=== PATIENT | female | born 1990 | race Caucasian/White ===

== ENCOUNTER → 2020-12-08 16:52 | Outpatient (CLI) | payer MEDICAID, SELFPAY ==
[2020-12-08 17:53] LABS: Absolute Lymphocyte Count 1.19 X10^3/uL (0.83-4.51); Absolute Neutrophil Count 4.5 X10^3/uL (2.0-7.7); Basophil# 0.03 X10^3/uL; Basophil% 0.5 % (0-1); Eosinophil# 0.16 X10^3/uL; Eosinophils% 2.5 % (0-5); Hematocrit 28.6 % (37-47); Lymphocyte # 1.19 X10^3/ul (4.0); Lymphocyte % 18.9 % (19-41); Mean Corpuscular Hgb 17.8 pg (27.0-32.0); Mean Corpuscular Volume 63.7 fL (81-99); Monocyte# 0.43 X10^3/uL; Monocyte% 6.8 % (0-10); NRBC Flagged by Analyzer 0 % (0-5); Neutrophil # 4.47 X10^3/uL (2.7-7.7); Platelet Count 349 K/mm3 (150-450); RBC Distribution Width CV 18.9 % (11.6-14.6); RET-HE 19.8 pg (30-35); Red Blood Count 4.49 M/mm3 (4.2-5.4); Reticulocyte Count 1.35 % (0.5-1.5); White Blood Count 6.3 K/mm3 (4.4-11.0)
[2020-12-08 17:56] LABS: Microalbumin,Random Urine 8.8 mg/L (NO RANGE EST.); Microalbumin:Creatinine Ratio 9.9 mg/g CRE (<30 mg/g CRE)
[2020-12-08 18:38] LABS: Vitamin B12 634 pg/mL (211-911)
[2020-12-08 18:50] LABS: AST(SGOT) 19 U/L (15-37); Alanine Aminotransfer ALT/SGPT 25 U/L (13-56); Alkaline Phosphatase 60 U/L (45-117); Anion Gap 6 (5-15); BUN 9 mg/dL (7-18); BUN/Creat Ratio 15.5 RATIO (10-20); Calcium,Total 8.7 mg/dL (8.5-10.1); Chloride 107 mmol/L (98-107); Cholesterol 163 mg/dL (200); Creatinine, Serum 0.58 mg/dL (0.55-1.02); EST Glomerular Filtration Rate 129 mL/min (>60); Est Glom Filt Rate - Afr Amer 156 mL/min (>60); Ferritin 3 ng/mL (8-252); Glucose 84 mg/dL (74-106); High Density Lipoprotein 35 mg/dL; Iron 20 ug/dL (50-170); Iron Binding Capacity,Total 462 ug/dL (250-450); Potassium 4.1 mmol/L (3.5-5.1); Sodium Level 138 mmol/L (136-145); T4 Free Direct 1.28 ng/dL (0.76-1.46); Thyroid Stim Hormone (TSH) 1.51 uIU/mL (0.358-3.74); Triglycerides 122 mg/dL; Very Low Density Lipoprotein 24 mg/dL (5-40)
== END ==
PROVIDERS: Visit Provider Family Medicine
DX: D64.9 Anemia, unspecified (principal); E66.9 Obesity, unspecified
CPT/HCPCS: 80053; 80061; 82043; 82570; 82607; 82728; 82746; 83540; 83550; 84439; 84443; 85025; 85045

== ENCOUNTER → 2020-12-24 08:45 | Outpatient (CLI) | payer MEDICAID, SELFPAY ==
[2020-12-24 10:14] LABS: Absolute Lymphocyte Count 1.19 X10^3/uL (0.83-4.51); Absolute Neutrophil Count 3.9 X10^3/uL (2.0-7.7); Basophil# 0.03 X10^3/uL; Basophil% 0.5 % (0-1); Eosinophils% 3.4 % (0-5); Hematocrit 30.3 % (37-47); Hemoglobin 8.6 g/dL (12.0-15.0); Lymphocyte # 1.19 X10^3/ul (4.0); Lymphocyte % 20.4 % (19-41); Mean Corp Hgb Conc 28.4 g/dL (32-36); Mean Corpuscular Hgb 18.2 pg (27.0-32.0); Mean Corpuscular Volume 64.1 fL (81-99); Mean Platelet Vol. 10.6 fl (6.2-12.0); Monocyte# 0.52 X10^3/uL; Monocyte% 8.9 % (0-10); NRBC Flagged by Analyzer 0 % (0-5); Neutrophil # 3.87 X10^3/uL (2.7-7.7); Neutrophil % 66.5 % (47-70); Platelet Count 307 K/mm3 (150-450); RBC Distribution Width CV 18.7 % (11.6-14.6); RBC Distribution Width SD 42.6 fl (35.1-43.9); Red Blood Count 4.73 M/mm3 (4.2-5.4); White Blood Count 5.8 K/mm3 (4.4-11.0)
[2020-12-24 10:58] LABS: Ferritin 2 ng/mL (8-252); Iron 16 ug/dL (50-170); Iron Binding Capacity,Total 451 ug/dL (250-450)
== END ==
PROVIDERS: PCP Family Medicine; Referring Provider Family Medicine; Visit Provider Family Medicine
DX: D50.9 Iron deficiency anemia, unspecified (principal)
CPT/HCPCS: 36415; 82728; 83540; 83550; 85025

== ENCOUNTER → 2021-01-01 10:34 | Outpatient (CLI) | payer MEDICAID, SELFPAY ==
--- NOTE | 2021-01-01 10:39 | ECHOCS_ITS ---
Reason For Study: Murmur Procedure This was a 2D Doppler, Color Flow transthoracic echocardiogram. The study was technically difficult. Contrast injection was performed. Bubble study done twice, second time with cough. Exam performed in department. Left Ventricle Normal LV size. Left ventricular systolic function is normal. The estimated ejection fraction is 65 %. Normal diastology for age. No regional wall motion abnormalities noted. Right Ventricle Normal RV size. Normal systolic function. Atria Normal left atrium. Normal right atrium. Patent foramen ovale. Mitral Valve Normal mitral valve. Tricuspid Valve Normal tricuspid valve. Aortic Valve Normal aortic valve. Pulmonic Valve Normal pulmonic valve. Great Vessels Normal aortic root. The pulmonary artery is normal size. Normal inferior vena cava. Pericardium/Pleural No pericardial effusion. Medication 22 gauge I.V. with prn adaptor inserted into right arm. Diluted definity 2ml given slow IV push to enhance endocardial definition. Performed a rapid injection of agitated mix of 9 cc saline and 1cc air to assess for atrial septal defect. MMode/2D Measurements & Calculations LVIDd: 4.0 cm IVSd: 1.2 cm LA dimension: 4.1 cm LVIDs: 2.1 cm LVPWd: 1.2 cm RVDd: 3.6 cm FS: 47.1 % LAV(MOD-bp): 43.7 ml LA A4 area: 17.9 cm2 RA A4 area: 16.4 cm2 LAV(MOD-bp) Indexed: 24.4 ml/m2 LAV(MOD-sp2): 32.7 ml LAV(MOD-sp4): 50.1 ml Time Measurements MV dec time: 0.23 sec Doppler Measurements & Calculations MV E max woo: 110.8 cm/sec Lat Peak E' Woo: 17.2 cm/sec Med Peak E' Woo: 15.4 cm/sec MV A max woo: 96.5 cm/sec E/E' lat: 6.4 E/E' med: 7.2 MV E/A: 1.1 MV V2 max: 118.4 cm/sec MV P1/2t max woo: 118.4 cm/sec Ao V2 max: 152.2 cm/sec MV max P.6 mmHg MV P1/2t: 59.3 msec Ao max P.3 mmHg MV V2 mean: 70.9 cm/sec MV dec slope: 584.8 cm/sec2 MV mean P.4 mmHg MV V2 VTI: 28.3 cm MVA(P1/2t): 3.7 cm2 LV V1 max: 137.5 cm/sec PA V2 max: 183.0 cm/sec LV V1 max P.6 mmHg Interpretation Summary Normal LV size. Left ventricular systolic function is normal. The estimated ejection fraction is 65 %. Normal diastology for age. Patent foramen ovale. Structurally normal valves. Contrast injection was performed. Ordering Physician: Joe Coleman Referring Physician: Joe Coleman Performed By: Curtis Mejia RCS
== END ==
PROVIDERS: PCP Family Medicine; Visit Provider Family Medicine
DX: R01.1 Cardiac murmur, unspecified (principal)
CPT/HCPCS: 93306; Q9957; A4216; C8929

== ENCOUNTER → 2021-03-23 08:27 | Outpatient (CLI) | payer MEDICAID, SELFPAY ==
[2021-03-04 16:22] VITALS: BMI 39.9
[2021-03-23 10:21] LABS: Erythrocyte Sedimentation Rate 10 mm/hr (0-30)
[2021-03-23 10:24] LABS: Absolute Lymphocyte Count 1.59 X10^3/uL (0.83-4.51); Absolute Neutrophil Count 5.6 X10^3/uL (2.0-7.7); Basophil# 0.03 X10^3/uL; Basophil% 0.4 % (0-1); Eosinophil# 0.14 X10^3/uL; Eosinophils% 1.8 % (0-5); Hematocrit 40.3 % (37-47); Hemoglobin 13.1 g/dL (12.0-15.0); Lymphocyte # 1.59 X10^3/ul (0.83-4.51); Lymphocyte % 20.1 % (19-41); Mean Corp Hgb Conc 32.5 g/dL (32-36); Mean Corpuscular Hgb 25.2 pg (27.0-32.0); Mean Corpuscular Volume 77.5 fL (81-99); Mean Platelet Vol. 11.4 fl (6.2-12.0); Monocyte# 0.57 X10^3/uL; Monocyte% 7.2 % (0-10); NRBC Flagged by Analyzer 0 % (0-5); Neutrophil # 5.55 X10^3/uL (2.7-7.7); Neutrophil % 70.2 % (47-70); Platelet Count 308 K/mm3 (150-450); White Blood Count 7.9 K/mm3 (4.4-11.0)
[2021-03-23 10:57] LABS: ALB/GLOB Ratio 0.9 RATIO (0.9-2.4); AST(SGOT) 16 U/L (15-37); Alanine Aminotransfer ALT/SGPT 30 U/L (13-56); Albumin, Serum 3.7 g/dL (3.2-5.0); Alkaline Phosphatase 54 U/L (45-117); Anion Gap 5 (5-15); BUN 8 mg/dL (7-18); BUN/Creat Ratio 11.6 RATIO (10-20); Chloride 108 mmol/L (98-107); Creatinine, Serum 0.69 mg/dL (0.55-1.02); EST Glomerular Filtration Rate 105 mL/min (>60); Est Glom Filt Rate - Afr Amer 128 mL/min (>60); Ferritin 17 ng/mL (8-252); Glucose 91 mg/dL (74-106); Iron 55 ug/dL (50-170); Iron Binding Capacity,Total 349 ug/dL (250-450); Magnesium 2.2 mg/dL (1.6-2.6); Potassium 4.1 mmol/L (3.5-5.1); Protein, Total 7.7 g/dL (6.4-8.2); Rheumatoid Factor < 10.0 IU/mL (<15); Sodium Level 136 mmol/L (136-145)
[2021-03-24 16:46] LABS: ANTINUCLEAR ANTIBODIES DIRECT Negative (Negative)
== END ==
PROVIDERS: PCP Family Medicine; Referring Provider Family Medicine; Visit Provider Family Medicine
DX: M25.50 Pain in unspecified joint (principal); D50.9 Iron deficiency anemia, unspecified; R00.2 Palpitations
CPT/HCPCS: 36415; 80053; 82728; 83540; 83550; 83735; 85025; 85652; 86038; 86431

== ENCOUNTER → 2021-08-12 | Outpatient (CLI) | payer MEDICAID, SELFPAY | END | disposition home or self-care (01) | LOC: LABSPEC 11:12 | PROVIDERS: PCP Family Medicine; Referring Provider Physician Assistant; Visit Provider Physician Assistant | DX: Z11.52 Encounter for screening for COVID-19 (principal) | CPT/HCPCS: 87635; U0005; U0003 ==

== ENCOUNTER → 2021-10-21 15:47 | Outpatient (CLI) | payer MEDICAID, SELFPAY ==
--- NOTE | 2021-10-21 15:51 | RAD_ITS ---
STUDY: X-RAY - RIGHT KNEE REASON FOR EXAM: Female, 31 years old. Pain TECHNIQUE: 4 view(s) of the knee. COMPARISON: None. FINDINGS: Normal visualized distal femur. Normal visualized proximal tibia and fibula. Normal proximal tibiofibular articulation. Normal medial femorotibial compartment. Normal lateral femorotibial compartment. Slight lateral tilting of the patella with mild narrowing at the lateral patellofemoral articulation. The soft tissue structures are unremarkable. RAD/Knee 4 or More Views IMPRESSION: Slight lateral tilting of the patella with mild narrowing at the lateral patellofemoral articulation. Electronically Signed: Ang Aden DO at 16:12 EST Tel [phone], Service support ,
== END ==
PROVIDERS: PCP Family Medicine; Referring Provider Nurse Practitioner Family; Visit Provider Nurse Practitioner Family
DX: M25.561 Pain in right knee (principal)
CPT/HCPCS: 73564

== ENCOUNTER 2022-08-09 15:21 | Emergency (ER) | payer MEDICAID, SELFPAY ==
[2022-08-09 15:22] VITALS: BP 122/83; PULSE 80; RESP 14; TEMP 36.8; O2SAT 100; BMI 33.2
--- NOTE | 2022-08-09 15:47 | CT_ITS ---
We are attempting to reach an attending provider to discuss findings. An addendum with communication details will be sent when the communication is complete. CT of the left forearm with contrast INDICATION: Arm swelling, pain, erythema, warmth TECHNIQUE: Multiple thin section axial CT images of the left forearm were obtained from the level of the elbow through the level of the wrist after the administration of 100 mL Isovue-300 intravenously and filmed in soft tissue and bone windows. Furthermore, multiple sagittal and coronal reconstructions were performed. Dose limiting techniques were utilized. FINDINGS: No abnormal soft tissue mass, lymphadenopathy, or fluid collection. There is skin thickening and edema of the subcutaneous fat posterior medially consistent with cellulitis. There is a 1.2 cm area of fluid contiguous with the skin surface posterior medially overlying the distal olecranon worrisome for phlegmon. No definite abscess. There is a 2 cm segment of the left basilic vein within the mid forearm which does not demonstrate contrast enhancement worrisome for deep venous thrombosis. There is another 1 cm segment of the distal left basilic vein at the wrist which does not demonstrate contrast enhancement worrisome for deep venous thrombosis. No acute fracture or dislocation. No lytic or blastic lesions. CT/Extremity Upper WITH Contrast IMPRESSION: 1. Cellulitis in the posterior medial forearm with small phlegmon superficially at the level of the distal olecranon of the ulna. 2. 2. Areas of deep venous thrombosis above the left basilic vein in the forearm. Electronically Signed: Glenn Pulido MD at 17:44 EDT ,
--- NOTE | 2022-08-09 15:53 | EDS_ITS ---
HPI History of Present Illness Chief Complaint: Wound Detail of Chief Complaint: Left elbow abscess Informant: patient Onset/Context/Timing Onset: Days (3 days) Context: Gradual Onset Current Severity: Moderate Maximum Severity: Moderate Narrative Narrative: Patient presents with left elbow wound of the past 3 days. She states 2 days ago she first noted small area of drainage. She was seen at the [facility] emergency room. Blood work there revealed normal white count. CT scan revealed a fluid collection. She declined hospital admission. She was given IV antibiotics in the ER and discharged on clindamycin 150 3 times daily. She was seen by a orthopedic doctor in [place] yesterday. She states an ultrasound was performed and there was no fluid collection found to drain. She was seen by her PCP today and given IM Rocephin in the office and directed to the emergency room for further testing. Patient denies any known injury. She does have good range of motion at the elbow. [facility] Medical History Abnormal echocardiogram Anemia Patent foramen ovale SVT (supraventricular tachycardia) Home Medications Saccharomyces boulardii 250 mg capsule (Daily Probiotic (S. boulardii)) 250 mg PO DAILY 03/02/21 [History Last Taken Unknown] ferrous sulfate 325 mg (65 mg iron) tablet (Feosol) 325 mg PO DAILY 03/04/21 [History Last Taken Unknown] aspirin 81 mg tablet,delayed release (Adult Low Dose Aspirin) 81 mg PO DAILY 03/19/21 [History Last Taken Unknown] metoprolol succinate 50 mg tablet,extended release 24 hr 50 mg PO DAILY #30 tabs 03/02/22 [Rx Last Taken Unknown] apixaban 5 mg (74 tabs) tablets in a dose pack (Eliquis DVT-PE Treat 30D Start) 5 mg PO BID #74 tabs 08/09/22 [Rx Last Taken Unknown] cephalexin 500 mg capsule 500 mg PO Q6 #40 caps 08/09/22 [Rx Last Taken Unknown] hydrocodone-acetaminophen 5-325mg 5mg-325mg 1 tab PO Q6H PRN pain 3 days #10 tabs 08/09/22 [Rx Last Taken Unknown] sulfamethoxazole 800 mg-trimethoprim 160 mg tablet (Bactrim DS) 1 tab PO BID #20 tabs 08/09/22 [Rx Last Taken Unknown] Allergy/AdvReac Type Severity Reaction Status Date / Time adhesive tape Allergy Other Verified 08/09/22 15:35 Family History Grandmother Heart disease Surgical History H/O section History of cholecystectomy Social History Smoking Status: Current every day smoker tobacco type: cigarettes alcohol intake: current details: occasional substance use type: does not use caffeine: Yes Type: coffee Number of servings: 4 ROS ROS ED Constitutional Constitutional ED: Denies chills or fever(s) Eyes Eyes: Denies change in vision or discharge from eye(s) ENT ENT ED: Denies discharge from eye(s), rhinorrhea or sore throat Cardiovascular Cardiovascular: Denies chest pain or palpitations Respiratory/Chest Respiratory/Chest: Denies cough or dyspnea Gastrointestinal Gastrointestinal: Denies abdominal pain, diarrhea, nausea or vomiting Genitourinary Genitourinary ED: Denies difficulty urinating or dysuria Musculoskeletal Musculoskeletal: Reports extremity pain; Denies back pain Integumentary Reports other Details: Eschar extensor surface of left elbow ; Denies Abrasions or rash Neurologic Neurologic: Denies headache(s) or weakness Psychiatric Psychiatric: Denies anxiety or depression Allergic/Immunologic Allergic/Immunologic ED: Denies lip swelling or urticaria EXAM Physical Exam Const Vital Signs: 08/09/22 15:22 08/09/22 17:30 Temperature 98.2 F Temperature Source Temporal Pulse Rate 80 72 Respiratory Rate 14 18 Blood Pressure 122/83 H 139/77 H Blood Pressure Mean 96 97 Pulse Ox 100 99 Oxygen Delivery Method Room Air Room Air Positive well nourished and well developed General Appearance ED: well developed HEENT Reports normocephalic and head/scalp atraumatic Eyes PERRL and EOMs intact bilaterally Neck supple Chest Wall inspection of chest normal and palpation of chest normal Resp normal respiratory effort and clear to auscultation bilaterally Cardio regular rate and regular rhythm GI normal to inspection, nondistended, normoactive bowel sounds Palpation: soft Extremity Extremity Narrative: Eschar over the extensor surface of the left elbow. Surrounding erythema and edema. Good range of motion at the elbow. Strong distal pulses with strong hand grasp. Neuro oriented x3 and no sensory deficits noted Sensorium / Orientation: alert Motor Exam: strength 5/5 throughout Psych mental status grossly normal MDM MDM MDM Narrative Medical decision making narrative: Lab work sent along with blood cultures. CT scan of the left upper extremity obtained. Lab Data Labs: Laboratory Results - last 24 hr 08/09/22 08/09/22 08/09/22 16:10 16:10 16:10 WBC 8.6 RBC 4.56 Hgb 12.5 Hct 38.4 MCV 84.2 MCH 27.4 MCHC 32.6 RDW Std Deviation 40.8 RDW Coeff of Nan 13.2 Plt Count 259 MPV 11.1 Immature Gran % (Auto) 0.400 Neut % (Auto) 70.7 H Lymph % (Auto) 18.3 L Dent % (Auto) 9.1 Eos % (Auto) 1.1 Baso % (Auto) 0.4 Absolute Neuts (auto) 6.1 Absolute Lymphs (auto) 1.57 Nucleated RBC % 0 Sodium 139 Potassium 4.1 Chloride 105 Carbon Dioxide 28.0 Anion Gap 6 BUN 8 Creatinine 0.64 Estim Creat Clear Calc 140.14 Est GFR (MDRD) Af Amer 140 Est GFR (MDRD) Non-Af 115 BUN/Creatinine Ratio 12.6 Glucose 88 Calcium 9.4 Serum , Qual NEGATIVE Radiography Diagnostic Testing: Clinical Impression(s) from Imaging Studies Upper Extremity CT 08/09/22 15:47 IMPRESSION: 1. Cellulitis in the posterior medial forearm with small phlegmon superficially at the level of the distal olecranon of the ulna. 2. 2. Areas of deep venous thrombosis above the left basilic vein in the forearm. Electronically Signed: Glenn Pulido MD at 17:44 EDT , ADDENDUM: 08/09/22 2393 IMPRESSION: 1. Cellulitis in the posterior medial forearm with small phlegmon superficially at the level of the distal olecranon of the ulna. 2. 2. Areas of deep venous thrombosis above the left basilic vein in the forearm. N.B. : The above Results were Read Back by Glenn Pulido MD to Dr. Eneida Ash MD, and understanding confirmed on 08/09/2022 17:48:03 (ET). Electronically Signed: Glenn Pulido MD at 17:44 EDT , Treatment and Re-Evaluation Narrative: Lab work is unremarkable. CT scan shows cellulitis and a small phlegmon. There are 2 DVTs noted in the forearm. Patient was given a dose of Toradol and a small dose of morphine for pain. Test results discussed with Dr. Alarcon, on- call for orthopedics as well as Dr. Parekh, on-call for PCP. Patient be switched to Bactrim and Keflex for proper antibiotic coverage. She will also be started on Eliquis secondary to the DVTs. I will write her a short course of [place] to help with pain control. Discharge Plan Triage Chief Complaint: Wound ED Provider: Eneida Ash Dx/Rx/DC Orders Clinical Impression: Cellulitis, Phlegmon, DVT (deep venous thrombosis) Instructions: ED Cellulitis, ED Deep Vein Thrombosis (DVT) Prescriptions: New sulfamethoxazole-trimethoprim [Bactrim DS] 800-160 mg tablet 1 tab PO BID Qty: 20 0RF cephalexin 500 mg capsule 500 mg PO Q6 Qty: 40 0RF Eliquis DVT-PE Treat 30D Start 5 mg (74 tabs) tablets,dose pack 5 mg PO BID Qty: 74 0RF hydrocodone-acetaminophen 5-325 mg tablet 1 tab PO Q6H PRN (Reason: pain) 3 Days Qty: 10 0RF No Action ferrous sulfate [Feosol] 325 mg (65 mg iron) tablet 325 mg PO DAILY Saccharomyces boulardii [Daily Probiotic (S. boulardii)] 250 mg capsule 250 mg PO DAILY aspirin [Adult Low Dose Aspirin] 81 mg tablet,delayed release (DR/EC) 81 mg PO DAILY metoprolol succinate 50 mg tablet extended release 24 hr 50 mg PO DAILY Qty: 30 12RF Primary Care Provider: Joe Coleman Referrals: Joe Coleman MD [Primary Care Provider] - 1 Week Papa Alarcon DO [Med Staff - Active Staff] - 3-5 Days Disposition Disposition: Home, Self Care
[2022-08-09] MEDS: 0.9% Normal Saline 1,000 ML 150 ML IV (16:11)
[2022-08-09 16:32] LABS: Absolute Lymphocyte Count 1.57 X10^3/uL (0.83-4.51); Absolute Neutrophil Count 6.1 X10^3/uL (2.0-7.7); Basophil# 0.03 X10^3/uL; Basophil% 0.4 % (0-1); Eosinophil# 0.09 X10^3/uL; Eosinophils% 1.1 % (0-5); Hematocrit 38.4 % (37-47); Hemoglobin 12.5 g/dL (12.0-15.0); Lymphocyte # 1.57 X10^3/ul (0.83-4.51); Lymphocyte % 18.3 % (19-41); Mean Corp Hgb Conc 32.6 g/dL (32-36); Mean Corpuscular Hgb 27.4 pg (27.0-32.0); Mean Corpuscular Volume 84.2 fL (81-99); Mean Platelet Vol. 11.1 fl (6.2-12.0); Monocyte# 0.78 X10^3/uL; Monocyte% 9.1 % (0-10); NRBC Flagged by Analyzer 0 % (0-5); Neutrophil # 6.06 X10^3/uL (2.7-7.7); Neutrophil % 70.7 % (47-70); Platelet Count 259 K/mm3 (150-450); RBC Distribution Width CV 13.2 % (11.6-14.6); RBC Distribution Width SD 40.8 fl (35.1-43.9); Red Blood Count 4.56 M/mm3 (4.2-5.4); White Blood Count 8.6 K/mm3 (4.4-11.0)
[2022-08-09 16:56] LABS: Internal QC Validated? YES +Cl - CLEAR BKGD; Pregnancy, Serum, hCG Quali. NEGATIVE Negative
[2022-08-09 17:02] LABS: Anion Gap 6 (5-15); BUN 8 mg/dL (7-18); BUN/Creat Ratio 12.6 RATIO (10-20); Calcium,Total 9.4 mg/dL (8.5-10.1); Chloride 105 mmol/L (98-107); Creatinine, Serum 0.64 mg/dL (0.55-1.02); EST Glomerular Filtration Rate 115 mL/min (>60); Est Glom Filt Rate - Afr Amer 140 mL/min (>60); Estimated Creatinine Clearance 140.14 ml/min; Glucose 88 mg/dL (74-106); Potassium 4.1 mmol/L (3.5-5.1); Sodium Level 139 mmol/L (136-145)
[2022-08-09 17:30] VITALS: BP 139/77; PULSE 72; RESP 18; O2SAT 99
[2022-08-09] MEDS: Ketorolac 30 MG/ML Syringe IV (17:50)
[2022-08-09] MEDS: HYDROcodone Bitartrate/Apap 5/325 Tablet PO (18:43)
[2022-08-09] MEDS: Cephalexin 250 MG Capsule 500 MG PO (18:43)
[2022-08-09] MEDS: Smz/Tmp Ds Tablet 1 TABLET PO (18:43)
[2022-08-09 18:44] VITALS: BP 144/96; PULSE 80; RESP 18; O2SAT 99
== END 2022-08-09 19:02 | disposition home or self-care (01) ==
PROVIDERS: Emergency Provider Emergency Medicine; PCP Family Medicine; Visit Provider Emergency Medicine
DX: L02.414 Cutaneous abscess of left upper limb (principal); I82.622 Acute embolism and thrombosis of deep veins of left upper extremity; L03.90 Cellulitis, unspecified; F17.210 Nicotine dependence, cigarettes, uncomplicated; Z79.82 Long term (current) use of aspirin
CPT/HCPCS: 36415; 73201; 80048; 84703; 85025; 87040; 96361; 96374; 96375; 99283; J7030; Q9967; A4216

== ENCOUNTER 2022-09-07 09:15 | Outpatient (RCR) | payer MEDICAID, SELFPAY ==
[2022-08-17 09:06] VITALS: BP 118/72; PULSE 77; RESP 16; TEMP 36.3; BMI 33.5
--- NOTE | 2022-08-17 09:50 | HP.PCM_ITS ---
History of Present Illness Date of Service: 08/17/22 Chief Complaint: Left elbow/proximal forearm wound History of Wound: 31 year old female who presents for evaluation of a wound on her left elbow/proximal forearm. On 08/07/22 she started with a red, painful area on her left elbow that had a black center. She went to the ED in [place] where they did a CT scan that revealed a fluid collection, gave her IV antibiotics and discharged her on clindamycin. She then was seen by an orthopedic doctor in 08/08/22. She states an ultrasound was performed and there was no fluid collection found to drain. She was seen by her PCP 08/09/22 for increased left forearm pain, swelling and redness and given IM Rocephin in the office and directed to the emergency room for further testing, which a CT was performed and it showed Cellulitis in the posterior medial forearm with small phlegmon superficially at the level of the distal olecranon of the ulna. AND areas of deep venous thrombosis above the left basilic vein in the forearm. She was then started on Bactrim, Keflex and Eliquis for the cellulitis and the DVT. She then followed up with [facility] and was referred to the wound healing center. Today she denies fever, chills, nausea or vomiting. She states her appetite is good. Progress of Wound: Left elbow wound with non viable tissue present over the ulcer. No redness present but left arm has some swelling. [facility] Medical History (Reviewed 08/19/22 @ 17:10 by Swapna Coates URGENT CARE NURSE PRACTITIONER, URGENT CARE NURSE PRACTITIONER-C) Abnormal echocardiogram Anemia Patent foramen ovale SVT (supraventricular tachycardia) Home Medications Saccharomyces boulardii 250 mg capsule (Daily Probiotic (S. boulardii)) 250 mg PO DAILY 03/02/21 [History Last Taken Unknown] ferrous sulfate 325 mg (65 mg iron) tablet (Feosol) 325 mg PO DAILY 03/04/21 [History Last Taken Unknown] aspirin 81 mg tablet,delayed release (Adult Low Dose Aspirin) 81 mg PO DAILY 03/19/21 [History Last Taken Unknown] metoprolol succinate 50 mg tablet,extended release 24 hr 50 mg PO DAILY #30 tabs 03/02/22 [Rx Last Taken Unknown] apixaban 5 mg (74 tabs) tablets in a dose pack (Eliquis DVT-PE Treat 30D Start) 5 mg PO BID #74 tabs 08/09/22 [Rx Last Taken Unknown] cephalexin 500 mg capsule 500 mg PO Q6 #40 caps 08/09/22 [Rx Last Taken Unknown] hydrocodone-acetaminophen 5-325mg 5mg-325mg 1 tab PO Q6H PRN pain 3 days #10 tabs 08/09/22 [Rx Last Taken Unknown] sulfamethoxazole 800 mg-trimethoprim 160 mg tablet (Bactrim DS) 1 tab PO BID #20 tabs 08/09/22 [Rx Last Taken Unknown] Allergy/AdvReac Type Severity Reaction Status Date / Time adhesive tape Allergy Other Verified 08/17/22 09:20 Family History (Reviewed 08/19/22 @ 17:10 by Swapna Coates URGENT CARE NURSE PRACTITIONER, URGENT CARE NURSE PRACTITIONER-C) Grandmother Heart disease Surgical History H/O section History of cholecystectomy Social History Smoking Status: Current every day smoker tobacco type: cigarettes alcohol intake: current details: occasional substance use type: does not use caffeine: Yes Type: coffee Number of servings: 4 ROS Constitutional Constitutional: Denies chills or headache(s) Eyes Eyes: Reports none ENT HEENT: Reports none Cardiovascular Cardiovascular: Denies chest pain or dyspnea Respiratory/Chest Respiratory/Chest: Reports none Gastrointestinal Gastrointestinal: Reports none Genitourinary Genitourinary: Reports none Musculoskeletal Musculoskeletal: Reports none Integumentary Integumentary: Reports as per HPI and wounds Neurologic Neurologic: Reports systems reviewed and no addt'l complaints, except as documented Psychiatric Psychiatric: Reports none Endocrine Endocrinology: Reports none Vital Signs Vital Signs Vital Signs: 08/17/22 09:06 Temperature 97.4 F L Temperature Source Temporal Pulse Rate 77 Respiratory Rate 16 Blood Pressure 118/72 Blood Pressure Mean 87 Blood Pressure Source Monitor Blood Pressure Position Sitting Blood Pressure Location Left Arm Oxygen Delivery Method Room Air Weight Weight: 155 lb Body Mass Index (BMI) 33.5 Physical Exam Const alert and oriented x3 General Appearance: cooperative HEENT normocephalic Eyes PERRL Neck full ROM Lymph Lymphatic: no lymphedema noted Resp normal respiratory effort, normal air movement and clear to auscultation bilaterally Cardio regular rate and regular rhythm GI normal to inspection, nondistended, normoactive bowel sounds and soft to palpation Extremity full ROM and normal capillary refill Extremity Narrative: Left arm edema +1 Peripheral Pulses: Yes radial pulses present Skin Wound Narrative: Left elbow/proximal forearm wound with faria, non viable tissue present. No redness. Neuro oriented x3 Psych mental status grossly normal and thought process normal Appearance: grossly normal Debridement Note Debridement Note Wound debrided: elbow/proximal forearm Laterality: Left Wound Grade/Stage: Stage III Type of Debridement: Excisional debridement Anesthesia Used: 5% Lidocaine Gel Depth: Down to and including healthy tissue and in the subcutaneous layer Percentage of wound debrided: 100 Instrument Used: - (Scissors and pick ups) Tissue Removed: Devitalized tissue and slough Severity: Fat Layer Exposed Amount of bleeding with debridement: Mild Bleeding Controlled with: Compression and gauze Patient tolerated procedure: Patient tolerated procedure well Post-Debridement Measurements and Additional Note: Post-Debridement Measurements/Treatment - Nurse 1 - General Ulcer Assessment Start: 08/17/22 09:05 Freq: Status: Active Protocol: RASHI Activity Type Activity Date Activity User E-sign Co-sign Detail Recorded Client Recorded Date Recorded By Document 08/17/22 09:06 [facility] [id number] 08/17/22 09:16 [facility] 08/17/22 09:06 - Today's Visit Information Type of service Initial Visit Arrival Mode Ambulatory Transfer Assistance None Patient Identification Verified (Name & Yes ) Patient Requires Transmission-Based No Precautions Height and Weight Height 4 ft 9 in Weight 155 lb Weight in Pounds 155.0 lbs Body Mass Index (BMI) 33.5 BMI Classification Obese BSA - [place] 1.61 Vital Signs Temperature (97.8 F-99.1 F) 97.4 F L Temperature Source Temporal Pulse Rate (60-100) 77 Pulse Location Monitor Respiratory Rate (12-18) 16 Respiratory rate source Observation Oxygen Delivery Method Room Air Blood Pressure (90/60-120/80) 118/72 Blood Pressure Mean 87 Source Monitor Position Sitting Blood Pressure Location Left Arm History Since Last Visit- (Skip if this is Patient's initial visit) Left Footwear Regular Shoe Right Footwear Regular Shoe Pain Scale: 0-10 Numeric Is Patient Pain Free? No wound -Description Burning -Intensity 7 -Duration (hours) Chronic -Pain Behavior No Change in Behavior -Pain Aggravating Factors Sitting -Alleviating Factors/Interventions Distraction, Will continue to monitor, Patient denies need for intervention, Emotional Support Communication Assessment Preferred language Argentine Care Associate Required No Able to Read Yes Able to Write Yes Communication Tools None Right Hearing Abillity Normal Left Hearing Abillity Normal Visual Assistive Devices None Teaching Assessment Preferences Verbal,Written, Audio/Visual, Demonstration Barriers to Learning None Readiness To Learn Excellent Willingness to Engage in Self Management High Activies Readiness to Engage in Self Management High Activities Anxiety Level Calm Cooperation Cooperative Perception Coherent Interest in Health Problem Asks Questions Education Importance Acknowledges Need Does Patient Smoke tobacco or other No substances Smoking Status Current every day smoker Is Patient Diabetic No Functional Assessment Recent Decline in Ability to Perform Denies Any Declines Culture/Yazdanism/[employer] Supervisor Cultural/Yazdanism Needs that may affect No Treatment Plan Teaching: Wound Center *Welcome to the Wound Center -Person Taught Patient -Teaching Method Discussion -Response to teaching Verbalize understanding Welcome to the Wound Care Center English MONTOYA - Nurse 1 - General Ulcer Measurement Start: 08/17/22 09:05 Freq: Status: Active Protocol: Activity Type Activity Date Activity User E-sign Co-sign Detail Recorded Client Recorded Date Recorded By Document 08/17/22 09:06 [facility] [id number] 08/17/22 09:16 [facility] 08/17/22 09:06 Wound Center Nurse 1 #1- L ELBOW -Combined with other wound No -Current Size (cm) - Length 0.8 -Current Size (cm) - Width 1.3 -Current Size (cm) - Depth 0.2 -Total Square Cm 1.04 -Date of Last Picture (Recall this 08/17/22 field) -Photo Taken Yes -Epithelialization None Present -Tunneling No -Undermining/Tunneling No -Circular Undermining No -Exudate Amt Medium -Exudate Type Serous -Wound Margin Distinct, Outline Attached -Granulation Amt None Present (0 %) -Slough/Fibrin Yes -Necrosis Amt Large (67-100%) -Necrotic Tissue Type Adherent Slough -Texture (Iman-wound Skin Appearance) Assessed, Scarring -Moisture (Iman-wound Skin Appearance) Assessed -Color (Iman-wound Skin Appearance) Assessed, Erythema -Temperature (Iman-wound Skin No Abnormality Appearance) (Pt Warm) -Tenderness on Palpation (Iman-wound Yes Skin Appearance) -Ulcer Cleansing Rinsed/ Irrigated with Saline -Foul Odor after Cleansing No -Anesthetic Used 5% Lidocaine Gel WC - Nurse 2 - General Ulcer CM Notes Start: 08/17/22 09:05 Freq: Status: Active Protocol: Activity Type Activity Date Activity User E-sign Co-sign Detail Recorded Client Recorded Date Recorded By Document 08/17/22 09:37 [id number] 08/17/22 09:40 KEM 08/17/22 09:37 Wound Center Nurse 2 -Time 09:37 -Correct Patient Yes -Correct Side, Site, Position Yes -Correct Procedure Yes -Procedure Performed Yes -Type of Procedure Debridement -Clinical Debridement Subcutaneous -Tissue Removed Subcutaneous -Post Debridement (cm) - Length 1.0 -Post Debridement (cm) - Width 1.8 -Post Debridement (cm) - Depth 0.4 -Total Square (Post) (cm) 1.80 -Area of Debridement (cm) - Length 1.0 -Area of Debridement (cm) - Width 1.8 -Total Square (Area) (cm) 1.80 -Tunneling No -Undermining/Tunneling No -Circular Undermining No -Wound/Ulcer Outcome Not Healed -Ulcer Cleansing Rinsed/ Irrigated with Saline -Foul Odor after Cleansing No -Bioengineered Tissue No -Bleeding Controlled with Pressure -Treatment Response Procedure Tolerated Well -Offloading No -Debridement - Subq, 1st 20sq cm Yes Pain Scale: 0-10 Numeric Is Patient Pain Free? Yes Charges/Coding Visit Charges Office Visits / Consults: 92510 OV L3 Est (25 modifier) Procedures Integumentary [id number]: [id number] Erin subq tissue 20 sq cm/< Assessment/Plan Assessment/Plan (1) Abscess of left elbow: CODE(S): L02.414 - Cutaneous abscess of left upper limb (2) Open wound of left elbow: CODE(S): S51.002A - Unspecified open wound of left elbow, initial encounter (3) Deep vein thrombosis (DVT) of left upper extremity: CODE(S): I82.622 - Acute embolism and thrombosis of deep veins of left upper extremity (4) Cellulitis of left upper extremity: CODE(S): L03.114 - Cellulitis of left upper limb PLAN: Plan Patient was evaluated at the wound healing center today. A subcutaneous debridement was performed as previously documented. Wound care - Aquacel-Ag wicked into the base of the wound and covered with [place] SAP daily after washing with soap and water. Compression - Single Tubigrip to the left upper extremity. Continue antibiotics that were previously prescribed for the cellulitis. Continue Eliquis that was prescribed for DVT. Follow up one week. Call or come in sooner if develop any concerns.
[2022-08-24 09:10] VITALS: BP 126/81; PULSE 78; RESP 18; TEMP 36.1; BMI 33.5
--- NOTE | 2022-08-24 10:28 | PN.PCM_ITS ---
History of Present Illness Date of Service: 08/24/22 Chief Complaint: Left elbow/proximal forearm wound History of Wound: 31 year old female who presents for evaluation of a wound on her left elbow/proximal forearm. On 08/07/22 she started with a red, painful area on her left elbow that had a black center. She went to the ED in [place] where they did a CT scan that revealed a fluid collection, gave her IV antibiotics and discharged her on clindamycin. She then was seen by an orthopedic doctor in 08/08/22. She states an ultrasound was performed and there was no fluid collection found to drain. She was seen by her PCP 08/09/22 for increased left forearm pain, swelling and redness and given IM Rocephin in the office and directed to the emergency room for further testing, which a CT was performed and it showed Cellulitis in the posterior medial forearm with small phlegmon superficially at the level of the distal olecranon of the ulna. AND areas of deep venous thrombosis above the left basilic vein in the forearm. She was then started on Bactrim, Keflex and Eliquis for the cellulitis and the DVT. She then followed up with [facility] and was referred to the wound healing center. Today she denies fever, chills, nausea or vomiting. She states her appetite is good. Progress of Wound: Left elbow wound is smaller is size and depth. The base of the wound is beefy pink. No erythema on iman wound. Left arm swelling has improved. Objective Data Objective Data Vital Signs: Vital Signs Temp Pulse Resp BP O2 Del Method 97 F L 78 18 126/81 H Room Air 08/24/22 09:10 08/24/22 09:10 08/24/22 09:10 08/24/22 09:10 08/17/22 09:06 Oxygen Delivery Method Room Air Weight: 155 lb Body Mass Index (BMI) 33.5 Charges/Coding Procedures Integumentary 111xxx-113xx: 77964 Erin subq tissue 20 sq cm/< Debridement Note Debridement Note Wound debrided: elbow/proximal forearm Laterality: Left Wound Grade/Stage: Stage III Type of Debridement: Excisional debridement Anesthesia Used: 5% Lidocaine Gel Depth: Down to and including healthy tissue and in the subcutaneous layer Percentage of wound debrided: 100 Instrument Used: 3mm curette Tissue Removed: Devitalized tissue and slough Severity: Fat Layer Exposed Amount of bleeding with debridement: Mild Bleeding Controlled with: Compression and gauze Patient tolerated procedure: Patient tolerated procedure well Post-Debridement Measurements and Additional Note: Post-Debridement Measurements/Treatment - Nurse 1 - General Ulcer Assessment Start: 08/17/22 09:05 Freq: Status: Active Protocol: MARIETTAT Activity Type Activity Date Activity User E-sign Co-sign Detail Recorded Client Recorded Date Recorded By Document 08/17/22 09:06 [facility] [id number] 08/17/22 09:16 [facility] Document 08/24/22 09:10 [id number] 08/24/22 09:12 RB 08/17/22 08/24/22 09:06 09:10 - Today's Visit Information Type of service Initial Visit Follow-up Visit (Physician/CLIENT SUPPORT ADMINISTRATOR ) Arrival Mode Ambulatory Ambulatory Transfer Assistance None None Patient Identification Verified (Name & Yes Yes ) Patient Requires Transmission-Based No No Precautions Height and Weight Height 4 ft 9 in Weight 155 lb Weight in Pounds 155.0 lbs Body Mass Index (BMI) 33.5 33.5 BMI Classification Obese Obese BSA - [place]urel 1.61 Vital Signs Temperature (97.8 F-99.1 F) 97.4 F L 97 F L Temperature Source Temporal Temporal Pulse Rate (60-100) 77 78 Pulse Location Monitor Monitor Respiratory Rate (12-18) 16 18 Respiratory rate source Observation Observation Oxygen Delivery Method Room Air Blood Pressure (90/60-120/80) 118/72 126/81 H Blood Pressure Mean (mm Hg) 87 96 Source Monitor Monitor Position Sitting Semi-Fowlers Blood Pressure Location Left Arm Left Arm History Since Last Visit- (Skip if this is Patient's initial visit) Have you changed medications since your No last visit? Any new allergies or adverse reactions No Had a fall/change in ADL's that may No increase risk of falls Signs or symptoms of abuse and/or No neglect since last visit Have you been in the hospital since your No last visit? Has dressing in place as prescribed Yes Has compression in place as prescribed No Has offloadiing in place as prescribed No Experienced any changes in pain level or No management Left Footwear Regular Shoe Right Footwear Regular Shoe Pain Scale: 0-10 Numeric Is Patient Pain Free? No Yes wound -Description Burning -Intensity 7 -Duration (hours) Chronic -Pain Behavior No Change in Behavior -Pain Aggravating Factors Sitting -Alleviating Factors/Interventions Distraction, Will continue to monitor, Patient denies need for intervention, Emotional Support Communication Assessment Preferred language Kiswahili Bone Plant Supervisor Required No Able to Read Yes Able to Write Yes Communication Tools None Right Hearing Abillity Normal Left Hearing Abillity Normal Visual Assistive Devices None Teaching Assessment Preferences Verbal,Written, Audio/Visual, Demonstration Barriers to Learning None Readiness To Learn Excellent Willingness to Engage in Self Management High Activies Readiness to Engage in Self Management High Activities Anxiety Level Calm Cooperation Cooperative Perception Coherent Interest in Health Problem Asks Questions Education Importance Acknowledges Need Does Patient Smoke tobacco or other No substances Smoking Status Current every day smoker Is Patient Diabetic No Functional Assessment Recent Decline in Ability to Perform Denies Any Declines 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 Cultural/Latter-Day Needs that may affect No Treatment Plan Teaching: Wound Center *Welcome to the Wound Center -Person Taught Patient -Teaching Method Discussion -Response to teaching Verbalize understanding Welcome to the Wound Care Center Kiswahili WC - Nurse 1 - General Ulcer Measurement Start: 08/17/22 09:05 Freq: Status: Active Protocol: Activity Type Activity Date Activity User E-sign Co-sign Detail Recorded Client Recorded Date Recorded By Document 08/17/22 09:06 [facility] [id number] 08/17/22 09:16 [facility] Document 08/24/22 09:10 [id number] 08/24/22 09:12 RB 08/17/22 08/24/22 09:06 09:10 Wound Center Nurse 1 #1- L ELBOW -Combined with other wound No No -Current Size (cm) - Length 0.8 0.5 -Current Size (cm) - Width 1.3 0.9 -Current Size (cm) - Depth 0.2 0.1 -Total Square Cm 1.04 0.45 -Date of Last Picture (Recall this 08/17/22 field) -Photo Taken Yes -Epithelialization None Present -Tunneling No No -Undermining/Tunneling No No -Circular Undermining No No -Exudate Amt Medium Medium -Exudate Type Serous Serosanguineous -Wound Margin Distinct, Distinct, Outline Outline Attached Attached -Granulation Amt None Present (0 Medium (34-66%) %) -Granulation Quality [place] -Slough/Fibrin Yes Yes -Necrosis Amt Large (67-100%) Small (1-33%) -Necrotic Tissue Type Adherent Slough Adherent Slough -Structure Exposed N/A -Texture (Iman-wound Skin Appearance) Assessed, Assessed Scarring -Moisture (Iman-wound Skin Appearance) Assessed Assessed -Color (Iman-wound Skin Appearance) Assessed, Assessed Erythema -Temperature (Iman-wound Skin No Abnormality No Abnormality Appearance) (Pt Warm) (Pt Warm) -Tenderness on Palpation (Iman-wound Yes No Skin Appearance) -Ulcer Cleansing Rinsed/ Wound Cleanser Irrigated with Saline -Foul Odor after Cleansing No No -Anesthetic Used 5% Lidocaine 5% Lidocaine Gel Gel WC - Nurse 2 - General Ulcer CM Notes Start: 08/17/22 09:05 Freq: Status: Active Protocol: Activity Type Activity Date Activity User E-sign Co-sign Detail Recorded Client Recorded Date Recorded By Document 08/17/22 09:37 [id number] 08/17/22 09:40 Document 08/24/22 09:20 [id number] 08/24/22 09:21 08/17/22 08/24/22 09:37 09:20 Wound Center Nurse 2 #1- L ELBOW -Time 09:37 09:21 -Correct Patient Yes Yes -Correct Side, Site, Position Yes Yes -Correct Procedure Yes Yes -Procedure Performed Yes Yes -Type of Procedure Debridement Debridement -Clinical Debridement Subcutaneous Subcutaneous -Tissue Removed Subcutaneous Subcutaneous -Post Debridement (cm) - Length 1.0 0.8 -Post Debridement (cm) - Width 1.8 1.0 -Post Debridement (cm) - Depth 0.4 0.2 -Total Square (Post) (cm) 1.80 0.80 -Area of Debridement (cm) - Length 1.0 0.8 -Area of Debridement (cm) - Width 1.8 1.0 -Total Square (Area) (cm) 1.80 0.80 -Tunneling No No -Undermining/Tunneling No No -Circular Undermining No No -Wound/Ulcer Outcome Not Healed Not Healed -Ulcer Cleansing Rinsed/ Rinsed/ Irrigated with Irrigated with Saline Saline -Foul Odor after Cleansing No No -Bioengineered Tissue No No -Bleeding Controlled with Pressure Pressure -Treatment Response Procedure Procedure Tolerated Well Tolerated Well -Offloading No No -Debridement - Subq, 1st 20sq cm Yes Yes Pain Scale: 0-10 Numeric Is Patient Pain Free? Yes Yes - Nurse 3 - General Ulcer D/C NN Start: 08/17/22 09:05 Freq: Status: Active Protocol: Activity Type Activity Date Activity User E-sign Co-sign Detail Recorded Client Recorded Date Recorded By Document 08/17/22 09:51 [facility] [id number] 08/17/22 09:52 [facility] Document 08/24/22 09:28 [id number] 08/24/22 09:29 08/17/22 08/24/22 09:51 09:28 Wound Care Nurse 3 #1- L ELBOW -Ulcer Cleansing Rinsed/ Rinsed/ Irrigated with Irrigated with Saline Saline -Foul Odor after Cleansing No No -Primary Dressing Applied Aquacel AG 4x4, Aquacel AG 2x2, Mepilex Border Mepilex Border -Aquacel AG 4x4 1 -Aquacel AG 2x2 1 -Mepilex Border 1 1 Left -Tubular Bandage Single Layer -Size of Tubigrip Used Size D -Size D ($) 2 Treatment Response Procedure Tolerated Well Pain Scale: 0-10 Numeric Is Patient Pain Free? Yes Yes - Visit Discharge Discharge Condition Stable Stable Ambulatory Status Ambulatory Ambulatory Transportation Private Auto Private Auto Medication Reconcilliation completed & Yes provided to patient/care provider Clinical Summary of Care Provided Yes Assessment/Plan Assessment/Plan (1) Abscess of left elbow: CODE(S): L02.414 - Cutaneous abscess of left upper limb (2) Open wound of left elbow: CODE(S): S51.002A - Unspecified open wound of left elbow, initial encounter (3) Deep vein thrombosis (DVT) of left upper extremity: CODE(S): I82.622 - Acute embolism and thrombosis of deep veins of left upper extremity (4) Cellulitis of left upper extremity: CODE(S): L03.114 - Cellulitis of left upper limb PLAN: Plan Patient was evaluated at the wound healing center today. A subcutaneous debridement was performed as previously documented. Wound care - Moistened Aquacel-Ag wicked into the base of the wound and covered with [place] SAP daily after washing with soap and water. Compression - Single Tubigrip to the left upper extremity. Continue antibiotics that were previously prescribed for the cellulitis. Continue Eliquis that was prescribed for DVT. Follow up one week. Call or come in sooner if develop any concerns.
[2022-08-31 09:11] VITALS: BP 118/78; PULSE 71; TEMP 36.4; BMI 33.5
--- NOTE | 2022-08-31 12:18 | PN.PCM_ITS ---
History of Present Illness Date of Service: 08/31/22 Chief Complaint: Left elbow/proximal forearm wound History of Wound: 31 year old female who presents for evaluation of a wound on her left elbow/proximal forearm. On 08/07/22 she started with a red, painful area on her left elbow that had a black center. She went to the ED in [place] where they did a CT scan that revealed a fluid collection, gave her IV antibiotics and discharged her on clindamycin. She then was seen by an orthopedic doctor in 08/08/22. She states an ultrasound was performed and there was no fluid collection found to drain. She was seen by her PCP 08/09/22 for increased left forearm pain, swelling and redness and given IM Rocephin in the office and directed to the emergency room for further testing, which a CT was performed and it showed Cellulitis in the posterior medial forearm with small phlegmon superficially at the level of the distal olecranon of the ulna. AND areas of deep venous thrombosis above the left basilic vein in the forearm. She was then started on Bactrim, Keflex and Eliquis for the cellulitis and the DVT. She then followed up with [facility] and was referred to the wound healing center. Today she denies fever, chills, nausea or vomiting. She states her appetite is good. Progress of Wound: Left elbow wound is smaller is size and depth. The base of the wound is beefy pink. No erythema on iman wound. Left arm swelling has improved. Objective Data Objective Data Vital Signs: Vital Signs Temp Pulse Resp BP O2 Del Method 97.6 F L 71 18 118/78 Room Air 08/31/22 09:11 08/31/22 09:11 08/24/22 09:10 08/31/22 09:11 08/17/22 09:06 Oxygen Delivery Method Room Air Weight: 155 lb Body Mass Index (BMI) 33.5 Charges/Coding Procedures Integumentary 111xxx-113xx: 11497 Erin subq tissue 20 sq cm/< Debridement Note Debridement Note Wound debrided: elbow/proximal forearm Laterality: Left Wound Grade/Stage: Stage III Type of Debridement: Excisional debridement Anesthesia Used: 5% Lidocaine Gel Depth: Down to and including healthy tissue and in the subcutaneous layer Percentage of wound debrided: 100 Instrument Used: 3mm curette Tissue Removed: Devitalized tissue and slough Severity: Fat Layer Exposed Amount of bleeding with debridement: Mild Bleeding Controlled with: Compression and gauze Patient tolerated procedure: Patient tolerated procedure well Post-Debridement Measurements and Additional Note: Post-Debridement Measurements/Treatment WC - Nurse 1 - General Ulcer Assessment Start: 08/17/22 09:05 Freq: Status: Active Protocol: RASHI Activity Type Activity Date Activity User E-sign Co-sign Detail Recorded Client Recorded Date Recorded By Document 08/17/22 09:06 BM [id number] 08/17/22 09:16 [facility] Document 08/24/22 09:10 RB [id number] 08/24/22 09:12 RB Document 08/31/22 09:11 AK [id number] 08/31/22 09:12 AK 08/17/22 08/24/22 08/31/22 09:06 09:10 09:11 WC - Today's Visit Information Type of service Initial Visit Follow-up Visit Follow-up Visit (Physician/CERTIFIED BENCH JEWELER TECHNICIAN (Physician/CERTIFIED BENCH JEWELER TECHNICIAN ) ) Arrival Mode Ambulatory Ambulatory Ambulatory Transfer Assistance None None Patient Identification Verified (Name & Yes Yes Yes ) Patient Requires Transmission-Based No No No Precautions Safety Precautions NA Height and Weight Height 4 ft 9 in Weight 155 lb Weight in Pounds 155.0 lbs Body Mass Index (BMI) 33.5 33.5 33.5 BMI Classification Obese Obese Obese BSA - [place]urel 1.61 Vital Signs Temperature (97.8 F-99.1 F) 97.4 F L 97 F L 97.6 F L Temperature Source Temporal Temporal Temporal Pulse Rate (60-100) 77 78 71 Pulse Location Monitor Monitor Monitor Respiratory Rate (12-18) 16 18 Respiratory rate source Observation Observation Oxygen Delivery Method Room Air Blood Pressure (90/60-120/80) 118/72 126/81 H 118/78 Blood Pressure Mean (mm Hg) 87 96 91 Source Monitor Monitor Monitor Position Sitting Semi-Fowlers Blood Pressure Location Left Arm Left Arm History Since Last Visit- (Skip if this is Patient's initial visit) Have you changed medications since your No No last visit? Any new allergies or adverse reactions No No Had a fall/change in ADL's that may No No increase risk of falls Signs or symptoms of abuse and/or No No neglect since last visit Have you been in the hospital since your No No last visit? Has dressing in place as prescribed Yes No Has compression in place as prescribed No N/A Has offloadiing in place as prescribed No N/A Experienced any changes in pain level or No No management Left Footwear Regular Shoe Regular Shoe Right Footwear Regular Shoe Regular Shoe Pain Scale: 0-10 Numeric Is Patient Pain Free? No Yes Yes wound -Description Burning -Intensity 7 -Duration (hours) Chronic -Pain Behavior No Change in Behavior -Pain Aggravating Factors Sitting -Alleviating Factors/Interventions Distraction, Will continue to monitor, Patient denies need for intervention, Emotional Support Communication Assessment Preferred language [place]araguan Chemist Proteins Required No Able to Read Yes Able to Write Yes Communication Tools None Right Hearing Abillity Normal Left Hearing Abillity Normal Visual Assistive Devices None Teaching Assessment Preferences Verbal,Written, Audio/Visual, Demonstration Barriers to Learning None Readiness To Learn Excellent Willingness to Engage in Self Management High Activies Readiness to Engage in Self Management High Activities Anxiety Level Calm Cooperation Cooperative Perception Coherent Interest in Health Problem Asks Questions Education Importance Acknowledges Need Does Patient Smoke tobacco or other No substances Smoking Status Current every day smoker Is Patient Diabetic No Functional Assessment Recent Decline in Ability to Perform Denies Any Declines Culture/Anabaptism/Inoculator Cultural/Anabaptism Needs that may affect No Treatment Plan Teaching: Wound Center *Welcome to the Wound Center -Person Taught Patient -Teaching Method Discussion -Response to teaching Verbalize understanding Welcome to the Wound Care Center English MONTOYA - Nurse 1 - General Ulcer Measurement Start: 08/17/22 09:05 Freq: Status: Active Protocol: Activity Type Activity Date Activity User E-sign Co-sign Detail Recorded Client Recorded Date Recorded By Document 08/17/22 09:06 [facility] [id number] 08/17/22 09:16 [facility] Document 08/24/22 09:10 RB [id number] 08/24/22 09:12 RB Document 08/31/22 09:11 AK [id number] 08/31/22 09:12 AK 08/17/22 08/24/22 08/31/22 09:06 09:10 09:11 Wound Center Nurse 1 #1- L ELBOW -Combined with other wound No No No -Current Size (cm) - Length 0.8 0.5 0.2 -Current Size (cm) - Width 1.3 0.9 0.5 -Current Size (cm) - Depth 0.2 0.1 0.1 -Total Square Cm 1.04 0.45 0.10 -Date of Last Picture (Recall this 08/17/22 08/31/22 field) -Photo Taken Yes Yes -Epithelialization None Present -Tunneling No No No -Undermining/Tunneling No No No -Circular Undermining No No No -Change in Wound Grade/Stage No -Exudate Amt Medium Medium None Present -Exudate Type Serous Serosanguineous -Wound Margin Distinct, Distinct, Distinct, Outline Outline Outline Attached Attached Attached -Granulation Amt None Present (0 Medium (34-66%) Large (67-100%) %) -Granulation Quality [place],Red -Slough/Fibrin Yes Yes No -Necrosis Amt Large (67-100%) Small (1-33%) None Present (0 %) -Necrotic Tissue Type Adherent Slough Adherent Slough -Structure Exposed N/A N/A -Texture (Iman-wound Skin Appearance) Assessed, Assessed No Abnormality, Scarring Assessed -Moisture (Iman-wound Skin Appearance) Assessed Assessed No Abnormality, Assessed -Color (Iman-wound Skin Appearance) Assessed, Assessed No Abnormality, Erythema Assessed -Temperature (Iman-wound Skin No Abnormality No Abnormality No Abnormality Appearance) (Pt Warm) (Pt Warm) (Pt Warm) -Tenderness on Palpation (Iman-wound Yes No No Skin Appearance) -Ulcer Cleansing Rinsed/ Wound Cleanser Rinsed/ Irrigated with Irrigated with Saline Saline -Foul Odor after Cleansing No No No -Anesthetic Used 5% Lidocaine 5% Lidocaine 5% Lidocaine Gel Gel Gel WC - Nurse 2 - General Ulcer CM Notes Start: 08/17/22 09:05 Freq: Status: Active Protocol: Activity Type Activity Date Activity User E-sign Co-sign Detail Recorded Client Recorded Date Recorded By Document 08/17/22 09:37 KEM [id number] 08/17/22 09:40 Document 08/24/22 09:20 KEM [id number] 08/24/22 09:21 Document 08/31/22 09:17 KEM [id number] 08/31/22 09:18 KEM 08/17/22 08/24/22 08/31/22 09:37 09:20 09:17 Wound Center Nurse 2 #1- L ELBOW -Time 09:37 09:21 09:17 -Correct Patient Yes Yes Yes -Correct Side, Site, Position Yes Yes Yes -Correct Procedure Yes Yes Yes -Procedure Performed Yes Yes Yes -Type of Procedure Debridement Debridement Debridement -Clinical Debridement Subcutaneous Subcutaneous Subcutaneous -Tissue Removed Subcutaneous Subcutaneous Subcutaneous -Post Debridement (cm) - Length 1.0 0.8 0.5 -Post Debridement (cm) - Width 1.8 1.0 0.5 -Post Debridement (cm) - Depth 0.4 0.2 0.1 -Total Square (Post) (cm) 1.80 0.80 0.25 -Area of Debridement (cm) - Length 1.0 0.8 0.5 -Area of Debridement (cm) - Width 1.8 1.0 0.5 -Total Square (Area) (cm) 1.80 0.80 0.25 -Tunneling No No No -Undermining/Tunneling No No No -Circular Undermining No No No -Wound/Ulcer Outcome Not Healed Not Healed Not Healed -Ulcer Cleansing Rinsed/ Rinsed/ Rinsed/ Irrigated with Irrigated with Irrigated with Saline Saline Saline -Foul Odor after Cleansing No No No -Bioengineered Tissue No No No -Bleeding Controlled with Pressure Pressure Pressure -Treatment Response Procedure Procedure Procedure Tolerated Well Tolerated Well Tolerated Well -Offloading No No No -Debridement - Subq, 1st 20sq cm Yes Yes Yes Pain Scale: 0-10 Numeric Is Patient Pain Free? Yes Yes Yes WC - Nurse 3 - General Ulcer D/C NN Start: 08/17/22 09:05 Freq: Status: Active Protocol: Activity Type Activity Date Activity User E-sign Co-sign Detail Recorded Client Recorded Date Recorded By Document 08/17/22 09:51 [facility] [id number] 08/17/22 09:52 [facility] Document 08/24/22 09:28 [id number] 08/24/22 09:29 Document 08/31/22 09:28 [facility] [id number] 08/31/22 09:28 [facility] 08/17/22 08/24/22 08/31/22 09:51 09:28 09:28 Wound Care Nurse 3 #1- L ELBOW -Ulcer Cleansing Rinsed/ Rinsed/ Rinsed/ Irrigated with Irrigated with Irrigated with Saline Saline Saline -Foul Odor after Cleansing No No No -Primary Dressing Applied Aquacel AG 4x4, Aquacel AG 2x2, Aquacel AG 2x2, Mepilex Border Mepilex Border Mepilex Border -Aquacel AG 4x4 1 -Aquacel AG 2x2 1 1 -Mepilex Border 1 1 1 Left -Tubular Bandage Single Layer Single Layer -Size of Tubigrip Used Size D Size D -Size D ($) 2 2 -Other sent an extra one Treatment Response Procedure Procedure Tolerated Well Tolerated Well Pain Scale: 0-10 Numeric Is Patient Pain Free? Yes Yes Yes WC - Visit Discharge Discharge Condition Stable Stable Stable Ambulatory Status Ambulatory Ambulatory Ambulatory Transportation Private Auto Private Auto Private Auto Medication Reconcilliation completed & Yes provided to patient/care provider Clinical Summary of Care Provided Yes Assessment/Plan Assessment/Plan (1) Abscess of left elbow: CODE(S): L02.414 - Cutaneous abscess of left upper limb (2) Open wound of left elbow: CODE(S): S51.002A - Unspecified open wound of left elbow, initial encounter (3) Deep vein thrombosis (DVT) of left upper extremity: CODE(S): I82.622 - Acute embolism and thrombosis of deep veins of left upper extremity (4) Cellulitis of left upper extremity: CODE(S): L03.114 - Cellulitis of left upper limb PLAN: Plan Patient was evaluated at the wound healing center today. A subcutaneous debridement was performed as previously documented. Wound care - Moistened Aquacel-Ag wicked into the base of the wound and covered with [place] SAP daily after washing with soap and water. Compression - Single Tubigrip to the left upper extremity. Completed antibiotics that were previously prescribed for the cellulitis. Continue Eliquis that was prescribed for DVT. Follow up one week. Call or come in sooner if develop any concerns.
[2022-09-07 09:10] VITALS: BP 137/80; PULSE 86; RESP 16; TEMP 36.4; BMI 33.5
--- NOTE | 2022-09-07 12:33 | PN.PCM_ITS ---
History of Present Illness Date of Service: 09/07/22 Chief Complaint: Left elbow/proximal forearm wound History of Wound: 32 year old female who presents for evaluation of a wound on her left elbow/proximal forearm. On 08/07/22 she started with a red, painful area on her left elbow that had a black center. She went to the ED in [place] where they did a CT scan that revealed a fluid collection, gave her IV antibiotics and discharged her on clindamycin. She then was seen by an orthopedic doctor in 08/08/22. She states an ultrasound was performed and there was no fluid collection found to drain. She was seen by her PCP 08/09/22 for increased left forearm pain, swelling and redness and given IM Rocephin in the office and directed to the emergency room for further testing, which a CT was performed and it showed Cellulitis in the posterior medial forearm with small phlegmon superficially at the level of the distal olecranon of the ulna. AND areas of deep venous thrombosis above the left basilic vein in the forearm. She was then started on Bactrim, Keflex and Eliquis for the cellulitis and the DVT. She then followed up with [facility] and was referred to the wound healing center. Today she denies fever, chills, nausea or vomiting. She states her appetite is good. Progress of Wound: Left elbow wound is healed today. Arm swelling has improved. Objective Data Objective Data Vital Signs: Vital Signs Temp Pulse Resp BP O2 Del Method 97.6 F L 86 16 137/80 H Room Air 09/07/22 09:10 09/07/22 09:10 09/07/22 09:10 09/07/22 09:10 09/07/22 09:10 Oxygen Delivery Method Room Air Weight: 155 lb Body Mass Index (BMI) 33.5 Charges/Coding Visit Charges Office Visits / Consults: 13457 OV L3 Est Physical Exam Const alert and oriented x3 General Appearance: cooperative HEENT normocephalic Eyes PERRL Neck full ROM Lymph Lymphatic: no lymphedema noted Resp normal respiratory effort, normal air movement and clear to auscultation bilaterally Cardio regular rate and regular rhythm GI non-tender Extremity full ROM and normal capillary refill Extremity Narrative: Left arm edema has resolved. Peripheral Pulses: Yes radial pulses present Skin Wound Narrative: Left elbow/proximal forearm wound is healed today. Neuro oriented x3 Psych mental status grossly normal and thought process normal Appearance: grossly normal Debridement Note Debridement Note No debridement was completed: No debridement was completed today Post-Debridement Measurements and Additional Note: Post-Debridement Measurements/Treatment - Nurse 1 - General Ulcer Assessment Start: 08/17/22 09:05 Freq: Status: Active Protocol: [email or web address].ROSARIO Activity Type Activity Date Activity User E-sign Co-sign Detail Recorded Client Recorded Date Recorded By Document 08/17/22 09:06 [facility] [id number] 08/17/22 09:16 BM Document 08/24/22 09:10 RB [id number] 08/24/22 09:12 RB Document 08/31/22 09:11 [place] [id number] 08/31/22 09:12 [place] Document 09/07/22 09:10 [facility] [id number] 09/07/22 09:14 BM 08/17/22 08/24/22 08/31/22 09:06 09:10 09:11 - Today's Visit Information Type of service Initial Visit Follow-up Visit Follow-up Visit (Physician/CLAIM ADMINISTRATOR (Physician/CLAIM ADMINISTRATOR ) ) Arrival Mode Ambulatory Ambulatory Ambulatory Transfer Assistance None None Patient Identification Verified (Name & Yes Yes Yes ) Patient Requires Transmission-Based No No No Precautions Safety Precautions NA Height and Weight Height 4 ft 9 in Weight 155 lb Weight in Pounds 155.0 lbs Body Mass Index (BMI) 33.5 33.5 33.5 BMI Classification Obese Obese Obese BSA - Laurel 1.61 Vital Signs Temperature (97.8 F-99.1 F) 97.4 F L 97 F L 97.6 F L Temperature Source Temporal Temporal Temporal Pulse Rate (60-100) 77 78 71 Pulse Location Monitor Monitor Monitor Respiratory Rate (12-18) 16 18 Respiratory rate source Observation Observation Oxygen Delivery Method Room Air Blood Pressure (90/60-120/80) 118/72 126/81 H 118/78 Blood Pressure Mean (mm Hg) 87 96 91 Source Monitor Monitor Monitor Position Sitting Semi-Fowlers Blood Pressure Location Left Arm Left Arm History Since Last Visit- (Skip if this is Patient's initial visit) Have you changed medications since your No No last visit? Any new allergies or adverse reactions No No Had a fall/change in ADL's that may No No increase risk of falls Signs or symptoms of abuse and/or No No neglect since last visit Have you been in the hospital since your No No last visit? Has dressing in place as prescribed Yes No Has compression in place as prescribed No N/A Has offloadiing in place as prescribed No N/A Experienced any changes in pain level or No No management Left Footwear Regular Shoe Regular Shoe Right Footwear Regular Shoe Regular Shoe Pain Scale: 0-10 Numeric Is Patient Pain Free? 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 Required No Able to Read Yes Able to Write Yes Communication Tools None Right Hearing Abillity Normal Left Hearing Abillity Normal Visual Assistive Devices None Teaching Assessment Preferences Verbal,Written, Audio/Visual, Demonstration Barriers to Learning None Readiness To Learn Excellent Willingness to Engage in Self Management High Activies Readiness to Engage in Self Management High Activities Anxiety Level Calm Cooperation Cooperative Perception Coherent Interest in Health Problem Asks Questions Education Importance Acknowledges Need Does Patient Smoke tobacco or other No substances Smoking Status Current every day smoker Is Patient Diabetic No Functional Assessment Recent Decline in Ability to Perform Denies Any Declines Culture/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 Cultural/Scientology Needs that may affect No Treatment Plan Teaching: Wound Center *Welcome to the Wound Center -Person Taught Patient -Teaching Method Discussion -Response to teaching Verbalize understanding Welcome to the Wound Care Center [place] 09/07/22 09:10 WC - Today's Visit Information Type of service Follow-up Visit (Physician/CLAIM ADMINISTRATOR ) Arrival Mode Ambulatory Transfer Assistance None Patient Identification Verified (Name & Yes ) Patient Requires Transmission-Based No Precautions Safety Precautions Height and Weight Height Weight Weight in Pounds Body Mass Index (BMI) 33.5 BMI Classification Obese BSA - Laurel Vital Signs Temperature (97.8 F-99.1 F) 97.6 F L Temperature Source Temporal Pulse Rate (60-100) 86 Pulse Location Monitor Respiratory Rate (12-18) 16 Respiratory rate source Observation Oxygen Delivery Method Room Air Blood Pressure (90/60-120/80) 137/80 H Blood Pressure Mean (mm Hg) 99 Source Monitor Position Sitting Blood Pressure Location Left Arm History Since Last Visit- (Skip if this is Patient's initial visit) Have you changed medications since your No last visit? Any new allergies or adverse reactions No Had a fall/change in ADL's that may No increase risk of falls Signs or symptoms of abuse and/or No neglect since last visit Have you been in the hospital since your No last visit? Has dressing in place as prescribed No Has compression in place as prescribed N/A Has offloadiing in place as prescribed N/A Experienced any changes in pain level or No management Left Footwear Regular Shoe Right Footwear Regular Shoe Pain Scale: 0-10 Numeric Is Patient Pain Free? Yes wound -Description -Intensity -Duration (hours) -Pain Behavior -Pain Aggravating Factors -Alleviating Factors/Interventions Communication Assessment Preferred english language learner tutor Required Able to Read Able to Write Communication Tools Right Hearing Abillity Left Hearing Abillity Visual Assistive Devices Teaching Assessment Preferences Barriers to Learning Readiness To Learn Willingness to Engage in Self Management Activies Readiness to Engage in Self Management Activities Anxiety Level Cooperation Perception Interest in Health Problem Education Importance Does Patient Smoke tobacco or other substances Smoking Status Is Patient Diabetic Functional Assessment Recent Decline in Ability to Perform Culture/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 Burnisher Cultural/Scientology Needs that may affect Treatment Plan Teaching: Wound Center *Welcome to the Wound Center -Person Taught -Teaching Method -Response to teaching Welcome to the Wound Care Center WC - Nurse 1 - General Ulcer Measurement Start: 08/17/22 09:05 Freq: Status: Active Protocol: Activity Type Activity Date Activity User E-sign Co-sign Detail Recorded Client Recorded Date Recorded By Document 08/17/22 09:06 [facility] [id number] 08/17/22 09:16 [facility] Document 08/24/22 09:10 RB [id number] 08/24/22 09:12 RB Document 08/31/22 09:11 [place] [id number] 08/31/22 09:12 AK Document 09/07/22 09:10 [facility] [id number] 09/07/22 09:14 [facility] 08/17/22 08/24/22 08/31/22 09:06 09:10 09:11 Wound Center Nurse 1 #1- L ELBOW -Combined with other wound No No No -Current Size (cm) - Length 0.8 0.5 0.2 -Current Size (cm) - Width 1.3 0.9 0.5 -Current Size (cm) - Depth 0.2 0.1 0.1 -Total Square Cm 1.04 0.45 0.10 -Date of Last Picture (Recall this 08/17/22 08/31/22 field) -Photo Taken Yes Yes -Epithelialization None Present -Tunneling No No No -Undermining/Tunneling No No No -Circular Undermining No No No -Change in Wound Grade/Stage No -Exudate Amt Medium Medium None Present -Exudate Type Serous Serosanguineous -Wound Margin Distinct, Distinct, Distinct, Outline Outline Outline Attached Attached Attached -Granulation Amt None Present (0 Medium (34-66%) Large (67-100%) %) -Granulation Quality [place],Red -Slough/Fibrin Yes Yes No -Necrosis Amt Large (67-100%) Small (1-33%) None Present (0 %) -Necrotic Tissue Type Adherent Slough Adherent Slough -Structure Exposed N/A N/A -Texture (Iman-wound Skin Appearance) Assessed, Assessed No Abnormality, Scarring Assessed -Moisture (Iman-wound Skin Appearance) Assessed Assessed No Abnormality, Assessed -Color (Iman-wound Skin Appearance) Assessed, Assessed No Abnormality, Erythema Assessed -Temperature (Iman-wound Skin No Abnormality No Abnormality No Abnormality Appearance) (Pt Warm) (Pt Warm) (Pt Warm) -Tenderness on Palpation (Iman-wound Yes No No Skin Appearance) -Ulcer Cleansing Rinsed/ Wound Cleanser Rinsed/ Irrigated with Irrigated with Saline Saline -Foul Odor after Cleansing No No No -Anesthetic Used 5% Lidocaine 5% Lidocaine 5% Lidocaine Gel Gel Gel 09/07/22 09:10 Wound Center Nurse 1 #1- L ELBOW -Combined with other wound No -Current Size (cm) - Length 0.1 -Current Size (cm) - Width 0.1 -Current Size (cm) - Depth 0.1 -Total Square Cm 0.01 -Date of Last Picture (Recall this 09/07/22 field) -Photo Taken Yes -Epithelialization Large 67-100% -Tunneling No -Undermining/Tunneling No -Circular Undermining No -Change in Wound Grade/Stage -Exudate Amt None Present -Exudate Type -Wound Margin Distinct, Outline Attached -Granulation Amt None Present (0 %) -Granulation Quality -Slough/Fibrin Yes -Necrosis Amt Small (1-33%) -Necrotic Tissue Type Eschar -Structure Exposed -Texture (Iman-wound Skin Appearance) Assessed, Scarring -Moisture (Iman-wound Skin Appearance) Assessed -Color (Iman-wound Skin Appearance) Assessed -Temperature (Iman-wound Skin No Abnormality Appearance) (Pt Warm) -Tenderness on Palpation (Iman-wound No Skin Appearance) -Ulcer Cleansing Rinsed/ Irrigated with Saline -Foul Odor after Cleansing No -Anesthetic Used 5% Lidocaine Gel WC - Nurse 2 - General Ulcer CM Notes Start: 08/17/22 09:05 Freq: Status: Active Protocol: Activity Type Activity Date Activity User E-sign Co-sign Detail Recorded Client Recorded Date Recorded By Document 08/17/22 09:37 [id number] 08/17/22 09:40 Document 08/24/22 09:20 [id number] 08/24/22 09:21 Document 08/31/22 09:17 [id number] 08/31/22 09:18 Document 09/07/22 09:29 Laptop 09/07/22 09:29 08/17/22 08/24/22 08/31/22 09:37 09:20 09:17 Wound Center Nurse 2 #1- L ELBOW -Time 09:37 09:21 09:17 -Correct Patient Yes Yes Yes -Correct Side, Site, Position Yes Yes Yes -Correct Procedure Yes Yes Yes -Procedure Performed Yes Yes Yes -Type of Procedure Debridement Debridement Debridement -Clinical Debridement Subcutaneous Subcutaneous Subcutaneous -Tissue Removed Subcutaneous Subcutaneous Subcutaneous -Post Debridement (cm) - Length 1.0 0.8 0.5 -Post Debridement (cm) - Width 1.8 1.0 0.5 -Post Debridement (cm) - Depth 0.4 0.2 0.1 -Total Square (Post) (cm) 1.80 0.80 0.25 -Area of Debridement (cm) - Length 1.0 0.8 0.5 -Area of Debridement (cm) - Width 1.8 1.0 0.5 -Total Square (Area) (cm) 1.80 0.80 0.25 -Tunneling No No No -Undermining/Tunneling No No No -Circular Undermining No No No -Wound/Ulcer Outcome Not Healed Not Healed Not Healed -Ulcer Cleansing Rinsed/ Rinsed/ Rinsed/ Irrigated with Irrigated with Irrigated with Saline Saline Saline -Foul Odor after Cleansing No No No -Bioengineered Tissue No No No -Bleeding Controlled with Pressure Pressure Pressure -Treatment Response Procedure Procedure Procedure Tolerated Well Tolerated Well Tolerated Well -Offloading No No No -Debridement - Subq, 1st 20sq cm Yes Yes Yes Pain Scale: 0-10 Numeric Is Patient Pain Free? Yes Yes Yes 09/07/22 09:29 Wound Center Nurse 2 #1- L ELBOW -Time -Correct Patient No -Correct Side, Site, Position No -Correct Procedure No -Procedure Performed No -Type of Procedure -Clinical Debridement -Tissue Removed -Post Debridement (cm) - Length 0 -Post Debridement (cm) - Width 0 -Post Debridement (cm) - Depth 0 -Total Square (Post) (cm) 0 -Area of Debridement (cm) - Length 0 -Area of Debridement (cm) - Width 0 -Total Square (Area) (cm) 0 -Tunneling -Undermining/Tunneling -Circular Undermining -Wound/Ulcer Outcome Healed- Epithelialized -Ulcer Cleansing -Foul Odor after Cleansing -Bioengineered Tissue -Bleeding Controlled with -Treatment Response -Offloading -Debridement - Subq, 1st 20sq cm Pain Scale: 0-10 Numeric Is Patient Pain Free? Yes - Nurse 3 - General Ulcer D/C NN Start: 08/17/22 09:05 Freq: Status: Active Protocol: Activity Type Activity Date Activity User E-sign Co-sign Detail Recorded Client Recorded Date Recorded By Document 08/17/22 09:51 [facility] [id number] 08/17/22 09:52 [facility] Document 08/24/22 09:28 [id number] 08/24/22 09:29 Document 08/31/22 09:28 [facility] [id number] 08/31/22 09:28 [facility] Document 09/07/22 09:30 Laptop 09/07/22 09:30 08/17/22 08/24/22 08/31/22 09:51 09:28 09:28 Wound Care Nurse 3 #1- L ELBOW -Ulcer Cleansing Rinsed/ Rinsed/ Rinsed/ Irrigated with Irrigated with Irrigated with Saline Saline Saline -Foul Odor after Cleansing No No No -Primary Dressing Applied Aquacel AG 4x4, Aquacel AG 2x2, Aquacel AG 2x2, Mepilex Border Mepilex Border Mepilex Border -Aquacel AG 4x4 1 -Aquacel AG 2x2 1 1 -Mepilex Border 1 1 1 Left -Tubular Bandage Single Layer Single Layer -Size of Tubigrip Used Size D Size D -Size D ($) 2 2 -Other sent an extra one Treatment Response Procedure Procedure Tolerated Well Tolerated Well Pain Scale: 0-10 Numeric Is Patient Pain Free? Yes Yes Yes WC - Visit Discharge Discharge Condition Stable Stable Stable Ambulatory Status Ambulatory Ambulatory Ambulatory Transportation Private Auto Private Auto Private Auto Medication Reconcilliation completed & Yes provided to patient/care provider Clinical Summary of Care Provided Yes 09/07/22 09:30 Wound Care Nurse 3 #1- L ELBOW -Ulcer Cleansing -Foul Odor after Cleansing -Primary Dressing Applied -Aquacel AG 4x4 -Aquacel AG 2x2 -Mepilex Border Left -Tubular Bandage -Size of Tubigrip Used -Size D ($) -Other Treatment Response Pain Scale: 0-10 Numeric Is Patient Pain Free? Yes WC - Visit Discharge Discharge Condition Stable Ambulatory Status Ambulatory Transportation Private Auto Medication Reconcilliation completed & Yes provided to patient/care provider Clinical Summary of Care Provided Yes Assessment/Plan Assessment/Plan (1) Abscess of left elbow: CODE(S): L02.414 - Cutaneous abscess of left upper limb (2) Open wound of left elbow: CODE(S): S51.002A - Unspecified open wound of left elbow, initial encounter (3) Deep vein thrombosis (DVT) of left upper extremity: CODE(S): I82.622 - Acute embolism and thrombosis of deep veins of left upper extremity (4) Cellulitis of left upper extremity: CODE(S): L03.114 - Cellulitis of left upper limb PLAN: Plan Patient was evaluated at the wound healing center today. The left elbow wound is healed today. Massage with lotion daily to help soften scarring. It was recommended to the patient to use sunscreen when outside to help minimize darkening of the healing scars. Completed antibiotics that were previously prescribed for the cellulitis. Continue Eliquis that was prescribed for DVT. Follow up as needed.
== END 2022-09-12 23:59 | disposition home or self-care (01) ==
LOC: WC 09:15
PROVIDERS: PCP Family Medicine; Visit Provider Nurse Practitioner Family
DX: S51.002D Unspecified open wound of left elbow, subsequent encounter (principal); I82.622 Acute embolism and thrombosis of deep veins of left upper extremity; L02.414 Cutaneous abscess of left upper limb; L03.114 Cellulitis of left upper limb; I82.612 Acute embolism and thrombosis of superficial veins of left upper extremity; D64.9 Anemia, unspecified; F17.210 Nicotine dependence, cigarettes, uncomplicated; Z79.82 Long term (current) use of aspirin; Z79.01 Long term (current) use of anticoagulants; Z79.899 Other long term (current) drug therapy
CPT/HCPCS: 11042; 99212; 99213; G0463

== ENCOUNTER → 2022-12-01 | Outpatient (CLI) | payer MEDICAID, SELFPAY ==
--- NOTE | 2022-12-01 14:02 | RAD_ITS ---
STUDY: X-RAY - PELVIS AND RIGHT HIP REASON FOR EXAM: Female, 32 years old. Right posterior hip pain. TECHNIQUE: 3 views of the pelvis and hip. COMPARISON: None. FINDINGS: There is a non-specific bowel gas pattern. Normal visualized soft tissue structures. Normal bilateral iliac wings, sacroiliac joints and visualized sacrum. Normal bilateral superior and inferior pubic rami. Normal pubic symphysis. Normal bilateral ischial tuberosities. Normal visualized femoral head. Normal acetabulum. Normal hip joint. RAD/HIP, UNI W/ Pelvis 2-3 Views IMPRESSION: No abnormality of the visualized pelvis, hips or proximal femurs. Electronically Signed: Nickolas Multani, at 14:48 EST ,
== END | disposition home or self-care (01) ==
LOC: MTRAD 13:59
PROVIDERS: PCP Family Medicine; Referring Provider Nurse Practitioner Family; Visit Provider Nurse Practitioner Family
DX: M25.551 Pain in right hip (principal)
CPT/HCPCS: 73502

== ENCOUNTER → 2023-01-05 | Outpatient (CLI) | payer MEDICAID, SELFPAY ==
--- NOTE | 2023-01-05 12:39 | RAD_ITS ---
STUDY: X-RAY - LUMBAR SPINE REASON FOR EXAM: Female, 32 years old. Radiculopathy, lumbar region TECHNIQUE: 2 view(s) of the lumbar spine were obtained. COMPARISON: None FINDINGS: Normal lumbar lordosis. There is no substantial scoliosis. There is a normal alignment of the vertebrae. Minimal anterior spondylosis at the L2-L3 level. Mild degree of disc space narrowing at the L5-S1 level. IUD seen within the pelvis. RAD/Lumbar Spine 2 or 3 Views IMPRESSION: Degenerative changes of the spine, as detailed above. Electronically Signed: Mariano Cavazos MD at 15:18 EST ,
== END | disposition home or self-care (01) ==
LOC: MTRAD 12:38
PROVIDERS: PCP Family Medicine; Referring Provider Family Medicine; Visit Provider Family Medicine
DX: M54.16 Radiculopathy, lumbar region (principal)
CPT/HCPCS: 72100

== ENCOUNTER → 2023-01-24 | Outpatient (CLI) | payer MEDICAID, SELFPAY ==
[2023-01-24 17:40] LABS: Absolute Neutrophil Count 6.6 X10^3/uL (2.0-7.7); Basophil# 0.03 X10^3/uL; Basophil% 0.3 % (0-1); Eosinophil# 0.09 X10^3/uL; Hematocrit 38.8 % (37-47); Hemoglobin 13.2 g/dL (12.0-15.0); Lymphocyte % 18.7 % (19-41); Mean Corpuscular Hgb 27.8 pg (27.0-32.0); Mean Corpuscular Volume 81.7 fL (81-99); Mean Platelet Vol. 10.9 fl (6.2-12.0); Monocyte# 0.63 X10^3/uL; Monocyte% 6.9 % (0-10); NRBC Flagged by Analyzer 0 % (0-5); Neutrophil % 72.9 % (47-70); Platelet Count 271 K/mm3 (150-450); RBC Distribution Width CV 13.6 % (11.6-14.6); RBC Distribution Width SD 40.1 fl (35.1-43.9); Red Blood Count 4.75 M/mm3 (4.2-5.4); White Blood Count 9.1 K/mm3 (4.4-11.0)
[2023-01-24 18:45] LABS: Vitamin B12 475 pg/mL (211-911)
[2023-01-24 19:17] LABS: AST(SGOT) 21 U/L (15-37); Alanine Aminotransfer ALT/SGPT 40 U/L (13-56); Albumin, Serum 3.9 g/dL (3.2-5.0); Alkaline Phosphatase 53 U/L (45-117); Anion Gap 9 (5-15); BUN 8 mg/dL (7-18); BUN/Creat Ratio 12.3 RATIO (10-20); Calcium,Total 9.3 mg/dL (8.5-10.1); Chloride 106 mmol/L (98-107); Creatinine, Serum 0.65 mg/dL (0.55-1.02); EST Glomerular Filtration Rate 112 mL/min (>60); Est Glom Filt Rate - Afr Amer 135 mL/min (>60); Ferritin 25 ng/mL (8-252); Globulin 3.9 g/dL (2.2-4.2); Glucose 100 mg/dL (74-106); Iron 69 ug/dL (50-170); Iron Binding Capacity,Total 387 ug/dL (250-450); Magnesium 2.2 mg/dL (1.6-2.6); Potassium 3.6 mmol/L (3.5-5.1); Protein, Total 7.8 g/dL (6.4-8.2); Sodium Level 139 mmol/L (136-145); Thyroid Stim Hormone (TSH) 1.25 uIU/mL (0.358-3.74)
== END | disposition home or self-care (01) ==
LOC: MFPLAB 15:30
PROVIDERS: PCP Family Medicine; Visit Provider Family Medicine
DX: D64.9 Anemia, unspecified (principal); I47.1 Supraventricular tachycardia
CPT/HCPCS: 36415; 80053; 82607; 82728; 82746; 83540; 83550; 83735; 84443; 85025

== ENCOUNTER → 2023-01-28 | Outpatient (CLI) | payer MEDICAID, SELFPAY ==
--- NOTE | 2023-01-28 07:14 | MRI_ITS ---
EXAM: MR LUMBAR SPINE WITHOUT INTRAVENOUS CONTRAST CLINICAL INDICATION: Lumbar radiculopathy TECHNIQUE: Multiplanar and multisequence MR images of the lumbar spine without intravenous contrast. This report was created using [employer] report [employer] technology. COMPARISON: None. FINDINGS: VERTEBRAE: Normal. Vertebral body heights are preserved. Normal vertebral bodies and posterior elements. Normal alignment. No spondylolisthesis. There is preservation of the normal lumbar lordosis. SPINAL CORD: Normal. Normal position and signal intensity of the conus medullaris. SOFT TISSUES: Normal. DISCS/SPINAL CANAL/NEURAL FORAMINA: L1-L2: Normal. Normal disc height and morphology. Normal spinal canal and lateral recesses. Normal neuroforamina. L2-L3: Decreased T2 signal intensity within the L2-3 disc related to desiccation. Mild disc bulging without spinal or neural foraminal narrowing. L3-L4: Normal. Normal disc height and morphology. Normal spinal canal and lateral recesses. Normal neuroforamina. L4-L5: Normal. Normal disc height and morphology. Normal spinal canal and lateral recesses. Normal neuroforamina. L5-S1: Large right sided disc extrusion the L5-S1 level causes marked narrowing of the right lateral recess and compresses the right S1 nerve root. MRI/Spine Lumbar (Routine) IMPRESSION: Large right-sided disc extrusion at L5-S1 causes marked narrowing of the right lateral recess and compression of the right S1 nerve root. Electronically Signed: Felix Garcia MD at 7:20 EDT ,
== END | disposition home or self-care (01) ==
LOC: MRI 07:14
PROVIDERS: PCP Family Medicine; Referring Provider Nurse Practitioner Family; Visit Provider Nurse Practitioner Family
DX: M54.16 Radiculopathy, lumbar region (principal)
CPT/HCPCS: 72148

== ENCOUNTER 2023-03-07 10:41 | Observation (INO) | payer MEDICAID, SELFPAY ==
--- NOTE | 2023-02-27 08:30 | EKG12_ITS ---
Test Reason : PRE-OP Blood Pressure : / mmHG Vent. Rate : 071 BPM Atrial Rate : 071 BPM P-R Int : 174 ms QRS Dur : 080 ms QT Int : 388 ms P-R-T Axes : 020 -05 023 degrees QTc Int : 421 ms Normal sinus rhythm Normal ECG Confirmed by FELICIA MAST ([id number]), communications editor NITIN TOLBERT ([id number]) on 02/28/2023 7:04:57 AM Referred By: MADHAV Confirmed By:FELICIA MAST
[2023-02-27 09:15] LABS: Partial Thromboplast Time 28.9 Seconds (24.1-36.2)
[2023-02-27 10:13] LABS: HIV - WCH Non-Reactive (Nonreactive); Hepatitis B Surface Antibody Reactive; Hepatitis C Antibody Non-Reactive (Nonreactive)
[2023-02-27 10:29] LABS: International Normalized Ratio 1.2; Prothrombin Time (Protime)PT. 15.1 SECONDS (11.7-14.9)
[2023-02-28 08:18] LABS: Hepatitis A AB, Total Negative (Negative)
--- NOTE | 2023-03-02 13:19 | HP.PCM_ITS ---
History and Physical Addendum MR#: [id number] Acct: [id number] Name:REX SMITH Rep #: [id number] : 1990 ? ? Provider: Dr. Gerber Woodard, DO Age/Sex:? 32/F ? ? [place] [facility] [place] Status: Signed with Addenda ADDENDUM by Dr. Gerber Woodard DO on 02/16/23 at 1151 Office Procedure This is addendum on Rex Hill [employer] has asked to answer #4 #5.? The patient called explained to us that her symptoms are getting worse.? She is now having a lot of difficulty with the activities of daily living and taking care of her children.? Wishes to have surgery done as soon as is reasonably possible as she states that she cannot continue like she is. The answer to #11 as to what the plan is.? She will have a lumbar hemilaminotomy discectomy at L5-S1 on the right side with direct visualization.? This is Dr. Woodard dictating. Assessment and Plan Assessment and Plan (1) Herniated nucleus pulposus, L5-S1, right: ?Status:?Acute 02/16/23 1151 <Electronically signed by Gerber Woodard DO> Date Gerber Woodard DO cc:? Dr. Joe Coleman MD ~* 02/15/23 1523 <Electronically signed by Gerber Woodard DO> Date Gerber Woodard DO cc:? Dr. Joe Coleman MD ~* Signed Intake Vital Signs ? 08/17/2209:06 01/31/2309:18 02/01/2314:03 Height 4 ft 9 in 4 ft 9 in 4 ft 9 in Weight: ? ? 177 lb BMI ? ? 38.2 Intake Visit Reasons:?LUMBER SPINE Allergies adhesive tape Allergy (Verified 02/01/23 13:59) Other Medications Saccharomyces boulardii 250 mg capsule (Daily Probiotic (S. boulardii)) 250 mg PO DAILY 03/02/21 [History Confirmed 02/01/23] ferrous sulfate 325 mg (65 mg iron) tablet (Feosol) 325 mg PO DAILY 03/04/21 [H istory Confirmed 02/01/23] aspirin 81 mg tablet,delayed release (Adult Low Dose Aspirin) 81 mg PO DAILY 03/19/21 [History Confirmed 02/01/23] metoprolol succinate 50 mg tablet,extended release 24 hr 50 mg PO DAILY #30 tabs 03/02/22 [Rx Confirmed 02/01/23] cephalexin 500 mg capsule 500 mg PO Q6 #40 caps 08/09/22 [Rx Confirmed 02/01/23] sulfamethoxazole 800 mg-trimethoprim 160 mg tablet (Bactrim DS) 1 tab PO BID #20 tabs 08/09/22 [Rx Confirmed 02/01/23] PFSH Medical History? Abnormal echocardiogram Anemia Patent foramen ovale SVT (supraventricular tachycardia) Surgical History? H/O section History of cholecystectomy Family History? Grandmother Heart disease Social History? Smoking Status:? Current every day smoker tobacco type: cigarettes alcohol intake:? current details:? occasional substance use type:? does not use caffeine:? Yes Type: coffee Number of servings: 4 HPI LUMBER SPINE Details: Parts of this documentation were recorded by a scribe, this documentation accurately reflects the service provided and the decisions made by me, Dr. Gerber Woodard, DO 02/01/23 1350. REX HILL is a 32 year old F here today new patient for lower back pain. States that she has had pain for a couple of months. Denies any known injury. Denies any previous surgery on her back. States that her pain goes down into her right hip and leg. She then gets numbness and tingling as well. States that all activity make her pain worse. States that she has been told to rest but she feels that when she does rest and she gets up to go to the bathroom, her pain intensifies. States that she occasionally uses an heating pad, and that ice makes it feel like there are shortwaves going down the right side of her body. States that she has tried multiple medications but nothing seems to help. PAtient does have x-rays and MRI in system. Denies PT and does try to stretch her right leg but it makes her pain worse. ? Rex is a most pleasant young lady 32 years old that has chief complaint of pain on the right side of the low back that goes into her buttocks down her thigh and down her leg in a classic S1 dermatome.? This started insidiously 2 months ago.? Is never had anything like this in the past.? The pain has been quite bad and is usually about a 7/10 in severity at all times.? She has a job where she has to do some lifting and its been very difficult for her.? She denies any bowel or bladder dysfunction. On examination she has very positive tension signs on the right.? She has very positive straight leg raising.? Both her Achilles reflexes are absent and she has 1+ patellar reflexes bilaterally.? She has some peroneal weakness on the right as compared to the left.? Standing on her toes with each unilateral side demonstrates easy fatigability on the right side.? She has no long tract signs.? Clonus is absent and Babinski's are downgoing. I reviewed the MRI scan that demonstrates that she has a herniated disc at L5-S1 on the right side consistent with her S1 radiculopathy.? It could be seen on the MRI that the S1 nerve is being pushed posteriorly by the disc. I explained to Rex that she has what I think are 2 reasonable choices at this point.? Physical therapy is not one of them as this will do absolutely nothing to help her.? An epidural steroid injection is certainly a consideration for at least temporary relief even though it does not really cure anything is simply a symptomatic treatment.? The definitive treatment of course is surgical intervention to take the pressure off of the S1 nerve root on the right side.? I told her to go home and think it over as she has 3 children, ages 6, 13, and 17.? She is a single mom.? Luckily her mother and her sister live very close to her which of course is her support group.? She will think it over and decide which of the 2 ways to go.? She took Sylvia's name and card and if she decides on surgery we do have an opening on the 11 of next month on a case that just canceled.? Otherwise I will see her on a as needed basis. Coding Level of Care Code Off vis,new,level 3 Diagnoses Herniated nucleus pulposus, L5-S1, right? M51.27 Time Spent (min) 30 Assessment and Plan Assessment and Plan (1) Herniated nucleus pulposus, L5-S1, right: ?Status:?Acute
[2023-03-07] VITALS (13 sets, daily range): BP systolic 107–129; BP diastolic 54–82; PULSE 57–97; RESP 8–18; TEMP 13.8–37.1; O2SAT 97–100; BMI 38.1
[2023-03-07] MEDS: Magnesium 1 GM over 15 mins IV (06:04)
[2023-03-07] MEDS: Lactated Ringers 1,000 ML 15 ML IV ×2 (06:04→10:40)
[2023-03-07] MEDS: Acetaminophen 500 MG Tablet 1000 MG PO ×3 (06:19→23:04)
[2023-03-07 07:26] LABS: Bedside Glucose 110 mg/dL (74-106)
[2023-03-07] MEDS: Cefazolin 2 GM in 0.9% Normal Saline 100 ML IV (07:30)
--- NOTE | 2023-03-07 07:30 | DISC_PTH ---
PATIENT: REX GILES LOC: [facility] U#:[id number] AGE/SX: 32/F ROOM: AK305 RE03/07/[address]: Dr. Gerber Woodard DO : 1990 BED: 1 DIS: 03/08/2023 SPEC #: [id number] RECD: 03/07/23 11:25 STATUS: KALEB RENickolas #: [id number] RAVEN: 03/07/23 07:[address]: Gerber Woodard DEPT: SURGICAL PATHOLOGY RECD BY: Alanis Pena ENTERED: 03/07/23 12:06 SP TYPE: DISC OTHR DR: Dr. Joe Coleman MD Tissues: Intervertebral disc, NOS Procedures: Surgery Specimen Level III HEADER OPERATION: ERAS, lumbar laminectomy L5-S1 on right PRE-OP DIAGNOSIS: Herniated nucleus pulposus L5-S1 right TISSUE SUBMITTED: Spine disc MICROSCOPIC DIAGNOSIS Intervertebral disc, L5-S1, discectomy: Fragments of intervertebral disc with degenerative change. AM:kaylee 03/08/2023 MICROSCOPIC DESCRIPTION Slides are reviewed. GROSS DESCRIPTION Received in fixative is one container labeled with the patient's name and designated spine disc. The specimen consists of multiple irregular and indurated fragments of pink-white soft tissue that in aggregate measure 2.0 x 2.0 x 0.3 cm. The specimen is totally submitted in one cassette. / AM:kaylee 03/07/2023 TC:5 CPT: 54536
[2023-03-07] MEDS: THROMBIN (RECOMBINANT) 20,000 UNIT VIAL 20000 UNIT TOPICAL (08:40)
--- NOTE | 2023-03-07 08:40 | RAD_ITS ---
STUDY: X-RAY - LUMBAR SPINE REASON FOR EXAM: Female, 32 years old. LAMINECTOMY L5-S1, RIGHT TECHNIQUE: 1 view(s) of the lumbar spine were obtained. COMPARISON: None FINDINGS: The localization instrument is seen posterior to the L5-S1 disc space level. RAD/Spine 1 View Any Level IMPRESSION: The localization instrument is seen posterior to the L5-S1 disc space level. Electronically Signed: Mariano Cavazos MD at 8:56 EDT ,
--- NOTE | 2023-03-07 10:45 | OP.PCM_ITS ---
Report of Operation Description of Surgical Findings:: Preoperative diagnosis: Herniated disc L5-S1 with severe right S1 radiculopathy Postoperative diagnosis: The same Procedure: Lumbar laminectomy discectomy L5-S1 on the right CPT code 46989 Surgeon: Dr. Woodard Neurology Technologist: Josephine HEARN Anesthesia: General endotracheal by [facility] Estimated blood loss less than 25 cc Drains: None Complications: None Procedure: Patient was taken to the OR where she was placed under general endotracheal anesthesia on her gurney. A Foster catheter was inserted. Neuro monitoring placed her leads on the patient. She was then placed in the prone position on the Roverto frame. Care was taken to protect her breasts, her bony prominences, facial features and cervical spine and her ulnar nerves in the brachial plexus bilaterally. The back was then prepped and draped in standard fashion. We then made a longitudinal incision centered over L5-S1. Subcutaneous tissues were incised the length of the skin incision using cautery. We then undermined subcutaneous tissues to either side of the center with Elmore retractors thorough irrigation was then carried out. I then opened the lumbar fascia to the right of the spinous processes using cautery and elevated the paravertebral muscles off the lamina of S1 and the lamina of L5. An intraoperative x-ray was taken with a marker in place to confirm that we were indeed at the L5-S1 level. I continue to elevate the paravertebral muscles out over the lateral facet. A Gia retractor was then put in place. We then used Maunabo's to remove the soft tissues off of the ligamentum flavum. Using small sharp angled curettes I started releasing ligamentum flavum off the underside of the lamina. I used double-action rongeurs to thin down the lamina on that right side. I then began my laminotomy with 45 degree Kerrison rongeurs both 3 mm and 4 mm. Once the ligamentum of flavum was read least I then used a hockey-stick to go under the ligamentum flavum and then I cut over the top of it down to the lamina of S1 below. I then used curettes to release the ligamentum flavum off of the top of the S1 lamina. 45 degree Kerrison rongeurs were then used to completely remove the ligamentum flavum. In this fashion I was able to retract the midline structures towards the left. Note that I felt a bump in the axilla of the S1 nerve pulling the dura over in and leave in the axilla we were able to remove the first free fragment from the axilla I then used a 15 blade to cut into the very protruded annulus and remove more nucleus from within the disc base. This completely decompressed the S1 nerve root on the right side. Notes that every 10 to 15 minutes in the course of the case we thoroughly irrigated with copious amounts of sterile saline to prevent infection. Bleeding was controlled with both bipolar cautery and thrombin-soaked Gelfoam. At the end of the case we had a very very dry field. We put an amniotic graft over the dura and nerve root to prevent adhesions in the future. Gelfoam was placed over the top of that. The field was so dry that we felt that a drain was not necessary. We closed the lumbar fascia using [id number] suture with #1 Vicryl. This was followed by closure with subcutaneous tissues in layers with 0 Vicryl and 2- 0 Vicryl in interrupted fashion. The skin was approximated using skin clips. Sterile dressings were then applied. The patient was then recovered in the OR she was moved to her hospital bed and taken to recovery in satisfactory condition. This is the end of operative summary on Denisha Hill. This is Dr. Woodard dictating.
[2023-03-07] MEDS: oxyCODONE 5 MG Tablet PO ×3 (14:39→23:11)
[2023-03-07] MEDS: Lactated Ringers 1,000 ML 100 ML IV (15:45)
[2023-03-07] MEDS: Cefazolin 1 GM/50 ML BAG IV ×2 (15:45→23:06)
[2023-03-07] MEDS: Ensure Surgery 237 ML LIQUID PO (16:34)
--- NOTE | 2023-03-07 17:12 | PCM.CONS.GEN ---
Assessment & Plan Assessment/Plan (1) Herniated nucleus pulposus, L5-S1, right: PLAN: Plan #Herniated nucleus pulposus L5-S1 on the right -Status post lumbar laminectomy discectomy of L5-S1 on right -Doing well, was up walking around -Instructed if any focal signs or symptoms or lack of continued improvement in her right foot to notify -Further management per Ortho #History of thrombosis in left upper arm -Reports she was treated with a short course of Eliquis and then this was discontinued and she has not had any further problems. Presently not on blood thinners #PFO/SVT -Reports PFO that has not been fixed and she had previously refused surgery -Was told that that is why she had SVT but has done well since being on metoprolol and can feel when she flips into her rhythm -Continue metoprolol #DVT ppx: SCDs presently in place Eliane Kennedy MD Time spent in the patient's overall evaluation,decision-making process, review of diagnostic data, adjustment of management, discussion with other providers, nursing nursing and ancillary staff involved in patient's care documentation, 30 minutes HPI Consult Data Date of Consult: 03/07/23 HPI Narrative Reason for Consultation: Medical management HPI Narrative: REX GILES, is a 32 F with a history of PFO, SVT, left upper extremity thrombus status post anticoagulation who presented to [facility] 03/07[facility] for Lumbar laminectomy discectomy L5-S1 on the right?d/t Herniated disc L5-S1 with severe right S1 radiculopathy. Hospitalist consulted for medical management. This a.m. she had her surgery and went back to the medical floor. At the time of evaluation she had already been up and walked, minimal pain in her back. Did have some tingling feeling in the top of right foot and side of the right foot that she thinks is getting better. No weakness or other sensory complaints. Denies any other complaints. [facility] Medical History Abnormal echocardiogram Alcohol use Anemia Arm vein blood clot Blood clot associated with vein wall inflammation Cardiology follow-up encounter Former smoker History of echocardiogram History of edema History of irregular heartbeat History of steroid therapy Patent foramen ovale SVT (supraventricular tachycardia) Home Medications Saccharomyces boulardii 250 mg capsule (Daily Probiotic (S. boulardii)) 250 mg PO DAILY 03/02/21 [History Last Taken 03/06/23] ferrous sulfate 325 mg (65 mg iron) tablet (Feosol) 325 mg PO DAILY 03/04/21 [History Last Taken 03/06/23] aspirin 81 mg tablet,delayed release (Adult Low Dose Aspirin) 81 mg PO DAILY 03/19/21 [History Last Taken 03/04/23] metoprolol succinate 50 mg tablet,extended release 24 hr 50 mg PO DAILY #30 tabs 03/02/22 [Rx Last Taken 03/06/23] Allergy/AdvReac Type Severity Reaction Status Date / Time adhesive tape Allergy Other Verified 03/07/23 06:06 Family History Grandmother Heart disease Surgical History H/O section H/O tubal ligation (~2016) History of cholecystectomy (~2016) Social History Smoking Status: Former smoker alcohol intake: current details: occasional substance use type: does not use caffeine: Yes Type: coffee Number of servings: 4 ROS ROS Narrative General: Denies fever/chills HENT: Denies headache, denies stuffy nose, denies sore throat EYES: Denies changes in vision Resp: Denies cough, denies shortness of breath Cardiac: Denies chest pain GI: Denies abdominal pain, denies changes in bowel, denies nausea/vomiting : Denies changes in urination Extremity: Denies swelling MSK: Feels somewhat generally weak but no focal weakness Neuro: Has some tingling on the dorsum of right foot and side of right foot which she thinks is improving Heme: Denies any bleeding or bruising Skin: Denies rashes Psychiatric: No complaints voiced Physical Exam Narrative General: Alert, oriented, no apparent distress HEENT: Atraumatic, normocephalic Eyes: Anicteric, normal conjunctiva, extraocular movements grossly intact Neck: Supple Respiratory: Clear to auscultation bilaterally, normal respiratory effort Cardiovascular: Regular rate and rhythm GI: Soft, nontender, nondistended Extremities: No edema Musculoskeletal: Moving all extremities Neuro: Has feeling in both feet but from vancomycin ankle down on the dorsum of the right side and the lateral aspect feels a tingling sensation which is not present above the ankle on the bottom of the foot Skin: No rashes appreciated Psych: Cooperative Lab / Micro Data Labs: Laboratory Results - last 24 hr 03/07/23 06:11: POC Glucose 110 H Radiology Impression Spine X-Ray 03/07/23 08:40 IMPRESSION: The localization instrument is seen posterior to the L5-S1 disc space level. Electronically Signed: Mariano Cavazos MD at 8:56 EDT , Charges/Coding Visit Charges Office Visits / Consults: 91137 OP Consult L3
[2023-03-08 04:45] VITALS: BP 106/57; PULSE 69; RESP 15; TEMP 36.7; O2SAT 98
[2023-03-08] MEDS: Acetaminophen 500 MG Tablet 1000 MG PO ×2 (04:51→14:06)
[2023-03-08] MEDS: oxyCODONE 5 MG Tablet PO ×2 (04:51→11:59)
[2023-03-08 08:02] VITALS: BP 113/67; PULSE 65; RESP 16; TEMP 36.7; O2SAT 98
[2023-03-08 09:05] VITALS: BP 113/67; PULSE 65
[2023-03-08] MEDS: Ensure Surgery 237 ML LIQUID PO ×2 (09:05→11:53)
[2023-03-08] MEDS: Metoprolol(XL)Succ 50 MG Tablet PO (09:05)
[2023-03-08 11:04] VITALS: O2SAT 98
--- NOTE | 2023-03-08 11:20 | CASEMGMT ---
RN?CM?DEFENSIVE DRIVING INSTRUCTOR?CM?to room to meet with patient for initial transition planning/care coordination?assessment.?RN?CM?introduced self and role at [facility].? Pt voices understanding and consents to?assessment?at this time.? Pt standing @ edge of bed in no distress at this time.?BF in room visiting and pt agreeable to him being present during assess. Pt is A/O at this time and answers all questions appropriately.?? Care providers, pharmacy, and demographics verified/updated at this time. PCP: Dr Coleman Specialists: Dr Woodard-ortho, Dr Bosch-hr leader @ [facility] in [place] Preferred Pharmacy: [facility] Retail Insurance: [facility] [employer] Prescription Benefit:?Yes Living Will/HPOA:?Pt does not currently have LW/HCPOA LNOK: Sisters Hugo and Bell Living Arrangements: Lives w/sig other and her children in one-story home w/a few steps to enter. Independent. DME: ? Denies using any DME and denies needs.? HHC/SNF: No needs identified. Pt has been up ad fiona in room w/no DME. Therapy eval reviewed--no additonal therapy recommended. Pt wishes to return home and states has no concerns with going home at time of discharge.? CM?to follow for any discharge planning/needs.? Pt voices no concerns/needs at this time.? PLAN:??Home Nuno SOMMERN?RN?CM
--- NOTE | 2023-03-08 12:53 | DCINST_ITS ---
Discharge Instructions Activity May shower in (days): 5 May resume sexual activity in: 4-6 weeks Dressing / Incision Remove Dressing in: 4 days Follow Up Care Test Results: Test results from this visit will be discussed in further detail at your follow- up appointment, if applicable. Discharge Plan Admission Admit Date/Time: 03/07/23 10:41 Attending Provider: Gerber Woodard Primary Care Provider: Joe Coleman Consulting Providers: Eliane Kennedy Discharge Orders/Prescriptions Prescriptions: No Action ferrous sulfate [Feosol] 325 mg (65 mg iron) tablet 325 mg PO DAILY Saccharomyces boulardii [Daily Probiotic (S. boulardii)] 250 mg capsule 250 mg PO DAILY aspirin [Adult Low Dose Aspirin] 81 mg tablet,delayed release (DR/EC) 81 mg PO DAILY metoprolol succinate 50 mg tablet extended release 24 hr 50 mg PO DAILY Qty: 30 12RF oxycodone-acetaminophen 5-325 mg tablet 1 tab PO Q6H PRN (Reason: pain) 10 Days Qty: 40 0RF Other Ambulatory Orders: 12 Lead EKG (Routine) Timeframe: 20230227 Location: None Selected Ordered By: Dr. Gerber Woodard Referrals / Follow Up: Joe Coleman MD [Primary Care Provider] - Disposition Disposition (needs filled in before D/C Order can be placed): Home, Self Care
--- NOTE | 2023-03-08 12:56 | PCM.DC.SUM ---
Providers Date of Admission: 03/07/23 Primary Care Physician: Dr. Joe Coleman MD Attending Physician: Denisha was admitted yesterday. She underwent lumbar laminectomy at the L5-S1 level on the right side. Today she reports that her leg pain is all gone. Her back pain is not too bad at all. Her dressing is dry. She was given directions regarding her activities at home when she could shower etc. I answered all her questions she will make an appointment to see me in about 2 weeks. She was given oxycodone 5/325 for pain. This is the end of discharge summary on Denisha Hill. This is Dr. Woodard dictating. Consultations 03/07/23 12:47 Consult: Hospitalist Routine Consulting Provider: Eliane Kennedy Reason for Consult: Medical Management EMERGENT Consult: No MD Notified: Yes Date Notified: 03/07/23 Time Notified: 13:22 Method of Notification: Text Reason For Visit: rt lumbar laminectomy l5-s1 Diagnosis Discharge Diagnosis (1) Herniated nucleus pulposus, L5-S1, right: Status: Acute Code(s): M51.27 - Other intervertebral disc displacement, lumbosacral region Medications at Discharge Home Medications Saccharomyces boulardii 250 mg capsule (Daily Probiotic (S. boulardii)) 250 mg PO DAILY 03/02/21 ferrous sulfate 325 mg (65 mg iron) tablet (Feosol) 325 mg PO DAILY 03/04/21 aspirin 81 mg tablet,delayed release (Adult Low Dose Aspirin) 81 mg PO DAILY 03/19/21 metoprolol succinate 50 mg tablet,extended release 24 hr 50 mg PO DAILY #30 tabs 03/02/22 oxycodone-acetaminophen 5 mg-325 mg tablet 1 tab PO Q6H PRN pain 10 days #40 tabs 03/08/23 Weight / BMI Weight Weight: 176 lb 5.917 oz Body Mass Index (BMI) 38.1 ABG / Lab / Microbiology Data Microbiology: Microbiology 02/27/23 08:45 Nasal Secretion Nasal Screen MRSA/MSSA - Final D/C Instructions May shower in (days): 5 May resume sexual activity in: 4-6 weeks Meaningful Use Info Meaningful Use Diagnoses (Choose all that apply): None applicable Discharge Plan Admission Admit Date/Time: 03/07/23 10:41 Attending Provider: Gerber Woodard Primary Care Provider: Joe Coleman Consulting Providers: Eliane Kennedy Discharge Orders/Prescriptions Prescriptions: No Action ferrous sulfate [Feosol] 325 mg (65 mg iron) tablet 325 mg PO DAILY Saccharomyces boulardii [Daily Probiotic (S. boulardii)] 250 mg capsule 250 mg PO DAILY aspirin [Adult Low Dose Aspirin] 81 mg tablet,delayed release (DR/EC) 81 mg PO DAILY metoprolol succinate 50 mg tablet extended release 24 hr 50 mg PO DAILY Qty: 30 12RF oxycodone-acetaminophen 5-325 mg tablet 1 tab PO Q6H PRN (Reason: pain) 10 Days Qty: 40 0RF Other Ambulatory Orders: 12 Lead EKG (Routine) Timeframe: 20230227 Location: None Selected Ordered By: Dr. Gerber Woodard Referrals / Follow Up: Joe Coleman MD [Primary Care Provider] - Disposition Disposition (needs filled in before D/C Order can be placed): Home, Self Care
[2023-03-08 14:11] VITALS: BP 104/68; PULSE 88; RESP 16; TEMP 36.8; O2SAT 99
--- NOTE | 2023-03-08 14:23 | PCM.PN.HOSP ---
Reason for Visit Reason for Visit: Diagnoses Other intervertebral disc displacement, lumbosacral region (03/07/23) Encounter for other preprocedural examination (03/07/23) Subjective Subjective Doing well today, has been doing well with ambulation, no nausea, had bowel movement Objective Data Objective Data Vital Signs: Vital Signs Temp Pulse Resp BP Pulse Ox O2 Del Method O2 Flow Rate 98.3 F 88 16 104/68 99 Room Air 4 03/08/23 14:11 03/08/23 14:11 03/08/23 14:11 03/08/23 14:11 03/08/23 14:11 03/08/23 14:11 03/07/23 12:05 Oxygen Flow Rate (L/min) 4 Oxygen Delivery Method Room Air Weight: 80 kg Body Mass Index (BMI) 38.1 Intake & Output: Intake and Output for Last 24 Hours 03/06/23 03/07/23 03/08/23 23:59 23:59 23:59 Intake Total 2959.5 / 3609.5 1590 / 1590 Output Total 2175 / 2175 Balance 784.5 / 1434.5 1590 / 1590 Lab / Micro Data Micro: Microbiology 02/27/23 08:45 Nasal Secretion Nasal Screen MRSA/MSSA - Final Physical Exam Narrative General: Alert, oriented, no apparent distress HEENT: Atraumatic, normocephalic Eyes: Anicteric, normal conjunctiva, extraocular movements grossly intact Neck: Supple Respiratory: Clear to auscultation bilaterally, normal respiratory effort Cardiovascular: Regular rate and rhythm GI: Soft, nontender, nondistended Extremities: No edema Musculoskeletal: Moving all extremities Neuro: No overt focal neurological deficits Skin: No rashes appreciated Psych: Cooperative Assessment & Plan Assessment/Plan (1) Herniated nucleus pulposus, L5-S1, right: PLAN: Plan #Herniated nucleus pulposus L5-S1 on the right -Status post lumbar laminectomy discectomy of L5-S1 on right -Doing well, was up walking around -Instructed if any focal signs or symptoms or lack of continued improvement in her right foot to notify -Further management per Ortho -03/08: Doing well today, DC per Ortho. Okay to DC from medical perspective #History of thrombosis in left upper arm -Reports she was treated with a short course of Eliquis and then this was discontinued and she has not had any further problems. Presently not on blood thinners #PFO/SVT -Reports PFO that has not been fixed and she had previously refused surgery -Was told that that is why she had SVT but has done well since being on metoprolol and can feel when she flips into her rhythm -Continue metoprolol #DVT ppx: SCDs presently in place Eliane Kennedy MD Charges/Coding Visit Charges Inpatient E&M: 09919 Subs Hosp L1
--- NOTE | 2023-03-08 14:48 | PHA.DC.MR ---
Pharmacy Service has performed discharge medication reconciliation for this patient. The patient's discharge medication list was reviewed for discrepancies and discrepancies were resolved. Medication education papers prepared, patient discharged before I was able to elementary school counselor. Home Medications Saccharomyces boulardii 250 mg capsule (Daily Probiotic (S. boulardii)) 250 mg PO DAILY 03/02/21 ferrous sulfate 325 mg (65 mg iron) tablet (Feosol) 325 mg PO DAILY 03/04/21 aspirin 81 mg tablet,delayed release (Adult Low Dose Aspirin) 81 mg PO DAILY 03/19/21 metoprolol succinate 50 mg tablet,extended release 24 hr 50 mg PO DAILY #30 tabs 03/02/22 oxycodone-acetaminophen 5 mg-325 mg tablet 1 tab PO Q6H PRN pain 10 days #40 tabs 03/08/23
== END 2023-03-08 14:15 | disposition home or self-care (01) ==
LOC: SDC 11:21 → MS3 11:21
PROVIDERS: Anesthesiology; Admitting Provider Orthopaedic Surgery; PCP Family Medicine; Referring Provider Orthopaedic Surgery; Visit Provider Orthopaedic Surgery
PROC: (CPT 63030; principal; 2023-03-07 07:00)
DX: M51.27 Other intervertebral disc displacement, lumbosacral region (principal); M54.18 Radiculopathy, sacral and sacrococcygeal region; Z87.891 Personal history of nicotine dependence; D64.9 Anemia, unspecified; Z79.82 Long term (current) use of aspirin; Z79.899 Other long term (current) drug therapy; Q21.12 Patent foramen ovale; Z86.718 Personal history of other venous thrombosis and embolism
CPT/HCPCS: 63030; 00630; J2405; 72020; 82962; 85610; 85730; 86703; 86706; 86708; 86803; 87081; 88304; 93005; 94668; 96361; 96365; 96366; 97161; 99221; J7120; G0378; J3475

== ENCOUNTER → 2023-04-19 | Outpatient (CLI) | payer MEDICAID, SELFPAY ==
--- NOTE | 2023-04-19 07:23 | MRI_ITS ---
HISTORY: RIGHT LEG PAIN, HX PRIOR SURGERY 03/07/23 TECHNIQUE: Multiplanar and multisequence MR images of the lumbar spine were obtained before and after the intravenous administration of 17 mL Clariscan. 165 images. COMPARISON: MRI 01/28/2023, XR 01/05/2023. FINDINGS: VERTEBRAE: Vertebral body heights maintained. No significant bone marrow signal abnormality. ALIGNMENT: No anterior or posterior subluxation. SPINAL CANAL: Normal morphology and position of the conus medullaris at T12-L1. No gross epidural collection or enhancing intradural extramedullary mass. INTERVERTEBRAL DISCS: T12-L1, L1-2: Intervertebral disc signal within normal limits. No significant posterior disc protrusion, central canal stenosis, or foraminal narrowing. L2-3: Mild degenerative loss of T2 signal in the intervertebral disc with minimal left paracentral disc bulge again seen. No significant central canal stenosis or foraminal narrowing. L3-4, L4-5: Intervertebral disc signal within normal limits. No significant posterior disc protrusion, central canal cirrhosis, or foraminal narrowing. L5-S1: Recurrent or residual central disc protrusion with annular fissure and enhancing right paracentral granulation tissue resulting in right S1 nerve root impingement, right S2 nerve root abutment, minimal narrowing of the thecal sac, and mild bilateral foraminal narrowing. SOFT TISSUES: Posterior subcutaneous and intramuscular edema with a 7 x 9 x 17 mm postoperative fluid collection at the right L5-S1 hemilaminectomy. MRI/Spine Lumbar W/WO Contrast IMPRESSION: Small recurrent central disc protrusion at L5-S1 with right paracentral enhancing granulation tissue resulting in right S1 nerve root impingement and right S2 nerve root abutment in the thecal sac Right hemilaminectomy of L5-S1 with small postoperative fluid collection. Electronically Signed: Denisha Bonilla MD at 15:53 EDT ,
== END | disposition home or self-care (01) ==
LOC: MRI 07:12
PROVIDERS: PCP Family Medicine; Referring Provider Orthopaedic Surgery; Visit Provider Orthopaedic Surgery
DX: Z98.890 Other specified postprocedural states (principal)
CPT/HCPCS: 72158; A9575

== ENCOUNTER → 2023-06-26 | Outpatient (CLI) | payer MEDICAID, SELFPAY ==
--- NOTE | 2023-06-25 11:58 | MRI_ITS ---
STUDY: MRI LUMBAR SPINE WITHOUT CONTRAST REASON FOR EXAM: Female, 32 years old. New symptoms, preop planning TECHNIQUE: Standardized fat and water weighted pulse sequences were obtained in the sagittal and axial planes. COMPARISON: None FINDINGS: T11-T12 and T12-L1: (Sagittal only). Normal endplates. Normal disc height, hydration and morphology. Normal central canal and bilateral intervertebral neural foramina. Normal lumbar lordosis. There is no substantial scoliosis. Normal conus medullaris that terminates at the lower T12 vertebral body level. L1-2: Normal endplates. Normal disc height, hydration and morphology. Normal bilateral facet joints. Normal central canal and bilateral lateral recesses. Normal bilateral intervertebral neural foramina. L2-3: Normal endplates. Normal disc space height but mild loss of disc hydration. Minimal left posterior paramedian ventral extradural defect is posterior bulging annulus and unchanged. Normal facet joints. Normal central canal and bilateral lateral recesses. Normal bilateral intervertebral neural foramina. L3-4: Normal endplates. Normal disc height, hydration and morphology. Normal bilateral facet joints. Normal central canal and bilateral lateral recesses. Normal bilateral intervertebral neural foramina. L4-5: Normal endplates. Normal disc height, hydration and morphology. Normal bilateral facet joints. Normal central canal and bilateral lateral recesses. Normal bilateral intervertebral neural foramina. L5-S1: Normal endplates. Mild disc space height narrowing. Increased size of prominent right posterior disc extrusion causing increased posterior displacement of the right S1 nerve root sleeve and right lateral recess stenosis. Right L5 hemilaminectomy defect is unchanged. Normal central canal and left lateral recess. Normal facet joints. Normal bilateral intervertebral neural foramina. Normal visualized sacral ala. Normal visualized paraspinous soft tissue structures. MRI/Spine Lumbar (Routine) IMPRESSION: Increased size of recurrent right L5-S1 posterior disc extrusion with increased posterior displacement of the right S1 nerve root sleeve when compared to 04/19/2023. Electronically Signed: Chandan Guthrie MD at 14:21 EDT ,
== END | disposition home or self-care (01) ==
PROVIDERS: PCP Family Medicine; Referring Provider Orthopaedic Surgery; Visit Provider Orthopaedic Surgery
DX: M51.27 Other intervertebral disc displacement, lumbosacral region (principal)
CPT/HCPCS: 72148

== ENCOUNTER 2023-07-04 05:23 | Inpatient (IN) | payer MEDICAID, SELFPAY ==
[2023-06-20 14:27] LABS: Absolute Lymphocyte Count 1.46 X10^3/uL (0.83-4.51); Absolute Neutrophil Count 5.1 X10^3/uL (2.0-7.7); Basophil# 0.03 X10^3/uL; Basophil% 0.4 % (0-1); Eosinophil# 0.05 X10^3/uL; Eosinophils% 0.7 % (0-5); Hematocrit 38.9 % (37-47); Hemoglobin 13.5 g/dL (12.0-15.0); Lymphocyte # 1.46 X10^3/ul (0.83-4.51); Lymphocyte % 20.6 % (19-41); Mean Corp Hgb Conc 34.7 g/dL (32-36); Mean Corpuscular Hgb 27.7 pg (27.0-32.0); Mean Corpuscular Volume 79.9 fL (81-99); Mean Platelet Vol. 10.8 fl (6.2-12.0); Monocyte# 0.44 X10^3/uL; Monocyte% 6.2 % (0-10); NRBC Flagged by Analyzer 0 % (0-5); Neutrophil # 5.11 X10^3/uL (2.7-7.7); Platelet Count 302 K/mm3 (150-450); RBC Distribution Width CV 13.1 % (11.6-14.6); RBC Distribution Width SD 37.6 fl (35.1-43.9); Red Blood Count 4.87 M/mm3 (4.2-5.4); White Blood Count 7.1 K/mm3 (4.4-11.0)
[2023-06-20 14:36] LABS: Prothrombin Time (Protime)PT. 13.7 SECONDS (11.7-14.9)
[2023-06-20 14:37] LABS: Partial Thromboplast Time 28.5 Seconds (24.1-36.2)
[2023-06-20 15:04] LABS: Magnesium 2.2 mg/dL (1.6-2.6)
[2023-06-20 15:05] LABS: Anion Gap 4 (5-15); BUN 6 mg/dL (7-18); BUN/Creat Ratio 9.8 RATIO (10-20); Chloride 110 mmol/L (98-107); Creatinine, Serum 0.61 mg/dL (0.55-1.02); EST Glomerular Filtration Rate 120 mL/min (>60); Est Glom Filt Rate - Afr Amer 145 mL/min (>60); Glucose 96 mg/dL (74-106); Potassium 3.9 mmol/L (3.5-5.1); Sodium Level 140 mmol/L (136-145)
[2023-06-20 19:19] LABS: HIV - WCH Non-Reactive (Nonreactive); Hepatitis B Surface Antibody Reactive; Hepatitis C Antibody Non-Reactive (Nonreactive)
[2023-06-22 05:07] LABS: Hepatitis A AB, Total Positive (Negative)
--- NOTE | 2023-07-03 14:34 | PCM.HP.BLA ---
History and Physical Add?Addendum MR#: [id number] Acct: [id number] Name: REX GILES Rep #: [id number] : 1990 Provider: Dr. Gerber Woodard DO Age/Sex: 32/F Location: [facility] [place] Status: Signed Intake Vital Signs 03/07/2313:11 Height 4 ft 9 in Intake Visit Reasons: LUMBER SPINE Chief Complaint: RIGHT LUMBAR LAMINECTOMY L5 -S1 Allergies adhesive tape Allergy (Verified 06/15/23 08:10) Other Medications Saccharomyces boulardii 250 mg capsule (Daily Probiotic (S. boulardii)) 250 mg PO DAILY 03/02/21 [History Confirmed 06/15/23] ferrous sulfate 325 mg (65 mg iron) tablet (Feosol) 325 mg PO DAILY 03/04/21 [History Confirmed 06/15/23] aspirin 81 mg tablet,delayed release (Adult Low Dose Aspirin) 81 mg PO DAILY 03/19/21 [History Confirmed 06/15/23] metoprolol succinate 50 mg tablet,extended release 24 hr 50 mg PO DAILY #30 tabs 03/02/22 [Rx Confirmed 06/15/23] PFSH Medical History Abnormal echocardiogram Alcohol use Anemia Arm vein blood clot Blood clot associated with vein wall inflammation Cardiology follow-up encounter Former smoker History of echocardiogram History of edema History of irregular heartbeat History of steroid therapy Patent foramen ovale SVT (supraventricular tachycardia) Surgical History H/O section H/O tubal ligation (~2016) History of cholecystectomy (~2016) Family History Grandmother Heart disease Social History Smoking Status: Former smoker alcohol intake: current details: occasional substance use type: does not use caffeine: Yes Type: coffee Number of servings: 4 HPI LUMBER SPINE Details: Parts of this documentation were recorded by a scribe, this documentation accurately reflects the service provided and the decisions made by , Dr. Gerber Woodard DO 06/15/23 0805. REX GILES is a 32 year old F here today for a new issues of pain going down her left leg. States that this has been going on for 2 weeks. States that all she did woke up one morning and bent over to get her dogs water bowl and when she stood up she had instant pain on the whole left side of her ribs. Notes that nothing relieves her pain. Patient is scheduled for surgery on 07/04/23 for 360 Lumbar Fusion L5-S1 wit repeat laminectomy. Rex has a new development. Weeks ago after she got up she went to bend over to lift the dog's water bowl and she felt excruciating pain into the left buttocks and down the left thigh pain that she has never had before. It is always been on the right side. So this is a new development that has happened after the last MRI scan. On examination she has very positive tension signs and very positive straight leg raising on the left side. She has absence of the posterior tibial reflex on the left. Her EHL strength and anterior tib strength are okay. I explained to Rex that because of this new development that we must have a new MRI scan before surgery so that I will know what I have to do. It is even possible that it could be the herniation of the disc above L5-S1 which would be L4-5. We will know that until we get a new MRI scan. We will order it stat because of this time interval change. I will see her again as soon as it is done. Her surgery is still scheduled for the of this month. Coding Level of Care Code Off vis,est,level 3 Diagnoses Herniated nucleus pulposus, L5-S1, right M51.27 S/P laminectomy Z98.890
[2023-07-04] VITALS (10 sets, daily range): BP systolic 103–132; BP diastolic 61–84; PULSE 72–84; RESP 14–16; TEMP 36.6–37.4; O2SAT 93–100; BMI 41.0
[2023-07-04 06:19] LABS: Bedside Glucose 103 mg/dL (74-106)
[2023-07-04] MEDS: Magnesium 1 GM over 15 mins IV (06:22)
[2023-07-04] MEDS: Lactated Ringers 1,000 ML 15 ML IV (06:22)
[2023-07-04] MEDS: Acetaminophen 500 MG Tablet 1000 MG PO ×2 (06:23→17:27)
--- NOTE | 2023-07-04 07:30 | DISC_PTH ---
PATIENT: REX GILES LOC: MS3 U#:[id number] AGE/SX: 32/F ROOM: [facility] [place] RE07/04/[address]: Dr. Gerber Woodard DO : 1990 BED: 1 DIS: 07/06/2023 SPEC #: [id number] RECD: 07/05/23 08:30 STATUS: KALEB RENickolas #: [id number] RAVEN: 07/04/23 07:[address]: Gerber Woodard DEPT: SURGICAL PATHOLOGY RECD BY: Alanis Pena ENTERED: 07/05/23 09:30 SP TYPE: DISC OTHR DR: MD Dr. Sandy Medellin MD Dr. Eric Turney, MD Dr. John E Schinner, MD Tissues: Intervertebral disc, NOS Procedures: Surgery Specimen Level III HEADER OPERATION: ERAS, 360 lumbar fusion L5-S1 with repeat laminectomy PRE-OP DIAGNOSIS: Herniated nucleus pulposus, L5-S1 TISSUE SUBMITTED: Disc L5-S1 MICROSCOPIC DIAGNOSIS Disc L5-S1, laminectomy: Fragments of fibrocartilaginous tissue with degenerative changes. SJ: 07/06/2023 MICROSCOPIC DESCRIPTION Slides are reviewed. GROSS DESCRIPTION Received in fixative is one container labeled with the patient's name and designated disc L5-S1. The specimen consists of multiple irregular fragments of faria-white indurated tissue measuring 5.5 x 5.0 x 1.0 cm. Wood Last Maker sections are submitted in one cassette. /AM:sergio 07/05/23 TC:5 CPT:46118
[2023-07-04] MEDS: Cefazolin 2 GM in 0.9% Normal Saline 100 ML IV (08:21)
[2023-07-04] MEDS: Heparin 10,000 UNITS/10 ML Vial 10000 UNITS (08:33)
--- NOTE | 2023-07-04 09:45 | RAD_ITS ---
STUDY: X-RAY - LUMBAR SPINE REASON FOR EXAM: Female, 32 years old. L5-S1 fusion. Preop image. TECHNIQUE: A single lateral view(s) of the lumbar spine were obtained. COMPARISON: None FINDINGS: Single lateral view shows metallic localization at the L5 vertebral body anteriorly and at the L4-5 interspace. RAD/Spine 1 View Any Level IMPRESSION: Metallic localization as described. Electronically Signed: Nickolas Multani MD at 15:58 EDT ,
--- NOTE | 2023-07-04 10:50 | RAD_ITS ---
EXAM: XR SPINE, 1 VIEW CLINICAL INDICATION: 360 LUMBAR FUSION L5/S1 TECHNIQUE: Intraoperative crosstable lateral view of the spine. COMPARISON: Lumbar spine radiographs 01/05/2023 and crosstable lateral view of the lumbar spine of 07/04/2023 at 9:45 AM. FINDINGS: Crosstable lateral view of the lower spine showing excellent deployment of metallic dowel inside the L5-S1 disc space. This is stabilized by overlying metallic plate and transfixing screws penetrating the lower L5 and upper S1 vertebral bodies. Normal remaining included L2 down to L4 vertebral bodies. Normal included disc space heights at L2-L3, L3-L4 and L4-L5 disc space levels. Normal alignment. RAD/Spine 1 View Any Level IMPRESSION: Normal intraoperative crosstable lateral view of the lumbar spine showing excellent anterior interbody fusion using metallic plate with transfixing screws and excellent deployment of metallic dowel inside the L5-S1 disc space. Electronically Signed: Chandan Guthrie MD at 12:07 EDT ,
--- NOTE | 2023-07-04 11:02 | RAD_ITS ---
STUDY: X-RAY - LUMBAR SPINE REASON FOR EXAM: Female, 32 years old. Intraoperative documentation of view. TECHNIQUE: Single lateral view(s) of the lumbar spine were obtained. COMPARISON: Earlier in the day. FINDINGS: Single lateral view shows anterior fusion at L5-S1 with intervertebral disc. Metallic instruments are noted posterior to the L5-S1 interspace. . RAD/Spine 1 View Any Level IMPRESSION: Intraoperative documentation views. Electronically Signed: Nickolas Multani MD at 15:56 EDT ,
--- NOTE | 2023-07-04 11:18 | PCM.OPRPT ---
Report of Operation Description of Surgical Findings:: Preoperative diagnosis: Recurrent disc herniation L5-S1 right Postoperative diagnosis: The same Procedures: #1 anterior lumbar interbody fusion L5-S1 CPT code 47400 #2 application of anterior spine plate L5-S1 CPT code 35702/59 #3 insertion of titanium cage L5-S1 CPT code 75974 #4 bone marrow aspirate left iliac crest CPT code 13913 #5 spongy allograft for fusion CPT code 33925 Co-surgeons: Dr. Woodard and Dr. Lobo Sprinkler Irrigation Equipment Mechanic: Josephine HEARN Anesthesia: General endotracheal administered by [facility] Estimated blood loss: Less than 100 cc Drains: None Complications: None Procedure: Patient was taken to the OR where she was placed in the supine position on the operating table. She was then placed under general endotracheal anesthesia. A Foster catheter was inserted. Neuro monitoring placed her leads on the patient. The abdomen was then prepped and draped in standard fashion. The surgical approach is then described in Dr. Lobo's operative summary. Once he had L5-S1 exposed he confirmed it with a needle placement and a lateral x-ray. It was confirmed to be at L5-S1. I then scrubbed in and began my portion of the procedure first I removed the anterior annulus with a 10 blade and along handled knife. I then removed more nucleus from within the disc base with both pituitary rongeurs right and ring curettes and bowl curettes to remove all the cartilage off both endplates. Using a diana bur I had to make room for the small cage. I had to flatten the lateral areas to make room for the cage and also had to increase the size of the space posteriorly by using the diana bur. Once this was accomplished, I was able to remove part of the annulus on the right side with a nerve hook this was then removed with Kerrison rongeurs. Noted I was unable to bring any material into the space. The repeat laminectomy posteriorly will be done to remove the newly herniated disc. Finally used a broach to broach the space repeatedly. We decided to use a 12 mm high small cage. Fill the cage with allograft bone it was spongy allograft and then soaked in the patient's own stem cells. Note that the stem cells were obtained through a Jamshidi needle into the left iliac crest. This was done prior to the beginning of the incision. 60 cc of BMA or obtained given to the graphic technician in the room. She then was able to separate the stem cells from all the other cells and concentrate them about 10 times. We then soaked the cage with its spongy allograft bone in the patient's own concentrated stem cells I then tamped the cage into place and countersunk it a couple of millimeters. We ended up using a 27 mm L5-S1 plate I centered it while Dr. Lobo put the first of 4 screws and the patient. We started with a an awl to punch the first hole in the one of the top holes this was followed by the insertion of a 30 mm screw. This was done at all 4 points with 2 into S1 and 2 into L5. The locking mechanisms were then activated. This was seen on the lateral projection of the x-ray is found to be very satisfactory with good position of the plate the cage and the screws. Finally we placed an amniotic membrane directly over the plate to prevent adhesions to the local vessels. The closure is then described in Dr. Lobo's operative summary. This is the end of operative summary on [place]. This is Dr. Woodard dictating.
[2023-07-04] MEDS: THROMBIN (RECOMBINANT) 20,000 UNIT VIAL 20000 UNIT TOPICAL (13:00)
--- NOTE | 2023-07-04 14:56 | PCM.OPRPT ---
Report of Operation Description of Surgical Findings:: Preoperative diagnosis: Recurrent herniated disc L5-S1 on the right Postoperative diagnosis: The same Procedure: #1 posterior fusion L5-S1 CPT code 86494 #2 repeat laminectomy L5-S1 CPT code 46813 #3 internal fixation L5-S1 CPT code 66600 #4 bone allograft L5-S1 CPT code 66125 Surgeon: Dr. Woodard Psychology Technician: Josephine HEARN Anesthesia: General endotracheal by [facility] EBL: Less than 100 cc Drains: None Complications: None Procedure: After the anterior surgery was finished and the skin closed and dressing applied the patient was then turned over onto the prone position on the Roverto frame. Care was taken to protect her bony prominences her ulnar nerves of both elbows her breasts her brachial plexus on both sides and her facial features. Once that was done the back was prepped and draped in standard fashion. I then made a longitudinal incision centered over the old incision and subcutaneous tissues were incised the length of the skin incision using cautery. I then opened the lumbar fascia first to the right of the spinous processes and elevated off the lamina of 5 and the lamina of S1. An intraoperative x-ray was taken with a marker in place to assure that we are indeed at the proper level which we were. A Gia retractor was then put in place. I started far lateral identifying the facet joint the upper left lamina of S1. Started releasing the dura and scar tissue off of the medial facet and the old laminectomy. I then enlarged laminectomy with 45 degree Kerrison rongeurs and went more far lateral to approach from the lateral side which is always safer. Had a large laminotomy site noted that there was an adhered rather large epidural vessel it was old and the dura from being retracted medialward I cauterized it with bipolar cautery and cut it and then I was able to get just enough room to work I then cut into the annulus and removed some material from there also was able to observe the cage from the posterior side. With the opening of the lateral recess a partial foraminotomies I was able to completely decompressed the S1 nerve root as I followed it through its path through the foramen. Note that thorough irrigation was carried out and we packed the epidural area with thrombin-soaked Gelfoam. We then opened the left side again using cautery were able to elevate the paravertebral muscles off the lamina of L5 and the lamina of S1. This was taken out over the facet. The super slide retractors were then put in place. Bleeders were controlled with cautery. Using a diana bur I then burred the lamina of S1 and the lamina of L5. And the edge of the facet. The right side we did exactly the same thing with the diana bur. I then used spongy allograft strips that were so of the patient's own stem cells and put him on both sides. Note that we did leave after removal of the Gelfoam from the epidural space we did leave a amnionic membrane to prevent adhesions. Once this was done we then remove the interspinous ligament between L5 and S1. The fixation device was then applied once applied and locked into place the locking mechanisms were activated. Note that we had such a little bleeding by the time the case was over that we felt that a drain was not necessary. We closed the lumbar fascia using [id number] suture with #1 Vicryl followed by closure with subcutaneous tissues with 0 Vicryl and 2-0 Vicryl in layers. And the skin was approximated using skin clips. Sterile dressings were then applied. The patient was then recovered in the OR she was moved to her hospital bed and taken to recovery in satisfactory condition. This the end of operative summary on [place]. This is Dr. Woodard dictating.
[2023-07-04] MEDS: Cefazolin 1 GM/50 ML BAG IV (17:26)
[2023-07-04] MEDS: Lactated Ringers 1,000 ML 100 ML IV ×2 (17:27→21:43)
[2023-07-04] MEDS: oxyCODONE 5 MG Tablet PO (18:15)
--- NOTE | 2023-07-04 18:41 | PCM.PN.HOSP ---
Reason for Visit Reason for Visit: Diagnoses Encounter for other preprocedural examination (07/04/23) Subjective Subjective Patient notes discomfort to the lumbar region described as a dull aching throb with recent pain medication being administered. She denies any extremity paresthesias or weakness. Patient denies fevers, chills, nausea, emesis, abdominal pain, chest pain or dyspnea. Objective Data Objective Data Vital Signs: Vital Signs Temp Pulse Resp BP Pulse Ox O2 Del Method O2 Flow Rate 98.5 F 77 16 125/75 H 93 Room Air 4 07/04/23 16:58 07/04/23 16:58 07/04/23 16:58 07/04/23 16:58 07/04/23 16:58 07/04/23 16:58 07/04/23 16:15 Oxygen Flow Rate (L/min) 4 Oxygen Delivery Method Room Air Weight: 189 lb 9.561 oz Body Mass Index (BMI) 41.0 Intake & Output: Intake and Output for Last 24 Hours 07/02/23 07/03/23 07/04/23 23:59 23:59 23:59 Intake Total 4770.33 / 4770.33 Output Total 1420 / 1420 Balance 3350.33 / 3350.33 Lab / Micro Data 06/20/23 14:05 06/20/23 14:05 Labs: Laboratory Results - last 24 hr 07/04/23 06:01: POC Glucose 103 Micro: Microbiology 06/20/23 14:05 Swab (Method) Nasal Screen MRSA/MSSA - Final Radiography Diagnostic Testing: Radiology Impression Spine X-Ray 07/04/23 09:45 IMPRESSION: Metallic localization as described. Electronically Signed: Nickolas Multani MD at 15:58 EDT , Spine X-Ray 07/04/23 10:50 IMPRESSION: Normal intraoperative crosstable lateral view of the lumbar spine showing excellent anterior interbody fusion using metallic plate with transfixing screws and excellent deployment of metallic dowel inside the L5-S1 disc space. Electronically Signed: Chandan Guthrie MD at 12:07 EDT , Spine X-Ray 07/04/23 11:02 IMPRESSION: Intraoperative documentation views. Electronically Signed: Nickolas Multani MD at 15:56 EDT Reading Location ID and State: [facility] / [place] , Service support , Physical Exam Narrative Physical Examination: General: Awake, alert, oriented x 3 and cooperative, seated upright in the medical surgical bed, uncomfortable appearing. Skin: Normal color, normal turgor, no icterus, no cyanosis except for recent lumbar surgery with posterior as well as lower abdominal wraparound dressings in place. HEENT: AT/NC, EOMI, PERRLA, dry MM. Lungs: Diminished, greater bases, proper effort, no rales, ronchi or wheezing. Heart: Currently regular rate and rhythm; no gallop, rub audible. Abdomen: Soft, morbidly obese, mild discomfort for the lateral regions where the dressings wraparound from the posterior lumbar surgery, no marked distention evident, mildly hyperactive BS. Extremities: No cyanosis, clubbing, or marked pitting peripheral edema. Neurological: Patient awake, alert, oriented as noted, cognitive function intact; pupils equally reactive to light and accommodation, cranial nerves II-XII grossly normal, moving all 4 extremities except extremely limited given recent lumbar back surgery, sensation intact, no focal deficits, strength moderately to severely globally decreased. Psychiatric: Affect appears uncomfortable, fatigued, no acute evidence of depressive or anxiety feelings. Assessment & Plan Assessment/Plan (1) Intractable back pain: PLAN: Plan The patient is a 32 y/o F w/ PMHx: Morbid obesity, Hx SVT on metoprolol, Hx DVT, Hx PFO, Chronic anemia/Fe deficiency anemia who presents to the [facility] on 07/04/23 secondary to history of chronic lumbar back discomfort with left lower extremity radicular pains for planned anterior lumbar interbody fusion L5-S1, application anterior spine plate L5-S1, titanium cage L5-S1, bone marrow aspirate left iliac crest and spongy allograft for fusion per Dr. Woodard and Dr. Lobo. #1. Severe lumbar back pain with associated lower extremity radiculopathy: Failed conservative therapies and treatments, admitted per Dr. Woodard for planned 07/04/23 anterior lumbar interbody fusion L5-S1, application anterior spine plate L5-S1, titanium cage L5-S1, bone marrow aspirate left iliac crest and spongy allograft for fusion per Dr. Woodard and Dr. Lobo., post-operative pain management, bowel regimen, DVT Prophylaxis, PT/OT/CM per Orthopedic surgery discretion. #2. History SVT: We will resume patient home metoprolol regimen, notes she did not take any doses yet today. #3. Chronic anemia/iron deficiency anemia: 06/20/2023 preoperative CBC with hemoglobin 13.5, MCV 79.9, baseline prior to this appears 12-13, will obtain follow-up CBC in AM. #4. Morbid Obesity: Weight loss and lifestyle changes encouraged. #5. History of VTE: Chart reported history of previous DVT and from history in the setting of cellulitis, not on chronic coagulant therapy. Chemoprophylaxis given recent interventions per surgery discretion. #6. DVT prophylaxis: SCDs, defer chemoprophylaxis decision to surgery service given recent OR. Charges/Coding Visit Charges Inpatient E&M: 73192 Subs Hosp L2
[2023-07-04] MEDS: 0.9% Saline Lock 10 ML Syringe IV ×2 (21:37→23:54)
[2023-07-04] MEDS: Morphine 2 MG/ML Syringe IV ×2 (21:37→23:54)
[2023-07-05] VITALS (8 sets, daily range): BP systolic 86–115; BP diastolic 53–61; PULSE 62–88; RESP 16–18; TEMP 36.7–37.4; O2SAT 95–100
[2023-07-05] MEDS: oxyCODONE 5 MG Tablet PO ×6 (01:08→22:59)
[2023-07-05] MEDS: Acetaminophen 500 MG Tablet 1000 MG PO ×3 (01:08→16:23)
[2023-07-05] MEDS: Cefazolin 1 GM/50 ML BAG IV (05:25)
--- NOTE | 2023-07-05 06:21 | PCM.PN.HOSP ---
Reason for Visit Reason for Visit: Diagnoses Dorsalgia, unspecified (07/04/23) Encounter for other preprocedural examination (07/04/23) Subjective Subjective Patient's with no acute events overnight per self and per nursing report aside from intermittent discomfort. She states that she did have improved pain control and slept well but upon awakening was very sore and uncomfortable. This morning upon evaluation she was initially walking in the room and states she is feeling significantly better than she had the day prior. She denies any focal weakness or paresthesias. Patient denies fevers, chills, nausea, emesis, abdominal pain, chest pain or dyspnea. Objective Data Objective Data Vital Signs: Vital Signs Temp Pulse Resp BP Pulse Ox O2 Del Method O2 Flow Rate 98.1 F 88 16 91/53 L 97 Room Air 4 07/05/23 04:58 07/05/23 04:58 07/05/23 04:58 07/05/23 04:58 07/05/23 04:58 07/05/23 04:58 07/04/23 16:15 Oxygen Flow Rate (L/min) 4 Oxygen Delivery Method Room Air Weight: 189 lb 9.561 oz Body Mass Index (BMI) 41.0 Intake & Output: Intake and Output for Last 24 Hours 07/03/23 07/04/23 07/05/23 23:59 23:59 23:59 Intake Total 5148.67 / 5548.67 1676.67 / 1676.67 Output Total 2019 / 2099 Balance 3128.67 / 3228.67 -423.33 / -423.33 Lab / Micro Data 07/05/23 07:20 07/05/23 07:20 Micro: Microbiology 06/20/23 14:05 Swab (Method) Nasal Screen MRSA/MSSA - Final Radiography Diagnostic Testing: Radiology Impression Spine X-Ray 07/04/23 09:45 IMPRESSION: Metallic localization as described. Electronically Signed: Nickolas Multani MD at 15:58 EDT , Spine X-Ray 07/04/23 10:50 IMPRESSION: Normal intraoperative crosstable lateral view of the lumbar spine showing excellent anterior interbody fusion using metallic plate with transfixing screws and excellent deployment of metallic dowel inside the L5-S1 disc space. Electronically Signed: Chandan Guthrie MD at 12:07 EDT , Spine X-Ray 07/04/23 11:02 IMPRESSION: Intraoperative documentation views. Electronically Signed: Nickolas Multani MD at 15:56 EDT , Physical Exam Narrative Physical Examination: General: Awake, alert, oriented x 3 and cooperative, seated upright in the medical surgical bedside chair, more comfortable appearing than day prior. Skin: Normal color, normal turgor, no icterus, no cyanosis except for recent lumbar surgery with posterior dressing in place with no drainage. HEENT: AT/NC, EOMI, PERRLA, MMM. Lungs: Diminished, greater bases, proper effort, no rales, ronchi or wheezing. Heart: Currently regular rate and rhythm; no gallop, rub audible. Abdomen: Soft, morbidly obese, no marked abdominal discomfort today fortunately, expected tenderness to lumbar region with dressing in place with no drainage, no marked distention, normalized BS. Extremities: No cyanosis, clubbing, or marked pitting peripheral edema. Neurological: Patient awake, alert, oriented as noted, cognitive function intact; pupils equally reactive to light and accommodation, cranial nerves grossly normal, moving all 4 extremities, walking in the room, sensation intact, no focal deficits, strength improving, moderately globally decreased. Psychiatric: Affect appears improved from day prior, mildly fatigued, pain improved, no acute evidence of depressive or anxiety feelings. Assessment & Plan Assessment/Plan (1) Intractable back pain: PLAN: Plan The patient is a 32 y/o F w/ PMHx: Morbid obesity, Hx SVT on metoprolol, Hx DVT, Hx PFO, Chronic anemia/Fe deficiency anemia who presents to the [facility] on 07/04/23 secondary to history of chronic lumbar back discomfort with left lower extremity radicular pains for planned anterior lumbar interbody fusion L5-S1, application anterior spine plate L5-S1, titanium cage L5-S1, bone marrow aspirate left iliac crest and spongy allograft for fusion per Dr. Woodard and Dr. Lobo. #1. Severe lumbar back pain with associated lower extremity radiculopathy: Failed conservative therapies and treatments, admitted per Dr. Woodard for planned 07/04/23 anterior lumbar interbody fusion L5-S1, application anterior spine plate L5-S1, titanium cage L5-S1, bone marrow aspirate left iliac crest and spongy allograft for fusion per Dr. Woodard and Dr. Lobo, post-operative pain management, bowel regimen, DVT Prophylaxis, PT/OT/CM per Orthopedic surgery discretion. From discussion with patient 07/05/2024 she notes surgical service intention for her to remain inpatient through Monday but given her current status and improved pain control she may be appropriate to discharge 07/06/2023 but will defer to primary service. #2. History SVT: We will resume patient home metoprolol regimen. #3. Chronic anemia/iron deficiency anemia: 06/20/2023 preoperative CBC with hemoglobin 13.5, MCV 79.9, baseline prior to this appears 12-13, 07/05/2023 follow-up CBC with hemoglobin 11.6, MCV 80.2. #4. Morbid Obesity: Weight loss and lifestyle changes encouraged. #5. History of VTE: Chart reported history of previous DVT and from history in the setting of cellulitis, not on chronic coagulant therapy. Chemoprophylaxis given recent interventions per surgery discretion. #6. DVT prophylaxis: SCDs, defer chemoprophylaxis decision to surgery service given recent OR. Charges/Coding Visit Charges Inpatient E&M: 59116 Subs Hosp L2
[2023-07-05 07:51] LABS: Absolute Lymphocyte Count 0.85 X10^3/uL (0.83-4.51); Absolute Neutrophil Count 12.1 X10^3/uL (2.0-7.7); Basophil# 0.02 X10^3/uL; Basophil% 0.1 % (0-1); Hematocrit 35.2 % (37-47); Hemoglobin 11.6 g/dL (12.0-15.0); Lymphocyte # 0.85 X10^3/ul (0.83-4.51); Lymphocyte % 6.2 % (19-41); Mean Corpuscular Hgb 26.4 pg (27.0-32.0); Mean Corpuscular Volume 80.2 fL (81-99); Mean Platelet Vol. 10.7 fl (6.2-12.0); Monocyte# 0.65 X10^3/uL; Monocyte% 4.8 % (0-10); NRBC Flagged by Analyzer 0 % (0-5); Neutrophil # 12.08 X10^3/uL (2.7-7.7); Neutrophil % 88.5 % (47-70); Platelet Count 292 K/mm3 (150-450); RBC Distribution Width CV 13.2 % (11.6-14.6); RBC Distribution Width SD 37.6 fl (35.1-43.9); Red Blood Count 4.39 M/mm3 (4.2-5.4); White Blood Count 13.7 K/mm3 (4.4-11.0)
[2023-07-05 08:18] LABS: ALB/GLOB Ratio 0.9 RATIO (0.9-2.4); AST(SGOT) 27 U/L (15-37); Alanine Aminotransfer ALT/SGPT 34 U/L (13-56); Albumin, Serum 3.3 g/dL (3.2-5.0); Alkaline Phosphatase 50 U/L (45-117); Anion Gap 6 (5-15); BUN 6 mg/dL (7-18); BUN/Creat Ratio 10.5 RATIO (10-20); Calcium,Total 8.8 mg/dL (8.5-10.1); Chloride 108 mmol/L (98-107); Creatinine, Serum 0.57 mg/dL (0.55-1.02); EST Glomerular Filtration Rate 129 mL/min (>60); Est Glom Filt Rate - Afr Amer 156 mL/min (>60); Estimated Creatinine Clearance 192.37 ml/min; Globulin 3.7 g/dL (2.2-4.2); Glucose 116 mg/dL (74-106); Potassium 3.8 mmol/L (3.5-5.1); Sodium Level 141 mmol/L (136-145)
[2023-07-05] MEDS: Metoprolol(XL)Succ 50 MG Tablet PO (08:30)
--- NOTE | 2023-07-05 08:41 | PCM.OPRPT ---
Report of Operation Date of Procedure: 07/04/23 Pre-Operative Diagnosis: Recurrent disc herniation L5-S1 Post-Operative Diagnosis: Same Surgery/Procedure Performed:: #1 anterior lumbar interbody fusion L5-S1 CPT code 15265 #2 application of anterior spine plate L5-S1 CPT code 19321/59 #3 insertion of titanium cage L5-S1 CPT code 96731 Surgeon: Co-surgeons: Dr. Woodard, Dr. Lobo Type of Anesthesia: General Estimated Blood Loss (mL): 100 Description of Procedure: HPI: Patient is a 32-year-old female with recurrent L5-S1 disc herniation who has been evaluated by Dr. Woodard and felt to be appropriate for anterior discectomy and fusion in addition to posterior repeat laminectomy. Vascular surgery is requested for exposure and mobilization of the abdominal vasculature to facilitate the anterior approach. She is taken now to the operating room for elective L5-S1 anterior lumbar interbody fusion in addition to posterior instrumentation. Further details of the anterior approach in the entirety of the posterior approach would be dictated by Dr. Woodard. Description of procedure: Upon obtaining form consent and verification correct patient procedure site patient was taken to the operating room where she was placed under general anesthesia. She was then positioned prepped and draped in usual sterile fashion and timeout was performed. First bone marrow aspirate from the right iliac crest was performed and after this was completed a transverse incision was made in the left lower quadrant. Bovie electrocautery used to dissect down through subcutaneous tissue to the level of fascia and self-retaining retractors were put in position. The fascia was incised transversely with relaxing counterincision inferiorly at the medial aspect and superior at the lateral aspect. There is a fair amount of dense scar from her previous hysterectomy but we were able to mobilize the rectus muscle off the posterior aspect of the fascia and free it along its medial edge. The rectus was then mobilized laterally with care taken to elevate the epigastric vessels with the muscle belly and once this was free and mobilized sufficiently from the medial aspect we then dissected along the lateral aspect and retracted it medially again ensuring that the epigastric vessels were elevated with the muscle. Next blunt dissection was used to create a plane between the peritoneum and the posterior aspect of the fascia and mobilization carried cephalad to create a plane between the peritoneum and the posterior sheath. Again there was a fair amount of dense scar in the retroperitoneum that anchored the peritoneum and abdominal contents however this was able to successfully be mobilized and the posterior sheath was incised vertically with Metzenbaum scissors. The abdominal contents were further mobilized to the midline and a wet sponge placed in the position to maintain our dissection plane. We then retracted the rectus muscle laterally and brought the Omni retractor onto the field. This was then secured in position and renal retractors utilized to gain exposure of the retroperitoneal space. The lap sponge was then removed and further blunt and sharp dissection utilized to mobilize the peritoneum and its contents further medially beyond the midline. Sharp dissection used to dissect the medial aspect of the iliac vein with sidebranches ligated and divided. The vein was then retracted laterally and blunt dissection utilized to expose the anterior surface of the L5-S1 disc space. The middle sacral artery and vein were then ligated and divided and mobilized off of the disc space. Further blunt dissection and retractor repositioning gain adequate exposure of the disc space and at this point Dr. Woodard scrubbed in and performed the discectomy, cage and plate insertion which he will dictate in further detail. After this was completed the retractors removed sequentially and the abdominal vessels observed for any sign of injury. The left iliac artery and vein were intact with a palpable pulse in the artery and no appearance of thrombus in the vein. The abdominal contents were then allowed to return to their chemehuevi position and the fascia was closed with PDS strata fix suture in a running fashion. Next the subcutaneous fat was closed with 2-0 Vicryl followed by 3-0 Vicryl, 4-0 Monocryl for the skin and Dermabond. Dry sterile dressing was applied at which point the patient was repositioned for the posterior approach. This completed the vascular surgery involvement of the case.
[2023-07-05] MEDS: diazePAM 5 MG Tablet PO ×3 (08:58→22:59)
[2023-07-06] MEDS: Acetaminophen 500 MG Tablet 1000 MG PO ×2 (01:38→08:21)
[2023-07-06 04:19] VITALS: BP 90/50; PULSE 70; RESP 16; TEMP 36.9; O2SAT 97
--- NOTE | 2023-07-06 06:19 | PCM.PN.HOSP ---
Reason for Visit Reason for Visit: Diagnoses Dorsalgia, unspecified (07/04/23) Encounter for other preprocedural examination (07/04/23) Subjective Subjective Patient overnight with no acute events per self and per nursing report. She is up in the room walking and states she feels improved as far as her lumbar discomfort but is having some mild abdominal cramping and feels associates constipated and requesting a medication. Discussed options and she is amenable to MiraLAX. Patient does feel as though she is ready otherwise to be discharged home and they are awaiting feedback from surgeon. Patient denies fevers, chills, nausea, emesis, abdominal pain, chest pain or dyspnea. Objective Data Objective Data Vital Signs: Vital Signs Temp Pulse Resp BP Pulse Ox O2 Del Method O2 Flow Rate 98.4 F 70 16 90/50 L 97 Room Air 4 07/06/23 04:19 07/06/23 04:19 07/06/23 04:19 07/06/23 04:19 07/06/23 04:19 07/06/23 04:19 07/04/23 16:15 Oxygen Flow Rate (L/min) 4 Oxygen Delivery Method Room Air Weight: 189 lb 9.561 oz Body Mass Index (BMI) 41.0 Intake & Output: Intake and Output for Last 24 Hours 07/04/23 07/05/23 07/06/23 23:59 23:59 23:59 Intake Total 5148.67 / 5548.67 1817.17 / 1817.17 Output Total 2020 / 2320 2700 / 2700 Balance 3128.67 / 3228.67 -882.83 / -882.83 Lab / Micro Data 07/05/23 07:20 07/05/23 07:20 Labs: Laboratory Results - last 24 hr 07/05/23 07:20: WBC 13.7 H, RBC 4.39, Hgb 11.6 L, Hct 35.2 L, MCV 80.2 L, MCH 26.4 L, MCHC 33.0, RDW Std Deviation 37.6, RDW Coeff of Nan 13.2, Plt Count 292, MPV 10.7, Immature Gran % (Auto) 0.400, Neut % (Auto) 88.5 H, Lymph % (Auto) 6.2 L, [place] % (Auto) 4.8, Eos % (Auto) 0.0, Baso % (Auto) 0.1, Absolute Neuts (auto) 12.1 H, Absolute Lymphs (auto) 0.85, Nucleated RBC % 0, Sodium 141, Potassium 3.8, Chloride 108 H, Carbon Dioxide 27.0, Anion Gap 6, BUN 6 L, Creatinine 0.57, Estim Creat Clear Calc 192.37, Est GFR (MDRD) Af Amer 156, Est GFR (MDRD) Non-Af 129, BUN/Creatinine Ratio 10.5, Glucose 116 H, Calcium 8.8, Total Bilirubin 0.60, AST 27, ALT 34, Alkaline Phosphatase 50, Total Protein 7.0, Albumin 3.3, Globulin 3.7, Albumin/Globulin Ratio 0.9 Micro: Microbiology 06/20/23 14:05 Swab (Method) Nasal Screen MRSA/MSSA - Final Physical Exam Narrative Physical Examination: General: Awake, alert, oriented x 3 and cooperative, seated upright in the medical surgical bedside chair, comfortable, only complaint is mild constipation. Skin: Normal color, normal turgor, no icterus, no cyanosis except for recent lumbar surgery with posterior dressing in place with no drainage. HEENT: AT/NC, EOMI, PERRLA, MMM. Lungs: Diminished, greater bases, proper effort, no rales, ronchi or wheezing. Heart: Currently regular rate and rhythm; no gallop, rub audible. Abdomen: Soft, morbidly obese, NTTP, mildly distended, mild hyperactive bowel sounds. Extremities: No cyanosis, clubbing, or marked pitting peripheral edema. Neurological: Patient awake, alert, oriented as noted, cognitive function intact; pupils equally reactive to light and accommodation, cranial nerves grossly normal, moving all 4 extremities, walking in the room, sensation intact, no focal deficits, strength improving, moderately globally decreased but walking in the room with ease. Psychiatric: Affect appears normal, no acute evidence of depressive or anxiety feelings. Assessment & Plan Assessment/Plan (1) Intractable back pain: PLAN: Plan The patient is a 32 y/o F w/ PMHx: Morbid obesity, Hx SVT on metoprolol, Hx DVT, Hx PFO, Chronic anemia/Fe deficiency anemia who presents to the [facility] on 07/04/23 secondary to history of chronic lumbar back discomfort with left lower extremity radicular pains for planned anterior lumbar interbody fusion L5-S1, application anterior spine plate L5-S1, titanium cage L5-S1, bone marrow aspirate left iliac crest and spongy allograft for fusion per Dr. Woodard and Dr. Lobo. #1. Severe lumbar back pain with associated lower extremity radiculopathy: Failed conservative therapies and treatments, admitted per Dr. Woodard for planned 07/04/23 anterior lumbar interbody fusion L5-S1, application anterior spine plate L5-S1, titanium cage L5-S1, bone marrow aspirate left iliac crest and spongy allograft for fusion per Dr. Woodard and Dr. Lobo, post-operative pain management, bowel regimen, DVT Prophylaxis, PT/OT/CM per Orthopedic surgery discretion. Patient doing well, ambulating and pain improved, medical service amenable to discharge at primary service discretion. #2. History SVT: We will resume patient home metoprolol regimen. #3. Chronic anemia/iron deficiency anemia: 06/20/2023 preoperative CBC with hemoglobin 13.5, MCV 79.9, baseline prior to this appears 12-13, 07/05/2023 follow-up CBC with hemoglobin 11.6, MCV 80.2. Further CBC labs per primary service discretion. #4. Morbid Obesity: Weight loss and lifestyle changes encouraged. #5. History of VTE: Chart reported history of previous DVT and from history in the setting of cellulitis, not on chronic coagulant therapy. Chemoprophylaxis given recent interventions per surgery discretion. #6. DVT prophylaxis: SCDs, defer chemoprophylaxis decision to surgery service given recent OR. Charges/Coding Visit Charges Inpatient E&M: 89180 Subs Hosp L2
[2023-07-06] MEDS: diazePAM 5 MG Tablet PO ×2 (06:40→13:24)
[2023-07-06] MEDS: oxyCODONE 5 MG Tablet PO ×2 (06:40→11:35)
[2023-07-06 08:21] VITALS: PULSE 84
[2023-07-06] MEDS: Metoprolol(XL)Succ 50 MG Tablet PO (08:21)
[2023-07-06 08:26] VITALS: BP 115/77; PULSE 84; RESP 18; TEMP 36.6; O2SAT 100
[2023-07-06 08:56] VITALS: O2SAT 95
[2023-07-06] MEDS: Polyethylene Glycol 3350 17 GM PACKET PO (11:35)
--- NOTE | 2023-07-06 12:23 | CASEMGMT ---
Social Work SW assisted pt in completing healthcare POA and Living Will. Pt listed her sister Bell as her healthcare POA. SW gave pt originals and copies, and copies placed on the chart. JULIEN Shah
--- NOTE | 2023-07-06 13:12 | DCINST_ITS ---
Discharge Instructions Activity May shower in (days): 5 May resume sexual activity in: 4-6 weeks Lifting Restrictions: 15# Dressing / Incision Remove Dressing in: 4 days Follow Up Care Test Results: Test results from this visit will be discussed in further detail at your follow- up appointment, if applicable. Discharge Plan Admission Admit Date/Time: 07/04/23 05:23 Primary Reason for Your Visit: back surgery Attending Provider: Gerber Woodard Primary Care Provider: Joe Coleman Consulting Providers: Emmett Rangel; Juno Lobo; Sandy Staton Discharge Orders/Prescriptions Prescriptions: No Action ferrous sulfate [Feosol] 325 mg (65 mg iron) tablet 325 mg PO DAILY Saccharomyces boulardii [Daily Probiotic (S. boulardii)] 250 mg capsule 250 mg PO DAILY aspirin [Adult Low Dose Aspirin] 81 mg tablet,delayed release (DR/EC) 81 mg PO DAILY metoprolol succinate 50 mg tablet extended release 24 hr 50 mg PO DAILY Qty: 30 12RF Referrals / Follow Up: Joe Coleman MD [Primary Care Provider] - Disposition Disposition (needs filled in before D/C Order can be placed): Home, Self Care
--- NOTE | 2023-07-06 13:14 | PCM.DC.SUM ---
Providers Date of Admission: 07/04/23 Primary Care Physician: Dr. Joe Coleman MD Attending Physician: This is discharge summary on [facility]isha [place]. This patient was admitted 2 days ago. She underwent a 360 degree fusion with repeat laminectomy at L5-S1. Discharge she is doing extremely well she has good bowel sounds now she has a lot of flatulence and she is walking around without any walkers. She has been out in the bass with no difficulty whatsoever. Her low back pain she states is already a different kind of pain that she had before. Her right leg pain is completely resolved including all the numbness. She is very pleased with her apparent outcome as I am also. She was given postop protocol regarding her activities. I will give her oxycodone 5 mg 325 to go home with. She already has an appointment to see me in the office. This is the end of discharge summary on Denisha Hill. This is Dr. Woodard dictating. Consultations 07/04/23 16:57 Consult: Hospitalist Routine Consulting Provider: Sandy Staton Reason for Consult: Medical Management EMERGENT Consult: No MD Notified: Yes Date Notified: 07/04/23 Time Notified: 17:11 Method of Notification: text. Reason For Visit: ERAS,360 Lumbar Fusion L5-S1 with repeat laminecto Diagnosis Discharge Diagnosis (1) Intractable back pain: Status: Acute Code(s): M54.9 - Dorsalgia, unspecified Medications at Discharge Home Medications Saccharomyces boulardii 250 mg capsule (Daily Probiotic (S. boulardii)) 250 mg PO DAILY SUPPLEMENT 03/02/21 ferrous sulfate 325 mg (65 mg iron) tablet (Feosol) 325 mg PO DAILY ANEMIA 03/04/21 aspirin 81 mg tablet,delayed release (Adult Low Dose Aspirin) 81 mg PO DAILY BLOOD THIN 03/19/21 metoprolol succinate 50 mg tablet,extended release 24 hr 50 mg PO DAILY HEART RATE #30 tabs 03/02/22 Weight / BMI Weight Weight: 189 lb 9.561 oz Body Mass Index (BMI) 41.0 ABG / Lab / Microbiology Data 07/05/23 07:20 07/05/23 07:20 Microbiology: Microbiology 06/20/23 14:05 Swab (Method) Nasal Screen MRSA/MSSA - Final D/C Instructions May shower in (days): 5 May resume sexual activity in: 4-6 weeks Meaningful Use Info Meaningful Use Diagnoses (Choose all that apply): None applicable Discharge Plan Admission Admit Date/Time: 07/04/23 05:23 Primary Reason for Your Visit: back surgery Attending Provider: Gerber Woodard Primary Care Provider: Joe Coleman Consulting Providers: Emmett Rangel; Juno Lobo; Sandy Staton Discharge Orders/Prescriptions Prescriptions: No Action ferrous sulfate [Feosol] 325 mg (65 mg iron) tablet 325 mg PO DAILY Saccharomyces boulardii [Daily Probiotic (S. boulardii)] 250 mg capsule 250 mg PO DAILY aspirin [Adult Low Dose Aspirin] 81 mg tablet,delayed release (DR/EC) 81 mg PO DAILY metoprolol succinate 50 mg tablet extended release 24 hr 50 mg PO DAILY Qty: 30 12RF Referrals / Follow Up: Joe Coleman MD [Primary Care Provider] - Disposition Disposition (needs filled in before D/C Order can be placed): Home, Self Care
[2023-07-06 14:15] VITALS: BP 110/60; PULSE 78; RESP 18; TEMP 36.7; O2SAT 97
--- NOTE | 2023-07-06 14:18 | PHA.DC.MR.R ---
Pharmacy [place] Med Reconciliation Pharmacy Service has performed discharge medication reconciliation for this patient. No new medications issued at time of discharge. Medications reviewed are from previously reported home medications. The patient's discharge medication list was reviewed for discrepancies and discrepancies were resolved. Medications at Discharge Home Medications Saccharomyces boulardii 250 mg capsule (Daily Probiotic (S. boulardii)) 250 mg PO DAILY SUPPLEMENT 03/02/21 ferrous sulfate 325 mg (65 mg iron) tablet (Feosol) 325 mg PO DAILY ANEMIA 03/04/21 aspirin 81 mg tablet,delayed release (Adult Low Dose Aspirin) 81 mg PO DAILY BLOOD THIN 03/19/21 metoprolol succinate 50 mg tablet,extended release 24 hr 50 mg PO DAILY HEART RATE #30 tabs 03/02/22 oxycodone-acetaminophen 5 mg-325 mg tablet 1 tab PO Q6H PRN pain 10 days #40 tabs 07/06/23
== END 2023-07-06 14:30 | disposition home or self-care (01) | DRG 304 ==
LOC: ACINP 05:23 → MS3 07-05 09:46
PROVIDERS: Anesthesiology; Family Medicine; Admitting Provider Orthopaedic Surgery; PCP Family Medicine; Referring Provider Orthopaedic Surgery; Visit Provider Orthopaedic Surgery
PROC: 0SG30A0 Fusion of Lumbosacral Joint with Interbody Fusion Device, Anterior Approach, Anterior Column, Open Approach (ICD-10-PCS; principal; 2023-07-04 07:00)
DX: M51.17 Intervertebral disc disorders with radiculopathy, lumbosacral region (principal); D50.9 Iron deficiency anemia, unspecified; E66.01 Morbid (severe) obesity due to excess calories; Z68.41 Body mass index [BMI] 40.0-44.9, adult; Z98.890 Other specified postprocedural states; Z79.82 Long term (current) use of aspirin; Z79.899 Other long term (current) drug therapy; Z86.718 Personal history of other venous thrombosis and embolism; Z87.891 Personal history of nicotine dependence
CPT/HCPCS: 36415; 72020; 80048; 80053; 82962; 83735; 85025; 85610; 85730; 86703; 86706; 86708; 86803; 87081; 88304; 94668; 97161; 99252; A4648; C1713; J7120; A4216; G0463; J2405; J3475

== ENCOUNTER → 2023-08-02 | Outpatient (CLI) | payer MEDICAID, SELFPAY ==
--- NOTE | 2023-08-02 15:51 | CT_ITS ---
STUDY: CT ABDOMEN AND PELVIS WITH CONTRAST REASON FOR EXAM: Female, 32 years old. Left-sided abdominal pain s/p spine surgery -- LLQ incision, LLQ/LUQ pain RADIATION DOSAGE (If Supplied By Facility): CTDIvol = ( 16.67 ) mGy, DLP = ( 1184.46 ) mGycm TECHNIQUE: Transaxial images were obtained from the dome of the diaphragm to the symphysis pubis without oral contrast. Oral and amp; IV Gastrografin and amp; 100mL Isovue-300 was administered. Sagittal and coronal images were reconstructed. Individualized dose optimization techniques were used for this CT. COMPARISON: None. FINDINGS: The visualized lung bases are unremarkable. The visualized portions of the heart are within normal limits. Normal liver. Gallbladder surgically absent. Normal spleen. Normal pancreas. Normal bilateral adrenal glands. Normal right kidney. Normal left kidney. Normal visualized stomach. Normal small intestine. Normal colon. The appendix is visualized and appears normal. Normal abdominal aorta. Normal inferior vena cava. Normal retroperitoneum. Normal urinary bladder. IUD in the uterus. Subcutaneous stranding left anterior abdominal wall. Anterior and posterior metallic fixation and disc spacer noted at L5-S1. CT/Abdomen/Pelvis WITH Contrast IMPRESSION: Inflammation left lower quadrant anterior abdominal wall. Otherwise no acute disease. Electronically Signed: Papito Lewis MD at 20:24 EDT ,
== END | disposition home or self-care (01) ==
PROVIDERS: PCP Family Medicine; Referring Provider Physician Assistant; Visit Provider Physician Assistant
DX: R10.32 Left lower quadrant pain (principal); Z98.1 Arthrodesis status; Z98.890 Other specified postprocedural states
CPT/HCPCS: 74177; Q9967; A4216

== ENCOUNTER 2024-01-30 11:00 | Outpatient (RCR) | payer MEDICAID, SELFPAY ==
--- NOTE | 2023-11-21 10:36 | HP.PTEVAL_ITS ---
Patient's Visit Information Visit Information Visit Information: REX GILES is a 33 year old F referred to Physical Therapy by Dr. Papa Truong MD with a diagnosis of sacroiliitis. Date of Evaluation: 11/21/23 Physical Therapist: Hair Jama, PT, ATC Visit Plan Frequency: 2-3x /Week Duration: 4-6 Weeks Plan: B LE stretching and strengthening, core stab ex's, nustep, and Hep Subjective Subjective: Pt reports she has been dealing with pain for over one year. Pt notes she had a laminectomy performed in February of 2023 secondary to a herniated disc. Pt notes after that surgery, her disc erupted which resulted in her having to have a spinal fusion. Pt reports that helped with her pain at the time. But pt notes for approximately one month now, she has been experiencing pain that resides in her R gluteal region. Pt reports she also experiences a pain that radiates down her R leg. Pt reports the pain skips the hamstring region, and starts in the posterior R gastroc region and radiates to the bottom of her foot. Pt reports she is here today in order to prevent another LB surgery. Pt reports sleep difficulty at this time secondary to pain. Pt reports sitting/standing/walking for a prolonged period of time all increase her pain. Pt also notes bending forward to pick something up off the floor increases her pain. Pt reports lying supine on her back for a short period of time will help to alleviate her pain. 6/10 pain at rest, 10/10 pain at worst (prolonged sitting while she was driving) Pain LBP: Pain Intensity (Out of 10): 6 Pain Intensity Range: 10 Objective Objective: Neuro: R LE sensation is hyposensitive with light touch throughout the L4-5 dermatomes. All other sensation is WNL to light touch. B patellar reflex= 2/3 MMT: L LE MMT is 5/5 throughout. R LE is grossly 4-/5 and provokes LBP ROM: L/S flex is severely limited. Extension and L SB are WNL. R SB is minimally limited. Gait: Attempted the 6 minute walk test with patient. Had to stop at 5 min secondary to pain. Able to ambulate approximately 800 feet until needing to rest. Balance/Special Test Scores Oswestry Low Back Score: 21 Goals Goal 1:: Decrease LBP x 50% to aid with sleep Goal Time Frame: 4-6 Weeks Goal 2:: Increase R LE strength x 1 grade to aid with RTW without limitation Goal Time Frame: 4-6 Weeks Goal 3:: Pt will be able to finish the 6 min walk test and ambulate for greater than 1000 feet to aid with community ambulation Goal Time Frame: 4-6 Weeks Goal 4:: I with HEP Goal Time Frame: 4-6 Weeks Rehabilitation Potential Physical Therapy Diagnosis: Pt has LBP, intolerance for prolonged ambulation, and difficulty sleeping at night secondary to debilitation from L/S surgeries Rehabilitation Potential: Good Anticipated Interventions Patient/Client Instruction: Educate patient on: Condition and Plan of Care For the Purpose of:: To improve self management Therapeutic Exercise to Include: Strength training, Endurance training, Postural training, Flexibilty training and Dynamic Lumbar Stabilization For the Purpose of:: To decrease pain, To increase ROM and To improve muscle performance and motor function Cryotherapy (ice pack, ice massage): Yes For the Purpose of:: To decrease pain Text: Thank you for the opportunity to evaluate your patient. For Medicare and Medicare HMO plans, please review the plan of care and approve it. It will need to be FAXED BACK to us at [phone] for Medicare purposes. For Medicare only, by signing this I certify the plan of care. Please let me know if there are questions or concerns regarding this plan of care. Physician Signature: Date:
--- NOTE | 2024-01-30 11:55 | HP.PTREVAL ---
Re-Evaluation Intro: Dr. Papa Truong MD, It has been my pleasure to treat REX GILES over the last 13 visits for sacroiliitis. Please see the progress note below for an update on the physical therapy plan of care! Subjective Subjective: Pt reports she is scheduled for a nerve ablasion next week Objective Objective/Function: LBP ranges from 4-8/10 MMT: R LE is grossly 4-/5 throughout Six min walk test: Pt is only able to ambulate for 3 min until needing to rest Pt has made great progress at this time, but continues to demonstrate the need for core strengthening to participate in community activity Plan Plan Plan: Attermpt to get 12 more visits approved Balance/Gait/Functional tests Balance/Special Test Scores Oswestry Low Back Score: 27 Goals Goals Goal 1:: Decrease LBP x 50% to aid with sleep Goal Time Frame: 4-6 Weeks Goal Progress: Progressing Goal 2:: Increase R LE strength x 1 grade to aid with RTW without limitation Goal Time Frame: 4-6 Weeks Goal 3:: Pt will be able to finish the 6 min walk test and ambulate for greater than 1000 feet to aid with community ambulation Goal Time Frame: 4-6 Weeks Goal 4:: I with HEP Goal Time Frame: 4-6 Weeks Goal Progress: Goal Met Anticipated Interventions Anticipated Interventions Patient/Client Instruction: Educate patient on: Condition and Plan of Care For the Purpose of:: To improve self management Therapeutic Exercise to Include: Strength training, Endurance training, Postural training, Flexibilty training and Dynamic Lumbar Stabilization For the Purpose of:: To decrease pain, To increase ROM and To improve muscle performance and motor function Cryotherapy (ice pack, ice massage): Yes For the Purpose of:: To decrease pain Re-Evaluation Ending Re-evaluation ending: Please do not hesitate to contact me at [phone] by phone or if you have questions or concerns regarding this new plan of care! Sincerely, Hair Jama, PT, ATC
== END 2024-01-30 19:00 | disposition home or self-care (01) ==
LOC: PT 11:00
PROVIDERS: PCP Family Medicine; Referring Provider Anesthesiology; Visit Provider Anesthesiology
DX: M46.1 Sacroiliitis, not elsewhere classified (principal)
CPT/HCPCS: 97110; 97161; 97164

== ENCOUNTER 2024-02-05 10:31 | Observation (INO) | payer MEDICAID, SELFPAY ==
--- NOTE | 2024-01-29 07:43 | EKG12_ITS ---
Test Reason : PRE OP Blood Pressure : / mmHG Vent. Rate : 076 BPM Atrial Rate : 076 BPM P-R Int : 166 ms QRS Dur : 080 ms QT Int : 360 ms P-R-T Axes : 034 014 039 degrees QTc Int : 405 ms Normal sinus rhythm Normal ECG Confirmed by SAURAV ROBERSON, ASHLEY ([id number]), editor at large SIMONA ALFARO ([id number]) on 01/29/2024 11:38:42 AM Referred By: Gerber Woodard Confirmed By:ASHLEY MG MD
[2024-01-29 08:27] LABS: Absolute Lymphocyte Count 1.33 X10^3/uL (0.83-4.51); Absolute Neutrophil Count 4.6 X10^3/uL (2.0-7.7); Basophil# 0.03 X10^3/uL; Basophil% 0.5 % (0-1); Eosinophil# 0.05 X10^3/uL; Eosinophils% 0.8 % (0-5); Hematocrit 39.3 % (37-47); Lymphocyte # 1.33 X10^3/ul (0.83-4.51); Lymphocyte % 20.7 % (19-41); Mean Corp Hgb Conc 33.1 g/dL (32-36); Mean Corpuscular Hgb 26.5 pg (27.0-32.0); Mean Platelet Vol. 11.7 fl (6.2-12.0); Monocyte# 0.44 X10^3/uL; Monocyte% 6.9 % (0-10); NRBC Flagged by Analyzer 0 % (0-5); Neutrophil # 4.56 X10^3/uL (2.7-7.7); Neutrophil % 70.9 % (47-70); Platelet Count 280 K/mm3 (150-450); RBC Distribution Width CV 13.6 % (11.6-14.6); RBC Distribution Width SD 39.4 fl (35.1-43.9); Red Blood Count 4.91 M/mm3 (4.2-5.4); White Blood Count 6.4 K/mm3 (4.4-11.0)
[2024-01-29 09:13] LABS: Anion Gap 6 (5-15); BUN 3 mg/dL (7-18); BUN/Creat Ratio 4.6 RATIO (10-20); Calcium,Total 9.2 mg/dL (8.5-10.1); Chloride 109 mmol/L (98-107); Creatinine, Serum 0.65 mg/dL (0.55-1.02); EST Glomerular Filtration Rate 111 mL/min (>60); Est Glom Filt Rate - Afr Amer 134 mL/min (>60); Glucose 99 mg/dL (74-106); Magnesium 2.3 mg/dL (1.6-2.6); Potassium 3.4 mmol/L (3.5-5.1); Sodium Level 138 mmol/L (136-145)
[2024-01-29 09:33] LABS: HIV - WCH Non-Reactive (Nonreactive); Hepatitis B Surface Antibody Reactive; Hepatitis C Antibody Non-Reactive (Nonreactive)
[2024-01-30 08:12] LABS: Hepatitis A AB, Total Negative (Negative)
--- NOTE | 2024-01-31 16:39 | HP.PCM_ITS ---
History and Physical MR#: [id number] Acct: [id number] Name: REX GILES Rep #: [id number] : 1990 Provider: Dr. Gerber Woodard DO Age/Sex: 33/F Location: [facility] [place].[facility] Status: Signed Intake Vital Signs 11/16/2408:05 Height 4 ft 9 in Weight: 198 lb BMI 42.8 Intake Visit Reasons: LUMBAR SPINE Accompanied by: Self Is patient in pain?: Yes Allergies adhesive tape Allergy (Intermediate, Verified 01/01/24 09:04) Hives Medications Saccharomyces boulardii 250 mg capsule (Daily Probiotic (S. boulardii)) 250 mg PO DAILY SUPPLEMENT 03/02/21 [History Confirmed 01/01/24] ferrous sulfate 325 mg (65 mg iron) tablet (Feosol) 325 mg PO DAILY ANEMIA 03/04/21 [History Confirmed 01/01/24] aspirin 81 mg tablet,delayed release (Adult Low Dose Aspirin) 81 mg PO DAILY BLOOD THIN 03/19/21 [History Confirmed 01/01/24] metoprolol succinate 50 mg tablet,extended release 24 hr 50 mg PO DAILY HEART RATE #30 tabs 03/02/22 [Rx Confirmed 01/01/24] PFSH Medical History Abnormal echocardiogram Alcohol use Anemia Arm vein blood clot Blood clot associated with vein wall inflammation Cardiology follow-up encounter Former smoker History of echocardiogram History of edema History of irregular heartbeat History of steroid therapy Patent foramen ovale SVT (supraventricular tachycardia) Surgical History H/O section H/O lumbosacral spine surgery H/O tubal ligation (~2016) History of cholecystectomy (~2017) Family History Grandmother Heart disease Social History Smoking Status: Former smoker alcohol intake: current details: occasional substance use type: does not use caffeine: Yes Type: coffee Number of servings: 4 HPI LUMBAR SPINE Details: This documentation accurately reflects the service provided and the decisions made by , Dr. Gerber Woodard DO 01/01/24 0901. Part of today?s visit was documented by Benita ZAMUDIO, acting as scribe. REX GILES is a 33 year old F here today for f/u on her lumbar spine. Today she is wanting to move forward with surgery and discuss it further. Rex returns for follow-up. On Monday she had a follow-up visit with Dr. Truong in the fourth right SI joint injection that she had gave her almost complete relief for 2 days. Every single one of the 4 has given her significant relief. Basically this is diagnostic of right sacroiliac dysfunction. Wants to proceed with fusion of the right sacroiliac joint. She is at increased risk for SI joint dysfunction because of the L5-S1 fusion. Basically she has met all the criteria for the fusion. She has failed medication and therapy now for 6 months. She went through formal physical therapy. She has all 5 provocative tests consistently positive on the right side. She has x-ray and CT or MRI imaging. The image guided injections of all given her much more than 75% improvement each and every time all 4 times. And she has localized pain over the SI joint. She has met the insurance criteria for SI joint fusions. We will put her on the schedule in the cyf-alk-rqseegt future. I will see her again in the office about a week or so prior to the procedure. Coding Level of Care Code Off vis,est,level 3 Diagnoses Chronic right sacroiliac joint pain M53.3; G89.29
[2024-02-05] VITALS (15 sets, daily range): BP systolic 104–138; BP diastolic 58–89; PULSE 61–88; RESP 16–18; TEMP 36.2–37.2; O2SAT 95–100; BMI 39.1
[2024-02-05] MEDS: Lactated Ringers 1,000 ML 15 ML IV (06:06)
[2024-02-05] MEDS: Magnesium 1 GM over 15 mins IV (06:06)
[2024-02-05] MEDS: Acetaminophen 500 MG Tablet 1000 MG PO ×3 (06:07→21:45)
[2024-02-05 06:29] LABS: Bedside Glucose 126 mg/dL (74-106)
--- NOTE | 2024-02-05 08:00 | RAD_ITS ---
PROCEDURE: Fusion of the right sacroiliac joint. DATE OF EXAMINATION: February 05, 2024. INDICATION: Female, 33 years old. Right sacroiliac joint pain FLUOROSCOPY TIME (if supplied): (6 minutes and 32 seconds) minutes/seconds. 60.92 mg RAD/S-I Jts 3 or More Views IMPRESSION: Intraoperative fluoroscopic services provided for fusion of the right sacroiliac joint. Electronically Signed: Mariano Cavazos MD at 11:26 EDT ,
[2024-02-05] MEDS: Cefazolin 2 GM in 0.9% Normal Saline (100mL Bag) 100 ML IV (08:06)
[2024-02-05] MEDS: Heparin 10,000 UNITS/10 ML Vial 10000 UNITS (09:13)
[2024-02-05] MEDS: Bupivacaine Mpf 0.5% 30 ML VIAL (09:45)
[2024-02-05] MEDS: Lactated Ringers 1,000 ML 100 ML IV ×2 (10:26→13:54)
--- NOTE | 2024-02-05 10:36 | OP.PCM_ITS ---
Report of Operation Description of Surgical Findings:: Preoperative diagnosis: Sacroiliitis, M46.1 #2 chronic pain syndrome, G89.4 Postoperative diagnosis: The same Procedure: Right sacral fusion with fluoroscopic guidance #2 right sacroiliac joint injection Surgeon: Dr. Woodard Pipe Stem Repairer: Dr. Starkey Anesthesia: General endotracheal by [facility] EBL: Minimal Complications: None Indications for surgery: The patient went through the standard protocol for the diagnosis of right sacroiliitis. This included consistent findings on provocative tests and a total of 4 different SI joint injections all of them successful that completely took her pain away for a period of time. This confir med the diagnosis. Procedure: Patient was taken to the OR where she was placed under general endotracheal anesthesia. She was then placed in the prone position on the Lanre table. Proper positioning included bolster under her upper abdomen to flatten out the sacrum. The back and sacroiliac areas were prepped and draped in the usual fashion. First I obtained 60 cc of BMA from the left iliac crest. This was done through a puncture incision and a Jamshidi needle that was inserted we easily obtained 60 cc of BMA. This was handed off to the network control technician in the room who used her centrifuge to separate the stem cells from all her other cells. The stem cells were then concentrated about 10 times and given back to us. This was later used to soak the DBM and the spark that was used around the implants. First we used the outlet view on the fluoroscopy to identify the top of the sacrum. This was marked along the skin. Using a Touhy needle I then identified the approximate entry points for the 2 implants. 5 cc of 0.5% Marcaine were put in the area right on the periosteum. 3 different entry point I then entered the SI joint with the Touhy needle and placed 5 more cc of 0.5% Marcaine in the joint itself. We then used a Jamshidi needle 18- gauge to identify the entry points for the 2 implants. We used both the inlet oblique views and the outlet oblique views from this point on. In this fashion I was able to guide the Jamshidi needle doing the first sacral foramen and the top of the sacrum. This was parallel to the top of the sacrum. Following this we put the guidewire through the Jamshidi needle and the Jamshidi needle was removed. The point for the second implant was again done parallel to the top of the sacrum just posterior to the PSIS. The Jamshidi was then used to go below the first sacral foramen into the S2 vertebral body. Again it was tamped across the joint. A second guidewire was then inserted. Using the dilator first on the upper of the 2 guidewires I was able to put it on that is against the bony ileum and from it we contacted measurement for the first implant. We decided on a 50 mm 9.5 mm implant. I then placed the guide over the dilator until it was up against the bone. The dilator was removed and we entered with the first of the 2 implants. The implant was covered in SPARC DBM that were mixed with the patient's stem cells. These were put around the screws. These implants has rifling inside of them that would tend to bring in the spark and the DBM into the inside of the implant. Using fluoroscopy this was then screwed into place following the guidewire until it crossed the SI joint. Again we were guided by the inlet and outlet views and obliques. The second implant was had done the same way half first the dilator was used down to the bone this was observed on fluoroscopy I then placed the guide over it and removed the dilator we then entered with a second implant which measured 40 mm. Again it was screwed in place until it crossed the sacroiliac joint. We also observed him in the lateral view and there were both seen to be quite satisfactory. We released the implants from there inserters. Subcutaneous tissues were then closed using 2-0 Vicryl in interrupted fashion and a running subcuticular stitch. Sterile dressings were then applied. Patient was then recovered in the OR placed back on her gurney and taken to recovery in satisfactory condition. This is the end of operative summary on Denisha Hill. This is Dr. Woodard dictating.
[2024-02-05] MEDS: Ensure Surgery 237 ML LIQUID PO (12:26)
[2024-02-05] MEDS: oxyCODONE 5 MG Tablet PO ×3 (12:26→21:45)
[2024-02-05] MEDS: Morphine 4 MG/ML Syringe IV (13:51)
[2024-02-05] MEDS: 0.9% Saline Lock 10 ML Syringe IV (13:51)
[2024-02-05] MEDS: Cefazolin 1 GM/50 ML BAG IV (15:49)
[2024-02-06] MEDS: Cefazolin 1 GM/50 ML BAG IV (00:10)
[2024-02-06] MEDS: Lactated Ringers 1,000 ML 100 ML IV (00:10)
[2024-02-06] MEDS: Acetaminophen 500 MG Tablet 1000 MG PO ×2 (05:03→13:40)
[2024-02-06] MEDS: oxyCODONE 5 MG Tablet PO ×2 (05:04→11:32)
[2024-02-06 05:14] VITALS: BP 113/92; PULSE 68; RESP 16; TEMP 36.8; O2SAT 98
[2024-02-06 07:50] VITALS: O2SAT 98
[2024-02-06 08:05] VITALS: BP 118/68; PULSE 93; RESP 18; TEMP 36.8; O2SAT 98
[2024-02-06 08:07] VITALS: PULSE 93
[2024-02-06] MEDS: Metoprolol(XL)Succ 50 MG Tablet PO (08:07)
--- NOTE | 2024-02-06 11:10 | CASEMGMT ---
BRANDON HILTON Assessment: Face to Face with pt for initial transition planning/care coordination assessment. BRANDON HILTON introduced self and role at [facility], pt voices understanding and consents to assessment. Pt is A&O x4 and answers all questions appropriately at this time. Pt lying in bed in no distress. Care providers, pharmacy, and demographics verified/updated. Admitting Dx: right sacroiliac joint fusion PCP:Jared Specialists:Vance, ortho; angie Truong mgmt Preferred Pharmacy: [facility] Retail Insurance: [facility] Community Plan [id number] Prescription Benefit: yes LNOK: Hugo Hill, sister; Bell Diaz, sister Living Arrangements: Pt lives with 3 children in a mobile home with 5 steps to enter with a rail. Pt reports she is typically I in ADL's and denies concerns at home. Transportation: Pt drives self and denies concerns with transportation. Pt sister will transport pt until she can drive again or oldest child. DME:walker- doesn't use HHC/SNF: Denies hx of Pt states no concerns with going home at time of dc. Pt states no further concerns/needs. CM to follow. Advised pt to ask CM if any further question/concerns/needs arise, voices understanding. Pt Goal: Home Plan: Home, follow therapy diego Gonsalez RN, CM
[2024-02-06] MEDS: Ferrous Sulfate 325 MG Tablet PO (11:32)
--- NOTE | 2024-02-06 12:33 | DCINST_ITS ---
Discharge Instructions Activity May shower in (days): 5 May resume sexual activity in: 4-6 weeks Lifting Restrictions: 25# Follow Up Care Test Results: Test results from this visit will be discussed in further detail at your follow- up appointment, if applicable. Discharge Plan Admission Admit Date/Time: 02/05/24 10:31 Attending Provider: Gerber Woodard Primary Care Provider: Joe Coleman Consulting Providers: Gayathri Pineda; Garcia Salazar; Lea Love; Lea Pinzon; Nita Mcqueen; Sandy Staton; Rose Alex; Scooter Magana; Scooter Strickland; Bashir Castro; Juno Dee; Ulysses Stoner; Ildefonso Harry; David Camp; Karina Fisher; Alan Wilhelm; Thais Crowell; Papa Emmanuel; Gilberto Carrizales; Blake Parekh; Eliane Kennedy; Aman Escobedo; Analy Salvador NP; Joe Chang PA Discharge Orders/Prescriptions Prescriptions: No Action ferrous sulfate [Feosol] 325 mg (65 mg iron) tablet 325 mg PO DAILY Saccharomyces boulardii [Daily Probiotic (S. boulardii)] 250 mg capsule 250 mg PO DAILY aspirin [Adult Low Dose Aspirin] 81 mg tablet,delayed release (DR/EC) 81 mg PO DAILY metoprolol succinate 50 mg tablet extended release 24 hr 50 mg PO DAILY Qty: 30 12RF Other Ambulatory Orders: 12 Lead EKG (Routine) Timeframe: 20240129 Location: None Selected Ordered By: Dr. Gerber Woodard Referrals / Follow Up: Joe Coleman MD [Primary Care Provider] - Disposition Disposition (needs filled in before D/C Order can be placed): Home, Self Care
--- NOTE | 2024-02-06 12:35 | PCM.DC.SUM ---
Providers Date of Admission: 02/05/24 Primary Care Physician: Dr. Joe Coleman MD Attending Physician: This is discharge summary on [facility]. Patient was admitted yesterday. She underwent fusion of the right sacroiliac joint. Today she reports that her pain in the right SI is completely resolved. She has had no pain whatsoever. She is extremely pleased as I am also. Her 1 complaint is that she has some pain like a cramp in the distribution of the right lateral femoral cutaneous nerve. I suspect that it is either from attention from the bolster that we put in her abdomen or possibly from just a pressure phenomenon from her laying flat on the bed for the procedure. Either way I suspect that will go away. She has been discharged today. I will give her some pain medication in the event that she needs it over the next several days. I am supposed to see her again in the office on Monday 3 days from now. Consultations 02/05/24 10:37 Consult: Hospitalist Routine Consulting Provider: [facility] Reason for Consult: Medical Management EMERGENT Consult: No MD Notified: Yes Date Notified: 02/05/24 Time Notified: 10:33 Method of Notification: Text Reason For Visit: ERAS, Right Sacroiliac Joint Fusion Medications at Discharge Home Medications Saccharomyces boulardii 250 mg capsule (Daily Probiotic (S. boulardii)) 250 mg PO DAILY SUPPLEMENT 03/02/21 ferrous sulfate 325 mg (65 mg iron) tablet (Feosol) 325 mg PO DAILY ANEMIA 03/04/21 aspirin 81 mg tablet,delayed release (Adult Low Dose Aspirin) 81 mg PO DAILY BLOOD THIN 03/19/21 metoprolol succinate 50 mg tablet,extended release 24 hr 50 mg PO DAILY HEART RATE #30 tabs 03/02/22 Weight / BMI Weight Weight: 180 lb 12.465 oz Body Mass Index (BMI) 39.1 ABG / Lab / Microbiology Data 01/29/24 08:02 01/29/24 08:02 Microbiology: Microbiology 01/29/24 08:02 Swab (Method) Nasal Screen MRSA/MSSA - Final D/C Instructions May shower in (days): 5 May resume sexual activity in: 4-6 weeks Meaningful Use Info Meaningful Use Diagnoses (Choose all that apply): None applicable Discharge Plan Admission Admit Date/Time: 02/05/24 10:31 Attending Provider: Gerber Woodard Primary Care Provider: Joe Coleman Consulting Providers: Gayathri Pineda; Garcia Salazar; Lea Love; Lea Pinzon; Nita Mcqueen; Sandy Staton; Rose Alex; Scooter Magana; Scooter Strickland; Bashir Castro; Juno Dee; Ulysses Stoner; Ildefonso Harry; David Camp; Karina Fisher; Alan Wilhelm; Thais Crowell; Papa Emmanuel; Gilberto Carrizales; Blake Parekh; Eliane Kennedy; Aman Escobedo; Analy Salvador NP; Joe Chang Discharge Orders/Prescriptions Prescriptions: No Action ferrous sulfate [Feosol] 325 mg (65 mg iron) tablet 325 mg PO DAILY Saccharomyces boulardii [Daily Probiotic (S. boulardii)] 250 mg capsule 250 mg PO DAILY aspirin [Adult Low Dose Aspirin] 81 mg tablet,delayed release (DR/EC) 81 mg PO DAILY metoprolol succinate 50 mg tablet extended release 24 hr 50 mg PO DAILY Qty: 30 12RF Other Ambulatory Orders: 12 Lead EKG (Routine) Timeframe: 20240129 Location: None Selected Ordered By: Dr. Gerber Woodard Referrals / Follow Up: Joe Coleman MD [Primary Care Provider] - Disposition Disposition (needs filled in before D/C Order can be placed): Home, Self Care
[2024-02-06 13:47] VITALS: BP 107/71; PULSE 60; RESP 18; TEMP 36.8; O2SAT 98
== END 2024-02-06 14:45 | disposition home or self-care (01) ==
LOC: SDC 11:03 → MS3 11:03
PROVIDERS: Admitting Provider Orthopaedic Surgery; PCP Family Medicine; Referring Provider Orthopaedic Surgery; Visit Provider Orthopaedic Surgery
PROC: (CPT 63030; principal; 2024-02-05 07:00)
DX: M46.1 Sacroiliitis, not elsewhere classified (principal); D64.9 Anemia, unspecified; M53.3 Sacrococcygeal disorders, not elsewhere classified; Z87.891 Personal history of nicotine dependence; G89.4 Chronic pain syndrome; Z79.899 Other long term (current) drug therapy; Z79.82 Long term (current) use of aspirin; Z86.718 Personal history of other venous thrombosis and embolism; Q21.12 Patent foramen ovale
CPT/HCPCS: 27279; 01160; J2405; 36415; 72202; 76000; 80048; 82962; 83735; 85025; 86703; 86706; 86708; 86803; 87081; 93005; 94668; 94762; 96361; 96365; 96366; 96375; 99221; C1713; J7120; A4216; G0378; J3475

== ENCOUNTER → 2024-02-15 | Outpatient (CLI) | payer MEDICAID, SELFPAY ==
[2024-02-15 17:38] LABS: Absolute Lymphocyte Count 1.56 X10^3/uL (0.83-4.51); Absolute Neutrophil Count 3.9 X10^3/uL (2.0-7.7); Basophil# 0.03 X10^3/uL; Basophil% 0.5 % (0-1); Eosinophil# 0.08 X10^3/uL; Eosinophils% 1.3 % (0-5); Hematocrit 35.9 % (37-47); Hemoglobin 11.6 g/dL (12.0-15.0); Lymphocyte # 1.56 X10^3/ul (0.83-4.51); Lymphocyte % 25.8 % (19-41); Mean Corp Hgb Conc 32.3 g/dL (32-36); Mean Corpuscular Hgb 26.1 pg (27.0-32.0); Mean Corpuscular Volume 80.9 fL (81-99); Mean Platelet Vol. 11.2 fl (6.2-12.0); Monocyte# 0.42 X10^3/uL; NRBC Flagged by Analyzer 0 % (0-5); Neutrophil # 3.94 X10^3/uL (2.7-7.7); Neutrophil % 65.2 % (47-70); Platelet Count 321 K/mm3 (150-450); RBC Distribution Width CV 13.3 % (11.6-14.6); RBC Distribution Width SD 38.8 fl (35.1-43.9); Red Blood Count 4.44 M/mm3 (4.2-5.4)
[2024-02-15 18:12] LABS: AST(SGOT) 13 U/L (15-37); Alanine Aminotransfer ALT/SGPT 24 U/L (13-56); Albumin, Serum 3.8 g/dL (3.2-5.0); Alkaline Phosphatase 60 U/L (45-117); Anion Gap 6 (5-15); BUN 4 mg/dL (7-18); BUN/Creat Ratio 5.9 RATIO (10-20); Chloride 105 mmol/L (98-107); Creatinine, Serum 0.68 mg/dL (0.55-1.02); EST Glomerular Filtration Rate 107 mL/min (>60); Est Glom Filt Rate - Afr Amer 129 mL/min (>60); Ferritin 19 ng/mL (8-252); Glucose 96 mg/dL (74-106); Iron 44 ug/dL (50-170); Iron Binding Capacity,Total 383 ug/dL (250-450); PERCENT IRON SATURATION 11.5 % (15.0-55.0); Potassium 3.6 mmol/L (3.5-5.1); Protein, Total 7.8 g/dL (6.4-8.2); Sodium Level 136 mmol/L (136-145); Thyroid Stim Hormone (TSH) 1.52 uIU/mL (0.358-3.74)
== END | disposition home or self-care (01) ==
LOC: MFPLAB 14:05
PROVIDERS: PCP Family Medicine; Visit Provider Family Medicine
DX: I47.10 Supraventricular tachycardia, unspecified (principal); D50.9 Iron deficiency anemia, unspecified
CPT/HCPCS: 36415; 80053; 82728; 83540; 83550; 83735; 84443; 85025

== ENCOUNTER → 2024-05-29 | Outpatient (CLI) | payer MEDICAID, SELFPAY ==
--- NOTE | 2024-05-29 10:21 | RAD_ITS ---
STUDY: X-RAY - PELVIS REASON FOR EXAM: Female, 33 years old. FALL TECHNIQUE: One view of the pelvis was obtained. COMPARISON: None. FINDINGS: There is a non-specific bowel gas pattern. An IUD is seen within the uterus. Prior screw fixation of the right sacroiliac joint. Prior fusion at the L5-S1 level. Normal visualized bilateral superior and inferior pubic rami. Normal pubic symphysis. Normal ischial tuberosities. Normal visualized right femoral head. Normal right acetabulum. Normal right hip joint. Normal visualized left femoral head. Normal left acetabulum. Normal left hip joint. RAD/Pelvis 1 or 2 Views IMPRESSION: Status post fusion at the L5-S1 level with screw fixation of the right sacroiliac joint. Electronically Signed: Mariano Cavazos MD at 15:40 EDT ,
--- NOTE | 2024-05-29 10:27 | RAD_ITS ---
STUDY: X-RAY - LUMBAR SPINE REASON FOR EXAM: Female, 33 years old. FALL TECHNIQUE: 4 view(s) of the lumbar spine were obtained. COMPARISON: 10/25/2023 FINDINGS: Normal lumbar lordosis. There is no substantial scoliosis. Status post discectomy, interbody fusion, and anterior fixation at L5/S1 with anatomic alignment which is unchanged. Normal vertebral bodies and endplates. Normal disc space heights. The soft tissue structures are unremarkable. RAD/L/S Spine Min 4 Views IMPRESSION: 1. No acute fracture or subluxation. 2. Postsurgical changes L5/S1 which are unchanged. Electronically Signed: Glenn Pulido MD at 17:58 EDT ,
== END | disposition home or self-care (01) ==
PROVIDERS: PCP Family Medicine; Referring Provider Anesthesiology; Visit Provider Anesthesiology
DX: M47.816 Spondylosis without myelopathy or radiculopathy, lumbar region (principal); M46.1 Sacroiliitis, not elsewhere classified
CPT/HCPCS: 72110; 72170

== ENCOUNTER → 2024-08-15 | Outpatient (CLI) | payer MEDICAID, SELFPAY ==
[2024-08-15 18:05] LABS: Absolute Lymphocyte Count 2.05 X10^3/uL (0.83-4.51); Absolute Neutrophil Count 4.2 X10^3/uL (2.0-7.7); Basophil# 0.02 X10^3/uL; Basophil% 0.3 % (0-1); Eosinophil# 0.06 X10^3/uL; Eosinophils% 0.9 % (0-5); Hematocrit 37.8 % (37-47); Hemoglobin 12.4 g/dL (12.0-15.0); Lymphocyte # 2.05 X10^3/ul (0.83-4.51); Lymphocyte % 30.3 % (19-41); Mean Corp Hgb Conc 32.8 g/dL (32-36); Mean Corpuscular Hgb 26.2 pg (27.0-32.0); Mean Corpuscular Volume 79.9 fL (81-99); Mean Platelet Vol. 11.3 fl (6.2-12.0); Monocyte# 0.45 X10^3/uL; Monocyte% 6.7 % (0-10); NRBC Flagged by Analyzer 0 % (0-5); Neutrophil # 4.16 X10^3/uL (2.7-7.7); Neutrophil % 61.5 % (47-70); Platelet Count 317 K/mm3 (150-450); RBC Distribution Width CV 13.1 % (11.6-14.6); Red Blood Count 4.73 M/mm3 (4.2-5.4); White Blood Count 6.8 K/mm3 (4.4-11.0)
[2024-08-15 18:29] LABS: Vitamin B12 521 pg/mL (211-911)
[2024-08-15 18:43] LABS: ALB/GLOB Ratio 1.1 RATIO (0.9-2.4); AST(SGOT) 17 U/L (15-37); Alanine Aminotransfer ALT/SGPT 25 U/L (13-56); Albumin, Serum 3.9 g/dL (3.2-5.0); Alkaline Phosphatase 59 U/L (45-117); Anion Gap 6 (5-15); BUN 6 mg/dL (7-18); BUN/Creat Ratio 10.5 RATIO (10-20); Calcium,Total 9.1 mg/dL (8.5-10.1); Chloride 103 mmol/L (98-107); Creatinine, Serum 0.57 mg/dL (0.55-1.02); EST Glomerular Filtration Rate 128 mL/min (>60); Est Glom Filt Rate - Afr Amer 155 mL/min (>60); Ferritin 20 ng/mL (8-252); Globulin 3.7 g/dL (2.2-4.2); Glucose 98 mg/dL (74-106); Iron 49 ug/dL (50-170); Iron Binding Capacity,Total 334 ug/dL (250-450); Magnesium 1.8 mg/dL (1.6-2.6); PERCENT IRON SATURATION 14.7 % (15.0-55.0); Potassium 3.8 mmol/L (3.5-5.1); Protein, Total 7.6 g/dL (6.4-8.2); Sodium Level 137 mmol/L (136-145); Thyroid Stim Hormone (TSH) 0.826 uIU/mL (0.358-3.740)
== END | disposition home or self-care (01) ==
LOC: MFPLAB 16:17
PROVIDERS: PCP Family Medicine; Referring Provider Family Medicine; Visit Provider Family Medicine
DX: D50.9 Iron deficiency anemia, unspecified (principal); I47.10 Supraventricular tachycardia, unspecified
CPT/HCPCS: 36415; 80053; 82607; 82728; 82746; 83540; 83550; 83735; 84443; 85025

== ENCOUNTER → 2024-11-08 | Outpatient (CLI) | payer MEDICAID, SELFPAY ==
[2024-11-08 12:15] LABS: Absolute Lymphocyte Count 1.43 X10^3/uL (0.83-4.51); Absolute Neutrophil Count 4.5 X10^3/uL (2.0-7.7); Basophil# 0.02 X10^3/uL; Basophil% 0.3 % (0-1); Eosinophil# 0.06 X10^3/uL; Eosinophils% 0.9 % (0-5); Hemoglobin 11.9 g/dL (12.0-15.0); Lymphocyte # 1.43 X10^3/ul (0.83-4.51); Lymphocyte % 22.2 % (19-41); Mean Corp Hgb Conc 33.1 g/dL (32-36); Mean Corpuscular Hgb 26.3 pg (27.0-32.0); Mean Corpuscular Volume 79.6 fL (81-99); Monocyte# 0.41 X10^3/uL; Monocyte% 6.4 % (0-10); NRBC Flagged by Analyzer 0 % (0-5); Neutrophil # 4.51 X10^3/uL (2.7-7.7); Platelet Count 275 K/mm3 (150-450); RBC Distribution Width CV 13.6 % (11.6-14.6); RBC Distribution Width SD 39.2 fl (35.1-43.9); Red Blood Count 4.52 M/mm3 (4.2-5.4); White Blood Count 6.4 K/mm3 (4.4-11.0)
[2024-11-08 12:59] LABS: ALB/GLOB Ratio 0.9 RATIO (0.9-2.4); AST(SGOT) 13 U/L (15-37); Alanine Aminotransfer ALT/SGPT 23 U/L (13-56); Albumin, Serum 3.5 g/dL (3.2-5.0); Alkaline Phosphatase 48 U/L (45-117); Anion Gap 5 (5-15); BUN 8 mg/dL (7-18); BUN/Creat Ratio 11.6 RATIO (10-20); Calcium,Total 8.9 mg/dL (8.5-10.1); Chloride 107 mmol/L (98-107); Creatinine, Serum 0.69 mg/dL (0.55-1.02); EST Glomerular Filtration Rate 104 mL/min (>60); Est Glom Filt Rate - Afr Amer 126 mL/min (>60); Ferritin 15 ng/mL (8-252); Globulin 4.1 g/dL (2.2-4.2); Glucose 97 mg/dL (74-106); Iron 53 ug/dL (50-170); Iron Binding Capacity,Total 329 ug/dL (250-450); Magnesium 2.2 mg/dL (1.6-2.6); Potassium 3.7 mmol/L (3.5-5.1); Protein, Total 7.6 g/dL (6.4-8.2); Sodium Level 136 mmol/L (136-145)
== END | disposition home or self-care (01) ==
LOC: MFPLAB 10:10
PROVIDERS: PCP Family Medicine; Referring Provider Family Medicine; Visit Provider Family Medicine
DX: D50.9 Iron deficiency anemia, unspecified (principal); I47.10 Supraventricular tachycardia, unspecified
CPT/HCPCS: 36415; 80053; 82728; 83540; 83550; 83735; 85025

== ENCOUNTER → 2024-12-04 | Outpatient (CLI) | payer MEDICAID, SELFPAY ==
--- NOTE | 2024-12-04 13:51 | NEURO ---
NCS and/or EMG Patient Report Ordering Doctor: Papa Truong DATE OF SERVICE: 12/04/24 Denisha presents electrodiagnostic testing of the left lower limb. She reports intermittent left-sided low back pain radiating into the left lower limb. Electrodiagnostic findings: Left peroneal motor nerve demonstrates normal distal latency, amplitude and conduction velocity. Left tibial motor response is within normal limits. Normal left tibial and peroneal F?waves. Normal H?reflex bilaterally. Normal sensory responses are noted. Needle EMG testing was performed in the left lower limb. All muscles tested showed no evidence of denervation with normal motor unit potentials. Electrodiagnostic impression: This is a normal electrodiagnostic study of the left lower limb. There is no electrodiagnostic evidence for peripheral neuropathy or lumbosacral radiculopathy. Multi Select Codes Neurology Neurology Interp Codes: 57091-57 Musc test done w/n test comp (interp) and 50745-09 Nrv cndj tst 5-6 studies (interp)
== END | disposition home or self-care (01) ==
LOC: PSN 12:17
PROVIDERS: PCP Family Medicine; Referring Provider Anesthesiology; Visit Provider Anesthesiology
DX: M54.17 Radiculopathy, lumbosacral region (principal)
CPT/HCPCS: 95886; 95909

== ENCOUNTER → 2024-12-17 | Outpatient (CLI) | payer MEDICAID, SELFPAY ==
[2024-12-17 12:54] LABS: Absolute Lymphocyte Count 1.24 X10^3/uL (0.83-4.51); Absolute Neutrophil Count 3.5 X10^3/uL (2.0-7.7); Basophil# 0.03 X10^3/uL; Basophil% 0.6 % (0-1); Eosinophil# 0.05 X10^3/uL; Hematocrit 36.9 % (37-47); Hemoglobin 12.4 g/dL (12.0-15.0); Lymphocyte # 1.24 X10^3/ul (0.83-4.51); Mean Corp Hgb Conc 33.6 g/dL (32-36); Mean Corpuscular Hgb 26.8 pg (27.0-32.0); Mean Corpuscular Volume 79.7 fL (81-99); Mean Platelet Vol. 11.4 fl (6.2-12.0); Monocyte# 0.38 X10^3/uL; Monocyte% 7.4 % (0-10); NRBC Flagged by Analyzer 0 % (0-5); Neutrophil # 3.45 X10^3/uL (2.7-7.7); Neutrophil % 66.8 % (47-70); Platelet Count 288 K/mm3 (150-450); RBC Distribution Width CV 13.4 % (11.6-14.6); RBC Distribution Width SD 38.5 fl (35.1-43.9); Red Blood Count 4.63 M/mm3 (4.2-5.4); White Blood Count 5.2 K/mm3 (4.4-11.0)
[2024-12-17 13:17] LABS: ALB/GLOB Ratio 0.9 RATIO (0.9-2.4); AST(SGOT) 39 U/L (15-37); Alanine Aminotransfer ALT/SGPT 60 U/L (13-56); Albumin, Serum 3.7 g/dL (3.2-5.0); Alkaline Phosphatase 63 U/L (45-117); Anion Gap 9 (5-15); BUN 10 mg/dL (7-18); BUN/Creat Ratio 14.9 RATIO (10-20); Chloride 104 mmol/L (98-107); Creatinine, Serum 0.67 mg/dL (0.55-1.02); EST Glomerular Filtration Rate 107 mL/min (>60); Est Glom Filt Rate - Afr Amer 129 mL/min (>60); Ferritin 23 ng/mL (8-252); Globulin 4.2 g/dL (2.2-4.2); Glucose 93 mg/dL (74-106); Iron 44 ug/dL (50-170); Iron Binding Capacity,Total 352 ug/dL (250-450); Magnesium 2.2 mg/dL (1.6-2.6); Protein, Total 7.9 g/dL (6.4-8.2); Sodium Level 136 mmol/L (136-145)
== END | disposition home or self-care (01) ==
LOC: MFPLAB 11:26
PROVIDERS: PCP Family Medicine; Referring Provider Family Medicine; Visit Provider Family Medicine
DX: I47.10 Supraventricular tachycardia, unspecified (principal); D50.9 Iron deficiency anemia, unspecified
CPT/HCPCS: 36415; 80053; 82728; 83540; 83550; 83735; 85025

== ENCOUNTER → 2025-01-06 | Outpatient (CLI) | payer MEDICAID, SELFPAY ==
[2025-01-06 15:23] LABS: Absolute Lymphocyte Count 1.89 X10^3/uL (0.83-4.51); Absolute Neutrophil Count 5.8 X10^3/uL (2.0-7.7); Basophil# 0.03 X10^3/uL; Basophil% 0.4 % (0-1); Eosinophil# 0.05 X10^3/uL; Eosinophils% 0.6 % (0-5); Hematocrit 39.3 % (37-47); Lymphocyte # 1.89 X10^3/ul (0.83-4.51); Lymphocyte % 23.1 % (19-41); Mean Corp Hgb Conc 33.1 g/dL (32-36); Mean Corpuscular Hgb 26.7 pg (27.0-32.0); Mean Corpuscular Volume 80.7 fL (81-99); Mean Platelet Vol. 11.3 fl (6.2-12.0); Monocyte% 4.9 % (0-10); NRBC Flagged by Analyzer 0 % (0-5); Neutrophil # 5.77 X10^3/uL (2.7-7.7); Neutrophil % 70.6 % (47-70); Platelet Count 344 K/mm3 (150-450); RBC Distribution Width CV 13.5 % (11.6-14.6); RBC Distribution Width SD 39.2 fl (35.1-43.9); Red Blood Count 4.87 M/mm3 (4.2-5.4); White Blood Count 8.2 K/mm3 (4.4-11.0)
[2025-01-06 19:31] LABS: ALB/GLOB Ratio 1.1 RATIO (0.9-2.4); AST(SGOT) 14 U/L (15-37); Alanine Aminotransfer ALT/SGPT 20 U/L (13-56); Albumin, Serum 4.4 g/dL (3.2-5.0); Alkaline Phosphatase 63 U/L (45-117); Anion Gap 10 (5-15); BUN 12 mg/dL (7-18); BUN/Creat Ratio 16.8 RATIO (10-20); Calcium,Total 9.6 mg/dL (8.5-10.1); Chloride 107 mmol/L (98-107); Creatinine, Serum 0.72 mg/dL (0.55-1.02); EST Glomerular Filtration Rate 99 mL/min (>60); Est Glom Filt Rate - Afr Amer 120 mL/min (>60); Ferritin 29 ng/mL (8-252); Globulin 3.9 g/dL (2.2-4.2); Glucose 99 mg/dL (74-106); Iron 54 ug/dL (50-170); Iron Binding Capacity,Total 364 ug/dL (250-450); Magnesium 2.3 mg/dL (1.6-2.6); PERCENT IRON SATURATION 14.8 % (15.0-55.0); Potassium 3.7 mmol/L (3.5-5.1); Protein, Total 8.3 g/dL (6.4-8.2); Sodium Level 138 mmol/L (136-145)
== END | disposition home or self-care (01) ==
LOC: MFPLAB 11:22
PROVIDERS: PCP Family Medicine; Referring Provider Family Medicine; Visit Provider Family Medicine
DX: D50.9 Iron deficiency anemia, unspecified (principal); I47.10 Supraventricular tachycardia, unspecified
CPT/HCPCS: 36415; 80053; 82728; 83540; 83550; 83735; 85025

== ENCOUNTER → 2025-01-11 | Outpatient (CLI) | payer MEDICAID, SELFPAY ==
--- NOTE | 2025-01-11 08:05 | US_ITS ---
PROCEDURE: ABDOMEN LIMITED REASON FOR EXAM: Abnormal LFTs COMPARISON: None FINDINGS: Liver: Liver is increased in echogenicity and measures 16.2 cm. Portal color flow is hepatopetal Gallbladder: Surgically absent Common bile duct: Normal measuring 7 mm. Pancreas: Normal Right kidney measures 11.7 x 5.4 x 5.0 cm. No right upper quadrant ascites. US/Abdomen Limited IMPRESSION: Hepatic steatosis. Reading Location: [facility]
== END | disposition home or self-care (01) ==
LOC: US 08:02
PROVIDERS: PCP Family Medicine; Referring Provider Family Medicine; Visit Provider Family Medicine
DX: R94.5 Abnormal results of liver function studies (principal)
CPT/HCPCS: 76705

== ENCOUNTER → 2025-02-11 | Outpatient (CLI) | payer MEDICAID, SELFPAY ==
--- NOTE | 2025-02-11 11:06 | MRI_ITS ---
EXAM: MRI lumbar spine without contrast. CLINICAL HISTORY: Back pain COMPARISON: None TECHNIQUE: Multiplanar multisequence MRI of the lumbar spine without contrast. FINDINGS: There is normal lumbar lordosis. Postoperative changes L5-S1 anterior fusion. The lumbar vertebral bodies are normal in height. No evidence of compression fracture. Alignment is normal. No listhesis. The bone marrow signal is unremarkable. There is no abnormal bone STIR signal. The included distal thoracic cord is normal in caliber and signal. The conus medullaris terminates at L1 level. There is no clumping of the nerve roots. L1/2: Canal and neural foramina are patent.. L2/3: Canal and foramina are patent.. L3/4: Small circumferential disc bulge with flattening of the ventral thecal sac. No canal stenosis or neural foraminal narrowing.. L4/5: Flattening of the ventral thecal sac. No canal stenosis or neural foraminal narrowing.. L5/S1: Minimal disc bulge and mild facet degenerative changes. No canal stenosis or neural foraminal narrowing.. The visualized prevertebral and paraspinal soft tissues are unremarkable. MRI/Spine Lumbar (Routine) IMPRESSION: Postoperative changes L5-S1 anterior fusion. Otherwise, no acute findings. No significant degenerative changes. Reading Location: [facility]
== END | disposition home or self-care (01) ==
LOC: MRI 10:55
PROVIDERS: PCP Family Medicine; Referring Provider Anesthesiology; Visit Provider Anesthesiology
DX: M54.16 Radiculopathy, lumbar region (principal)
CPT/HCPCS: 72148

== ENCOUNTER → 2025-03-13 | Outpatient (CLI) | payer MEDICAID, SELFPAY ==
[2025-03-13 16:12] LABS: ALB/GLOB Ratio 1.4 RATIO (0.9-2.4); AST(SGOT) 23 U/L (<=31); Alanine Aminotransfer ALT/SGPT 20 U/L (<=34); Albumin, Serum 4.4 g/dL (3.5-5.0); Alkaline Phosphatase 61 U/L (35-104); Anion Gap 13 (5-15); BUN 8 mg/dL (4-19); BUN/Creat Ratio 10.7 RATIO (10-20); Calcium,Total 9.4 mg/dL (7.6-11.0); Carbon Dioxide 21.3 mmol/L (21.0-32.0); Chloride 102 mmol/L (98-108); Creatinine, Serum 0.71 mg/dL (0.70-1.20); EST Glomerular Filtration Rate 115 (>60); Globulin 3.2 g/dL (2.2-4.2); Glucose 120 mg/dL (70-99); Potassium 3.8 mmol/L (3.3-5.1); Protein, Total 7.6 g/dL (5.9-8.4); Sodium Level 137 mmol/L (133-145); Total Bilirubin 0.44 mg/dL (0.00-1.30)
[2025-03-14 21:12] LABS: Hemoglobin A1c 5.1 % (<=5.6)
== END | disposition home or self-care (01) ==
LOC: MFPLAB 11:39
PROVIDERS: PCP Family Medicine; Referring Provider Family Medicine; Visit Provider Family Medicine
DX: R73.09 Other abnormal glucose (principal); L29.9 Pruritus, unspecified
CPT/HCPCS: 36415; 80053; 83036

== ENCOUNTER → 2025-05-13 | Outpatient (CLI) | payer MEDICAID, SELFPAY ==
[2025-05-13 12:46] LABS: Hematocrit 38.3 % (37-47); Hemoglobin 12.6 g/dL (12.0-15.0); Immature Granulocytes Count 0.020 X10^3/uL (0.0-0.0); Mean Corp Hgb Conc 32.9 g/dL (32-36); Mean Corpuscular Volume 80.1 fL (81-99); Mean Platelet Vol. 11.0 fl (6.2-12.0); NRBC Flagged by Analyzer 0 % (0-5); Platelet Count 339 K/mm3 (150-450); RBC Distribution Width CV 13.4 % (11.6-14.6); RBC Distribution Width SD 38.6 fl (35.1-43.9); Red Blood Count 4.78 M/mm3 (4.2-5.4); White Blood Count 7.5 K/mm3 (4.4-11.0)
[2025-05-13 13:32] LABS: AST(SGOT) 19 U/L (<=31); Alanine Aminotransfer ALT/SGPT 17 U/L (<=34); Albumin, Serum 4.5 g/dL (3.5-5.0); Alkaline Phosphatase 64 U/L (35-104); Anion Gap 12 (5-15); BUN 10 mg/dL (4-19); BUN/Creat Ratio 16.1 RATIO (10-20); Calcium,Total 9.5 mg/dL (7.6-11.0); Carbon Dioxide 23.0 mmol/L (21.0-32.0); Chloride 104 mmol/L (98-108); Ferritin 30 ng/mL (22-378); Globulin 3.1 g/dL (2.2-4.2); Glucose 98 mg/dL (70-99); Iron 45 ug/dL (50-170); Iron Binding Capacity,Total 332 ug/dL (250-450); Iron Binding Capacity,Unsat 287 ug/dL (228-428); Magnesium 2.4 mg/dL (1.5-2.2); Potassium 4.0 mmol/L (3.3-5.1)
== END | disposition home or self-care (01) ==
LOC: MTLAB 10:49
PROVIDERS: PCP Family Medicine; Referring Provider Family Medicine; Visit Provider Family Medicine
DX: D50.9 Iron deficiency anemia, unspecified (principal); I47.10 Supraventricular tachycardia, unspecified
CPT/HCPCS: 36415; 80053; 82728; 83540; 83550; 83735; 84443; 85025

== ENCOUNTER → 2025-05-14 | Outpatient (CLI) | payer MEDICAID, SELFPAY ==
--- NOTE | 2025-05-14 19:44 | CT_ITS ---
PROCEDURE: SPINE LUMBAR WITHOUT CONTRAST 05/14/2025 REASON FOR EXAM: PAIN TECHNIQUE: SPINE LUMBAR WITHOUT CONTRAST Coronal and Sagittal reconstruction series were provided. One or more dose reduction techniques were used (e.g., Automated exposure control, adjustment of the mA and/or kV according to patient size, use of iterative reconstruction technique COMPARISON: March 28, 2025 RADIATION DOSE SUMMARY: DLP: 901.01 mGycm FINDINGS: There is hardware fusion at L5-S1 which appears intact. There is hardware fusion of the right SI joint which appears intact. Vertebral body height and alignment are maintained. Disc height is maintained from L1-L4. There is no acute fracture. An IUD is visible in the uterus, in expected location. There is no visible atherosclerosis. CT/Spine Lumbar without Contrast IMPRESSION: There is hardware fusion at L5-S1 which appears intact. There is hardware fusion of the right SI joint which appears intact. An IUD is visible in the uterus, in expected location. Reading Location: [facility]
== END | disposition home or self-care (01) ==
PROVIDERS: PCP Family Medicine; Referring Provider Orthopaedic Surgery Orthopaedic Surgery of the Spine; Visit Provider Orthopaedic Surgery Orthopaedic Surgery of the Spine
DX: M53.3 Sacrococcygeal disorders, not elsewhere classified (principal); Z98.1 Arthrodesis status
CPT/HCPCS: 72131

== ENCOUNTER → 2025-05-28 | Outpatient (CLI) | payer MEDICAID, SELFPAY ==
--- NOTE | 2025-05-28 10:22 | RAD_ITS ---
PROCEDURE: CERV SPINE 4 OR 5 VIEWS 05/28/2025 REASON FOR EXAM: CERVICAL SPONDYLOSIS TECHNIQUE: CERV SPINE 4 OR 5 VIEWS COMPARISON: None. FINDINGS: No evidence of fracture or subluxation. Vertebral body heights are preserved. Alignment is anatomic, although there is straightening of the cervical lordosis. No significant degenerative changes are appreciated, well preserved disc spaces. Widely patent osseous neural foramina. No prevertebral soft tissue swelling. Edentulous mandible and maxilla. No unusual mineralization. RAD/Cerv Spine 4 or 5 Views IMPRESSION: No evidence of fracture, subluxation, or significant degenerative changes. Straightening of the cervical lordosis may be positional or related to muscle s pasm. Reading Location: [id number]
--- NOTE | 2025-05-28 10:22 | RAD_ITS ---
PROCEDURE: CERV SPINE 4 OR 5 VIEWS 05/28/2025 REASON FOR EXAM: CERVICAL SPONDYLOSIS TECHNIQUE: CERV SPINE 4 OR 5 VIEWS COMPARISON: None. FINDINGS: No evidence of fracture or subluxation. Vertebral body heights are preserved. Alignment is anatomic, although there is straightening of the cervical lordosis. No significant degenerative changes are appreciated, well preserved disc spaces. Widely patent osseous neural foramina. No prevertebral soft tissue swelling. Edentulous mandible and maxilla. No unusual mineralization. RAD/Cerv Spine 4 or 5 Views IMPRESSION: No evidence of fracture, subluxation, or significant degenerative changes. Straightening of the cervical lordosis may be positional or related to muscle s pasm. Reading Location: [id number]
--- OUTSIDE RECORDS SUMMARY | 2025-05-28 20:59 | XMS RPT_ITS | CCD ---
Author Organization [facility] CliniSypr Care Team Providers Care Product Support Manager Name Role Phone No Doctor Assigned, Nodr Primary Care Unavail able JohnnyJack gray W Admitting Unavailable Johnny, Jack W Attending Unavailable No Doctor Assigned, Nodclaire Primary Care Unavail able Alan Larsne Admitting Unavailable Alan Larsen Attending Unavailable ELIZABETH HENNESSY Attending Unavailable TOMASZ COLEMAN Primary Care Unavailable BLAKE YORK Referring Unavailable Dr. Tomasz Coleman Primary Care Provider Jaxon ENROBING MACHINE CORDER, ENROBING MACHINE CORDER-C Swapna E Attending Provider Jaxon ENROBING MACHINE CORDER, ENROBING MACHINE CORDER-C Swapna E Referring Provider [phone] Jaxon ENROBING MACHINE CORDER, ENROBING MACHINE CORDER-C Swapna E Other Provider ENEIDA CHAVEZ Attending Unavailable ROSA MARIA GARCIA Attending Unava ilable Dr. Tomasz Coleman Primary Care Provider [phone] Jaxon ENROBING MACHINE CORDER, ENROBING MACHINE CORDER-C Swapna E Attending Provider [phone] Jaxon ENROBING MACHINE CORDER, ENROBING MACHINE CORDER-C Swapna E Referring Provider Jaxon ENROBING MACHINE CORDER, ENROBING MACHINE CORDER-C Swapna E Other Provider Dr. Tomasz Coleman Primary Care Provider [phone] Dr. Tomasz Coleman Referring Provider Dr. Gerber Corey Attending Provider Dr. Marya Young Attending Provider Dr. Gerber Corey Referring Provider 1([facility])[phone] Dr. Gerber Corey Other Provider 1([facility])[phone] Gerber Corey Admit Provider 1([facility])[phone] Eliane Kennedy Attending Provider 1([facility])[phone] Eliane Kennedy Other Provider Dr. Tomasz Coleman Primary Care Provider 1([facility] )[phone] Dr. Gerber Corey Admit Provider 1([facility])[phone] Gerber Corey Attending Provider 1([facility])[phone] Dr. Gerber Corey Referring Provider 1([facility])[phone] Dr. Gerber Corey Other Provider 1([facility])[phone] Eliane Kennedy Other Provider Dr. Eliane Kennedy Attending Provider 1([facility])[phone] Tomasz Coleman Referring Provider 1([facility])[phone] Dr. Emmett Rangel Other Provider 1([facility])[phone] Juno Lobo Other Provider Dr. Sandy Staton Attending Provider 1([facility])[phone] Dr. Sandy Staton Other Provider 1([facility])[phone] Juno Lobo Attending Provider 1([facility])[phone] Tomasz Coleman Primary Care Provider 1([facility] )[phone] Dr. Tomasz Coleman Referring Provider 1([facility])[phone] Dr. Gerber Corey Attending Provider 1([facility])[phone] Dr. Gerber Corey Admit Provider 1([facility])[phone] Gerber Corey Referring Provider 1([facility])[phone] Dr. Gerber Corey Other Provider 1([facility])[phone] NADIYA Monreal Attending Provider 1([facility])[phone] Tomasz Coleman Primary Care Provider 1([facility] )[phone] Dr. Tomasz Coleman Referring Provider 1([facility])[phone] Dr. Gerber Corey Attending Provider 1([facility])[phone] Dr. Roger Rasmussen Attending Provider 1([facility])[phone] Gerber Corey Referring Provider 1([facility])[phone] Dr. Gerber Corey Other Provider 1([facility])[phone] Gerber Corey Admit Provider 1([facility])[phone] Gayathri Pineda Other Provider Dr. Garcia Salazar Other Provider Dr. Lea Love Other Provider Dr. Lea Pinzon Other Provider Dr. Nita Mcqueen Other Provider Unavailable Dr. Sandy Staton Other Provider Dr. Rose Alex Other Provider Dr. Scooter Magana Other Provider UnavailDr. Scooter Castro Other Provider Unavailable MD Bashir Castro Other Provider Dr. Juno Dee Other Provider Dr. Ulysses Stoner Other Provider Dr. Ildefonso Harry Other Provider 1([facility])[phone] David Camp Other Provider Dr. Karina Fisher Other Provider Dr. Alan Wilhelm Other Provider Dr. Thais Crowell Other Provider Dr. Papa Emmanuel Other Provider 1([facility])[phone] Dr. Gilberto Carrizales Other Provider 1([facility])[phone] Blake Parekh Other Provider Dr. Eliane Kennedy Other Provider Dr. Aman Escobedo Other Provider 1([facility])[phone] [place] ENROBING MACHINE CORDER, ENROBING MACHINE CORDER-C Analy Other Provider Tomasz Mercado Other Provider Unavailable Tomasz Coleman MD Primary Care Provider Tomasz Coleman MD(Historical) Primary Care Provi anum Unavailable ANEESH DIA Attending Unavailable ANEESH DIA Referring Unavailable ANEESH DIA Attending Unavailable Dr. Tomasz Coleman MD Primary Care Provider [phone] Dr. Tomasz Coleman MD Attending Provider Jared ROBERSON Dr. Tomasz Lambert Referring Provider Alexi ROBERSON, Dr. Elam Attending Provider [phone] Alexi ROBERSON, Dr. Elam Referring Provider Alexi ROBERSON, Dr. Elam Other Provider Leo ROBERSON, Dr. Ulrich Attending Provider [phone] Jared ROBERSON, Dr. Tomasz Lambert Primary Care Provider Jared ROBERSON, Dr. Tomasz Lambert Attending Provider Jared ROBERSON, Dr. Tomasz Lambert Referring Provider Alexi ROBERSON, Dr. Elam Attending Provider Alexi ROBERSON, Dr. Elam Referring Provider [phone] Alexi ROBERSON, Dr. Elam Other Provider Leo ROBERSON, Dr. Ulrich Attending Provider [phone] RADHA BENITEZ Attending Unavaila ble SCHINNER, TOMASZ Primary Care Unavailable PAPA CHRISTIANSON Attending Unava ilable SCHINNER, TOMASZ Primary Care Unavailable SCHINNER, TOMASZ Primary Care Unavailable RADHA BENITEZ Attending Unavaila ble Schinner, Tomasz E Primary Care Unavailable Schinner, Tomsaz E Referring Unavailable Schinner, Tomasz E Attending Unavailable Schinner, Tomasz E Primary Care Unavailable Serg Bailey Attending Unavailable Papa Truong Consulting Unavailable Papa Truong Referring Unavailable Schinner, Tomasz E Primary Care Unavailable Cristy Cannon Attending Unavailable Schinner, Tomasz E Primary Care Unavailable Schinner, Tomasz E Referring Unavailable Pancho Starkey Attending Unavailable Schinner, Tomasz E Primary Care Unavailable Valery, Roger Attending Unavailable Schinner, Tomasz E Primary Care Unavailable Schinner, Tomasz E Referring Unavailable Pancho Starkey Attending Unavailable Schinner, Tomasz E Primary Care Unavailable Valery, Verona Attending Unavailable Schinner, Tomasz E Primary Care Unavailable Papa Truong Referring Unavailable Papa Truong Attending Unavailable Schinner, Tomasz E Primary Care Unavailable Schinner, Tomasz E Referring Unavailable Schinner, Tomasz E Attending Unavailable Schinner, Tomasz E Referring Unavailable Schinner, Tomasz E Attending Unavailable Schinner, Tomasz E Primary Care Unavailable Schinner, Tomasz E Referring Unavailable Schinner, Tomasz E Primary Care Unavailable Schinner, Tomasz E Attending Unavailable Schinner, Tomasz E Primary Care Unavailable Schinner, Tomasz E Referring Unavailable Schinner, Tomasz E Attending Unavailable Schinner, Tomasz E Primary Care Unavailable Schinner, Tomasz E Referring Unavailable Schinner, Tomasz E Attending Unavailable PraysonAbilioPapa Referring Unavailable Prayson Papa Attending Unavailable Schinner, Tomasz E Primary Care Unavailable Schinner, Tomasz E Attending Unavailable Schinner, Tomasz E Referring Unavailable Schinner, Tomasz E Primary Care Unavailable Pancho Starkey Referring Unavailable Schinner, Tomasz Lambert Primary Care Unavailable Pancho Starkey Attending Unavailable Jamarinner, Tomasz E Primary Care Unavailable Prayson Papa Referring Unavailable Prayson Papa Attending Unavailable Allergies Allergy Classification Reported Allergen(s) Allergy Type Date of Onset Reaction(s) Facility (11 sources) Adhesive Tape; Translations: [adhesive tape] Allergy to substance 08-17-20 22 Other, Hives, Rash [facility] Comment on above: ONLY ON CHEST (8 sources) ADHESIVE TAPE-SILICONES; Translations: [ADHESIVE TAPE-SILICONES] Propensity to adverse reactions to drug (disorder) 04-06-20 21 Hives, Rash [facility] Repository (1 source) Corticosteroids Drug allergy (disorder) 04-08-20 25 [facility] Repository (1 source) Escitalopram Drug Allergy 04-08-20 25 [facility] Repository Medications Current Medications Medication Drug Class(es) Dates Sig (Normalized) Sig (Original) aspirin 81 mg delayed release oral tablet (16 sources) Platelet Aggregation Inhibitor, Nonsteroidal Anti-inflammatory Drug Start: 03-19-2021 Aspirin (Adult Low Dose Aspirin) 81 mg tablet,delayed release (DR/EC) Active 81 mg PO DAILY March 19, 2021 12:00am B.animalis,bifid,i nfantis,long (PROBIOTIC 4X ORAL) (1 source) B.animalis,bifid , infantis,long (PROBIOTIC 4X ORAL) Take by mouth . Active cephalexin 500 mg oral capsule (4 sources) Cephalosporin Antibacterial Start: 08-09-2022 take 500 mg by mouth every six hours Cephalexin Active 500 MG PO EVERY 6 HOURS August 09, 2022 12:00am doxycycline hyclate 100 mg oral capsule (1 source) Tetracycline-class Drug Start: 11-27-2024 take 1 capsule by mouth twice daily doxycycline hyclate (VIBRAMYCIN) 100 mg capsule Take 1 capsule (100 mg) by mouth two times a day. 20 capsule 11/27/2024 Active ferrous sulfate 325 mg oral tablet (15 sources) Start: 03-04-2021 take 1 tablet by mouth once daily Ferrous Sulfate (Feosol) 325 mg (65 mg iron) tablet Active 325 mg PO DAILY March 04, 2021 12:00am Start: 01-28-2021 take 1 tablet by roxy th twice daily ferrous sulfate (IRON) 325 mg (65 mg iron) tablet Take 1 tablet by mouth twice daily. 60 tablet 2 01/28/2021 Active iron,carb/vit C/vit B12/folic (IRON 100 PLUS ORAL) (1 source) iron,carb/vit C/ vit B12/folic (IRON 100 PLUS ORAL) Take by mouth . Active levonorgestrel 0.659107 mg/hr intrauterine system (4 sources) Progestin, Progestin-containing Intrauterine Device Start: End: levonorgestrel (MIRENA) 20 mcg/24 hours (6 yrs) 52 mg IUD 1 Each by INTRAUTERINE route as directed. 1 Each 01/21/2021 01/20/2027 Active mv-min/iron/folic/calci um/vitK (WOMEN'S MULTIVITAMIN ORAL) (4 sources) take 1 tablet by mouth once daily mv-min/iron/folic/jhon cium/vitK (WOMEN'S MULTIVITAMIN ORAL) Take 1 tablet by mouth once daily. Active saccharomyces boulardii 250 mg oral capsule (11 sources) Start: 021 take 1 capsule by mouth once daily Saccharomyces Boulardii (Daily Probiotic (S. Boulardii)) 250 mg capsule Active 250 mg PO DAILY March 02, 2021 12:00am sulfamethoxazole 800 mg / trimethoprim 160 mg oral tablet (4 sources) Dihydrofolate Reductase Inhibitor Antibacterial, Sulfonamide Antimicrobial Start: 022 take 1 tablet by mouth twice daily Sulfamethoxazole-Trim ethoprim (Bactrim Ds) 800-160 mg tablet Active 1 TABLET PO TWICE A DAY August 09, 2022 12:00am tiZANidine 4 mg oral tablet (2 sources) Central alpha-2 Adrenergic Agonist Start: take 2 tablets by mouth twice daily Tizanidine 4 mg tablet Active 8 mg PO TWICE A DAY July 12, 2024 12:00am Completed/Discontinued Medications Medication Drug Class(es) Dates Sig (Normalized) Sig (Original) acetaminophen 325 mg / HYDROcodone bitartrate 5 mg oral tablet (11 sources) Opioid Agonist Start: 08-09-2022 End: 02-01-2023 Hydrocodone-Acetami nophen 5-325 mg tablet Discontinued 1 {tbl} PO EVERY 6 HOURS as needed for pain 10 August 09, 2022 February 01, 2023 2:00pm Start: 08-09-2022 End: 02-01-2023 take 1 tablet by mouth every six hours Hydrocodone-Acetaminophen Discontinued 1 TABLET PO EVERY 6 HOURS 10 August 09, 2022 February 01, 2023 2:00pm acetaminophen 325 mg / oxyCODONE hydrochloride 5 mg oral tablet (20 sources) Opioid Agonist Start: 03-20-2024 End: 03-30-2024 Oxycodone-Acetaminophen 5-32 5 mg tablet Discontinued 1 {tbl} PO EVERY 6 HOURS as needed for pain 30 March 20, 2024 March 29, 2024 12:00am March 30, 2024 12:13am Start: 02-28-2024 End: 03-09-2024 Oxycodone-Acetaminophen 5-32 5 mg tablet Discontinued 1 {tbl} PO Q8H as needed for pain 30 February 28, 2024 March 08, 2024 12:00am March 09, 2024 12:16am Start: 02-27-2024 End: 03-13-2024 Oxycodone-Acetaminophen 2.5- 325 mg tablet Discontinued 1 {tbl} PO EVERY 6 HOURS as needed for pain 60 February 27, 2024 March 12, 2024 12:00am March 13, 2024 12:06am Start: 02-06-2024 End: 02-23-2024 Oxycodone-Acetaminophen 5-32 5 mg tablet Discontinued 1 {tbl} PO EVERY 6 HOURS as needed for pain 40 February 13, 2024 February 22, 2024 12:00am February 23, 2024 12:07am Start: 02-06-2024 End: 02-13-2024 take 1 tablet by mouth every six hours Oxycodone-Acetaminophen Active 1 TABLET PO EVERY 6 HOURS 40 February 13, 2024 Start: 10-03-2023 End: 10-06-2023 Oxycodone-Acetaminophen 2.5- 325 mg tablet Discontinued 1 {tbl} PO EVERY 6 HOURS as needed for pain 40 October 03, 2023 October 12, 2023 1:00am October 03, 2023 3:55pm Start: 10-03-2023 End: 10-06-2023 take 1 tablet by mouth every six hours Oxycodone-Acetaminophen Discontinued 1 TABLET PO EVERY 6 HOURS 40 October 03, 2023 October 03, 2023 3:55pm Start: 09-21-2023 End: 10-03-2023 Oxycodone-Acetaminophen 5-32 5 mg tablet Discontinued 1 {tbl} PO THREE TIMES A DAY as needed for pain 40 September 21, 2023 October 03, 2023 1:00am October 03, 2023 4:03pm Start: 09-21-2023 End: 10-03-2023 take 1 tablet by mouth three times daily Oxycodone-Acetaminophen Discontinued 1 TABLET PO THREE TIMES A DAY 40 September 21, 2023 October 03, 2023 4:03pm Start: 09-06-2023 End: 09-16-2023 Oxycodone-Acetaminophen 5-32 5 mg tablet Discontinued 1 {tbl} PO EVERY 6 HOURS as needed for pain 40 September 06, 2023 September 15, 2023 12:00am September 16, 2023 12:24am Start: 09-06-2023 End: 09-16-2023 take 1 tablet by mouth every six hours Oxycodone-Acetaminophen Discontinued 1 TABLET PO EVERY 6 HOURS 40 September 06, 2023 September 16, 2023 12:24am Start: 07-19-2023 End: 07-29-2023 Oxycodone-Acetaminophen 5-32 5 mg tablet Discontinued 1 {tbl} PO EVERY 6 HOURS as needed for pain 40 July 19, 2023 July 28, 2023 12:00am July 29, 2023 12:15am Start: 07-19-2023 End: 07-29-2023 take 1 tablet by mouth every six hours Oxycodone-Acetaminophen Discontinued 1 TABLET PO EVERY 6 HOURS 40 July 19, 2023 July 29, 2023 12:15am Start: 07-11-2023 End: 07-11-2023 Oxycodone-Acetaminophen 5-32 5 mg tablet Discontinued 1 {tbl} PO EVERY 6 HOURS as needed for pain 40 July 11, 2023 July 20, 2023 12:00am July 11, 2023 1:31pm Start: 07-11-2023 End: 07-11-2023 take 1 tablet by mouth every six hours Oxycodone-Acetaminophen Discontinued 1 TABLET PO EVERY 6 HOURS 40 July 11, 2023 July 11, 2023 1:31pm Start: 07-06-2023 End: 07-21-2023 Oxycodone-Acetaminophen 5-32 5 mg tablet Discontinued 1 {tbl} PO EVERY 6 HOURS as needed for pain 40 July 11, 2023 July 20, 2023 12:00am July 21, 2023 12:03am Start: 07-06-2023 End: 07-21-2023 take 1 tablet by mouth every six hours Oxycodone-Acetaminophen Discontinued 1 TABLET PO EVERY 6 HOURS 40 July 11, 2023 July 21, 2023 12:03am Start: 04-07-2023 End: 04-14-2023 Oxycodone-Acetaminophen 5-32 5 mg tablet Discontinued 1 {tbl} PO Q8H as needed for pain 02 06April 07, 2023 April 13, 2023 12:00am April 14, 2023 12:03am Start: 04-07-2023 End: 04-14-2023 take 1 tablet by mouth every eight hours Oxycodone-Acetaminophen Discontinued 1 TABLET PO Q8H 02 06April 07, 2023 April 14, 2023 12:03am Start: 03-16-2023 End: 03-16-2023 Oxycodone-Acetaminophen 5-32 5 mg tablet Discontinued 1 {tbl} PO EVERY 6 HOURS as needed for pain March 16, 2023 March 25, 2023 12:00am March 16, 2023 1:24pm Start: 03-16-2023 End: 03-16-2023 take 1 tablet by mouth every six hours Oxycodone-Acetaminophen Discontinued 1 TABLET PO EVERY 6 HOURS 40 March 16, 2023 March 16, 2023 1:24pm Start: 03-08-2023 End: 03-26-2023 Oxycodone-Acetaminophen 5-32 5 mg tablet Discontinued 1 {tbl} PO EVERY 6 HOURS as needed for pain 40 March 16, 2023 March 25, 2023 12:00am March 26, 2023 12:04am Start: 03-08-2023 End: 03-26-2023 take 1 tablet by mouth every six hours Oxycodone-Acetaminophen Discontinued 1 TABLET PO EVERY 6 HOURS 40 March 16, 2023 March 26, 2023 12:04am apixaban 5 mg oral tablet (11 sources) Factor Xa Inhibitor Start: 08-09-2022 End: 02-01-2023 take 1 tablet by mouth twice daily Apixaban (Eliquis Dvt-Pe Treat 30d Start) 5 mg (74 tabs) tablets,dose pack Discontinued 5 mg PO TWICE A DAY August 09, 2022 12:00am February 01, 2023 1:59pm methylPREDNISolone 4 mg oral tablet (7 sources) Corticosteroid Start: 04-06-2023 End: 04-12-2023 take 1 tablet by mouth once daily Methylprednisolone (Medrol (Esteban)) 4 mg tablets,dose pack Discontinued 4 mg PO DAILY 03 05April 06, 2023 12:00am April 11, 2023 12:00am April 12, 2023 12:04am Start: 01-09-2023 methylPREDNISo lone (MEDROL DOSEPACK) 4 mg tablet follow package directions . 21 tablet 01/09/2023 Active 24 hr metoprolol succinate 50 mg extended release oral tablet (20 sources) beta-Adrenergic Jeanette Start: 03-19-2021 End: 03-02-2022 take 1 tablet by mouth once daily Metoprolol Succinate 50 mg tablet extended release 24 hr Discontinued 50 mg PO DAILY March 19, 2021 4:35pm March 02, 2022 12:19pm pregabalin 25 mg oral capsule (12 sources) Start: 08-17-2023 End: 08-18-2023 take 1 capsule by mouth once daily Pregabalin (Lyrica) 25 mg capsule Discontinued 25 mg PO DAILY August 18, 2023 12:00am August 18, 2023 7:26am Start: 08-11-2023 End: 08-11-2023 take 1 capsule by mouth once daily Pregabalin (Lyrica) 25 mg capsule Discontinued 25 mg PO DAILY August 11, 2023 12:00am August 11, 2023 10:08am traMADol hydrochloride 50 mg oral tablet (4 sources) Opioid Agonist Start: 09-06-2023 End: 09-06-2023 take 1 tablet by mouth every six hours as needed for pain Tramadol 50 mg tablet Discontinued 50 mg PO EVERY 6 HOURS as needed for pain 40 September 06, 2023 12:00am September 15, 2023 12:00am September 06, 2023 1:59pm Problems Active Problems Problem Classification Problem Date Documented Da te Episodic/Chronic Abdominal pain (9 sources) Abdominal pain; Translations: [Unspecified abdominal pain] Onset: 4 08-02-2023 Episodic Cardiac and circulatory congenital anomalies (11 sources) Patent foramen ovale; Translations: [Patent foramen ovale] 03-02-2021 Chronic Cardiac dysrhythmias (11 sources) Supraventricular tachycardia; Translations: [Supraventricular tachycardia] 03-22-2021 Chronic Deficiency and other anemia (4 sources) Iron deficiency anemia due to blood loss; Translations: [Iron deficiency anemia secondary to blood loss (chronic)] Onset: 1 01-28-2021 Chronic Deficiency and other anemia (1 source) Iron deficiency anemia, unspecified; Translations: [Iron deficiency anemia, unspecified] Onset: 5 Episodic Diabetes mellitus without complication (1 source) Other abnormal glucose; Translations: [Other abnormal glucose] Onset: 5 Episodic Disorders of teeth and jaw (1 source) Periapical abscess without sinus; Translations: [Dental infection] Onset: 3 Episodic Immunizations and screening for infectious disease (1 source) Patient encounter status; Translations: [Encounter for screening for infections with a predominantly sexual mode of transmission] 10-30-2024 Episodic Open wounds of extremities (13 sources) Open wound of left elbow region; Translations: [Unspecified open wound of left elbow, initial encounter] Episodic Other bone disease and musculoskeletal deformities (2 sources) Other specified disorders of bone, shoulder; Translations: [Other specified disorders of bone, shoulder] Onset: 5 Episodic Other complications of (1 source) Pain in female pelvis; Translations: [Other specified related conditions, unspecified trimester] 11-27-2024 Episodic Other connective tissue disease (6 sources) History of lumbar fusion; Translations: [Arthrodesis status] 07-06-2023 Episodic Other connective tissue disease (6 sources) Arthrodesis status; Translations: [Arthrodesis status] Onset: 5 07-19-2023 Episodic Other connective tissue disease (3 sources) H/O: arthrodesis; Translations: [Arthrodesis status] 02-09-2024 Episodic Other gastrointestinal disorders (4 sources) Malabsorption - iron; Translations: [Intestinal malabsorption, unspecified] Onset: 1 12-31-2020 Chronic Other nervous system disorders (2 sources) Other chronic pain; Translations: [Other chronic pain] Onset: 5 Chronic Phlebitis; thrombophlebitis and thromboembolism (20 sources) Deep venous thrombosis; Translations: [Acute embolism and thrombosis of unspecified deep veins of unspecified lower extremity] Episodic Residual codes; unclassified (7 sources) H/O Spinal surgery; Translations: [Other specified postprocedural states] 03-08-2023 Episodic Residual codes; unclassified (10 sources) Other specified postprocedural states; Translations: [Other postprocedural status] 03-22-2023 Episodic Skin and subcutaneous tissue infections (20 sources) Abscess of elbow; Translations: [Cutaneous abscess of left upper limb] Onset: 2 Episodic Spondylosis; intervertebral disc disorders; other back problems (20 sources) Herniation of nucleus pulposus; Translations: [Other intervertebral disc displacement, lumbosacral region] Onset: 4 02-01-2023 Chronic Spondylosis; intervertebral disc disorders; other back problems (20 sources) Backache; Translations: [Dorsalgia, unspecified] Onset: 5 07-04-2023 Episodic Superficial injury; contusion (1 source) Contusion of other part of head, initial encounter; Translations: [Contusion of face, initial encounter] Onset: 3 Episodic Unclassified (1 source) Supraventricular tachycardia, unspecified; Translations: [Supraventricular tachycardia, unspecified] Onset: 5 Past or Other Problems Problem Classification Problem Date Documented Date Episodic/Chronic Other non-traumatic joint disorders (2 sources) Pain in left hip; Translations: [Pain in left hip] Onset: 08-27-2024 Episodic Other screening for suspected conditions (not mental disorders or infectious disease) (12 sources) Echocardiogram abnormal; Translations: [Abnormal findings on diagnostic imaging of heart and coronary circulation] Onset: 01-23-2025 03-02-2021 Episodic Syncope (2 sources) Syncope and collapse; Translations: [Syncope and collapse] Onset: 09-29-2024 Episodic Results Test Name Value Interpretation Reference Range Facility Spine Lumbar without Contras ton 05-14-2025 Spine Lumbar without Contrast [facility] [address] [place] [address] Spine Lumbar without Contrast MR#: [id number] Acct: [id number] Name: HOWIEDEANDENISHA TOMLINSONTA Rep #: [id number] : 1990 F 34 From: Jovany Felder MD PCP: Dr. Tomasz Coleman MD Status: REG CLI Study: Spine Lumbar without Contrast Date of Exam: Exam# [id number] Ordering Dr: Pancho Starkey MD PROCEDURE: SPINE LUMBAR WITHOUT CONTRAST 05/14/2025 REASON FOR EXAM: PAIN TECHNIQUE: SPINE LUMBAR WITHOUT CONTRAST Coronal and Sagittal reconstruction series were provided. One or more dose reduction techniques were used (e.g., Automated exposure control, adjustment of the mA and/or kV according to patient size, use of iterative reconstruction technique COMPARISON: March 28, 2025 RADIATION DOSE SUMMARY: DLP: 901.01 mGycm FINDINGS: There is hardware fusion at L5-S1 which appears intact. There is hardware fusion of the right SI joint which appears intact. Vertebral body height and alignment are maintained. Disc height is maintained from L1-L4. There is no acute fracture. An IUD is visible in the uterus, in expected location. There is no visible atherosclerosis. CT/Spine Lumbar without Contrast IMPRESSION: There is hardware fusion at L5-S1 which appears intact. There is hardware fusion of the right SI joint which appears intact. An IUD is visible in the uterus, in expected location. Reading Location: [facility] CC: Dr. Pancho Starkey MD; Dr. Tomasz Coleman MD Bioinformatics Team Member: Signed Normal [facility] CBC W/Diff, Automatedon 07-0 Absolute Lymph 1.41 X10 3/uL Normal 0.83-4.51 [facility] Comment on above: Performed By: #### L 501.9520, L100.0100, L503.6030, L503.6550, L500.4050, L501.5200 ####[facility] [address] [place], [address] Absolute Neut 5.5 X10 3/uL Normal 2.0-7.7 [facility] Comment on above: Performed By: #### L 501.9520, L100.0100, L503.6030, L503.6550, L500.4050, L501.5200 ####[facility] [address] [place], [address] Basophils/100 WBC (Bld) 0.4 % Normal 0-1 [facility] Comment on above: Performed By: #### L 501.9520, L100.0100, L503.6030, L503.6550, L500.4050, L501.5200 ####[facility] [address] [place], [address] Eosinophils/100 WBC (Bld) 0.9 % Normal 0-5 [facility] Comment on above: Performed By: #### L 501.9520, L100.0100, L503.6030, L503.6550, L500.4050, L501.5200 ####[facility] [address] [place], [address] Erythrocyte distribution width (RBC) [Ratio] 13.4 % Normal 11.6-14.6 [facility] Comment on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 CMP Performed By: #### L 500.4050 ####[facility] [address] [place], [address] BUN/CRE 10.7 RATIO Normal 10-20 [facility] Comment on above: Order Comment: Order Date: 03/13/25Order Info: 0786-1 - CMP Performed By: #### L 500.4050 ####[facility] [address] [place], [address] Calcium [Mass/Vol] 9.4 mg/dL Normal 7.6-11.0 [facility] Comment on above: Order Comment: Order Date: 03/13/25Order Info: 0786-1 - CMP Performed By: #### L 500.4050 ####[facility] [address] [place], [address] Chloride [Moles/Vol] 102 mmol/L Normal 98-108 [facility] Comment on above: Order Comment: Order Date: 03/13/25Order Info: 0786-1 - CMP Performed By: #### L 500.4050 ####[facility] [address] [place], [address] CO2 [Moles/Vol] 21.3 mmol/L Normal 21.0-32.0 [facility] Comment on above: Order Comment: Order Date: 03/13/25Order Info: 0786-1 - CMP Performed By: #### L 500.4050 ####[facility] [address] [place], [address] Creatinine [Mass/Vol] 0.71 mg/dL Normal 0.70-1.20 [facility] Comment on above: Order Comment: Order Date: 03/13/25Order Info: 0786-1 - CMP Performed By: #### L 500.4050 ####[facility] [address] [place], [address] GAP 13 Normal 5-15 [facility] Comment on above: Order Comment: Order Date: 03/13/25Order Info: 0786-1 - CMP Performed By: #### L 500.4050 ####[facility] [address] [place], [address] GFR/1.73 sq M.predicted among non-blacks MDRD (S/P/Bld) [Vol rate/Area] 115 mL/min/{1.73_m2} Normal >60 [facility] Comment on above: Order Comment: Order Date: 03/13/25Order Info: 0786-1 - CMP Result Comment: mL/m in/1.73m2 CKD-EPI Creatinine Equation (2020) Performed By: #### L 500.4050 ####[facility] [address] [place], [address] Globulin (S) [Mass/Vol] 3.2 g/dL Normal 2.2-4.2 [facility] Comment on above: Order Comment: Order Date: 03/13/25Order Info: 0786-1 - CMP Performed By: #### L 500.4050 ####[facility] [address] [place], [address] Glucose [Mass/Vol] 120 mg/dL High 70-99 [facility] Comment on above: Order Comment: Order Date: 03/13/25Order Info: 0786-1 - CMP Performed By: #### L 500.4050 ####[facility] [address] [place], [address] Potassium [Moles/Vol] 3.8 mmol/L Normal 3.3-5.1 [facility] Comment on above: Order Comment: Order Date: 03/13/25Order Info: 0786-1 - CMP Performed By: #### L 500.4050 ####[facility] [address] [place], [address] Sodium [Moles/Vol] 137 mmol/L Normal 133-145 [facility] Comment on above: Order Comment: Order Date: 03/13/25Order Info: 0786-1 - CMP Performed By: #### L 500.4050 ####[facility] [address] [place], [address] T PROT 7.6 g/dL Normal 5.9-8.4 [facility] Comment on above: Order Comment: Order Date: 03/13/25Order Info: 0786-1 - CMP Performed By: #### L 500.4050 ####[facility] [address] [place], [place], [address] Urea nitrogen [Mass/Vol] 8 mg/dL Normal - [facility] Comment on above: Order Comment: Order Date: 03/13/25Order Info: 0786-1 - CMP Performed By: #### L 500.4050 ####[facility] [address] [facility] [place], [place], [address] Spine Lumbar (Routine)on Spine Lumbar (Routine) [facility] Services [address] [facility] [place], [place] [address] Spine Lumbar (Routine) MR#: [id number] Acct: [id number] Name: DENISHA HILL Rep #: [id number] : 1990 F 34 From: Jace lambert MD PCP: Dr. Tomasz Coleman MD Status: REG CLI Study: Spine Lumbar (Routine) Date of Exam: 02/11/25 Exam# [id number] Ordering Dr: Papa Truong MD EXAM: MRI lumbar spine without contrast. CLINICAL HISTORY: Back pain COMPARISON: None TECHNIQUE: Multiplanar multisequence MRI of the lumbar spine without contrast. FINDINGS: There is normal lumbar lordosis. Postoperative changes L5-S1 anterior fusion. The lumbar vertebral bodies are normal in height. No evidence of compression fracture. Alignment is normal. No listhesis. The bone marrow signal is unremarkable. There is no abnormal bone STIR signal. The included distal thoracic cord is normal in caliber and signal. The conus medullaris terminates at L1 level. There is no clumping of the nerve roots. L1/2: Canal and neural foramina are patent.. L2/3: Canal and foramina are patent.. L3/4: Small circumferential disc bulge with flattening of the ventral thecal sac. No canal stenosis or neural foraminal narrowing.. L4/5: Flattening of the ventral thecal sac. No canal stenosis or neural foraminal narrowing.. L5/S1: Minimal disc bulge and mild facet degenerative changes. No canal stenosis or neural foraminal narrowing.. The visualized prevertebral and paraspinal soft tissues are unremarkable. MRI/Spine Lumbar (Routine) IMPRESSION: Postoperative changes L5-S1 anterior fusion. Otherwise, no acute findings. No significant degenerative changes. [facility] CC: Dr. Tomasz Coleman MD; Dr. Papa Truong MD Bioinformatics Team Member: Signed Normal [facility] Abdomen Limitedon 01-11-2025 Abdomen Limited [facility] Services [address] [place], [place] [address] Abdomen Limited MR#: [id number] Acct: [id number] Name: DENISHA HILL Rep #: [id number] : 1990 F 34 From: Blake Alexandre MD PCP: Dr. oTmasz Coleman MD Status: REG CLI Study: Abdomen Limited Date of Exam: 01/11/25 Exam# [id number] Ordering Dr: Tomasz Coleman MD PROCEDURE: ABDOMEN LIMITED REASON FOR EXAM: Abnormal LFTs COMPARISON: None FINDINGS: Liver: Liver is increased in echogenicity and measures 16.2 cm. Portal color flow is hepatopetal Gallbladder: Surgically absent Common bile duct: Normal measuring 7 mm. Pancreas: Normal Right kidney measures 11.7 x 5.4 x 5.0 cm. No right upper quadrant ascites. US/Abdomen Limited IMPRESSION: Hepatic steatosis. Reading Location: [facility] CC: Dr. Tomasz Coleman MD Bioinformatics Team Member: Signed Normal [facility] Absolute neutrophil countOrd ered By: Tomasz Coleman on 01-06-2025 Neutrophils (Bld) [#/Vol] 5.8 10*3/uL 2.0-7.7 [facility] Albumin to globulin ratioOrd ered By: Tomasz Coleman on 01-06-2025 Albumin/Globulin [Mass ratio] 1.1 {ratio} 0.9-2.4 [facility] Basophil percentageOrdered B y: Tomasz Coleman on 01-06-2025 Basophils/100 WBC (Bld) 0.4 % 0-1 [facility] Bilirubin, totalOrdered By: Tomasz Coleman on 01-06-2025 Bilirubin [Mass/Vol] 0.60 mg/dL 0.20-1.00 [facility] Comment on above: For patients on eltr ombopag therapy, use of Dimension [place] TBIL is not recommended. Blood urea nitrogen (BUN)/cr eatinine ratioOrdered By: Tomasz Coleman on 01-06-2025 Urea nitrogen/Creatinine [Mass ratio] 16.8 mg/mg 10- [facility] CBC W/Diff, Automatedon 12-15 Absolute Lymph 1.89 X10 3/uL Normal 0.83-4.51 [facility] Comment on above: Performed By: #### L 503.6030, L500.4050, L503.6550, L100.0100, L501.5200 ####[facility] [address] [place], [address] Absolute Neut 5.8 X10 3/uL Normal 2.0-7.7 [facility] Comment on above: Performed By: #### L 503.6030, L500.4050, L503.6550, L100.0100, L501.5200 ####[facility] [address] [place], [address] Basophils/100 WBC (Bld) 0.4 % Normal 0-1 [facility] Comment on above: Performed By: #### L 503.6030, L500.4050, L503.6550, L100.0100, L501.5200 ####[facility] [address] [place], [address] Eosinophils/100 WBC (Bld) 0.6 % Normal 0-5 [facility] Comment on above: Performed By: #### L 503.6030, L500.4050, L503.6550, L100.0100, L501.5200 ####[facility] [address] [place], [address] Erythrocyte distribution width (RBC) [Ratio] 13.5 % Normal 11.6-14.6 [facility] Comment on above: Performed By: #### L 503.6030, L500.4050, L503.6550, L100.0100, L501.5200 ####[facility] [address] [place], [address] Hematocrit (Bld) [Volume fraction] 39.3 % Normal 37-47 [facility] Comment on above: Performed By: #### L 503.6030, L500.4050, L503.6550, L100.0100, L501.5200 ####[facility] [address] [place], [address] Hemoglobin (Bld) [Mass/Vol] 13.0 g/dL Normal 12.0-15.0 [facility] Comment on above: Performed By: #### L 503.6030, L500.4050, L503.6550, L100.0100, L501.5200 ####[facility] [address] [place], [address] IG% 0.400 Normal 0.0-0.9 [facility] Comment on above: Result Comment: IG% - Immature Granulocytes (promyelocytes, myelocytes and metamyelocytes) > 1% indicates that a LEFT SHIFT is Present. Performed By: #### L 503.6030, L500.4050, L503.6550, L100.0100, L501.5200 ####[facility] [address] [place], [address] Lymphocytes/100 WBC (Bld) 23.1 % Normal 19-41 [facility] Comment on above: Performed By: #### L 503.6030, L500.4050, L503.6550, L100.0100, L501.5200 ####[facility] [address] [place], [address] MCH (RBC) [Entitic mass] 26.7 pg Low 27.0-32.0 [facility] Comment on above: Performed By: #### L 503.6030, L500.4050, L503.6550, L100.0100, L501.5200 ####[facility] [address] [place], [address] MCHC (RBC) [Mass/Vol] 33.1 g/dL Normal 32-36 [facility] Comment on above: Performed By: #### L 503.6030, L500.4050, L503.6550, L100.0100, L501.5200 ####[facility] [address] [place], [address] MCV (RBC) [Entitic vol] 80.7 fL Low 81-99 [facility] Comment on above: Performed By: #### L 503.6030, L500.4050, L503.6550, L100.0100, L501.5200 ####[facility] [address] [place], [address] Monocytes/100 WBC (Bld) 4.9 % Normal 0-10 [facility] Comment on above: Performed By: #### L 503.6030, L500.4050, L503.6550, L100.0100, L501.5200 ####[facility] [address] [place], [address] Neutrophils/100 WBC (Bld) 70.6 % High 47-70 [facility] Comment on above: Performed By: #### L 503.6030, L500.4050, L503.6550, L100.0100, L501.5200 ####[facility] [address] [place], [address] Nucleated RBC (Bld) [#/Vol] 0 10*3/uL Normal 0-5 [facility] Comment on above: Performed By: #### L 503.6030, L500.4050, L503.6550, L100.0100, L501.5200 ####[facility] [address] [place], [address] Platelet mean volume (Bld) [Entitic vol] 11.3 fL Normal 6.2-12.0 [facility] Comment on above: Performed By: #### L 503.6030, L500.4050, L503.6550, L100.0100, L501.5200 ####[facility] [address] [place], [address] Platelets (Bld) [#/Vol] 344 10*3/uL Normal 150-450 [facility] Comment on above: Performed By: #### L 503.6030, L500.4050, L503.6550, L100.0100, L501.5200 ####[facility] [address] [place], [address] RBC (Bld) [#/Vol] 4.87 10*6/uL Normal 4.2-5.4 [facility] Comment on above: Performed By: #### L 503.6030, L500.4050, L503.6550, L100.0100, L501.5200 ####[facility] [address] [place], [address] RDW SD 39.2 fl Normal 35.1-43.9 [facility] Comment on above: Performed By: #### L 503.6030, L500.4050, L503.6550, L100.0100, L501.5200 ####[facility] [address] [place], [address] WBC (Bld) [#/Vol] 8.2 10*3/uL Normal 4.4-11.0 [facility] Comment on above: Performed By: #### L 503.6030, L500.4050, L503.6550, L100.0100, L501.5200 ####[facility] [address] [place], [address] Carbon dioxide measurementOr dered By: Tomasz Coleman on 01-06-2025 CO2 [Moles/Vol] 21.0 mmol/L 21.0-32.0 [facility] Chloride measurementOrdered By: Tomasz Coleman on 01-06-2025 Chloride [Moles/Vol] 107 mmol/L 98-107 [facility] Comprehensive Metabolic Prof ilon 01-06-2025 Albumin [Mass/Vol] 4.4 g/dL Normal 3.2-5.0 [facility] Comment on above: Performed By: #### L 503.6030, L500.4050, L503.6550, L100.0100, L501.5200 ####[facility] [address] [place], [address] Albumin/Globulin [Mass ratio] 1.1 {ratio} Normal 0.9-2.4 [facility] Comment on above: Performed By: #### L 503.6030, L500.4050, L503.6550, L100.0100, L501.5200 ####[facility] [address] [place], [address] ALK P 63 U/L Normal 45-117 [facility] Comment on above: Performed By: #### L 503.6030, L500.4050, L503.6550, L100.0100, L501.5200 ####[facility] [address] [place], [address] ALT [Catalytic activity/Vol] 20 U/L Normal 13-56 [facility] Comment on above: Performed By: #### L 503.6030, L500.4050, L503.6550, L100.0100, L501.5200 ####[facility] [address] [place], [address] AST [Catalytic activity/Vol] 14 U/L Low 15-37 [facility] Comment on above: Performed By: #### L 503.6030, L500.4050, L503.6550, L100.0100, L501.5200 ####[facility] [address] [place], [address] Bilirubin [Mass/Vol] 0.60 mg/dL Normal 0.20-1.00 [facility] Comment on above: Result Comment: For patients on eltrombopag therapy, use of Dimension [place] TBIL is not recommended. Performed By: #### L 503.6030, L500.4050, L503.6550, L100.0100, L501.5200 ####[facility] [address] [place], [address] BUN/CRE 16.8 RATIO Normal 10-20 [facility] Comment on above: Performed By: #### L 503.6030, L500.4050, L503.6550, L100.0100, L501.5200 ####[facility] [address] [place], [address] CA,Total 9.6 mg/dL Normal 8.5-10.1 [facility] Comment on above: Performed By: #### L 503.6030, L500.4050, L503.6550, L100.0100, L501.5200 ####[facility] [address] [place], [address] Chloride [Moles/Vol] 107 mmol/L Normal 98-107 [facility] Comment on above: Performed By: #### L 503.6030, L500.4050, L503.6550, L100.0100, L501.5200 ####[facility] [address], [address] CO2 [Moles/Vol] 21.0 mmol/L Normal 21.0-32.0 [facility] Comment on above: Performed By: #### L 503.6030, L500.4050, L503.6550, L100.0100, L501.5200 ####[facility] [address] [place], [address] Creatinine [Mass/Vol] 0.72 mg/dL Normal 0.55-1.02 [facility] Comment on above: Result Comment: The validity of the calculated GFR GFRAA in patients over 70 years has not been determined. Clinical correlation is essential. Performed By: #### L 503.6030, L500.4050, L503.6550, L100.0100, L501.5200 ####[facility] [address] [place], [address] EST GFR - AA 120 mL/min Normal >60 [facility] Comment on above: Result Comment: Afri can Dutch GFR Calc Performed By: #### L 503.6030, L500.4050, L503.6550, L100.0100, L501.5200 ####[facility] [address] [place], [address] GAP 10 Normal 5-15 [facility] Comment on above: Performed By: #### L 503.6030, L500.4050, L503.6550, L100.0100, L501.5200 ####[facility] [address] [place], [address] GFR/1.73 sq M.predicted among non-blacks MDRD (S/P/Bld) [Vol rate/Area] 99 mL/min/{1.73_m2} Normal >60 [facility] Comment on above: Result Comment: Non- GFR Calc Performed By: #### L 503.6030, L500.4050, L503.6550, L100.0100, L501.5200 ####[facility] [address] [place], [address] Globulin (S) [Mass/Vol] 3.9 g/dL Normal 2.2-4.2 [facility] Comment on above: Performed By: #### L 503.6030, L500.4050, L503.6550, L100.0100, L501.5200 ####[facility] [address] [place], [address] Glucose [Mass/Vol] 99 mg/dL Normal 74-106 [facility] Comment on above: Performed By: #### L 503.6030, L500.4050, L503.6550, L100.0100, L501.5200 ####[facility] [address], [address] Potassium [Moles/Vol] 3.7 mmol/L Normal 3.5-5.1 [facility] Comment on above: Performed By: #### L 503.6030, L500.4050, L503.6550, L100.0100, L501.5200 ####[facility] [address] [place], [address] Sodium [Moles/Vol] 138 mmol/L Normal 136-145 [facility] Comment on above: Performed By: #### L 503.6030, L500.4050, L503.6550, L100.0100, L501.5200 ####[facility] [address] [place], [address] T PROT 8.3 g/dL High 6.4-8.2 [facility] Comment on above: Performed By: #### L 503.6030, L500.4050, L503.6550, L100.0100, L501.5200 ####[facility] [address] [place], [address] Urea nitrogen [Mass/Vol] 12 mg/dL Normal 7-18 [facility] Comment on above: Performed By: #### L 503.6030, L500.4050, L503.6550, L100.0100, L501.5200 ####[facility] [address] [place], [place], [id number] Eosinophil percentageOrdered By: Tomasz Coleman on 01-06-2025 Eosinophils/100 WBC (Bld) 0.6 % 0-5 [facility] Erythrocyte distribution wid th ratioOrdered By: Tomasz Coleman on 01-06-2025 Erythrocyte distribution width (RBC) [Ratio] 13.5 % 11.6-14.6 [facility] Erythrocyte distribution wid th standard deviationOrdered By: Tomasz Coleman on 01-06-2025 Erythrocyte distribution width (RBC) [Entitic vol] 39.2 fL 35.1-43.9 [facility] Estimated glomerular filtrat ion rate (GFR) AmericanOrdered By: Tomasz Coleman on 01-06-2025 Estimated GFR (MDRD) Amer 120 mL/min >60 [facility] Comment on above: GFR Calc Ferritinon 01-06-2025 Ferritin [Mass/Vol] 29 ng/mL Normal - [facility] Comment on above: Performed By: #### L 503.6030, L500.4050, L503.6550, L100.0100, L501.5200 ####[facility] [address] [place], [place], [id number] Ferritin measurementOrdered By: Tomasz Coleman on 01-06-2025 Ferritin [Mass/Vol] 29 ng/mL 8-252 [facility] Glomerular filtration rate ( GFR) estimationOrdered By: Tomasz Coleman on 01-06-2025 Estimated GFR (MDRD) Non-Af Amer 99 mL/min >60 [facility] Comment on above: Non- GFR Calc Glucose measurementOrdered B y: Tomasz Coleman on 01-06-2025 Glucose [Mass/Vol] 99 mg/dL 74-106 [facility] Hematocrit Auto (Bld) [Volum e fraction]Ordered By: Tomasz Coleman on 01-06-2025 Hematocrit (Bld) [Volume fraction] 39.3 % 37-47 [facility] Hemoglobin measurementOrdere d By: Tomasz Coleman on 01-06-2025 Hemoglobin (Bld) [Mass/Vol] 13.0 g/dL 12.0-15.0 [facility] Immature granulocytes/100 WB C Auto (Bld)Ordered By: Tomasz Coleman on 01-06-2025 Immature granulocytes/100 WBC (Bld) 0.400 % 0.0-0.9 [facility] Comment on above: IG% - Immature Granu locytes (promyelocytes, myelocytes and metamyelocytes) > 1% indicates that a LEFT SHIFT is Present. Iron (Unsp spec) [Mass/Mass] Ordered By: Tomasz Coleman on 01-06-2025 Iron [Mass/Vol] 54 ug/dL 50-170 [facility] Iron saturation [Mass fracti on]Ordered By: Tomasz Coleman on 01-06-2025 Iron Saturation 14.8 % Low 15.0-55.0 [facility] Iron+Iron Binding Capacityon 01-06-2025 Iron [Mass/Vol] 54 ug/dL Normal 50-170 [facility] Comment on above: Performed By: #### L 503.6030, L500.4050, L503.6550, L100.0100, L501.5200 ####[facility] [address] [place], [address] IRON SATURATION 14.8 Low 15.0-55.0 [facility] Comment on above: Performed By: #### L 503.6030, L500.4050, L503.6550, L100.0100, L501.5200 ####[facility] [address] [place], [address] TIBC 364 ug/dL Normal 250-450 [facility] Comment on above: Performed By: #### L 503.6030, L500.4050, L503.6550, L100.0100, L501.5200 ####[facility] [address] [place], [address] Laboratory - Chemistry and C hemistry - challengeOrdered By: Tomasz Coleman on 01-06-2025 AST [Catalytic activity/Vol] 14 U/L Low 15-37 [facility] Lymphocytes Auto (Unsp spec) [#/Vol]Ordered By: Tomasz Coleman on 01-06-2025 Lymphocytes (Bld) [#/Vol] 1.89 10*3/uL 0.83-4.51 [facility] Lymphocytes/100 WBC Auto (Un sp spec)Ordered By: Tomasz Coleman on 01-06-2025 Lymphocytes/100 WBC (Bld) 23.1 % 19-41 [facility] MCV (mean corpuscular volume ) determinationOrdered By: Tomasz Coleman on 01-06-2025 MCV (RBC) [Entitic vol] 80.7 fL Low 81-99 [facility] Magnesiumon 01-06-2025 Magnesium [Mass/Vol] 2.3 mg/dL Normal 1.6-2.6 [facility] Comment on above: Performed By: #### L 503.6030, L500.4050, L503.6550, L100.0100, L501.5200 ####[facility] [address] [facility] [place], [address] Magnesium measurementOrdered By: Tomasz Coleman on 01-06-2025 Magnesium [Mass/Vol] 2.3 mg/dL 1.6-2.6 [facility] Mean corpuscular hemoglobin (MCH) determinationOrdered By: Tomasz Coleman on 01-06-2025 MCH (RBC) [Entitic mass] 26.7 pg Low 27.0-32.0 [facility] Mean corpuscular hemoglobin concentration (MCHC) determinationOrdered By: Tomasz Coleman on 01-06-2025 MCHC (RBC) [Mass/Vol] 33.1 g/dL 32-36 [facility] Mean platelet volume determi nationOrdered By: Tomasz Coleman on 01-06-2025 Platelet mean volume (Bld) [Entitic vol] 11.3 fL 6.2-12.0 [facility] Monocyte percentageOrdered B y: Tomasz Coleman on 01-06-2025 Monocytes/100 WBC (Bld) 4.9 % 0-10 [facility] Neutrophil percentageOrdered By: Tomasz Coleman on 01-06-2025 Neutrophils/100 WBC (Bld) 70.6 % High 47-70 [facility] Nucleated red blood cell per centageOrdered By: Tomasz Coleman on 01-06-2025 Nucleated RBC/100 WBC (Bld) [Ratio] 0 % 0-5 [facility] Platelet countOrdered By: Lupe Coleman on 01-06-2025 Platelets (Bld) [#/Vol] 344 10*3/uL 150-450 [facility] Potassium measurementOrdered By: Tomasz Coleman on 01-06-2025 Potassium [Moles/Vol] 3.7 mmol/L 3.5-5.1 [facility] RBC Auto (Bld) [#/Vol]Ordere d By: Tomasz Coleman on 01-06-2025 RBC (Bld) [#/Vol] 4.87 10*6/uL 4.2-5.4 [facility] Serum anion gap measurementO rdered By: Tomasz Coleman on 01-06-2025 Anion gap [Moles/Vol] 10 mmol/L 5-15 [facility] Serum globulin measurementOr dered By: Tomasz Coleman on 01-06-2025 Globulin (S) [Mass/Vol] 3.9 g/dL 2.2-4.2 [facility] Serum or plasma alanine burt otransferase (ALT) measurementOrdered By: Tomasz Coleman on 01-06-2025 ALT [Catalytic activity/Vol] 20 U/L 13-56 [facility] Serum or plasma albumin marge urement (mass/volume)Ordered By: Tomasz Coleman on 01-06-2025 Albumin [Mass/Vol] 4.4 g/dL 3.2-5.0 [facility] Serum or plasma alkaline zia sphatase measurementOrdered By: Tomasz Coleman on 01-06-2025 ALP [Catalytic activity/Vol] 63 U/L 45-117 [facility] Serum or plasma calcium marge urement (mass/volume)Ordered By: Tomasz Coleman on 01-06-2025 Calcium [Mass/Vol] 9.6 mg/dL 8.5-10.1 [facility] Serum or plasma creatinine m easurement (mass/volume)Ordered By: Tomasz Coleman on 01-06-2025 Creatinine [Mass/Vol] 0.72 mg/dL 0.55-1.02 [facility] Comment on above: The validity of the calculated GFR & GFRAA in patients over 70 years has not been determined. Clinical correlation is essential. Serum or plasma urea nitroge n measurement (mass/volume)Ordered By: Tomasz Coleman on 01-06-2025 Urea nitrogen [Mass/Vol] 12 mg/dL 7-18 [facility] Sodium levelOrdered By: Tomasz Coleman on 01-06-2025 Sodium [Moles/Vol] 138 mmol/L 136-145 [facility] TIBCOrdered By: Tomasz rangel on 01-06-2025 Total Iron Binding Capacity 364 ug/dL 250-450 [facility] Total proteinOrdered By: Mendel Coleman on 01-06-2025 Protein [Mass/Vol] 8.3 g/dL High 6.4-8.2 [facility] White blood cell (WBC) count Ordered By: Tomasz Coleman on 01-06-2025 WBC (Bld) [#/Vol] 8.2 10*3/uL 4.4-11.0 [facility] Absolute neutrophil countOrd ered By: Tomasz Coleman on 12-17-2024 Neutrophils (Bld) [#/Vol] 3.5 10*3/uL 2.0-7.7 [facility] Albumin to globulin ratioOrd ered By: Tomasz Coleman on 12-17-2024 Albumin/Globulin [Mass ratio] 0.9 {ratio} 0.9-2.4 [facility] Basophil percentageOrdered B y: Tomasz Coleman on 12-17-2024 Basophils/100 WBC (Bld) 0.6 % 0-1 [facility] Bilirubin, totalOrdered By: Tomasz Coleman on 12-17-2024 Bilirubin [Mass/Vol] 0.40 mg/dL 0.20-1.00 [facility] Comment on above: For patients on eltr ombopag therapy, use of Dimension [place] TBIL is not recommended. Blood urea nitrogen (BUN)/cr eatinine ratioOrdered By: Tomasz Coleman on 12-17-2024 Urea nitrogen/Creatinine [Mass ratio] 14.9 mg/mg 10-20 [facility] CBC W/Diff, Automatedon Absolute Lymph 1.24 X10 3/uL Normal 0.83-4.51 [facility] Comment on above: Order Comment: Order Date: 12/17/24Order Info: [id number] - CBCD Performed By: #### L 100.0100, L501.5200, L500.4050, L503.6150, L503.6550, L503.6075 ####[facility] [address] [place], [address] Absolute Neut 3.5 X10 3/uL Normal 2.0-7.7 [facility] Comment on above: Order Comment: Order Date: 12/17/24Order Info: 0184-1 - CBCD Performed By: #### L 100.0100, L501.5200, L500.4050, L503.6150, L503.6550, L503.6075 ####[facility] [address] [place], [address] Basophils/100 WBC (Bld) 0.6 % Normal 0-1 [facility] Comment on above: Order Comment: Order Date: 12/17/24Order Info: 0184-1 - CBCD Performed By: #### L 100.0100, L501.5200, L500.4050, L503.6150, L503.6550, L503.6075 ####[facility] [address] [place], [address] Eosinophils/100 WBC (Bld) 1.0 % Normal 0-5 [facility] Comment on above: Order Comment: Order Date: 12/17/24Order Info: 0184-1 - CBCD Performed By: #### L 100.0100, L501.5200, L500.4050, L503.6150, L503.6550, L503.6075 ####[facility] [address] [place], [place], [id number] Erythrocyte distribution width (RBC) [Ratio] 13.4 % Normal 11.6-14.6 [facility] Comment on above: Order Comment: Order Date: 12/17/24Order Info: 0184-1 - CBCD Performed By: #### L 100.0100, L501.5200, L500.4050, L503.6150, L503.6550, L503.6075 ####[facility] [address] [place], [address] Hematocrit (Bld) [Volume fraction] 36.9 % Low 37-47 [facility] Comment on above: Order Comment: Order Date: 12/17/24Order Info: 0184-1 - CBCD Performed By: #### L 100.0100, L501.5200, L500.4050, L503.6150, L503.6550, L503.6075 ####[facility] [address] [place], [place], [id number] Hemoglobin (Bld) [Mass/Vol] 12.4 g/dL Normal 12.0-15.0 [facility] Comment on above: Order Comment: Order Date: 12/17/24Order Info: 0184-1 - CBCD Performed By: #### L 100.0100, L501.5200, L500.4050, L503.6150, L503.6550, L503.6075 ####[facility] [address] [place], [place], [id number] IG% 0.200 Normal 0.0-0.9 [facility] Comment on above: Order Comment: Order Date: 12/17/24Order Info: 0184-1 - CBCD Result Comment: IG% - Immature Granulocytes (promyelocytes, myelocytes and metamyelocytes) > 1% indicates that a LEFT SHIFT is Present. Performed By: #### L 100.0100, L501.5200, L500.4050, L503.6150, L503.6550, L503.6075 ####[facility] [address] [place], [address] Lymphocytes/100 WBC (Bld) 24.0 % Normal 19-41 [facility] Comment on above: Order Comment: Order Date: 12/17/24Order Info: 0184-1 - CBCD Performed By: #### L 100.0100, L501.5200, L500.4050, L503.6150, L503.6550, L503.6075 ####[facility] [address] [place], [address] MCH (RBC) [Entitic mass] 26.8 pg Low 27.0-32.0 [facility] Comment on above: Order Comment: Order Date: 12/17/24Order Info: 018- - CBCD Performed By: #### L 100.0100, L501.5200, L500.4050, L503.6150, L503.6550, L503.6075 ####[facility] [address] [place], [address] MCHC (RBC) [Mass/Vol] 33.6 g/dL Normal 32-36 [facility] Comment on above: Order Comment: Order Date: 12/17/24Order Info: [id number] - CBCD Performed By: #### L 100.0100, L501.5200, L500.4050, L503.6150, L503.6550, L503.6075 ####[facility] [address] [place], [address] MCV (RBC) [Entitic vol] 79.7 fL Low 81-99 [facility] Comment on above: Order Comment: Order Date: 12/17/24Order Info: 0184-1 - CBCD Performed By: #### L 100.0100, L501.5200, L500.4050, L503.6150, L503.6550, L503.6075 ####[facility] [address] [place], [address] Monocytes/100 WBC (Bld) 7.4 % Normal 0-10 [facility] Comment on above: Order Comment: Order Date: 12/17/24Order Info: 0184-1 - CBCD Performed By: #### L 100.0100, L501.5200, L500.4050, L503.6150, L503.6550, L503.6075 ####[facility] [address] [place], [address] Neutrophils/100 WBC (Bld) 66.8 % Normal 47-70 [facility] Comment on above: Order Comment: Order Date: 12/17/24Order Info: 0184-1 - CBCD Performed By: #### L 100.0100, L501.5200, L500.4050, L503.6150, L503.6550, L503.6075 ####[facility] [address] [place], [address] Nucleated RBC (Bld) [#/Vol] 0 10*3/uL Normal 0-5 [facility] Comment on above: Order Comment: Order Date: 12/17/24Order Info: 0184-1 - CBCD Performed By: #### L 100.0100, L501.5200, L500.4050, L503.6150, L503.6550, L503.6075 ####[facility] [address] [place], [address] Platelet mean volume (Bld) [Entitic vol] 11.4 fL Normal 6.2-12.0 [facility] Comment on above: Order Comment: Order Date: 12/17/24Order Info: 0184-1 - CBCD Performed By: #### L 100.0100, L501.5200, L500.4050, L503.6150, L503.6550, L503.6075 ####[facility] [address] [place], [address] Platelets (Bld) [#/Vol] 288 10*3/uL Normal 150-450 [facility] Comment on above: Order Comment: Order Date: 12/17/24Order Info: 0184-1 - CBCD Performed By: #### L 100.0100, L501.5200, L500.4050, L503.6150, L503.6550, L503.6075 ####[facility] [address] [place], [address] RBC (Bld) [#/Vol] 4.63 10*6/uL Normal 4.2-5.4 [facility] Comment on above: Order Comment: Order Date: 12/17/24Order Info: 0184-1 - CBCD Performed By: #### L 100.0100, L501.5200, L500.4050, L503.6150, L503.6550, L503.6075 ####[facility] [address] [place], [address] RDW SD 38.5 fl Normal 35.1-43.9 [facility] Comment on above: Order Comment: Order Date: 12/17/24Order Info: 0184-1 - CBCD Performed By: #### L 100.0100, L501.5200, L500.4050, L503.6150, L503.6550, L503.6075 ####[facility] [address] [place], [address] WBC (Bld) [#/Vol] 5.2 10*3/uL Normal 4.4-11.0 [facility] Comment on above: Order Comment: Order Date: 12/17/24Order Info: 0184-1 - CBCD Performed By: #### L 100.0100, L501.5200, L500.4050, L503.6150, L503.6550, L503.6075 ####[facility] [address] [place], [address] Carbon dioxide measurementOr dered By: Tomasz Coleman on 12-17-2024 CO2 [Moles/Vol] 23.0 mmol/L 21.0-32.0 [facility] Chloride measurementOrdered By: Tomasz Coleman on 12-17-2024 Chloride [Moles/Vol] 104 mmol/L 98-107 [facility] Comprehensive Metabolic Prof ilon 12-17-2024 Albumin [Mass/Vol] 3.7 g/dL Normal 3.2-5.0 [facility] Comment on above: Order Comment: Order Date: 12/17/24Order Info: [id number] - CMPOrder Info: [id number] - MGOrder Info: 2499-7 - TIBCOrder Info: 2498-02 - FEOrder Info: [id number] - CINDY Performed By: #### L 100.0100, L501.5200, L500.4050, L503.6150, L503.6550, L503.6075 ####[facility] [address] [place], [address] Albumin/Globulin [Mass ratio] 0.9 {ratio} Normal 0.9-2.4 [facility] Comment on above: Order Comment: Order Date: 12/17/24Order Info: [id number] - CMPOrder Info: [id number] - MGOrder Info: 7 - TIBCOrder Info: [id number] - FEOrder Info: [id number] - CINDY Performed By: #### L 100.0100, L501.5200, L500.4050, L503.6150, L503.6550, L503.6075 ####[facility] [address] [place], [address] ALK P 63 U/L Normal 45-117 [facility] Comment on above: Order Comment: Order Date: 12/17/24Order Info: [id number] - CMPOrder Info: [id number] - MGOrder Info: 2499-7 - TIBCOrder Info: [id number] - FEOrder Info: 2276-02 - CINDY Performed By: #### L 100.0100, L501.5200, L500.4050, L503.6150, L503.6550, L503.6075 ####[facility] [address] [place], [address] ALT [Catalytic activity/Vol] 60 U/L High 13-56 [facility] Comment on above: Order Comment: Order Date: 12/17/24Order Info: [id number] - CMPOrder Info: [id number] - MGOrder Info: 7 - TIBCOrder Info: 2498-02 - FEOrder Info: [id number] - CINDY Performed By: #### L 100.0100, L501.5200, L500.4050, L503.6150, L503.6550, L503.6075 ####[facility] [address] [place], [place], [id number] AST [Catalytic activity/Vol] 39 U/L High 15-37 [facility] Comment on above: Order Comment: Order Date: 12/17/24Order Info: 86-1 - CMPOrder Info: [id number] - MGOrder Info: 2500-05 - TIBCOrder Info: 2498-02 - FEOrder Info: [id number] - CINDY Performed By: #### L 100.0100, L501.5200, L500.4050, L503.6150, L503.6550, L503.6075 ####[facility] [address] [place], [address] Bilirubin [Mass/Vol] 0.40 mg/dL Normal 0.20-1.00 [facility] Comment on above: Order Comment: Order Date: 12/17/24Order Info: 0786-1 - CMPOrder Info: [id number] - MGOrder Info: 7 - TIBCOrder Info: 2498-02 - FEOrder Info: [id number] - CINDY Result Comment: For patients on eltrombopag therapy, use of Dimension [place] TBIL is not recommended. Performed By: #### L 100.0100, L501.5200, L500.4050, L503.6150, L503.6550, L503.6075 ####[facility] [address] [place], [address] BUN/CRE 14.9 RATIO Normal 10-20 [facility] Comment on above: Order Comment: Order Date: 12/17/24Order Info: 86-1 - CMPOrder Info: [id number] - MGOrder Info: 2500-05 - TIBCOrder Info: 2498-02 - FEOrder Info: [id number] - CINDY Performed By: #### L 100.0100, L501.5200, L500.4050, L503.6150, L503.6550, L503.6075 ####[facility] [address] [place], [place], [phone] CA,Total 9.0 mg/dL Normal 8.5-10.1 [facility] Comment on above: Order Comment: Order Date: 12/17/24Order Info: 785- - CMPOrder Info: [id number] - MGOrder Info: 2500-05 - TIBCOrder Info: 2498-02 - FEOrder Info: [id number] - CINDY Performed By: #### L 100.0100, L501.5200, L500.4050, L503.6150, L503.6550, L503.6075 ####[facility] [address] [place], [place], [phone] Chloride [Moles/Vol] 104 mmol/L Normal 98-107 [facility] Comment on above: Order Comment: Order Date: 12/17/24Order Info: 785-1 - CMPOrder Info: [id number] - MGOrder Info: 2500-05 - TIBCOrder Info: 2498-02 - FEOrder Info: [id number] - CINDY Performed By: #### L 100.0100, L501.5200, L500.4050, L503.6150, L503.6550, L503.6075 ####[facility] [address] [place], [place], [id number] CO2 [Moles/Vol] 23.0 mmol/L Normal 21.0-32.0 [facility] Comment on above: Order Comment: Order Date: 12/17/24Order Info: 0786-1 - CMPOrder Info: [id number] - MGOrder Info: 2500-7 - TIBCOrder Info: [id number] - FEOrder Info: 2276-02 - CINDY Performed By: #### L 100.0100, L501.5200, L500.4050, L503.6150, L503.6550, L503.6075 ####[facility] [address] [place], [place], [address] Creatinine [Mass/Vol] 0.67 mg/dL Normal 0.55-1.02 [facility] Comment on above: Order Comment: Order Date: 12/17/24Order Info: 785- - CMPOrder Info: [id number] - MGOrder Info: 7 - TIBCOrder Info: 2498-02 - FEOrder Info: [id number] - CINDY Result Comment: The validity of the calculated GFR GFRAA in patients over 70 years has not been determined. Clinical correlation is essential. Performed By: #### L 100.0100, L501.5200, L500.4050, L503.6150, L503.6550, L503.6075 ####[facility] [address] [address] [place], [place], [address] EST GFR - AA 129 mL/min Normal >60 [facility] Comment on above: Order Comment: Order Date: 12/17/24Order Info: 07-1 - CMPOrder Info: [id number] - MGOrder Info: 2500-7 - TIBCOrder Info: 2498-02 - FEOrder Info: [id number] - CINDY Result Comment: Afri can Dutch GFR Calc Performed By: #### L 100.0100, L501.5200, L500.4050, L503.6150, L503.6550, L503.6075 ####[facility] [address] [place], [place], [address] GAP 9 Normal 5-15 [facility] Comment on above: Order Comment: Order Date: 12/17/24Order Info: 785- - CMPOrder Info: [id number] - MGOrder Info: 7 - TIBCOrder Info: 2498-02 - FEOrder Info: [id number] - CINDY Performed By: #### L 100.0100, L501.5200, L500.4050, L503.6150, L503.6550, L503.6075 ####[facility] [address] [place], [place], [id number] GFR/1.73 sq M.predicted among non-blacks MDRD (S/P/Bld) [Vol rate/Area] 107 mL/min/{1.73_m2} Normal >60 [facility] Comment on above: Order Comment: Order Date: 12/17/24Order Info: 785-11 - CMPOrder Info: - MGOrder Info: 2500-05 - TIBCOrder Info: 2498-02 - FEOrder Info: [id number] - CINDY Result Comment: Non- GFR Calc Performed By: #### L 100.0100, L501.5200, L500.4050, L503.6150, L503.6550, L503.6075 ####[facility] [address] [place], [place], [phone] Globulin (S) [Mass/Vol] 4.2 g/dL Normal 2.2-4.2 [facility] Comment on above: Order Comment: Order Date: 12/17/24Order Info: 785- - CMPOrder Info: - MGOrder Info: 2500-05 - TIBCOrder Info: 2498-02 - FEOrder Info: [id number] - CINDY Performed By: #### L 100.0100, L501.5200, L500.4050, L503.6150, L503.6550, L503.6075 ####[facility] [address] [place], [address] Glucose [Mass/Vol] 93 mg/dL Normal 74-106 [facility] Comment on above: Order Comment: Order Date: 12/17/24Order Info: 0786-1 - CMPOrder Info: [id number] - MGOrder Info: 2499-7 - TIBCOrder Info: 2498-4 - FEOrder Info: 2275-4 - CINDY Performed By: #### L 100.0100, L501.5200, L500.4050, L503.6150, L503.6550, L503.6075 ####[facility] [address] [place], [address] Potassium [Moles/Vol] 4.0 mmol/L Normal 3.5-5.1 [facility] Comment on above: Order Comment: Order Date: 12/17/24Order Info: 785- - CMPOrder Info: [id number] - MGOrder Info: 2500-05 - TIBCOrder Info: [id number] - FEOrder Info: 2275- - CINDY Performed By: #### L 100.0100, L501.5200, L500.4050, L503.6150, L503.6550, L503.6075 ####[facility] [address] [place], [address] Sodium [Moles/Vol] 136 mmol/L Normal 136-145 [facility] Comment on above: Order Comment: Order Date: 12/17/24Order Info: 785-1 - CMPOrder Info: [id number] - MGOrder Info: 7 - TIBCOrder Info: 2498-4 - FEOrder Info: 227-4 - CINDY Performed By: #### L 100.0100, L501.5200, L500.4050, L503.6150, L503.6550, L503.6075 ####[facility] [address] [place], [address] T PROT 7.9 g/dL Normal 6.4-8.2 [facility] Comment on above: Order Comment: Order Date: 12/17/24Order Info: 0786-1 - CMPOrder Info: [id number] - MGOrder Info: 7 - TIBCOrder Info: 2498-02 - FEOrder Info: [id number] - CINDY Performed By: #### L 100.0100, L501.5200, L500.4050, L503.6150, L503.6550, L503.6075 ####[facility] [address] [place], [place], [phone] Urea nitrogen [Mass/Vol] 10 mg/dL Normal 7-18 [facility] Comment on above: Order Comment: Order Date: 12/17/24Order Info: 0786- - CMPOrder Info: [id number] - MGOrder Info: 7 - TIBCOrder Info: 2498-02 - FEOrder Info: [id number] - CINDY Performed By: #### L 100.0100, L501.5200, L500.4050, L503.6150, L503.6550, L503.6075 ####[facility] [address] [place], [place], [id number] Eosinophil percentageOrdered By: Tomasz Coleman on 12-17-2024 Eosinophils/100 WBC (Bld) 1.0 % 0-5 [facility] Erythrocyte distribution wid th ratioOrdered By: Tomasz Coleman on 12-17-2024 Erythrocyte distribution width (RBC) [Ratio] 13.4 % 11.6-14.6 [facility] Erythrocyte distribution wid th standard deviationOrdered By: Tomasz Coleman on 12-17-2024 Erythrocyte distribution width (RBC) [Entitic vol] 38.5 fL 35.1-43.9 [facility] Estimated glomerular filtrat ion rate (GFR) AmericanOrdered By: Tomasz Coleman on 12-17-2024 Estimated GFR (MDRD) Amer 129 mL/min >60 [facility] Comment on above: GFR Calc Ferritinon 12-17-2024 Ferritin [Mass/Vol] 23 ng/mL Normal 8-252 [facility] Comment on above: Order Comment: Order Date: 12/17/24Order Info: [id number] - CMPOrder Info: [id number] - MGOrder Info: 2499-7 - TIBCOrder Info: 2498-4 - FEOrder Info: 2276-4 - CINDY Performed By: #### L 100.0100, L501.5200, L500.4050, L503.6150, L503.6550, L503.6075 ####[facility] [address] [place], [address] Ferritin measurementOrdered By: Tomasz Coleman on 12-17-2024 Ferritin [Mass/Vol] 23 ng/mL 8-252 [facility] Glomerular filtration rate ( GFR) estimationOrdered By: Tomasz Coleman on 12-17-2024 Estimated GFR (MDRD) Non-Af Amer 107 mL/min >60 [facility] Comment on above: Non- GFR Calc Glucose measurementOrdered B y: Tomasz Coleman on 12-17-2024 Glucose [Mass/Vol] 93 mg/dL 74-106 [facility] Hematocrit Auto (Bld) [Volum e fraction]Ordered By: Tomasz Coleman on 12-17-2024 Hematocrit (Bld) [Volume fraction] 36.9 % Low 37-47 [facility] Hemoglobin measurementOrdere d By: Tomasz Coleman on 12-17-2024 Hemoglobin (Bld) [Mass/Vol] 12.4 g/dL 12.0-15.0 [facility] Immature granulocytes/100 WB C Auto (Bld)Ordered By: Tomasz Coleman on 12-17-2024 Immature granulocytes/100 WBC (Bld) 0.200 % 0.0-0.9 [facility] Comment on above: IG% - Immature Granu locytes (promyelocytes, myelocytes and metamyelocytes) > 1% indicates that a LEFT SHIFT is Present. Ironon 12-17-2024 Iron [Mass/Vol] 44 ug/dL Low 50-170 [facility] Comment on above: Order Comment: Order Date: 12/17/24Order Info: [id number] - CMPOrder Info: - MGOrder Info: 2500-7 - TIBCOrder Info: 2498-4 - FEOrder Info: 2275- - CINDY Performed By: #### L 100.0100, L501.5200, L500.4050, L503.6150, L503.6550, L503.6075 ####[facility] [address] [place], [place], [address] Iron (Unsp spec) [Mass/Mass] Ordered By: Tomasz Coleman on 12-17-2024 Iron [Mass/Vol] 44 ug/dL Low 50-170 [facility] Iron Binding Capacity,Totalo n 12-17-2024 TIBC 352 ug/dL Normal 250-450 [facility] Comment on above: Order Comment: Order Date: 12/17/24Order Info: [id number] - CMPOrder Info: [id number] - MGOrder Info: 2500-7 - TIBCOrder Info: 8-4 - FEOrder Info: [id number] - CINDY Performed By: #### L 100.0100, L501.5200, L500.4050, L503.6150, L503.6550, L503.6075 ####[facility] [id number] [place], [place], [address] Laboratory - Chemistry and C hemistry - challengeOrdered By: Tomasz Coleman on 12-17-2024 AST [Catalytic activity/Vol] 39 U/L High 15-37 [facility] Lymphocytes Auto (Unsp spec) [#/Vol]Ordered By: Tomasz Coleman on 12-17-2024 Lymphocytes (Bld) [#/Vol] 1.24 10*3/uL 0.83-4.51 [facility] Lymphocytes/100 WBC Auto (Un sp spec)Ordered By: Tomasz Coleman on 12-17-2024 Lymphocytes/100 WBC (Bld) 24.0 % 19-41 [facility] MCV (mean corpuscular volume ) determinationOrdered By: Tomasz Coleman on 12-17-2024 MCV (RBC) [Entitic vol] 79.7 fL Low 81-99 [facility] Magnesiumon 12-17-2024 Magnesium [Mass/Vol] 2.2 mg/dL Normal 1.6-2.6 [facility] Comment on above: Order Comment: Order Date: 12/17/24Order Info: 0786-1 - CMPOrder Info: [id number] - MGOrder Info: 2500-7 - TIBCOrder Info: 2498-4 - FEOrder Info: 2276-4 - CINDY Performed By: #### L 100.0100, L501.5200, L500.4050, L503.6150, L503.6550, L503.6075 ####[facility] [address] [place], [address] Magnesium measurementOrdered By: Tomasz Coleman on 12-17-2024 Magnesium [Mass/Vol] 2.2 mg/dL 1.6-2.6 [facility] Mean corpuscular hemoglobin (MCH) determinationOrdered By: Tomasz Coleman on 12-17-2024 MCH (RBC) [Entitic mass] 26.8 pg Low 27.0-32.0 [facility] Mean corpuscular hemoglobin concentration (MCHC) determinationOrdered By: Tomasz Coleman on 12-17-2024 MCHC (RBC) [Mass/Vol] 33.6 g/dL 32-36 [facility] Mean platelet volume determi nationOrdered By: Tomasz Coleman on 12-17-2024 Platelet mean volume (Bld) [Entitic vol] 11.4 fL 6.2-12.0 [facility] Monocyte percentageOrdered B y: Tomasz Coleman on 12-17-2024 Monocytes/100 WBC (Bld) 7.4 % 0-10 [facility] Neutrophil percentageOrdered By: Tomasz Coleman on 12-17-2024 Neutrophils/100 WBC (Bld) 66.8 % 47-70 [facility] Nucleated red blood cell per centageOrdered By: Tomasz Coleman on 12-17-2024 Nucleated RBC/100 WBC (Bld) [Ratio] 0 % 0-5 [facility] Platelet countOrdered By: Lupe Coleman on 12-17-2024 Platelets (Bld) [#/Vol] 288 10*3/uL 150-450 [facility] Potassium measurementOrdered By: Tomasz Coleman on 12-17-2024 Potassium [Moles/Vol] 4.0 mmol/L 3.5-5.1 [facility] RBC Auto (Bld) [#/Vol]Ordere d By: Tomasz Coleman on 12-17-2024 RBC (Bld) [#/Vol] 4.63 10*6/uL 4.2-5.4 [facility] Serum anion gap measurementO rdered By: Tomasz Coleamn on 12-17-2024 Anion gap [Moles/Vol] 9 mmol/L 5-15 [facility] Serum globulin measurementOr dered By: Tomasz Coleman on 12-17-2024 Globulin (S) [Mass/Vol] 4.2 g/dL 2.2-4.2 [facility] Serum or plasma alanine burt otransferase (ALT) measurementOrdered By: Tomasz Coleman on 12-17-2024 ALT [Catalytic activity/Vol] 60 U/L High 13-56 [facility] Serum or plasma albumin marge urement (mass/volume)Ordered By: Tomasz Coleman on 12-17-2024 Albumin [Mass/Vol] 3.7 g/dL 3.2-5.0 [facility] Serum or plasma alkaline zia sphatase measurementOrdered By: Tomasz Coleman on 12-17-2024 ALP [Catalytic activity/Vol] 63 U/L 45-117 [facility] Serum or plasma calcium marge urement (mass/volume)Ordered By: Tomasz Coleman on 12-17-2024 Calcium [Mass/Vol] 9.0 mg/dL 8.5-10.1 [facility] Serum or plasma creatinine m easurement (mass/volume)Ordered By: Tomasz Coleman on 12-17-2024 Creatinine [Mass/Vol] 0.67 mg/dL 0.55-1.02 [facility] Comment on above: The validity of the calculated GFR & GFRAA in patients over 70 years has not been determined. Clinical correlation is essential. Serum or plasma urea nitroge n measurement (mass/volume)Ordered By: Tomasz Coleman on 12-17-2024 Urea nitrogen [Mass/Vol] 10 mg/dL 7-18 [facility] Sodium levelOrdered By: Tomasz Coleman on 12-17-2024 Sodium [Moles/Vol] 136 mmol/L 136-145 [facility] TIBCOrdered By: Tomasz rangel on 12-17-2024 Total Iron Binding Capacity 352 ug/dL 250-450 [facility] Total proteinOrdered By: Mendel Coleman on 12-17-2024 Protein [Mass/Vol] 7.9 g/dL 6.4-8.2 [facility] White blood cell (WBC) count Ordered By: Tomasz Coleman on 12-17-2024 WBC (Bld) [#/Vol] 5.2 10*3/uL 4.4-11.0 [facility] NCS and/or EMG Patienton NCS and/or EMG Patient [facility] Pulmonary Services/Neurology [address] [place] [address] MR#: [id number] Acct: [id number] Name: DENISHA HILL Rep #: [id number] : 1990 34 From: Serg Bailey MD Referring Dr: Papa Truong MD Status: REG C LI Location: [facility] Date: 12/04/24 Sex: F C NCS and/or EMG Patient Report Ordering Doctor: Papa Truong DATE OF SERVICE: 12/04/24 Denisha presents electrodiagnostic testing of the left lower limb. She reports intermittent left- sided low back pain radiating into the left lower limb. Electrodiagnostic findings: Left peroneal motor nerve demonstrates normal distal latency, amplitude and conduction velocity. Left tibial motor response is within normal limits. Normal left tibial and peroneal F???waves. Normal H???reflex bilaterally. Normal sensory responses are noted. Needle EMG testing was performed in the left lower limb. All muscles tested showed no evidence of denervation with normal motor unit potentials. Electrodiagnostic impression: This is a normal electrodiagnostic study of the left lower limb. There is no electrodiagnostic evidence for peripheral neuropathy or lumbosacral radiculopathy. Multi Select Codes Neurology Neurology Interp Codes: 28855-47 Musc test done w/n test comp (interp) and 78590-86 Nrv cndj tst 5-6 studies (interp) 12/04/24 1355 Date Serg Bailey MD CC: Dr. Serg Bailey MD; Dr. Tomasz Coleman MD; Dr. Papa Truong MD Date Dictated: 12/04/24 135 Date Transcribed: 12/04/241350 Bioinformatics Team Member: IBAN [facility] Office Visit (OBGYWM) DENISHA HILL ([id number]) 1990 F Date Time Provider Department 11/27/24 10:50 AM ANEESH DIA OBCJ During your visit today, we recorded the following information about you: Blood pressure Weight 118/76 89.8 kg Aneesh Dia MD 11/27/2024 12:00 PM Signed Denisha Hill is a 34 year old female who presents for problem visit persistent pelvic/uterine pain with an equivocal pelvic ultrasound suggesting that her Mirena placed 2 + years ago may be imbedded 3mm in the uterus,. 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 Vaping Use Vaping status: Never Used Substance Use Topics Alcohol use: Yes Comment: socially Drug use: No Current Outpatient Medications Medication Sig metoprolol succinate ER (TOPROL XL) 50 mg 24 hr tablet Take 50 mg by mouth once daily. aspirin, enteric coated (ASPIRIN, ENTERIC COATED) 81 mg EC tablet Take 81 mg by mouth once daily. ferrous sulfate (IRON) 325 mg (65 mg iron) tablet Take 1 tablet by mouth twice daily. levonorgestrel (MIRENA) 20 mcg/24 hours (6 yrs) 52 mg IUD 1 Each by INTRAUTERINE route as directed. mv-min/iron/folic/ca lcium/vitK (WOMEN'S MULTIVITAMIN ORAL) Take 1 tablet by mouth once daily. No current facility-administere d medications for this visit. Allergies As of Date: 11/27/2024 Allergen Noted Reaction ADHESIVE TAPE-SILICONES 04/06/2021 Rash Fully Assessed 11/27/2024 REVIEW OF SYSTEMS Abdomen: No bloating, early satiety, indigestion, or increased flatulence. No abdominal pain, nausea, vomiting, diarrhea, or constipation. Bladder: No dysuria, gross hematuria, urinary frequency, urinary urgency, or incontinence. Breast: No breast lumps, nipple d/c, overlying skin changes, redness or skin retraction. Expanded ROS: N/A Allergies and current medication updated:Yes SENSITIVE EXAM: Sensitive exam not performed. EXAM: BP 118/76 Wt 198 lb (89.8kg) LMP 01/03/2021 GENERAL: pleasant, female in no apparent distress ABDOMEN: Benign, soft, no masses, and Mild tenderness in RUQ ASSESSMENT AND PLAN: Assessment AND Plan ?endomyometritis associated with IUD empiric course of doxycycline Aneesh Dia MD ftft>30m Allergies As of Date: 11/27/2024 Noted Allergy Reaction ADHESIVE TAPE-SILICONES 04/06/2021 2 - Rash Date Reviewed: 11/27/2024 Reviewed by: Riley Travis MA - Fully Assessed Primary Visit Diagnosis:Pelvic pain during [O26.899, R10.2] Order(s):doxycycline hyclate (VIBRAMYCIN) 100 mg capsuleTake 1 capsule (100 mg) by mouth two times a day.Disp: 20 capsuleRfl: 0 Prescriptions as of 11/27/2024 - doxycycline hyclate (VIBRAMYCIN) 100 mg capsule Take 1 capsule (100 mg) by mouth two times a day. - metoprolol succinate ER (TOPROL XL) 50 mg 24 hr tablet Take 50 mg by mouth once daily. - aspirin, enteric coated (ASPIRIN, ENTERIC COATED) 81 mg EC tablet Take 81 mg by mouth once daily. - ferrous sulfate (IRON) 325 mg (65 mg iron) tablet Take 1 tablet by mouth twice daily. - levonorgestrel (MIRENA) 20 mcg/24 hours (6 yrs) 52 mg IUD 1 Each by INTRAUTERINE route as directed. - mv-min/iron/folic/ca lcium/vitK (WOMEN'S MULTIVITAMIN ORAL) Take 1 tablet by mouth once daily. Problem List As Of Date 11/27/2024 Noted Resolved Iron malabsorption [K90.9] 12/31/2020 Iron deficiency anemia due to chronic blood los*01/28/2021 Prescriptions ordered this encounter Disp Refills Start End DOXYCYCLINE HYCLATE 100 MG CAPSULE 20 c* 0 11/27/2024 Route: ORAL Sig: Take 1 capsule (100 mg) by mouth two times a day. Encounter Status:Closed by ANEESH DIA on 11/27/24 [facility] 11-18-2024 [facility] Telephone (OBGYWM) DENISHA HILL ([id number]) 1990 F Date Time Provider Department 11/18/24 ANEESH DIA During your visit today, we recorded the following information about you: Yesy Andrews, BRANDON 11/18/2024 2:59 PM Signed ----- Message from Aneesh Dia MD sent at 11/18/2024 1:10 PM EST ----- Attempted reaching patient by phone to see if her pain has resolved and review her ultrasound that is essentially unremarkable. Please schedule f/u appointment if problems persist. MD Juliana Castellon Trisha, RN 11/22/2024 9:53 AM Signed Left message for patient to call office. BRANDON Gomez Tara, RN 11/22/2024 12:30 PM Signed Pt currently rates 04/22 and taking Aleve for her pain. Helping pain for the most. Pt has appt to discuss with AT Monday11/25/24 and would like to keep appt as the pain has not gone away. Advised Pt that if pain is uncontrolled and not able to be managed with Aleve AND a heating pad to go to ER. Pt voiced understanding. Magali Zelaya RN Allergies As of Date: 11/18/2024 Noted Allergy Reaction ADHESIVE TAPE-SILICONES 04/06/2021 2 - Rash Date Reviewed: 11/04/2024 Reviewed by: Allyn Martinez MD - Fully Assessed Reason for Visit: Results [95] Prescriptions as of 11/22/2024 - metoprolol succinate ER (TOPROL XL) 50 mg 24 hr tablet Take 50 mg by mouth once daily. - aspirin, enteric coated (ASPIRIN, ENTERIC COATED) 81 mg EC tablet Take 81 mg by mouth once daily. - ferrous sulfate (IRON) 325 mg (65 mg iron) tablet Take 1 tablet by mouth twice daily. - levonorgestrel (MIRENA) 20 mcg/24 hours (6 yrs) 52 mg IUD 1 Each by INTRAUTERINE route as directed. - mv-min/iron/folic/ca lcium/vitK (WOMEN'S MULTIVITAMIN ORAL) Take 1 tablet by mouth once daily. Problem List As Of Date 11/18/2024 Noted Resolved Iron malabsorption [K90.9] 12/31/2020 Iron deficiency anemia due to chronic blood los*01/28/2021 Encounter Status:Closed by MAGALI ZELAYA on 11/22/[address] [facility] Absolute neutrophil countOrd ered By: Tomasz Coleman on 11-08-2024 Neutrophils (Bld) [#/Vol] 4.5 10*3/uL 2.0-7.7 [facility] Albumin to globulin ratioOrd ered By: Tomasz Jared on 11-08-2024 Albumin/Globulin [Mass ratio] 0.9 {ratio} 0.9-2.4 [facility] Basophil percentageOrdered B y: Tomasz Coleman on 11-08-2024 Basophils/100 WBC (Bld) 0.3 % 0-1 [facility] Bilirubin, totalOrdered By: Tomasz Colemna on 11-08-2024 Bilirubin [Mass/Vol] 0.40 mg/dL 0.20-1.00 [facility] Comment on above: For patients on eltr ombopag therapy, use of Dimension [place] TBIL is not recommended. Blood urea nitrogen (BUN)/cr eatinine ratioOrdered By: Tomasz Cloeman on 11-08-2024 Urea nitrogen/Creatinine [Mass ratio] 11.6 mg/mg 10-20 [facility] CBC W/Diff, Automatedon 10-14 Absolute Lymph 1.43 X10 3/uL Normal 0.83-4.51 [facility] Comment on above: Order Comment: Order Date: 11/08/24 Order Info: [id number] - CBCD Performed By: #### L 503.6550, L503.6150, L501.5200, L500.4050, L503.6075, L100.0100 #### [facility] [address] [place], [address] Absolute Neut 4.5 X10 3/uL Normal 2.0-7.7 [facility] Comment on above: Order Comment: Order Date: 11/08/24 Order Info: 0184-1 - CBCD Performed By: #### L 503.6550, L503.6150, L501.5200, L500.4050, L503.6075, L100.0100 #### [facility] [address] [place], [address] Basophils/100 WBC (Bld) 0.3 % Normal 0-1 [facility] Comment on above: Order Comment: Order Date: 11/08/24 Order Info: 0184- - CBCD Performed By: #### L 503.6550, L503.6150, L501.5200, L500.4050, L503.6075, L100.0100 #### [facility] [address] [place], [address] Eosinophils/100 WBC (Bld) 0.9 % Normal 0-5 [facility] Comment on above: Order Comment: Order Date: 11/08/24 Order Info: [id number] - CBCD Performed By: #### L 503.6550, L503.6150, L501.5200, L500.4050, L503.6075, L100.0100 #### [facility] [address] [place], [place], [id number] Erythrocyte distribution width (RBC) [Ratio] 13.6 % Normal 11.6-14.6 [facility] Comment on above: Order Comment: Order Date: 11/08/24 Order Info: [id number] - CBCD Performed By: #### L 503.6550, L503.6150, L501.5200, L500.4050, L503.6075, L100.0100 #### [facility] [address] [place], [address] Hematocrit (Bld) [Volume fraction] 36.0 % Low 37-47 [facility] Comment on above: Order Comment: Order Date: 11/08/24 Order Info: 018- - CBCD Performed By: #### L 503.6550, L503.6150, L501.5200, L500.4050, L503.6075, L100.0100 #### [facility] [address] [place], [address] Hemoglobin (Bld) [Mass/Vol] 11.9 g/dL Low 12.0-15.0 [facility] Comment on above: Order Comment: Order Date: 11/08/24 Order Info: [id number] - CBCD Performed By: #### L 503.6550, L503.6150, L501.5200, L500.4050, L503.6075, L100.0100 #### [facility] [address] [place], [address] IG% 0.200 Normal 0.0-0.9 [facility] Comment on above: Order Comment: Order Date: 11/08/24 Order Info: [id number] - CBCD Result Comment: IG% - Immature Granulocytes (promyelocytes, myelocytes and metamyelocytes) > 1% indicates that a LEFT SHIFT is Present. Performed By: #### L 503.6550, L503.6150, L501.5200, L500.4050, L503.6075, L100.0100 #### [facility] [address] [place], [address] Lymphocytes/100 WBC (Bld) 22.2 % Normal 19-41 [facility] Comment on above: Order Comment: Order Date: 11/08/24 Order Info: [id number] - CBCD Performed By: #### L 503.6550, L503.6150, L501.5200, L500.4050, L503.6075, L100.0100 #### [facility] [address] [place], [address] MCH (RBC) [Entitic mass] 26.3 pg Low 27.0-32.0 [facility] Comment on above: Order Comment: Order Date: 11/08/24 Order Info: [id number] - CBCD Performed By: #### L 503.6550, L503.6150, L501.5200, L500.4050, L503.6075, L100.0100 #### [facility] [address] [place], [address] MCHC (RBC) [Mass/Vol] 33.1 g/dL Normal 32-36 [facility] Comment on above: Order Comment: Order Date: 11/08/24 Order Info: 0184-1 - CBCD Performed By: #### L 503.6550, L503.6150, L501.5200, L500.4050, L503.6075, L100.0100 #### [facility] [address] [place], [address] MCV (RBC) [Entitic vol] 79.6 fL Low 81-99 [facility] Comment on above: Order Comment: Order Date: 11/08/24 Order Info: 0184- - CBCD Performed By: #### L 503.6550, L503.6150, L501.5200, L500.4050, L503.6075, L100.0100 #### [facility] [address] [place], [address] Monocytes/100 WBC (Bld) 6.4 % Normal 0-10 [facility] Comment on above: Order Comment: Order Date: 11/08/24 Order Info: 0184- - CBCD Performed By: #### L 503.6550, L503.6150, L501.5200, L500.4050, L503.6075, L100.0100 #### [facility] [address] [place], [address] Neutrophils/100 WBC (Bld) 70.0 % Normal 47-70 [facility] Comment on above: Order Comment: Order Date: 11/08/24 Order Info: 0184-1 - CBCD Performed By: #### L 503.6550, L503.6150, L501.5200, L500.4050, L503.6075, L100.0100 #### [facility] [address] [place], [address] Nucleated RBC (Bld) [#/Vol] 0 10*3/uL Normal 0-5 [facility] Comment on above: Order Comment: Order Date: 11/08/24 Order Info: 0184-1 - CBCD Performed By: #### L 503.6550, L503.6150, L501.5200, L500.4050, L503.6075, L100.0100 #### [facility] [address] [place], [address] Platelet mean volume (Bld) [Entitic vol] 11.0 fL Normal 6.2-12.0 [facility] Comment on above: Order Comment: Order Date: 11/08/24 Order Info: 0184-1 - CBCD Performed By: #### L 503.6550, L503.6150, L501.5200, L500.4050, L503.6075, L100.0100 #### [facility] [address] [place], [address] Platelets (Bld) [#/Vol] 275 10*3/uL Normal 150-450 [facility] Comment on above: Order Comment: Order Date: 11/08/24 Order Info: 0184-1 - CBCD Performed By: #### L 503.6550, L503.6150, L501.5200, L500.4050, L503.6075, L100.0100 #### [facility] [address] [place], [address] RBC (Bld) [#/Vol] 4.52 10*6/uL Normal 4.2-5.4 [facility] Comment on above: Order Comment: Order Date: 11/08/24 Order Info: 0184-1 - CBCD Performed By: #### L 503.6550, L503.6150, L501.5200, L500.4050, L503.6075, L100.0100 #### [facility] [address] [place], [address] RDW SD 39.2 fl Normal 35.1-43.9 [facility] Comment on above: Order Comment: Order Date: 11/08/24 Order Info: 0184-1 - CBCD Performed By: #### L 503.6550, L503.6150, L501.5200, L500.4050, L503.6075, L100.0100 #### [facility] [address] [place], [address] WBC (Bld) [#/Vol] 6.4 10*3/uL Normal 4.4-11.0 [facility] Comment on above: Order Comment: Order Date: 11/08/24 Order Info: 0184-1 - CBCD Performed By: #### L 503.6550, L503.6150, L501.5200, L500.4050, L503.6075, L100.0100 #### [facility] [address] [place], [place], [address] Carbon dioxide measurementOr dered By: Tomasz Coleman on 11-08-2024 CO2 [Moles/Vol] 24.0 mmol/L 21.0-32.0 [facility] Chloride measurementOrdered By: Tomasz Coleman on 11-08-2024 Chloride [Moles/Vol] 107 mmol/L 98-107 [facility] Comprehensive Metabolic Prof ilon 11-08-2024 Albumin [Mass/Vol] 3.5 g/dL Normal 3.2-5.0 [facility] Comment on above: Order Comment: Order Date: 11/08/24 Order Info: 0786-1 - CMP Order Info: [id number] - MG Order Info: 2500-7 - TIBC Order Info: 2498-4 - FE Order Info: 2276-4 - CINDY Performed By: #### L 503.6550, L503.6150, L501.5200, L500.4050, L503.6075, L100.0100 #### [facility] [address] [place], [place], [address] Albumin/Globulin [Mass ratio] 0.9 {ratio} Normal 0.9-2.4 [facility] Comment on above: Order Comment: Order Date: 11/08/24 Order Info: 86-1 - CMP Order Info: [id number] - MG Order Info: 7 - TIBC Order Info: 2498-02 - FE Order Info: 2276-02 - CINDY Performed By: #### L 503.6550, L503.6150, L501.5200, L500.4050, L503.6075, L100.0100 #### [facility] [address] [place], [address] ALK P 48 U/L Normal 45-117 [facility] Comment on above: Order Comment: Order Date: 11/08/24 Order Info: 86-1 - CMP Order Info: [id number] - MG Order Info: 7 - TIBC Order Info: 2498-02 - FE Order Info: 2276-02 - CINDY Performed By: #### L 503.6550, L503.6150, L501.5200, L500.4050, L503.6075, L100.0100 #### [facility] [address] [place], [address] ALT [Catalytic activity/Vol] 23 U/L Normal 13-56 [facility] Comment on above: Order Comment: Order Date: 11/08/24 Order Info: 86-1 - CMP Order Info: [id number] - MG Order Info: 2500-05 - TIBC Order Info: 2498-02 - FE Order Info: 2276-02 - CINDY Performed By: #### L 503.6550, L503.6150, L501.5200, L500.4050, L503.6075, L100.0100 #### [facility] [address] [place], [address] AST [Catalytic activity/Vol] 13 U/L Low 15-37 [facility] Comment on above: Order Comment: Order Date: 11/08/24 Order Info: 0786-1 - CMP Order Info: [id number] - MG Order Info: 7 - TIBC Order Info: 2498-02 - FE Order Info: 2276-02 - CINDY Performed By: #### L 503.6550, L503.6150, L501.5200, L500.4050, L503.6075, L100.0100 #### [facility] [address] [place], [place], [address] Bilirubin [Mass/Vol] 0.40 mg/dL Normal 0.20-1.00 [facility] Comment on above: Order Comment: Order Date: 11/08/24 Order Info: 0786-1 - CMP Order Info: 24494-9 - MG Order Info: 2500-7 - TIBC Order Info: 2494 - FE Order Info: 2276-02 - CINDY Result Comment: For patients on eltrombopag therapy, use of Dimension [place] TBIL is not recommended. Performed By: #### L 503.6550, L503.6150, L501.5200, L500.4050, L503.6075, L100.0100 #### [facility] [address] [place], [address] BUN/CRE 11.6 RATIO Normal 10-20 [facility] Comment on above: Order Comment: Order Date: 11/08/24 Order Info: 785-1 - CMP Order Info: [id number] - MG Order Info: 25007 - TIBC Order Info: [id number] - FE Order Info: 4 - CINDY Performed By: #### L 503.6550, L503.6150, L501.5200, L500.4050, L503.6075, L100.0100 #### [facility] [address] [place], [place], [id number] [phone],Total 8.9 mg/dL Normal 8.5-10.1 [facility] Comment on above: Order Comment: Order Date: 11/08/24 Order Info: 86-1 - CMP Order Info: [id number] - MG Order Info: 25007 - TIBC Order Info: 24984 - FE Order Info: 2276-02 - CINDY Performed By: #### L 503.6550, L503.6150, L501.5200, L500.4050, L503.6075, L100.0100 #### [facility] [address] [place], [address] Chloride [Moles/Vol] 107 mmol/L Normal 98-107 [facility] Comment on above: Order Comment: Order Date: 11/08/24 Order Info: 86-1 - CMP Order Info: [id number] - MG Order Info: 25007 - TIBC Order Info: 2498-02 - FE Order Info: 2276-02 - CINDY Performed By: #### L 503.6550, L503.6150, L501.5200, L500.4050, L503.6075, L100.0100 #### [facility] [address] [place], [address] CO2 [Moles/Vol] 24.0 mmol/L Normal 21.0-32.0 [facility] Comment on above: Order Comment: Order Date: 11/08/24 Order Info: 785-11 - CMP Order Info: [id number] - MG Order Info: 2500-05 - TIBC Order Info: 2498-02 - FE Order Info: 2276-02 - CINDY Performed By: #### L 503.6550, L503.6150, L501.5200, L500.4050, L503.6075, L100.0100 #### [facility] [address] [place], [address] Creatinine [Mass/Vol] 0.69 mg/dL Normal 0.55-1.02 [facility] Comment on above: Order Comment: Order Date: 11/08/24 Order Info: 785-1 - CMP Order Info: 81467-3 - MG Order Info: 7 - TIBC Order Info: 2498-02 - FE Order Info: 2276-02 - CINDY Result Comment: The validity of the calculated GFR GFRAA in patients over 70 years has not been determined. Clinical correlation is essential. Performed By: #### L 503.6550, L503.6150, L501.5200, L500.4050, L503.6075, L100.0100 #### [facility] [address] [place], [place], [id number] EST GFR - AA 126 mL/min Normal >60 [facility] Comment on above: Order Comment: Order Date: 11/08/24 Order Info: 0786-1 - CMP Order Info: [id number] - MG Order Info: 2500-7 - TIBC Order Info: 2498-02 - FE Order Info: 2276-02 - CINDY Result Comment: Afri can Dutch GFR Calc Performed By: #### L 503.6550, L503.6150, L501.5200, L500.4050, L503.6075, L100.0100 #### [facility] [address] [place], [place], [id number] GAP 5 Normal 5-15 [facility] Comment on above: Order Comment: Order Date: 11/08/24 Order Info: 86-1 - CMP Order Info: [id number] - MG Order Info: 2500-05 - TIBC Order Info: 2498-02 - FE Order Info: 2276-02 - CINDY Performed By: #### L 503.6550, L503.6150, L501.5200, L500.4050, L503.6075, L100.0100 #### [facility] [address] [place], [place], [id number] GFR/1.73 sq M.predicted among non-blacks MDRD (S/P/Bld) [Vol rate/Area] 104 mL/min/{1.73_m2} Normal >60 [facility] Comment on above: Order Comment: Order Date: 11/08/24 Order Info: 0786-1 - CMP Order Info: [id number] - MG Order Info: 25007 - TIBC Order Info: 2498-02 - FE Order Info: 2275- - CINDY Result Comment: Non- GFR Calc Performed By: #### L 503.6550, L503.6150, L501.5200, L500.4050, L503.6075, L100.0100 #### [facility] [address] [place], [address] Globulin (S) [Mass/Vol] 4.1 g/dL Normal 2.2-4.2 [facility] Comment on above: Order Comment: Order Date: 11/08/24 Order Info: 0786-1 - CMP Order Info: [id number] - MG Order Info: 2500-7 - TIBC Order Info: 2498-4 - FE Order Info: 227-4 - CINDY Performed By: #### L 503.6550, L503.6150, L501.5200, L500.4050, L503.6075, L100.0100 #### [facility] [address] [place], [address] Glucose [Mass/Vol] 97 mg/dL Normal 74-106 [facility] Comment on above: Order Comment: Order Date: 11/08/24 Order Info: 86-1 - CMP Order Info: [id number] - MG Order Info: 7 - TIBC Order Info: [id number] - FE Order Info: 227-4 - CINDY Performed By: #### L 503.6550, L503.6150, L501.5200, L500.4050, L503.6075, L100.0100 #### [facility] [address] [place], [address] Potassium [Moles/Vol] 3.7 mmol/L Normal 3.5-5.1 [facility] Comment on above: Order Comment: Order Date: 11/08/24 Order Info: 0786-1 - CMP Order Info: [id number] - MG Order Info: 2500-7 - TIBC Order Info: [id number] - FE Order Info: 2276-4 - CINDY Performed By: #### L 503.6550, L503.6150, L501.5200, L500.4050, L503.6075, L100.0100 #### [facility] [address] [place], [place], [id number] Sodium [Moles/Vol] 136 mmol/L Normal 136-145 [facility] Comment on above: Order Comment: Order Date: 11/08/24 Order Info: 86-1 - CMP Order Info: [id number] - MG Order Info: 2499-7 - TIBC Order Info: 2498-4 - FE Order Info: 227-4 - CINDY Performed By: #### L 503.6550, L503.6150, L501.5200, L500.4050, L503.6075, L100.0100 #### [facility] [address] [place], [place], [id number] T PROT 7.6 g/dL Normal 6.4-8.2 [facility] Comment on above: Order Comment: Order Date: 11/08/24 Order Info: 785-1 - CMP Order Info: [id number] - MG Order Info: 2500-05 - TIBC Order Info: 2498-02 - FE Order Info: 2276-02 - CINDY Performed By: #### L 503.6550, L503.6150, L501.5200, L500.4050, L503.6075, L100.0100 #### [facility] [address] [place], [place], [id number] Urea nitrogen [Mass/Vol] 8 mg/dL Normal 7-18 [facility] Comment on above: Order Comment: Order Date: 11/08/24 Order Info: 86-1 - CMP Order Info: [id number] - MG Order Info: 7 - TIBC Order Info: 2494 - FE Order Info: 2275-4 - CINDY Performed By: #### L 503.6550, L503.6150, L501.5200, L500.4050, L503.6075, L100.0100 #### [facility] [address] [place], [place], [id number] Eosinophil percentageOrdered By: Tomasz Coleman on 11-08-2024 Eosinophils/100 WBC (Bld) 0.9 % 0-5 [facility] Erythrocyte distribution wid th ratioOrdered By: Tomasz Coleman on 11-08-2024 Erythrocyte distribution width (RBC) [Ratio] 13.6 % 11.6-14.6 [facility] Erythrocyte distribution wid th standard deviationOrdered By: Tomasz Coleman on 11-08-2024 Erythrocyte distribution width (RBC) [Entitic vol] 39.2 fL 35.1-43.9 [facility] Estimated glomerular filtrat ion rate (GFR) AmericanOrdered By: Tomasz Coleman on 11-08-2024 Estimated GFR (MDRD) Amer 126 mL/min >60 [facility] Comment on above: GFR Calc Ferritinon 11-08-2024 Ferritin [Mass/Vol] 15 ng/mL Normal 8-252 [facility] Comment on above: Order Comment: Order Date: 11/08/24Order Info: 0786-1 - CMPOrder Info: [id number] - MGOrder Info: 2500-7 - TIBCOrder Info: 2498-4 - FEOrder Info: 2276-4 - CINDY Performed By: #### L 503.6550, L503.6150, L501.5200, L500.4050, L503.6075, L100.0100 ####[facility] [address] [place], [place], [address] Ferritin measurementOrdered By: Tomasz Coleman on 11-08-2024 Ferritin [Mass/Vol] 15 ng/mL 8-252 [facility] Glomerular filtration rate ( GFR) estimationOrdered By: Tomasz Coleman on 11-08-2024 Estimated GFR (MDRD) Non-Af Amer 104 mL/min >60 [facility] Comment on above: Non- GFR Calc Glucose measurementOrdered B y: Tomasz Coleman on 11-08-2024 Glucose [Mass/Vol] 97 mg/dL 74-106 [facility] Hematocrit Auto (Bld) [Volum e fraction]Ordered By: Tomasz Coleman on 11-08-2024 Hematocrit (Bld) [Volume fraction] 36.0 % Low 37-47 [facility] Hemoglobin measurementOrdere d By: Tomasz Coleamn on 11-08-2024 Hemoglobin (Bld) [Mass/Vol] 11.9 g/dL Low 12.0-15.0 [facility] Immature granulocytes/100 WB C Auto (Bld)Ordered By: Tomasz Coleman on 11-08-2024 Immature granulocytes/100 WBC (Bld) 0.200 % 0.0-0.9 [facility] Comment on above: IG% - Immature Granu locytes (promyelocytes, myelocytes and metamyelocytes) > 1% indicates that a LEFT SHIFT is Present. Ironon 11-08-2024 Iron [Mass/Vol] 53 ug/dL Normal 50-170 [facility] Comment on above: Order Comment: Order Date: 11/08/24Order Info: 0786- - CMPOrder Info: - MGOrder Info: 2500-7 - TIBCOrder Info: 2498-02 - FEOrder Info: [id number] - CINDY Performed By: #### L 503.6550, L503.6150, L501.5200, L500.4050, L503.6075, L100.0100 ####[facility] [address] [place], [place], [id number] Iron (Unsp spec) [Mass/Mass] Ordered By: Tomasz Coleman on 11-08-2024 Iron [Mass/Vol] 53 ug/dL 50-170 [facility] Iron Binding Capacity,Totalo n 11-08-2024 TIBC 329 ug/dL Normal 250-450 [facility] Comment on above: Order Comment: Order Date: 11/08/24 Order Info: 07- - CMP Order Info: [id number] - MG Order Info: 2500-7 - TIBC Order Info: 2494 - FE Order Info: 2275-4 - CINDY Performed By: #### L 503.6550, L503.6150, L501.5200, L500.4050, L503.6075, L100.0100 #### [facility] [address] [place], [address] Laboratory - Chemistry and C hemistry - challengeOrdered By: Tomasz Coleman on 11-08-2024 AST [Catalytic activity/Vol] 13 U/L Low 15-37 [facility] Lymphocytes Auto (Unsp spec) [#/Vol]Ordered By: Tomasz Coleman on 11-08-2024 Lymphocytes (Bld) [#/Vol] 1.43 10*3/uL 0.83-4.51 [facility] Lymphocytes/100 WBC Auto (Un sp spec)Ordered By: Tomasz Coleman on 11-08-2024 Lymphocytes/100 WBC (Bld) 22.2 % 19-41 [facility] MCV (mean corpuscular volume ) determinationOrdered By: Tomasz Coleman on 11-08-2024 MCV (RBC) [Entitic vol] 79.6 fL Low 81-99 [facility] Magnesiumon 11-08-2024 Magnesium [Mass/Vol] 2.2 mg/dL Normal 1.6-2.6 [facility] Comment on above: Order Comment: Order Date: 11/08/24 Order Info: 0786-1 - CMP Order Info: [id number] - MG Order Info: 2500-7 - TIBC Order Info: 2498-4 - FE Order Info: 2276-4 - CINDY Performed By: #### L 503.6550, L503.6150, L501.5200, L500.4050, L503.6075, L100.0100 #### [facility] [place], [address] Magnesium measurementOrdered By: Tomasz Coleman on 11-08-2024 Magnesium [Mass/Vol] 2.2 mg/dL 1.6-2.6 [facility] Mean corpuscular hemoglobin (MCH) determinationOrdered By: Tomasz Coleman on 11-08-2024 MCH (RBC) [Entitic mass] 26.3 pg Low 27.0-32.0 [facility] Mean corpuscular hemoglobin concentration (MCHC) determinationOrdered By: Tomasz Coleman on 11-08-2024 MCHC (RBC) [Mass/Vol] 33.1 g/dL 32-36 [facility] Mean platelet volume determi nationOrdered By: Tomasz Coleman on 11-08-2024 Platelet mean volume (Bld) [Entitic vol] 11.0 fL 6.2-12.0 [facility] Monocyte percentageOrdered B y: Tomasz Coleman on 11-08-2024 Monocytes/100 WBC (Bld) 6.4 % 0-10 [facility] Neutrophil percentageOrdered By: Tomasz Coleman on 11-08-2024 Neutrophils/100 WBC (Bld) 70.0 % 47-70 [facility] Nucleated red blood cell per centageOrdered By: Tomasz Coleman on 11-08-2024 Nucleated RBC/100 WBC (Bld) [Ratio] 0 % 0-5 [facility] Platelet countOrdered By: Lupe Coleman on 11-08-2024 Platelets (Bld) [#/Vol] 275 10*3/uL 150-450 [facility] Potassium measurementOrdered By: Tomasz Coleman on 11-08-2024 Potassium [Moles/Vol] 3.7 mmol/L 3.5-5.1 [facility] RBC Auto (Bld) [#/Vol]Ordere d By: Tomasz Coleman on 11-08-2024 RBC (Bld) [#/Vol] 4.52 10*6/uL 4.2-5.4 [facility] Serum anion gap measurementO rdered By: Tomasz Coleman on 11-08-2024 Anion gap [Moles/Vol] 5 mmol/L 5-15 [facility] Serum globulin measurementOr dered By: Tomasz Coleman on 11-08-2024 Globulin (S) [Mass/Vol] 4.1 g/dL 2.2-4.2 [facility] Serum or plasma alanine burt otransferase (ALT) measurementOrdered By: Tomasz Coleman on 11-08-2024 ALT [Catalytic activity/Vol] 23 U/L 13-56 [facility] Serum or plasma albumin marge urement (mass/volume)Ordered By: Tomasz Coleman on 11-08-2024 Albumin [Mass/Vol] 3.5 g/dL 3.2-5.0 [facility] Serum or plasma alkaline zia sphatase measurementOrdered By: Tomasz Coleman on 11-08-2024 ALP [Catalytic activity/Vol] 48 U/L 45-117 [facility] Serum or plasma calcium marge urement (mass/volume)Ordered By: Tomasz Coleman on 11-08-2024 Calcium [Mass/Vol] 8.9 mg/dL 8.5-10.1 [facility] Serum or plasma creatinine m easurement (mass/volume)Ordered By: Tomasz Coleman on 11-08-2024 Creatinine [Mass/Vol] 0.69 mg/dL 0.55-1.02 [facility] Comment on above: The validity of the calculated GFR & GFRAA in patients over 70 years has not been determined. Clinical correlation is essential. Serum or plasma urea nitroge n measurement (mass/volume)Ordered By: Tomasz Coleman on 11-08-2024 Urea nitrogen [Mass/Vol] 8 mg/dL 7-18 [facility] Sodium levelOrdered By: Tomasz Coleman on 11-08-2024 Sodium [Moles/Vol] 136 mmol/L 136-145 [facility] TIBCOrdered By: Tomasz rangel on 11-08-2024 Total Iron Binding Capacity 329 ug/dL 250-450 [facility] Total proteinOrdered By: Mendel Coleman on 11-08-2024 Protein [Mass/Vol] 7.6 g/dL 6.4-8.2 [facility] White blood cell (WBC) count Ordered By: Tomasz Coleman on 11-08-2024 WBC (Bld) [#/Vol] 6.4 10*3/uL 4.4-11.0 [facility] US Pelvison 11-04-2024 Indication Pelvic pain, IUD check Impression The uterus is anteverted and measures 92 mm x 38 mm x 54 mm. The endometrial thickness is 7.4 mm. IUD is properly positioned at the uterine fundus with left arm extending 3 mm into the myometrium. The right ovary measures 32 mm x 22 mm x 20 mm. The left ovary measures 14 mm x 12 mm x 20 mm. There is no free fluid visualized. Recommendations IUD arm may be slightly embedded in the myometrium. This is likely of no clinical significance, but could consider removal and replacement if clinically indicated. History Medical History Surgery: section x 2 Surgery: Tubal ligation Menstrual History Cycle: LMP date not known. Contraception: tubal sterilization, Intrauterine contraceptive device Method Transabdominal, transvaginal, 3D ultrasound examination, Color Doppler examination. View: Adequate visualization Uterus Uterus: Visualized Uterus position: anteverted Description of uterine malformations: none Myometrium: heterogeneous Endometrium: normal Cervix details: normal Uterus length 92 mm Uterus width 54 mm Uterus height 38 mm Uterus Vol 99.0 cm Endometrial thickness, total 7.4 mm Fibroids: No fibroids identified Polyps: No polyps identified IUCD Position control IUCD type: Mirena intrauterine system. Location: positioned correctly at the fundus of the uterus Right Ovary Rt ovary: Visualized Rt ovary morphology: premenopausal with dominant follicle Rt ovary D1 32 mm Rt ovary D2 22 mm Rt ovary D3 20 mm Rt ovary Vol 7.5 cm Left Ovary Lt ovary: Visualized Lt ovary morphology: premenopausal normal follicular Lt ovary D1 14 mm Lt ovary D2 12 mm Lt ovary D3 20 mm Lt ovary Vol 1.8 cm Cul de Sac Visualized. no free fluid visualized Procedure To characterize the IUD position, three dimensional imaging was created on a dedicated stand-alone 3D workstation with images created and archived, and supervised and reviewed by the interpreting physician utilizing images from an ultrasound scan performed today. Performed By: Gia Elliott RDMS Read By: Allyn Martinez M.D. MATERNAL MEDICINE [facility] US Pelvison 11-01-2024 Radiology Study observation (narrative) [facility] C. trachomatis+N. gonorrhoea e DNA MELISA+probe Ql (Unsp spec)on 10-30-2024 C. trachomatis rRNA MELISA+probe Ql (Unsp spec) Not detected Normal Not detected [facility] Comment on above: Order Comment: Speci men Type: SWAB Ordering Facility: [facility] Address: [address] [place] [address] Performed By: #### 3 6902-5 #### [facility] CLIA [id number] [address] [place], [place] [address] [place] [address] [place] N. gonorrhoeae rRNA MELISA+probe Ql (Unsp spec) Not detected Normal Not detected [facility] Comment on above: Order Comment: Speci men Type: SWAB Ordering Facility: [facility] Address: [address] [place] [address] Performed By: #### 3 6902-5 #### 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 Denisha Hill is a 34 year old female who presents for problem visit for vaginal spotting, cramping. since the beginning of september. Occurs occasionally and may skip weeks. Feels like menstrual cramps. Took NSAID for two days w/o impact . No pain with intercourse/orgasm. 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 Vaping Use Vaping status: Never Used Substance Use Topics Alcohol use: Yes Comment: socially Drug use: No Current Outpatient Medications Medication Sig metoprolol succinate ER (TOPROL XL) 50 mg 24 hr tablet Take 50 mg by mouth once daily. aspirin, enteric coated (ASPIRIN, ENTERIC COATED) 81 mg EC tablet Take 81 mg by mouth once daily. ferrous sulfate (IRON) 325 mg (65 mg iron) tablet Take 1 tablet by mouth twice daily. levonorgestrel (MIRENA) 20 mcg/24 hours (6 yrs) 52 mg IUD 1 Each by INTRAUTERINE route as directed. mv-min/iron/folic/ca lcium/vitK (WOMEN'S MULTIVITAMIN ORAL) Take 1 tablet by mouth once daily. No current facility-administere d medications for this visit. Allergies As of Date: 10/30/2024 Allergen Noted Reaction ADHESIVE TAPE-SILICONES 04/06/2021 Rash Fully Assessed 10/30/2024 REVIEW OF SYSTEMS Abdomen: No bloating, early satiety, indigestion, or increased flatulence. No abdominal pain, nausea, vomiting, diarrhea, or constipation. Bladder: No dysuria, gross hematuria, urinary frequency, urinary urgency, or incontinence. Breast: No breast lumps, nipple d/c, overlying skin changes, redness or skin retraction. Expanded ROS: N/A Allergies and current medication updated:Yes SENSITIVE EXAM: The sensitive examination was discussed with the Patient or Patient's Authorized Warranty Manager. As applicable, any other physician, advance practice provider, medical student, or other health professional student that will be observing or involved in the sensitive examination for educational or training purposes was discussed with the Patient or Authorized Warranty Manager. The Patient or Authorized Warranty Manager has agreed to proceed with the sensitive examination. (Sensitive examination includes inspection and/or palpation of the breasts, pelvis, prostate and anorectal regions). EXAM: BP 120/80 Wt 192 lb (87.1kg) LMP 01/03/2021 GENERAL: pleasant, female in no apparent distress ABDOMEN: Benign, soft, non-tender, and no masses PELVIC: external genitalia normal, normal Bartholin's glands, urethra, [place]'s glands, no vulvar lesions, no cervical lesions, good vaginal support, physiologic discharge present, normal appearing perineal body and perianal region BIMANUAL: uterus normal size, shape and consistency, no adnexal masses, non-tender, no cervical motion tenderness, and IUD string visible ASSESSMENT AND PLAN: Assessment AND Plan Screen for sexually transmitted diseases contraception _ BTO Mirena for anemia/HMB resolved Essentially unremarkable pelvic exam Pelvic pain - Ultrasound ordered GC and Chlamydia cuoltures Aneesh Dia MD Referring Provider: SELF [200] Allergies As of Date: 10/30/2024 Noted Allergy Reaction ADHESIVE TAPE-SILICONES 04/06/2021 2 - Rash Date Reviewed: 10/30/2024 Reviewed by: Tasneem Young MA - Fully Assessed Reason for Visit: Well Woman [1463] Primary Visit Diagnosis:Screen for sexually transmitted diseases [Z11.3] Other Visit Diagnosis:Pelvic pain in female [R10.2] Order(s):PELVIC US WHI [[id number]] Order #: [id number]: 1 FUTURE GONORRHEA/CHLAMYDIA MELISA (more content not included)... Normal [facility] ED Prov Noteon 09-29-2024 ED Prov Note ED PROVIDER NOTE [facility] EM[facility] NAME: Denisha Hill AGE: 34 y.o. : 1990 VISIT DATE: 09/29/2024 CSN: [id number] PCP: Tomasz Coleman MD Chief Complaint Patient presents with Dizziness 34-year-old female patient presents ER for evaluation of episodic dizziness as well as concerns of IUD. Patient states she has had irregular periods, believes this is due to her IUD, no associated pelvic pain nausea or emesis. Also endorses she has been feeling lightheaded and fatigued. No nausea or emesis, headache, vision, no chest pain or difficulty breathing. Past Medical History: Diagnosis Date Deep vein thrombosis (HCC) Hypertension Past Surgical History: Procedure Laterality Date BACK SURGERY SECTION CHOLECYSTECTOMY TUBAL LIGATION No family history on file. Social History Socioeconomic History Marital status: Single Tobacco Use Smoking status: Former Types: Cigarettes Smokeless tobacco: Never Vaping Use Vaping status: Never Used Substance and Sexual Activity Alcohol use: Yes Drug use: Never Previous Medications Medication Sig aspirin 81 MG EC tablet Take 1 (one) tablet (81 mg total) by mouth daily . B.animalis,bifid,inf antis,long (PROBIOTIC 4X ORAL) Take by mouth . iron,carb/vit C/vit B12/folic (IRON 100 PLUS ORAL) Take by mouth . methylPREDNISolone (MEDROL DOSEPACK) 4 mg tablet follow package directions . metoprolol succinate (TOPROL-XL) 50 MG 24 hr tablet Take 1 (one) tablet (50 mg total) by mouth daily . Allergies Allergen Reactions Adhesive Tape-Silicones Hives Review of Systems All other systems reviewed and are negative. Patient Vitals for the past 24 hrs: BP Temp Temp src Pulse Resp SpO2 Height Weight 09/29/24 1842 (!) 140/93 98.6 degrees F (37 degrees C) Temporal 80 16 100 % 4' 9 88.9 kg (196 lb) Physical Exam Vitals and nursing note reviewed. Constitutional: Appearance: Normal appearance. HENT: Head: Normocephalic and atraumatic. Right Ear: External ear normal. Left Ear: External ear normal. Nose: Nose normal. Mouth/Throat: Mouth: Mucous membranes are moist. Pharynx: Oropharynx is clear. Eyes: Extraocular Movements: Extraocular movements intact. Conjunctiva/sclera: Conjunctivae normal. Pupils: Pupils are equal, round, and reactive to light. Cardiovascular: Rate and Rhythm: Normal rate and regular rhythm. Musculoskeletal: General: Normal range of motion. Cervical back: Normal range of motion and neck supple. Pulmonary: Effort: Pulmonary effort is normal. Breath sounds: Normal breath sounds. Abdominal: General: Abdomen is flat. Bowel sounds are normal. Palpations: Abdomen is soft. Neurological: General: No focal deficit present. Mental Status: She is alert and oriented to person, place, and time. Mental status is at baseline. Psychiatric: Mood and Affect: Mood normal. Thought Content: Thought content normal. Laboratory & Radiographic Imaging (if done): No results found for this visit on 09/29/24. No orders to display Procedures Medical Decision Making Patient presents to the ER for concerns of IUD and symptoms likely secondary to vasovagal syncope, she is otherwise well-appearing, no acute distress. Her pulse is regular, no pitting edema, lungs are clear, abdomen is benign. Recommend close interval follow-up with PCP and OB, advised of signs and symptoms when to return. . Clinical Impression: No diagnosis found. ED Disposition None Follow-up Information Follow-up information has not been specified. Contact information for after-discharge care Follow-up information has not been specified. Radha Benitez MD 09/29/24 1847 AUTHENTICATED BY RADHA BENITEZ, ON 09/29/2024 18:47:20 [facility] ED Prov Noteon 08-27-2024 ED Prov Note ED PROVIDER NOTE [facility] EM[facility]ENCY DEPARTMENT NAME: Denisha Hill AGE: 33 y.o. : 1990 VISIT DATE: 08/27/2024 CSN: [id number] PCP: Tomasz Coleman MD Chief Complaint Patient presents with Hip Pain Patient is a 33-year-old female with past medical history of hypertension and DVT present today for concern of left-sided hip pain. Patient admits to 2 previous back surgeries and a right hip fusion was told that she will likely have to have her left hip fused at some point in the near future. Patient states she is following up with physical therapy for her left hip pain when she felt a pop in her hip. Patient states she felt another pop her hip when she got into her car presents to the emergency department for pain control. Patient denies any midline spinal canal tenderness, bowel or bladder incontinence or perianal anesthesia. Patient denies any associated chest pain, shortness of breath, lightheadedness, dizziness or syncope. Patient denies additional constitutional symptoms. Past Medical History: Diagnosis Date Deep vein thrombosis (HCC) Hypertension Past Surgical History: Procedure Laterality Date BACK SURGERY SECTION CHOLECYSTECTOMY TUBAL LIGATION History reviewed. No pertinent family history. Social History Socioeconomic History Marital status: Single Tobacco Use Smoking status: Former Types: Cigarettes Smokeless tobacco: Never Vaping Use Vaping status: Never Used Substance and Sexual Activity Alcohol use: Yes Drug use: Never Previous Medications Medication Sig aspirin 81 MG EC tablet Take 1 (one) tablet (81 mg total) by mouth daily . B.animalis,bifid,inf antis,long (PROBIOTIC 4X ORAL) Take by mouth . iron,carb/vit C/vit B12/folic (IRON 100 PLUS ORAL) Take by mouth . methylPREDNISolone (MEDROL DOSEPACK) 4 mg tablet follow package directions . metoprolol succinate (TOPROL-XL) 50 MG 24 hr tablet Take 1 (one) tablet (50 mg total) by mouth daily . [DISCONTINUED] predniSONE (DELTASONE) 5 MG tablet Take 1 (one) tablet (5 mg total) by mouth daily . Allergies Allergen Reactions Adhesive Tape-Silicones Hives Review of Systems Constitutional: Negative for chills and fever. Eyes: Negative for pain. Respiratory: Negative for cough, chest tightness and shortness of breath. Cardiovascular: Negative for chest pain and palpitations. Gastrointestinal: Negative for abdominal pain, nausea and vomiting. Genitourinary: Negative for flank pain. Musculoskeletal: Positive for back pain. Negative for arthralgias and myalgias. Hip pain Skin: Negative for rash. Neurological: Negative for dizziness, syncope, light-headedness and headaches. Psychiatric/Behavior al: Negative for agitation. All other systems reviewed and are negative. Patient Vitals for the past 24 hrs: BP Temp Temp src Pulse Resp SpO2 Height Weight 08/27/24 1239 -- -- -- -- 18 -- -- -- 08/27/24 1203 136/80 98.1 degrees F (36.7 degrees C) Oral 78 18 100 % 4' 9 83.9 kg (185 lb) Physical Exam Vitals and nursing note reviewed. Constitutional: Appearance: Normal appearance. HENT: Head: Normocephalic. Eyes: Pupils: Pupils are equal, round, and reactive to light. Cardiovascular: Rate and Rhythm: Normal rate and regular rhythm. Pulses: Normal pulses. Heart sounds: Normal heart sounds. Musculoskeletal: Cervical back: Normal range of motion. Comments: Left lumbar paraspinal tenderness with associate hypertonicity. No midline spinal canal tenderness or gross deformity. Left hip has generalized tenderness to palpation with no evidence or gross deformity or dislocation. Equal sensation and motor function of the bilateral lower extremity. Equal pulses bilaterally. Pulmonary: Effort: Pulmonary effort is normal. Breath sounds: Normal breath sounds. Skin: General: Skin is warm. Capillary Refill: Capillary refill takes less than 2 seconds. Neurological: General: No focal deficit present. Mental Status: She is alert. Psychiatric: Mood and Affect: Mood normal. Laboratory & Radiographic Imaging (if done): No results found for this visit on 08/27/24. XR Hip Left With Pelvis 2-3 Views (Routine) Non-public Result 1. No acute fracture or dislocation. 2. No significant degenerative changes in the hip joints. Workstation ID: [id number] Procedures Medical Decision Making Patient seen and evaluated for concern of hip pain. Patient given Percocet and prednisone. X-ray of the hip demonstrated no acute fracture or dislocation. Patient has suspected hip sprain and was given pain medications and educated on reasons return and provided with appropriate orthopedic follow-up. Patient agrees assessment plan was discharged stable condition. . Clinical Impression: 1. Acute pain of left hip ED Disposition ED Disposition Discharge Condition Stable Comment Denisha Hill discharged to home/self care in stable conditio (more content not included)... [facility] XR HIP LEFT WITH PELVIS 2-3 VIEWS (ROUTINE)on 08-27-2024 XR HIP LEFT WITH PELVIS 2-3 VIEWS (ROUTINE) EXAMINATION: XR HIP LEFT WITH PELVIS 2-3 VIEWS (ROUTINE) 08/27/2024 12:30 pm HISTORY: ORDERING SYSTEM PROVIDED HISTORY: Hip pain, TECHNOLOGIST PROVIDED HISTORY: Illness/Other Reason for exam: hip pain after having low back adjustment at chiropractor today, pain is sharp and burning posteriorly, hx of lumbar fusion Cancer History: n Surgery, RadiationHistory: n Encounter Type: Initial Additional signs and symptoms: na ORDERING SYSTEM PROVIDED DIAGNOSIS CODES: M25.552 Acute pain of left hip COMPARISON: None. FINDINGS: Three views of the pelvis and left hip obtained. There has been anterior interbody fusion at L5-S1 and right sacroiliac joint arthrodesis. Pelvic bones are intact. Femoral heads are well positioned in the acetabulum. No fracture. No dislocation. No degenerative changes in the hip joints. IMPRESSION: 1. No acute fracture or dislocation. 2. No significant degenerative changes in the hip joints. [employer] Workstation ID: [id number] Dictated by: GERDA OLEARY on MonAug 27, 2024 1:29:42 PM EDT Transcribed by: CAILIN LANTIGUA on MonAug 27, 2024 1:45:24 PM EDT Finalized by: GERDA OLEARY on MonAug 27, 2024 5:11:52 PM EDT [facility] Comment on above: Order Comment: Injur y/Trauma or Illness?:Illness/Other How long have you had these symptoms (acute/chronic)?:Acute Reason for exam?:hip pain after having low back adjustment at chiropractor today, pain is sharp and burning posteriorly, hx of lumbar fusion History of cancer?:n Surgeries, chemotherapy, or radiation?:n Type of Exam?:Initial Additional signs and symptoms?:na CBC W/Diff, Automatedon 10-0 -2023 Absolute Lymph 2.05 X10 3/uL Normal 0.83-4.51 [facility] Comment on above: Performed By: #### L 100.0100, L500.4050, L501.9520, L506.0250, L503.0105, L501.5200, L503.6550, L503.6030 ####[facility] [address] [place], [address] Absolute Neut 4.2 X10 3/uL Normal 2.0-7.7 [facility] Comment on above: Performed By: #### L 100.0100, L500.4050, L501.9520, L506.0250, L503.0105, L501.5200, L503.6550, L503.6030 ####[facility] [address] [place], [address] Basophils/100 WBC (Bld) 0.3 % Normal 0-1 [facility] Comment on above: Performed By: #### L 100.0100, L500.4050, L501.9520, L506.0250, L503.0105, L501.5200, L503.6550, L503.6030 ####[facility] [address] [place], [address] Eosinophils/100 WBC (Bld) 0.9 % Normal 0-5 [facility] Comment on above: Performed By: #### L 100.0100, L500.4050, L501.9520, L506.0250, L503.0105, L501.5200, L503.6550, L503.6030 ####[facility] [address] [place], [address] Erythrocyte distribution width (RBC) [Ratio] 13.1 % Normal 11.6-14.6 [facility] Comment on above: Performed By: #### L 100.0100, L500.4050, L501.9520, L506.0250, L503.0105, L501.5200, L503.6550, L503.6030 ####[facility] [address] [place], [address] Hematocrit (Bld) [Volume fraction] 37.8 % Normal 37-47 [facility] Comment on above: Performed By: #### L 100.0100, L500.4050, L501.9520, L506.0250, L503.0105, L501.5200, L503.6550, L503.6030 ####[facility] [address] [place], [address](717) Hemoglobin (Bld) [Mass/Vol] 12.4 g/dL Normal 12.0-15.0 [facility] Comment on above: Performed By: #### L 100.0100, L500.4050, L501.9520, L506.0250, L503.0105, L501.5200, L503.6550, L503.6030 ####[facility] [address] [place], [place], [phone](720) IG% 0.300 Normal 0.0-0.9 [facility] Comment on above: Result Comment: IG% - Immature Granulocytes (promyelocytes, myelocytes and metamyelocytes) > 1% indicates that a LEFT SHIFT is Present. Performed By: #### L 100.0100, L500.4050, L501.9520, L506.0250, L503.0105, L501.5200, L503.6550, L503.6030 ####[facility] [address] [place], [address] Lymphocytes/100 WBC (Bld) 30.3 % Normal 19-41 [facility] Comment on above: Performed By: #### L 100.0100, L500.4050, L501.9520, L506.0250, L503.0105, L501.5200, L503.6550, L503.6030 ####[facility] [address] [place], [address] MCH (RBC) [Entitic mass] 26.2 pg Low 27.0-32.0 [facility] Comment on above: Performed By: #### L 100.0100, L500.4050, L501.9520, L506.0250, L503.0105, L501.5200, L503.6550, L503.6030 ####[facility] [address] [place], [address] MCHC (RBC) [Mass/Vol] 32.8 g/dL Normal 32-36 [facility] Comment on above: Performed By: #### L 100.0100, L500.4050, L501.9520, L506.0250, L503.0105, L501.5200, L503.6550, L503.6030 ####[facility] [address] [place], [address] MCV (RBC) [Entitic vol] 79.9 fL Low 81-99 [facility] Comment on above: Performed By: #### L 100.0100, L500.4050, L501.9520, L506.0250, L503.0105, L501.5200, L503.6550, L503.6030 ####[facility] [address] [place], [address] Monocytes/100 WBC (Bld) 6.7 % Normal 0-10 [facility] Comment on above: Performed By: #### L 100.0100, L500.4050, L501.9520, L506.0250, L503.0105, L501.5200, L503.6550, L503.6030 ####[facility] [address] [place], [address] Neutrophils/100 WBC (Bld) 61.5 % Normal 47-70 [facility] Comment on above: Performed By: #### L 100.0100, L500.4050, L501.9520, L506.0250, L503.0105, L501.5200, L503.6550, L503.6030 ####[facility] [address] [place], [address] Nucleated RBC (Bld) [#/Vol] 0 10*3/uL Normal 0-5 [facility] Comment on above: Performed By: #### L 100.0100, L500.4050, L501.9520, L506.0250, L503.0105, L501.5200, L503.6550, L503.6030 ####[facility] [address] [place], [address] Platelet mean volume (Bld) [Entitic vol] 11.3 fL Normal 6.2-12.0 [facility] Comment on above: Performed By: #### L 100.0100, L500.4050, L501.9520, L506.0250, L503.0105, L501.5200, L503.6550, L503.6030 ####[facility] [address] [place], [address] Platelets (Bld) [#/Vol] 317 10*3/uL Normal 150-450 [facility] Comment on above: Performed By: #### L 100.0100, L500.4050, L501.9520, L506.0250, L503.0105, L501.5200, L503.6550, L503.6030 ####[facility] [address] [place], [address] RBC (Bld) [#/Vol] 4.73 10*6/uL Normal 4.2-5.4 [facility] Comment on above: Performed By: #### L 100.0100, L500.4050, L501.9520, L506.0250, L503.0105, L501.5200, L503.6550, L503.6030 ####[facility] [address] [place], [place], [id number] RDW SD 37.0 fl Normal 35.1-43.9 [facility] Comment on above: Performed By: #### L 100.0100, L500.4050, L501.9520, L506.0250, L503.0105, L501.5200, L503.6550, L503.6030 ####[facility] [address] [place], [place], [id number] WBC (Bld) [#/Vol] 6.8 10*3/uL Normal 4.4-11.0 [facility] Comment on above: Performed By: #### L 100.0100, L500.4050, L501.9520, L506.0250, L503.0105, L501.5200, L503.6550, L503.6030 ####[facility] [address] [place], [place], [phone] Comprehensive Metabolic Prof kson 08-15-2024 Albumin [Mass/Vol] 3.9 g/dL Normal 3.2-5.0 [facility] Comment on above: Order Comment: N Performed By: #### L 100.0100, L500.4050, L501.9520, L506.0250, L503.0105, L501.5200, L503.6550, L503.6030 ####[facility] [address] [place], [place], [phone] Albumin/Globulin [Mass ratio] 1.1 {ratio} Normal 0.9-2.4 [facility] Comment on above: Order Comment: N Performed By: #### L 100.0100, L500.4050, L501.9520, L506.0250, L503.0105, L501.5200, L503.6550, L503.6030 ####[facility] [address] [place], [address] ALK P 59 U/L Normal 45-117 [facility] Comment on above: Order Comment: N Performed By: #### L 100.0100, L500.4050, L501.9520, L506.0250, L503.0105, L501.5200, L503.6550, L503.6030 ####[facility] [address] [place], [address] ALT [Catalytic activity/Vol] 25 U/L Normal 13-56 [facility] Comment on above: Order Comment: N Performed By: #### L 100.0100, L500.4050, L501.9520, L506.0250, L503.0105, L501.5200, L503.6550, L503.6030 ####[facility] [address] [place], [address] AST [Catalytic activity/Vol] 17 U/L Normal 15-37 [facility] Comment on above: Order Comment: N Performed By: #### L 100.0100, L500.4050, L501.9520, L506.0250, L503.0105, L501.5200, L503.6550, L503.6030 ####[facility] [address] [place], [address] Bilirubin [Mass/Vol] 0.50 mg/dL Normal 0.20-1.00 [facility] Comment on above: Order Comment: N Result Comment: For patients on eltrombopag therapy, use of Dimension [place] TBIL is not recommended. Performed By: #### L 100.0100, L500.4050, L501.9520, L506.0250, L503.0105, L501.5200, L503.6550, L503.6030 ####[facility] [address] [place], [address] BUN/CRE 10.5 RATIO Normal 10-20 [facility] Comment on above: Order Comment: N Performed By: #### L 100.0100, L500.4050, L501.9520, L506.0250, L503.0105, L501.5200, L503.6550, L503.6030 ####[facility] [address] [place], [address] CA,Total 9.1 mg/dL Normal 8.5-10.1 [facility] Comment on above: Order Comment: N Performed By: #### L 100.0100, L500.4050, L501.9520, L506.0250, L503.0105, L501.5200, L503.6550, L503.6030 ####[facility] [address] [place], [address] Chloride [Moles/Vol] 103 mmol/L Normal 98-107 [facility] Comment on above: Order Comment: N Performed By: #### L 100.0100, L500.4050, L501.9520, L506.0250, L503.0105, L501.5200, L503.6550, L503.6030 ####[facility] [address] [place], [address] CO2 [Moles/Vol] 28.0 mmol/L Normal 21.0-32.0 [facility] Comment on above: Order Comment: N Performed By: #### L 100.0100, L500.4050, L501.9520, L506.0250, L503.0105, L501.5200, L503.6550, L503.6030 ####[facility] [address] [place], [address] Creatinine [Mass/Vol] 0.57 mg/dL Normal 0.55-1.02 [facility] Comment on above: Order Comment: N Result Comment: The validity of the calculated GFR GFRAA in patients over 70 years has not been determined. Clinical correlation is essential. Performed By: #### L 100.0100, L500.4050, L501.9520, L506.0250, L503.0105, L501.5200, L503.6550, L503.6030 ####[facility] [address] [place], [address] EST GFR - AA 155 mL/min Normal >60 [facility] Comment on above: Order Comment: N Result Comment: Afri can Dutch GFR Calc Performed By: #### L 100.0100, L500.4050, L501.9520, L506.0250, L503.0105, L501.5200, L503.6550, L503.6030 ####[facility] [address] [place], [place], [id number] GAP 6 Normal 5-15 [facility] Comment on above: Order Comment: N Performed By: #### L 100.0100, L500.4050, L501.9520, L506.0250, L503.0105, L501.5200, L503.6550, L503.6030 ####[facility] [address] [place], [place], [phone] GFR/1.73 sq M.predicted among non-blacks MDRD (S/P/Bld) [Vol rate/Area] 128 mL/min/{1.73_m2} Normal >60 [facility] Comment on above: Order Comment: N Result Comment: Non- GFR Calc Performed By: #### L 100.0100, L500.4050, L501.9520, L506.0250, L503.0105, L501.5200, L503.6550, L503.6030 ####[facility] [address] [place], [place], [phone]) Globulin (S) [Mass/Vol] 3.7 g/dL Normal 2.2-4.2 [facility] Comment on above: Order Comment: N Performed By: #### L 100.0100, L500.4050, L501.9520, L506.0250, L503.0105, L501.5200, L503.6550, L503.6030 ####[facility] [address] [place], [address] Glucose [Mass/Vol] 98 mg/dL Normal 74-106 [facility] Comment on above: Order Comment: N Performed By: #### L 100.0100, L500.4050, L501.9520, L506.0250, L503.0105, L501.5200, L503.6550, L503.6030 ####[facility] [address] [place], [address] Potassium [Moles/Vol] 3.8 mmol/L Normal 3.5-5.1 [facility] Comment on above: Order Comment: N Performed By: #### L 100.0100, L500.4050, L501.9520, L506.0250, L503.0105, L501.5200, L503.6550, L503.6030 ####[facility] [address] [place], [address] Sodium [Moles/Vol] 137 mmol/L Normal 136-145 [facility] Comment on above: Order Comment: N Performed By: #### L 100.0100, L500.4050, L501.9520, L506.0250, L503.0105, L501.5200, L503.6550, L503.6030 ####[facility] [address] [place], [address] T PROT 7.6 g/dL Normal 6.4-8.2 [facility] Comment on above: Order Comment: N Performed By: #### L 100.0100, L500.4050, L501.9520, L506.0250, L503.0105, L501.5200, L503.6550, L503.6030 ####[facility] [address] [place], [place], [phone] Urea nitrogen [Mass/Vol] 6 mg/dL Low 7-18 [facility] Comment on above: Order Comment: N Performed By: #### L 100.0100, L500.4050, L501.9520, L506.0250, L503.0105, L501.5200, L503.6550, L503.6030 ####[facility] [address] [place], [address] Ferritinon 08-15-2024 Ferritin [Mass/Vol] 20 ng/mL Normal 8-252 [facility] Comment on above: Order Comment: N Performed By: #### L 100.0100, L500.4050, L501.9520, L506.0250, L503.0105, L501.5200, L503.6550, L503.6030 ####[facility] [address] [place], [place], [phone] Folates, (Folic Acid)on FOLATES 9.60 ng/mL Normal 3.1-55.4 [facility] Comment on above: Order Comment: N Performed By: #### L 100.0100, L500.4050, L501.9520, L506.0250, L503.0105, L501.5200, L503.6550, L503.6030 ####[facility] [address] [place], [address] Iron+Iron Binding Capacityon 08-15-2024 Iron [Mass/Vol] 49 ug/dL Low 50-170 [facility] Comment on above: Order Comment: N Performed By: #### L 100.0100, L500.4050, L501.9520, L506.0250, L503.0105, L501.5200, L503.6550, L503.6030 ####[facility] [address] [place], [address] IRON SATURATION 14.7 Low 15.0-55.0 [facility] Comment on above: Order Comment: N Performed By: #### L 100.0100, L500.4050, L501.9520, L506.0250, L503.0105, L501.5200, L503.6550, L503.6030 ####[facility] [address] [place], [address] TIBC 334 ug/dL Normal 250-450 [facility] Comment on above: Order Comment: N Performed By: #### L 100.0100, L500.4050, L501.9520, L506.0250, L503.0105, L501.5200, L503.6550, L503.6030 ####[facility] [address] [place], [address] Magnesiumon 08-15-2024 Magnesium [Mass/Vol] 1.8 mg/dL Normal 1.6-2.6 [facility] Comment on above: Order Comment: N Performed By: #### L 100.0100, L500.4050, L501.9520, L506.0250, L503.0105, L501.5200, L503.6550, L503.6030 ####[facility] [address] [place], [address] Thyroid Stim Hormone (TSH)on 08-15-2024 TSH 0.826 uIU/mL Normal 0.358-3.740 [facility] Comment on above: Order Comment: N Performed By: #### L 100.0100, L500.4050, L501.9520, L506.0250, L503.0105, L501.5200, L503.6550, L503.6030 ####[facility] [address] [place], [address] Vitamin B12on 08-15-2024 Cobalamin (Vitamin B12) [Mass/Vol] 521 pg/mL Normal 211-911 [facility] Comment on above: Performed By: #### L 100.0100, L500.4050, L501.9520, L506.0250, L503.0105, L501.5200, L503.6550, L503.6030 ####[facility] [address] [place], [address] Orthopedic Visit Reporton Orthopedic Visit Report [facility] [address] [place] [address] [address] [place] [address] OFFICE VISIT Date of Service: 07/12/24 MR#: [id number] Acct: [id number] Name: DENISHA HILL Rep #: [id number] : 1990 Provider: Dr. Pancho Starkey MD Age/Sex: 33/F Location: [facility] [place] Status: Signed Intake Vital Signs 02/05/24 12:08 Height 4 ft 9 in Intake Visit Reasons: LUMBAR SPINE Chief Complaint: lumbar spine pain Accompanied by: Self Is patient in pain?: Yes Pain scale (1-10): 7 Allergies adhesive tape Allergy (Intermediate, Verified 07/12/24 13:26) Rash Medications ???Medication ???Instructions ???Recorded ???Confirmed ???Type Saccharomyces boulardii 250 mg 250 mg PO DAILY SUPPLEMENT 03/02/21 07/12/24 History capsule (Daily Probiotic (S. 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 Former smoker History of edema History of echocardiogram Cardiology follow-up encounter History of irregular heartbeat SVT (supraventricular tachycardia) Anemia Patent foramen ovale Abnormal echocardiogram Surgical History History of lumbosacral spine surgery History of laminectomy H/O tubal ligation ( 2017) History of cholecystectomy ( 2017) H/O section Family History Grandmother Heart disease Social History Smoking Status: Former smoker alcohol intake: current details: occasional substance use type: does not use caffeine: Yes Type: coffee Number of servings: 4 HPI LUMBAR SPINE Details: This documentation accurately reflects the service provided and the decisions made by me, Dr. Pancho Starkey MD 07/12/24 1324. Part of today???s visit was documented by [ ], acting as scribe. DENISHA HILL is a 33 year old F here today for 6 month f/u s/p right sacral fusion with fluoroscopic guidance DOS 02/05/2024. Patient states she thought she was better, Patient is still having a lot of pain. Patient does see Dr Truong. Patient is having a shock feeling that goes down her left leg into her left foot randomly. Patient states she feels a ball of fire on her left hip and it will build up and then shoot down her back of her left leg. Patient states her right hip is sensitive. Patient has pain on top of her buttock that never seems to go away. Denisha started having left lower extremity radiating pain into the hamstrings and calf and into the left little finger about 1 month ago after her last injection with Dr. Truong. Based on notes, it was likely a piriformis injection. She also occasionally has right-sided buttock pain but denies any radiation to the right lower extremity. Her previous symptoms were significant right lower extremity radiation for which she underwent L5-S1 fusion last year in June and then also underwent SI joint fusion on the right side in January. Ortho Exam General General: Yes no acute distress Neurologic: Yes alert and Yes oriented x3 Spine SPINE TESTING CERVICAL THORACIC LUMBAR Musculoskeletal Strength 0=absent - 5=normal Details: Prior incision scars from posterior lumbar surgery as well as a right SI percutaneous fusion are well-healed without any local tenderness. Neurologic motion of lower extremity shows 5 x 5 power normal shows normal sensations in all dermatomes. Provocative test for SI joint irritation also negative. Coding Level of Care Code Off vis,est,level 4 Diagnoses S/P fusion of sacroiliac joint Z98.1 S/P lumbar spinal fusion Z98.1 Time Spent (min) 35 Assessment and Plan Assessment and Plan (1) S/P fusion of sacroiliac joint: Status: Acute (2) S/P lumbar spinal fusion: Status: Acute Orders: Orders S-I Jts 3 or More Views Today Z98.1 - Arthrodesis status Plan I obtain SI joint x-rays today. I also reviewed lumbar x-rays from May. These show stable L5-S1 fusion and SI joint fusion on the right side. There is evidence of sclerosis into the left SI joint as well. No recent MRI. MRI from before her lumbar fusion surgery was reviewed which showed L5-S1 disc herniation with (more content not included)... Normal [facility] S-I Jts 3 or More Viewson S-I Jts 3 or More Views [facility] Radiology [address] [place] [address] S-I Jts 3 or More Views MR#: [id number] Acct: [id number] Name: DENISHA HILL YADIRA Rep #: [id number] : 1990 F 33 From: Conner cortez MD PCP: Dr. Tomasz Coleman MD Status: DEP AMB Study: S-I Jts 3 or More Views Date of Exam: 07/12/24 Exam# [id number] Ordering Dr: Brandi Valdivia [id number] INDICATION: s/p si fusion EXAMINATION/TECHNIQU E: X-RAY - XR Sacroiliac Joints Min 3 Views 3 VIEWS COMPARISON: Prior study dated: CT 08/02/2023 ____ FINDINGS: There is existing fusion at the L5-S1 level. There is new fusion hardware across the right sacroiliac joint with [address] Hardware intact. Appropriate alignment. No acute fracture. The hips are well aligned. IUD in place in the pelvis. RAD/S-I Jts 3 or More Views IMPRESSION: Right sacroiliac joint fusion with appropriate alignment. Electronically Signed: Conner Wilson MD at 14:59 EDT , CC: NADIYA Palma; Dr. Tomasz Coleman MD Bioinformatics Team Member: Signed Normal [facility] L/S Spine Min 4 Viewson 05-13 L/S Spine Min 4 Views [facility] Imaging Services [address] [place] [address] L/S Spine Min 4 Views MR#: [id number] Acct: [id number] Name: DENISHA HILL Rep #: [id number] : 1990 F 33 From: Glenn Pulido MD PCP: Dr. Tomasz Coleman MD Status: REG CLI Study: L/S Spine Min 4 Views Date of Exam: 05/29/24 Exam# [id number] Ordering Dr: Papa Truong MD [id number] STUDY: X-RAY - LUMBAR SPINE REASON FOR EXAM: Female, 33 years old. FALL TECHNIQUE: 4 view(s) of the lumbar spine were obtained. COMPARISON: 10/25/2023 FINDINGS: Normal lumbar lordosis. There is no substantial scoliosis. Status post discectomy, interbody fusion, and anterior fixation at L5/S1 with anatomic alignment which is unchanged. Normal vertebral bodies and endplates. Normal disc space heights. The soft tissue structures are unremarkable. RAD/L/S Spine Min 4 Views IMPRESSION: 1. No acute fracture or subluxation. 2. Postsurgical changes L5/S1 which are unchanged. Electronically Signed: Glenn Pulido MD at 17:58 EDT , CC: Dr. Tomasz Coleman MD; Dr. Papa Truong MD Bioinformatics Team Member: Signed Normal [facility] Pelvis 1 or 2 Viewson 2023 Pelvis 1 or 2 Views [facility] Imaging Services [address] [place] [id number] Pelvis 1 or 2 Views MR#: [id number] Acct: [id number] Name: DENISHA HILL Rep #: [id number] : 1990 F 33 From: Mariano leach MD PCP: Dr. Tomasz Coleman MD Status: REG [facility] Study: Pelvis 1 or 2 Views Date of Exam: 05/29/24 Exam# [id number] Ordering Dr: Papa Truong MD [id number] STUDY: X-RAY - PELVIS REASON FOR EXAM: Female, 33 years old. FALL TECHNIQUE: One view of the pelvis was obtained. COMPARISON: None. FINDINGS: There is a non-specific bowel gas pattern. An IUD is seen within the uterus. Prior screw fixation of the right sacroiliac joint. Prior fusion at the L5-S1 level. Normal visualized bilateral superior and inferior pubic rami. Normal pubic symphysis. Normal ischial tuberosities. Normal visualized right femoral head. Normal right acetabulum. Normal right hip joint. Normal visualized left femoral head. Normal left acetabulum. Normal left hip joint. RAD/Pelvis 1 or 2 Views IMPRESSION: Status post fusion at the L5-S1 level with screw fixation of the right sacroiliac joint. Electronically Signed: Mariano Cavazos MD at 15:40 EDT , CC: Dr. Tomasz Coleman MD; Dr. Papa Truong MD Bioinformatics Team Member: Signed Normal [facility] Absolute lymphocyte countOrd ered By: Tomasz Coleman on 02-15-2024 Lymphocytes Auto (Unsp spec) [#/Vol] 1.56 10*3/uL 0.83-4.51 [facility] Automated lymphocyte count a s percentage of total leukocytesOrdered By: Tomasz Coleman on 02-15-2024 Lymphocytes/100 WBC Auto (Unsp spec) 25.8 % 19-41 [facility] Basophil percentageOrdered B y: Tomasz Coleman on 02-15-2024 Basophils/100 WBC (Bld) 0.5 % 0-1 [facility] Bilirubin [Mass/Vol] 0.40 mg/dL 0.20-1.00 [facility] Comment on above: For patients on eltr ombopag therapy, use of Dimension [place] TBIL is not recommended. Chloride [Moles/Vol] 105 mmol/L 98-107 [facility] Eosinophils/100 WBC (Bld) 1.3 % 0-5 [facility] Glucose [Mass/Vol] 96 mg/dL 74-106 [facility] Hemoglobin (Bld) [Mass/Vol] 11.6 g/dL 12.0-15.0 [facility] Monocytes/100 WBC (Bld) 7.0 % 0-10 [facility] Neutrophils (Bld) [#/Vol] 3.9 10*3/uL 2.0-7.7 [facility] Neutrophils/100 WBC (Bld) 65.2 % 47-70 [facility] Potassium [Moles/Vol] 3.6 mmol/L 3.5-5.1 [facility] Protein [Mass/Vol] 7.8 g/dL 6.4-8.2 [facility] Sodium [Moles/Vol] 136 mmol/L 136-145 [facility] WBC (Bld) [#/Vol] 6.0 10*3/uL 4.4-11.0 [facility] Determination of erythrocyte mean corpuscular volume (MCV)Ordered By: Tomasz Coleman on 02-15-2024 MCV (RBC) [Entitic vol] 80.9 fL 81-99 [facility] Erythrocyte distribution wid th ratioOrdered By: Tomasz Coleman on 02-15-2024 Erythrocyte distribution width (RBC) [Ratio] 13.3 % 11.6-14.6 [facility] Erythrocyte distribution wid th standard deviationOrdered By: Tomasz Coleman on 02-15-2024 Erythrocyte distribution width (RBC) [Entitic vol] 38.8 fL 35.1-43.9 [facility] Hematocrit Auto (Bld) [Volum e fraction]Ordered By: Tomasz Coleman on 02-15-2024 Hematocrit (Bld) [Volume fraction] 35.9 % 37-47 [facility] Immature granulocytes/100 WB C Auto (Bld)Ordered By: Tomasz Coleman on 02-15-2024 Immature granulocytes/100 WBC (Bld) 0.200 % 0.0-0.9 [facility] Comment on above: IG% - Immature Granu locytes (promyelocytes, myelocytes and metamyelocytes) > 1% indicates that a LEFT SHIFT is Present. Iron measurement (mass/mass) Ordered By: Tomasz Coleman on 02-15-2024 Iron (Unsp spec) [Mass/Mass] 44 ug/dL 50-170 [facility] Laboratory - Chemistry and C hemistry - challengeOrdered By: Tomasz Coleman on 02-15-2024 Albumin/Globulin [Mass ratio] 1.0 {ratio} 0.9-2.4 [facility] ALP [Catalytic activity/Vol] 60 U/L 45-117 [facility] ALT [Catalytic activity/Vol] 24 U/L 13-56 [facility] CO2 [Moles/Vol] 25.0 mmol/L 21.0-32.0 [facility] Ferritin [Mass/Vol] 19 ng/mL 8-252 [facility] Globulin (S) [Mass/Vol] 4.0 g/dL 2.2-4.2 [facility] Magnesium [Mass/Vol] 2.0 mg/dL 1.6-2.6 [facility] Urea nitrogen/Creatinine [Mass ratio] 5.9 mg/mg 10-20 [facility] Laboratory - Hematology and Cell countsOrdered By: Tomasz Coleman on 02-15-2024 MCH (RBC) [Entitic mass] 26.1 pg 27.0-32.0 [facility] MCHC (RBC) [Mass/Vol] 32.3 g/dL 32-36 [facility] Nucleated RBC/100 WBC (Bld) [Ratio] 0 % 0-5 [facility] Platelet mean volume (Bld) [Entitic vol] 11.2 fL 6.2-12.0 [facility] Platelets (Bld) [#/Vol] 321 10*3/uL 150-450 [facility] No Panel InformationOrdered By: Tomasz Coleman on 02-15-2024 Estimated GFR (MDRD) Amer 129 mL/min >60 [facility] Comment on above: GFR Calc Estimated GFR (MDRD) Non-Af Amer 107 mL/min >60 [facility] Comment on above: Non- GFR Calc Total Iron Binding Capacity 383 ug/dL 250-450 [facility] RBC Auto (Bld) [#/Vol]Ordere d By: Tomasz Coleman on 02-15-2024 RBC (Bld) [#/Vol] 4.44 10*6/uL 4.2-5.4 [facility] Serum or plasma calcium marge urement (mass/volume)Ordered By: Tomasz Coleman on 02-15-2024 Calcium [Mass/Vol] 9.0 mg/dL 8.5-10.1 [facility] Serum or plasma creatinine m easurement (mass/volume)Ordered By: Tomasz Coleman on 02-15-2024 Creatinine [Mass/Vol] 0.68 mg/dL 0.55-1.02 [facility] Comment on above: The validity of the calculated GFR & GFRAA in patients over 70 years has not been determined. Clinical correlation is essential. Serum or plasma iron saturat ion measurement (mass fraction)Ordered By: Tomasz Coleman on 02-15-2024 Iron saturation [Mass fraction] 11.5 % 15.0-55.0 [facility] Serum or plasma thyroid stim ulating hormone (TSH) measurement (units/volume)Ordered By: Tomasz Coleman on 02-15-2024 TSH Qn 1.52 uIU/mL 0.358-3.74 [facility] Serum or plasma urea nitroge n measurement (mass/volume)Ordered By: Tomasz Coleman on 02-15-2024 Urea nitrogen [Mass/Vol] 4 mg/dL 7-18 [facility] Thin prep Papanicolaou smear with manual screeningOrdered By: Tomasz Coleman on 02-15-2024 Thin prep Papanicolaou smear with manual screening 3.8 g/dL 3.2-5.0 [facility] Thin prep Papanicolaou smear with manual screening 13 U/L 15-37 [facility] Thin prep Papanicolaou smear with manual screening 6 5-15 [facility] Thin prep Papanicolaou smear with manual screeningOrdered By: Gerber Corey on 02-05-2024 Thin prep Papanicolaou smear with manual screening 126 mg/dL 74-106 [facility] Comment on above: MANAGEMENT OF PATIEN T CARE PER NURSING PROTOCOL Absolute lymphocyte countOrd ered By: Gerber Corey on 01-29-2024 Lymphocytes Auto (Unsp spec) [#/Vol] 1.33 10*3/uL 0.83-4.51 [facility] Automated lymphocyte count a s percentage of total leukocytesOrdered By: Gerber Corey on 01-29-2024 Lymphocytes/100 WBC Auto (Unsp spec) 20.7 % 19-41 [facility] Basophil percentageOrdered B y: Gerber Corey on 01-29-2024 Basophils/100 WBC (Bld) 0.5 % 0-1 [facility] Chloride [Moles/Vol] 109 mmol/L 98-107 [facility] Eosinophils/100 WBC (Bld) 0.8 % 0-5 [facility] Glucose [Mass/Vol] 99 mg/dL 74-106 [facility] Hemoglobin (Bld) [Mass/Vol] 13.0 g/dL 12.0-15.0 [facility] Monocytes/100 WBC (Bld) 6.9 % 0-10 [facility] Neutrophils (Bld) [#/Vol] 4.6 10*3/uL 2.0-7.7 [facility] Neutrophils/100 WBC (Bld) 70.9 % 47-70 [facility] Potassium [Moles/Vol] 3.4 mmol/L 3.5-5.1 [facility] Sodium [Moles/Vol] 138 mmol/L 136-145 [facility] WBC (Bld) [#/Vol] 6.4 10*3/uL 4.4-11.0 [facility] Determination of erythrocyte mean corpuscular volume (MCV)Ordered By: Gerber Corey on 01-29-2024 MCV (RBC) [Entitic vol] 80.0 fL 81-99 [facility] Erythrocyte distribution wid th ratioOrdered By: Gerber Corey on 01-29-2024 Erythrocyte distribution width (RBC) [Ratio] 13.6 % 11.6-14.6 [facility] Erythrocyte distribution wid th standard deviationOrdered By: Gerber Corey on 01-29-2024 Erythrocyte distribution width (RBC) [Entitic vol] 39.4 fL 35.1-43.9 [facility] HIV 1 and HIV-2 antibody ass ay with HIV-1 p24 antigen detectionOrdered By: Gerber Corey on 01-29-2024 HIV 1+2 Ab+HIV1 p24 Ag IA Ql Non-Reactive Nonreactive [facility] Hematocrit Auto (Bld) [Volum e fraction]Ordered By: Gerber Corey on 01-29-2024 Hematocrit (Bld) [Volume fraction] 39.3 % 37-47 [facility] Immature granulocytes/100 WB C Auto (Bld)Ordered By: Gerber Corey on 01-29-2024 Immature granulocytes/100 WBC (Bld) 0.200 % 0.0-0.9 [facility] Comment on above: IG% - Immature Granu locytes (promyelocytes, myelocytes and metamyelocytes) > 1% indicates that a LEFT SHIFT is Present. Laboratory - Chemistry and C hemistry - challengeOrdered By: Gerber Corey on 01-29-2024 CO2 [Moles/Vol] 23.0 mmol/L 21.0-32.0 [facility] Magnesium [Mass/Vol] 2.3 mg/dL 1.6-2.6 [facility] Urea nitrogen/Creatinine [Mass ratio] 4.6 mg/mg 10-20 [facility] Laboratory - Hematology and Cell countsOrdered By: Gerber Corey on 01-29-2024 MCH (RBC) [Entitic mass] 26.5 pg 27.0-32.0 [facility] MCHC (RBC) [Mass/Vol] 33.1 g/dL 32-36 [facility] Nucleated RBC/100 WBC (Bld) [Ratio] 0 % 0-5 [facility] Platelet mean volume (Bld) [Entitic vol] 11.7 fL 6.2-12.0 [facility] Platelets (Bld) [#/Vol] 280 10*3/uL 150-450 [facility] No Panel InformationOrdered By: Gerber Corey on 01-29-2024 Estimated GFR (MDRD) Amer 134 mL/min >60 [facility] Comment on above: GFR Calc Estimated GFR (MDRD) Non-Af Amer 111 mL/min >60 [facility] Comment on above: Non- GFR Calc Hepatitis A Antibody Total Negative Negative [facility] Comment on above: Comment: The HAV tot al antibody assay detects both IgG andIgM but does not differentiate between them. A negativeresult suggests susceptibility to infection. A positiveresult could be due to vaccination, previously resolvedinfection or active infection. Testing for HAV IgM shouldbe performed if active HAV infection is suspected. [facility] profiles that will automatically reflex positive HAVtotal antibody results to IgM (e.g., panel #[id number] HAVAntibody w/ Rfx).Performed at: [address] [id number] Director: Christian Miranda PhD, Phone: [phone] Hepatitis C Antibody Non-Reactive Nonreactive [facility] Comment on above: Non Reactive: < 0.8 Equivocal: >/= 0.8 to < 1.0 Reactive: >/= 1.0The CDC requires that a reactive/equivocal HCV antibody result be sent out for confirmation. HCV Quant by PCR testing. Nasal Screen MRSA/MSSA [facility] RBC Auto (Bld) [#/Vol]Ordere d By: Gerber Corey on 01-29-2024 RBC (Bld) [#/Vol] 4.91 10*6/uL 4.2-5.4 [facility] Serum hepatitis B virus surf ken antibody IgG detectionOrdered By: Gerber Corey on 01-29-2024 HBV surface IgG Ql (S) Reactive [facility] Comment on above: Non Reactive: Incons istent with immunity less than <10 mIU/mL Reactive: Consistent with immunity greater than or equal to 10 mIU/mL Serum or plasma calcium marge urement (mass/volume)Ordered By: Gerber Corey on 01-29-2024 Calcium [Mass/Vol] 9.2 mg/dL 8.5-10.1 [facility] Serum or plasma creatinine m easurement (mass/volume)Ordered By: Gerber Corey on 01-29-2024 Creatinine [Mass/Vol] 0.65 mg/dL 0.55-1.02 [facility] Comment on above: The validity of the calculated GFR & GFRAA in patients over 70 years has not been determined. Clinical correlation is essential. Serum or plasma urea nitroge n measurement (mass/volume)Ordered By: Gerber Corey on 01-29-2024 Urea nitrogen [Mass/Vol] 3 mg/dL 05-30 [facility] Thin prep Papanicolaou smear with manual screeningOrdered By: Gerber Corey on 01-29-2024 Thin prep Papanicolaou smear with manual screening 6 03-27 [facility] Absolute lymphocyte countOrd ered By: Sandy Staton on 07-05-2023 Lymphocytes Auto (Unsp spec) [#/Vol] 0.85 10*3/uL 0.83-4.51 [facility] Basophil percentageOrdered B y: Sandy Staton on 07-05-2023 Basophils/100 WBC (Bld) 0.1 % 0-1 [facility] Bilirubin [Mass/Vol] 0.60 mg/dL 0.20-1.00 [facility] Comment on above: For patients on eltr ombopag therapy, use of Dimension [place] TBIL is not recommended. Chloride [Moles/Vol] 108 mmol/L 98-107 [facility] Eosinophils/100 WBC (Bld) 0.0 % 0-5 [facility] Glucose [Mass/Vol] 116 mg/dL 74-106 [facility] Comment on above: Fasting Glucose resu lt from 100 to 125 mg/dL suggests IMPAIRED HOMEOSTASIS per A.D.A. criteria. Neutrophils (Bld) [#/Vol] 12.1 10*3/uL 2.0-7.7 [facility] Neutrophils/100 WBC (Bld) 88.5 % 47-70 [facility] Potassium [Moles/Vol] 3.8 mmol/L 3.5-5.1 [facility] Protein [Mass/Vol] 7.0 g/dL 6.4-8.2 [facility] Sodium [Moles/Vol] 141 mmol/L 136-145 [facility] WBC (Bld) [#/Vol] 13.7 10*3/uL 4.4-11.0 [facility] Blood erythrocytes count (nu mber/volume)Ordered By: Sandy Brionna on 07-05-2023 RBC (Bld) [#/Vol] 4.39 10*6/uL 4.2-5.4 [facility] Blood hemoglobin measurement (mass/volume)Ordered By: Sandy Brionna on 07-05-2023 Hemoglobin (Bld) [Mass/Vol] 11.6 g/dL 12.0-15.0 [facility] Blood lymphocytes/100 leukoc ytesOrdered By: White on 07-05-2023 Lymphocytes/100 WBC (Bld) 6.2 % 19-41 [facility] Blood monocytes/100 leukocyt esOrdered By: White on 07-05-2023 Monocytes/100 WBC (Bld) 4.8 % 0-10 [facility] Blood platelet mean volumeOr dered By: White on 07-05-2023 Platelet mean volume (Bld) [Entitic vol] 10.7 fL 6.2-12.0 [facility] Determination of erythrocyte mean corpuscular volume (MCV)Ordered By: Sandy Staton on 07-05-2023 MCV (RBC) [Entitic vol] 80.2 fL 81-99 [facility] Hematocrit Auto (Bld) [Volum e fraction]Ordered By: Sandy Staton on 07-05-2023 Hematocrit (Bld) [Volume fraction] 35.2 % 37-47 [facility] Laboratory - Chemistry and C hemistry - challengeOrdered By: Sandy Staton on 07-05-2023 ALP [Catalytic activity/Vol] 50 U/L 45-117 [facility] ALT [Catalytic activity/Vol] 34 U/L 13-56 [facility] CO2 [Moles/Vol] 27.0 mmol/L 21.0-32.0 [facility] Globulin (S) [Mass/Vol] 3.7 g/dL 2.2-4.2 [facility] Urea nitrogen/Creatinine [Mass ratio] 10.5 mg/mg 10-20 [facility] Laboratory - Hematology and Cell countsOrdered By: [facility] Brionna on 07-05-2023 Erythrocyte distribution width (RBC) [Entitic vol] 37.6 fL 35.1-43.9 [facility] Erythrocyte distribution width (RBC) [Ratio] 13.2 % 11.6-14.6 [facility] Immature granulocytes/100 WBC (Bld) 0.400 % 0.0-0.9 [facility] Comment on above: IG% - Immature Granu locytes (promyelocytes, myelocytes and metamyelocytes) > 1% indicates that a LEFT SHIFT is Present. MCH (RBC) [Entitic mass] 26.4 pg 27.0-32.0 [facility] Nucleated RBC/100 WBC (Bld) [Ratio] 0 % 0-5 [facility] MCHC Auto (RBC) [Mass/Vol]Or dered By: Sandy Staton on 07-05-2023 MCHC (RBC) [Mass/Vol] 33.0 g/dL 32-36 [facility] No Panel InformationOrdered By: Sandy Staton on 07-05-2023 Estimated Creatinine Clearance Calc 192.37 ml/min [facility] Estimated GFR (MDRD) Amer 156 mL/min >60 [facility] Comment on above: GFR Calc Estimated GFR (MDRD) Non-Af Amer 129 mL/min >60 [facility] Comment on above: Non- GFR Calc Platelets bldOrdered By: Jennie cedrick Brionna on 07-05-2023 Platelets (Bld) [#/Vol] 292 10*3/uL 150-450 [facility] Serum or plasma albumin marge urement (mass/volume)Ordered By: Snady Staton on 07-05-2023 Albumin [Mass/Vol] 3.3 g/dL 3.2-5.0 [facility] Serum or plasma albumin/glob ulin mass ratioOrdered By: Sandy Staton on 07-05-2023 Albumin/Globulin [Mass ratio] 0.9 {ratio} 0.9-2.4 [facility] Serum or plasma calcium marge urement (mass/volume)Ordered By: Sandy Staton on 07-05-2023 Calcium [Mass/Vol] 8.8 mg/dL 8.5-10.1 [facility] Serum or plasma creatinine m easurement (mass/volume)Ordered By: Sandy Staton on 07-05-2023 Creatinine [Mass/Vol] 0.57 mg/dL 0.55-1.02 [facility] Comment on above: The validity of the calculated GFR & GFRAA in patients over 70 years has not been determined. Clinical correlation is essential. Serum or plasma urea nitroge n measurement (mass/volume)Ordered By: Sandy Staton on 07-05-2023 Urea nitrogen [Mass/Vol] 6 mg/dL 7-18 [facility] Thin prep Papanicolaou smear with manual screeningOrdered By: Sandy Staton on 07-05-2023 Thin prep Papanicolaou smear with manual screening 27 U/L 15-37 [facility] Thin prep Papanicolaou smear with manual screening 6 5-15 [facility] Glucose Glucometer (BldC) [M ass/Vol]Ordered By: Gerber Corey on 07-04-2023 Glucose [Mass/Vol] 103 mg/dL 74-106 [facility] Comment on above: MANAGEMENT OF PATIEN T CARE PER NURSING PROTOCOL HIV 1 and HIV-2 antibody ass ay with HIV-1 p24 antigen detectionOrdered By: Gerber Corey on 06-20-2023 HIV 1+2 Ab+HIV1 p24 Ag IA Ql Non-Reactive Nonreactive [facility] INR in Blood by Coagulation assayOrdered By: Emmett Rangel on 06-20-2023 INR Coag (Bld) [Relative time] 1.0 {INR} [facility] Laboratory - Chemistry and C hemistry - challengeOrdered By: Emmett Rangel on 06-20-2023 Magnesium [Mass/Vol] 2.2 mg/dL 1.6-2.6 [facility] Laboratory - CoagulationOrde red By: Emmett Rangel on 06-20-2023 aPTT Coag (Bld) [Time] 28.5 s 24.1-36.2 [facility] PT Coag (PPP) [Time] 13.7 s 11.7-14.9 [facility] No Panel InformationOrdered By: Gerber Corey on 06-20-2023 Hepatitis A Antibody Total Positive Negative [facility] Comment on above: Performed at: [place] [id number] Director: Christian Miranda PhD, Phone: [phone] Hepatitis C Antibody Non-Reactive Nonreactive [facility] Comment on above: Non Reactive: < 0.8 Equivocal: >/= 0.8 to < 1.0 Reactive: >/= 1.0The CDC recommends that a reactive/equivocal HCV antibody result be followed up by the HCV Nucleic Acid Amplificationtest (156427) Nasal Screen MRSA/MSSA [facility] Serum hepatitis B virus surf ken antibody IgG detectionOrdered By: Gerber Corey on 06-20-2023 HBV surface IgG Ql (S) Reactive [facility] Comment on above: Non Reactive: Incons istent with immunity less than <10 mIU/mL Reactive: Consistent with immunity greater than or equal to 10 mIU/mL Glucose Glucometer (BldC) [M ass/Vol]Ordered By: Dr. Corey on 03-07-2023 Glucose [Mass/Vol] 110 mg/dL 74-106 [facility] Comment on above: MANAGEMENT OF PATIEN T CARE PER NURSING PROTOCOL No Panel InformationOrdered By: Dr. Corey on 02-28-2023 Nasal Screen MRSA/MSSA [facility] HIV 1 and HIV-2 antibody ass ay with HIV-1 p24 antigen detectionOrdered By: Dr. Corey on 02-27-2023 HIV 1+2 Ab+HIV1 p24 Ag IA Ql Non-Reactive Nonreactive [facility] INR in Blood by Coagulation assayOrdered By: Dr. Rangel on 02-27-2023 INR Coag (Bld) [Relative time] 1.2 {INR} [facility] Laboratory - CoagulationOrde red By: Dr. Rangel on 02-27-2023 aPTT Coag (Bld) [Time] 28.9 s 24.1-36.2 [facility] PT Coag (PPP) [Time] 15.1 s 11.7-14.9 [facility] No Panel InformationOrdered By: Dr. Corey on 02-27-2023 Hepatitis A Antibody Total Negative Negative [facility] Comment on above: Performed at: [place] [id number] Director: Christian Miranda PhD, Phone: [phone] Hepatitis C Antibody Non-Reactive Nonreactive [facility] Comment on above: Non Reactive: < 0.8 Equivocal: >/= 0.8 to < 1.0 Reactive: >/= 1.0The CDC recommends that a reactive/equivocal HCV antibody result be followed up by the HCV Nucleic Acid Amplificationtest (453703) Serum hepatitis B virus surf ken antibody IgG detectionOrdered By: Dr. Corey on 02-27-2023 HBV surface IgG Ql (S) Reactive [facility] Comment on above: Non Reactive: Incons istent with immunity less than <10 mIU/mL Reactive: Consistent with immunity greater than or equal to 10 mIU/mL Absolute lymphocyte countOrd ered By: Dr. Coleman on 01-24-2023 Lymphocytes Auto (Unsp spec) [#/Vol] 1.70 10*3/uL 0.83-4.51 [facility] Basophil percentageOrdered B y: Dr. Coleman on 01-24-2023 Basophils/100 WBC (Bld) 0.3 % 0-1 [facility] Bilirubin [Mass/Vol] 0.50 mg/dL 0.20-1.00 [facility] Comment on above: For patients on eltr ombopag therapy, use of Dimension [place] TBIL is not recommended. Chloride [Moles/Vol] 106 mmol/L 98-107 [facility] Eosinophils/100 WBC (Bld) 1.0 % 0-5 [facility] Glucose [Mass/Vol] 100 mg/dL 74-106 [facility] Comment on above: Fasting Glucose resu lt from 100 to 125 mg/dL suggests IMPAIRED HOMEOSTASIS per A.D.A. criteria. Neutrophils (Bld) [#/Vol] 6.6 10*3/uL 2.0-7.7 [facility] Neutrophils/100 WBC (Bld) 72.9 % 47-70 [facility] Potassium [Moles/Vol] 3.6 mmol/L 3.5-5.1 [facility] Protein [Mass/Vol] 7.8 g/dL 6.4-8.2 [facility] Sodium [Moles/Vol] 139 mmol/L 136-145 [facility] WBC (Bld) [#/Vol] 9.1 10*3/uL 4.4-11.0 [facility] Blood erythrocytes count (nu mber/volume)Ordered By: Dr. Coleman on 01-24-2023 RBC (Bld) [#/Vol] 4.75 10*6/uL 4.2-5.4 [facility] Blood hemoglobin measurement (mass/volume)Ordered By: Dr. Coleman on 01-24-2023 Hemoglobin (Bld) [Mass/Vol] 13.2 g/dL 12.0-15.0 [facility] Blood lymphocytes/100 leukoc ytesOrdered By: Dr. Coleman on 01-24-2023 Lymphocytes/100 WBC (Bld) 18.7 % 19-41 [facility] Blood monocytes/100 leukocyt esOrdered By: Dr. Coleman on 01-24-2023 Monocytes/100 WBC (Bld) 6.9 % 0-10 [facility] Blood platelet mean volumeOr dered By: Dr. Coleman on 01-24-2023 Platelet mean volume (Bld) [Entitic vol] 10.9 fL 6.2-12.0 [facility] Determination of erythrocyte mean corpuscular volume (MCV)Ordered By: Dr. Coleman on 01-24-2023 MCV (RBC) [Entitic vol] 81.7 fL 81-99 [facility] Hematocrit Auto (Bld) [Volum e fraction]Ordered By: Dr. Coleman on 01-24-2023 Hematocrit (Bld) [Volume fraction] 38.8 % 37-47 [facility] Iron measurement (mass/mass) Ordered By: Dr. Coleman on 01-24-2023 Iron (Unsp spec) [Mass/Mass] 69 ug/dL 50-170 [facility] Laboratory - Chemistry and C hemistry - challengeOrdered By: Dr. Coleman on 01-24-2023 ALP [Catalytic activity/Vol] 53 U/L 45-117 [facility] ALT [Catalytic activity/Vol] 40 U/L 13-56 [facility] CO2 [Moles/Vol] 24.0 mmol/L 21.0-32.0 [facility] Cobalamin (Vitamin B12) [Mass/Vol] 475 pg/mL 211-911 [facility] Globulin (S) [Mass/Vol] 3.9 g/dL 2.2-4.2 [facility] Magnesium [Mass/Vol] 2.2 mg/dL 1.6-2.6 [facility] Urea nitrogen/Creatinine [Mass ratio] 12.3 mg/mg 10-20 [facility] Laboratory - Hematology and Cell countsOrdered By: Dr. Coleman on 01-24-2023 Erythrocyte distribution width (RBC) [Entitic vol] 40.1 fL 35.1-43.9 [facility] Erythrocyte distribution width (RBC) [Ratio] 13.6 % 11.6-14.6 [facility] Immature granulocytes/100 WBC (Bld) 0.200 % 0.0-0.9 [facility] Comment on above: IG% - Immature Granu locytes (promyelocytes, myelocytes and metamyelocytes) > 1% indicates that a LEFT SHIFT is Present. MCH (RBC) [Entitic mass] 27.8 pg 27.0-32.0 [facility] Nucleated RBC/100 WBC (Bld) [Ratio] 0 % 0-5 [facility] MCHC Auto (RBC) [Mass/Vol]Or dered By: Dr. Coleman on 01-24-2023 MCHC (RBC) [Mass/Vol] 34.0 g/dL 32-36 [facility] No Panel InformationOrdered By: Dr. Coleman on 01-24-2023 Estimated GFR (MDRD) Amer 135 mL/min >60 [facility] Comment on above: GFR Calc Estimated GFR (MDRD) Non-Af Amer 112 mL/min >60 [facility] Comment on above: Non- GFR Calc Thyroid Stimulating Hormone (TSH) 1.25 uIU/mL 0.358-3.74 [facility] Total Iron Binding Capacity 387 ug/dL 250-450 [facility] Platelets bldOrdered By: Dr. Coleman on 01-24-2023 Platelets (Bld) [#/Vol] 271 10*3/uL 150-450 [facility] Serum or plasma albumin marge urement (mass/volume)Ordered By: Dr. Coleman on 01-24-2023 Albumin [Mass/Vol] 3.9 g/dL 3.2-5.0 [facility] Serum or plasma albumin/glob ulin mass ratioOrdered By: Dr. Coleman on 01-24-2023 Albumin/Globulin [Mass ratio] 1.0 {ratio} 0.9-2.4 [facility] Serum or plasma calcium marge urement (mass/volume)Ordered By: Dr. Coleman on 01-24-2023 Calcium [Mass/Vol] 9.3 mg/dL 8.5-10.1 [facility] Serum or plasma creatinine m easurement (mass/volume)Ordered By: Dr. Coleman on 01-24-2023 Creatinine [Mass/Vol] 0.65 mg/dL 0.55-1.02 [facility] Comment on above: The validity of the calculated GFR & GFRAA in patients over 70 years has not been determined. Clinical correlation is essential. Serum or plasma ferritin kalin surement (mass/volume)Ordered By: Dr. Coleman on 01-24-2023 Ferritin [Mass/Vol] 25 ng/mL 8-252 [facility] Serum or plasma folate measu rement (mass/volume)Ordered By: Dr. Coleman on 01-24-2023 Folate [Mass/Vol] 8.90 ng/mL 3.1-55.4 [facility] Serum or plasma urea nitroge n measurement (mass/volume)Ordered By: Dr. Coleman on 01-24-2023 Urea nitrogen [Mass/Vol] 8 mg/dL 7-18 [facility] Thin prep Papanicolaou smear with manual screeningOrdered By: Dr. Coleman on 01-24-2023 Thin prep Papanicolaou smear with manual screening 21 U/L 15-37 [facility] Thin prep Papanicolaou smear with manual screening 9 5-15 [facility] ED NOTEon 11-27-2022 ED NOTE HNO ID: [id number] Author: Liset Freire RN Service: ? Author Type: Registered Nurse Type: ED Notes Filed: 11/27/2022 8:35 AM Note Text: Pt arrives with steady gait to ED bed 10 C/O left upper tooth abscess noted on On Monday end of broom got stuck on chair When she pulled up on broomstick, hit left side of mouth with broom handle Reports pain and swelling Normal [facility] ED PROV NOTEon 11-27-2022 ED PROV NOTE HNO ID: [id number] Author: Eneida Chavez MD Service: Emergency Medicine Author Type: Physician Type: ED Provider Notes Filed: 11/27/2022 10:05 AM Note Text: ED Provider Note Patient Name: Denisha Hill : 1990 SERVICE DATE: 11/27/22 History Patient presents with: Mouth/Lip Problem Dental Problem Patient is a 32-year-old female presenting today for complaint of facial swelling. Patient states that she noted some changes to her gumline along her left molar area where she has a broken tooth. She showed it to her sister and they thought it might be an abscess. She states they were white spots that were bigger than they are today. This was 3 days ago. States there was some achiness to the area initially. Did not seek any medical attention. States she sweeping the floor with a broom 2 days ago. She states the broom got stuck underneath of a chair and when she went to pull back it broke free, causing the bruising handle to hit her in the face just along the left upper lip to left nares area. States she had swelling in the left upper lip that progressed yesterday while working. She states today she woke up and noted swelling along her left cheek into her left under eye as well as along the left lip and nares area. The left lip is gone down since yesterday. She is concerned she may have an infection from the dental issue and so she presents here today. She states the pain along the area of the blemishes on her gums is actually improving, get the swelling today is more widespread. PAST MEDICAL HISTORY Diagnosis Date Anemia Cardiac murmur Iron malabsorption 12/31/2020 PAST SURGICAL HISTORY Procedure Laterality Date SECTION HX CHOLECYSTECTOMY HX TUBAL LIGATION HX FAMILY HISTORY Problem Relation Age of Onset Hypertension Maternal Grandmother Stroke Maternal Grandmother Arthritis Maternal Grandmother Cervical Cancer Sister Lung Cancer Maternal Aunt other (lung cancer, bone cancer) Maternal Uncle Social History Tobacco Use Smoking status: Former Years: 15.00 Types: Cigarettes Quit date: 11/24/2021 Years since quittin.0 Smokeless tobacco: Never Tobacco comments: Pt has cut back to 2 cigarettes daily. Vaping Use Vaping Use: Never used Substance and Sexual Activity Alcohol use: Yes Comment: socially Drug use: No Sexual activity: Yes Partners: Male ALLERGIES Allergen Reactions Adhesive Tape-Silic* Rash Review of Systems Constitutional: Negative for activity change, appetite change, chills, fatigue and fever. HENT: Positive for dental problem and facial swelling. Negative for congestion, ear pain, rhinorrhea and sore throat. Respiratory: Negative for cough and shortness of breath. Cardiovascular: Negative for chest pain and palpitations. Gastrointestinal: Negative for abdominal pain, diarrhea, nausea and vomiting. Genitourinary: Negative for dysuria, frequency and urgency. Musculoskeletal: Negative for arthralgias and myalgias. Skin: Negative for rash and wound. Neurological: Negative for dizziness and headaches. Psychiatric/Behavior al: Negative for self-injury and suicidal ideas. All other systems reviewed and are negative. Physical Exam Vitals [11/27/22 0830] BP Pulse Temp Temp src Resp SpO2 Weight Height 104/63 82 37.1 ?C (98.7 ?F) Temporal 16 100 % 73.9 kg (163 lb) -- Physical Exam Vitals and nursing note reviewed. Constitutional: General: She is not in acute distress. Appearance: She is well-developed. HENT: Head: Normocephalic and atraumatic. Nose: Nose normal. Mouth/Throat: Mouth: Mucous membranes are moist. Comments: Patient has a broken tooth at the second premolar on the left upper mandible. External gum there are 2 small superficial white dots. There is no swelling. There is no fluctuance. The white blemishes do not appear ulcerated. There is no swelling to the buccal mucosa. The patient has mild swelling to the left upper lip into the left face along the exterior nares and medial zygomatic arch. No bruising noted on exam. No swelling to her eyelids. Eyes: Pupils: Pupils are equal, round, and reactive to light. Cardiovascular: Rate and Rhythm: Normal rate and regular rhythm. Heart sounds: Normal heart sounds. Pulmonary: Effort: Pulmonary effort is normal. No respiratory distress. Breath sounds: Normal breath sounds. Abdominal: General: Bowel sounds are normal. There is no distension. Palpations: Abdomen is soft. Tenderness: There is no abdominal tenderness. Musculoskeletal: General: Normal range of motion. Cervical back: Normal range of motion and neck supple. Right lower leg: No edema. Left lower leg: No edema. Skin: General: Skin is warm and dry. Neurological: General: No focal deficit present. Mental Status: She is alert and oriented to person, place, and time. GCS: GCS eye subscore is 4. GCS verbal subscore is 5. GCS mo (more content not included)... Normal [facility] Absolute lymphocyte counton 08-09-2022 Lymphocytes Auto (Unsp spec) [#/Vol] 1.57 10*3/uL 0.83-4.51 [facility] Work Phone: Basophil percentageon 2021 Basophils/100 WBC (Bld) 0.4 % 0-1 [facility] Work Phone: Chloride [Moles/Vol] 105 mmol/L 98-107 [facility] Work Phone: Eosinophils/100 WBC (Bld) 1.1 % 0-5 [facility] Work Phone: Glucose [Mass/Vol] 88 mg/dL 74-106 [facility] Work Phone: Neutrophils (Bld) [#/Vol] 6.1 10*3/uL 2.0-7.7 [facility] Work Phone: Neutrophils/100 WBC (Bld) 70.7 % 47-70 [facility] Work Phone: Potassium [Moles/Vol] 4.1 mmol/L 3.5-5.1 [facility] Work Phone: Comment on above: Moderate Hemolysis, Result may be falsely increased. Sodium [Moles/Vol] 139 mmol/L 136-145 [facility] Work Phone: WBC (Bld) [#/Vol] 8.6 10*3/uL 4.4-11.0 [facility] Work Phone: Beta hCG serum qualon 2021 Beta HCG ( test) Ql Negative [facility] Work Phone: Blood erythrocytes count (nu mber/volume)on 08-09-2022 RBC (Bld) [#/Vol] 4.56 10*6/uL 4.2-5.4 [facility] Work Phone: Blood hemoglobin measurement (mass/volume)on 08-09-2022 Hemoglobin (Bld) [Mass/Vol] 12.5 g/dL 12.0-15.0 [facility] Work Phone: Blood lymphocytes/100 leukoc yteson 08-09-2022 Lymphocytes/100 WBC (Bld) 18.3 % 19-41 [facility] Work Phone: Blood monocytes/100 leukocyt eson 08-09-2022 Monocytes/100 WBC (Bld) 9.1 % 0-10 [facility] Work Phone: Blood platelet mean volumeon 08-09-2022 Platelet mean volume (Bld) [Entitic vol] 11.1 fL 6.2-12.0 [facility] Work Phone: Determination of erythrocyte mean corpuscular volume (MCV)on 08-09-2022 MCV (RBC) [Entitic vol] 84.2 fL 81-99 [facility] Work Phone: [phone] Hematocrit Auto (Bld) [Volum e fraction]on 08-09-2022 Hematocrit (Bld) [Volume fraction] 38.4 % 37-47 [facility] Work Phone: [phone] Laboratory - Chemistry and C hemistry - challengeon 08-09-2022 CO2 [Moles/Vol] 28.0 mmol/L 21.0-32.0 [facility] Work Phone: [phone] Urea nitrogen/Creatinine [Mass ratio] 12.6 mg/mg 10-20 [facility] Work Phone: [phone] Laboratory - Hematology and Cell countson 08-09-2022 Erythrocyte distribution width (RBC) [Entitic vol] 40.8 fL 35.1-43.9 [facility] Work Phone: [phone] Erythrocyte distribution width (RBC) [Ratio] 13.2 % 11.6-14.6 [facility] Work Phone: [phone] Immature granulocytes/100 WBC (Bld) 0.400 % 0.0-0.9 [facility] Work Phone: [phone] Comment on above: IG% - Immature Granu locytes (promyelocytes, myelocytes and metamyelocytes) > 1% indicates that a LEFT SHIFT is Present. MCH (RBC) [Entitic mass] 27.4 pg 27.0-32.0 [facility] Work Phone: [phone] Nucleated RBC/100 WBC (Bld) [Ratio] 0 % 0-5 [facility] Work Phone: [phone] MCHC Auto (RBC) [Mass/Vol]on 08-09-2022 MCHC (RBC) [Mass/Vol] 32.6 g/dL 32-36 [facility] Work Phone: [phone] No Panel Informationon 08-09 Estimated Creatinine Clearance Calc 140.14 ml/min [facility] Work Phone: [phone] Estimated GFR (MDRD) Amer 140 mL/min >60 [facility] Work Phone: [phone] Comment on above: GFR Calc Estimated GFR (MDRD) Non-Af Amer 115 mL/min >60 [facility] Work Phone: Comment on above: Non- GFR Calc Platelets bldon 08-09-2022 Platelets (Bld) [#/Vol] 259 10*3/uL 150-450 [facility] Work Phone: Serum or plasma calcium marge urement (mass/volume)on 08-09-2022 Calcium [Mass/Vol] 9.4 mg/dL 8.5-10.1 [facility] Work Phone: Serum or plasma creatinine m easurement (mass/volume)on 08-09-2022 Creatinine [Mass/Vol] 0.64 mg/dL 0.55-1.02 [facility] Work Phone: Comment on above: The validity of the calculated GFR & GFRAA in patients over 70 years has not been determined. Clinical correlation is essential. Serum or plasma urea nitroge n measurement (mass/volume)on 08-09-2022 Urea nitrogen [Mass/Vol] 8 mg/dL 7-18 [facility] Work Phone: Thin prep Papanicolaou smear with manual screeningon 08-09-2022 Thin prep Papanicolaou smear with manual screening 6 5-15 [facility] Work Phone: ED NOTEon 08-08-2022 ED NOTE HNO ID: [id number] Author: Magali James RN Service: Emergency Medicine Author Type: Registered Nurse Type: ED Notes Filed: 08/08/2022 12:35 AM Note Text: Pt verbalizes understanding of discharge instructions. Denies further questions, comments, concerns at this time. Normal [facility] ED NOTE HNO ID: [id number] Author: Arnie Jansen RN Service: Emergency Medicine Author Type: Registered Nurse Type: ED Notes Filed: 08/08/2022 10:44 AM Note Text: Patient Call Back Information How are you doing ? better Did we appropriately manage your pain? Yes Did you understand your discharge instructions? Yes Did you get your prescriptions filled? Yes Were you able to make a follow-up appointment with your physician? Yes Were you comfortable during your stay here? Yes Did a member of the ER nursing team round on you during your visit? Yes You will receive a patient satisfaction survey in the mail in the nest 2 weeks, please take the time to fill out the survey as your input from your ER visit is very important to us. Yes Can we do anything else to help you? No Normal [facility] ED PROV NOTEon 08-08-2022 ED PROV NOTE HNO ID: [id number] Author: Rosa Maria Garcia MD Service: Emergency Medicine Author Type: Physician Type: ED Provider Notes Filed: 08/08/2022 6:41 AM Note Text: ED Provider Note Patient Name: Denisha Hill : 1990 SERVICE DATE: 08/07/22 History Patient presents with: Arm Pain This is a gpbeo-hbmo-ewajbhxk female, who presents the emergency room with complaints of left elbow and forearm pain, swelling. Patient denies any known injury or trauma, and she stated her symptoms began approximately 2 days ago. Patient lifts boxes and does lifting at work however she does not think she injured it at work. Patient says she has a small reddened area over her left elbow. Patient went to an urgent care earlier today, she was given steroids, a tetanus shot however she has not taken the steroids because they did not think they would help her. Patient denies any fevers. Arm Pain Severity: Moderate Onset quality: Gradual Duration: 2 days Progression: Worsening Chronicity: New Associated symptoms: myalgias and rash Associated symptoms: no fever PAST MEDICAL HISTORY Diagnosis Date Anemia Cardiac murmur Iron malabsorption 12/31/2020 PAST SURGICAL HISTORY Procedure Laterality Date SECTION HX CHOLECYSTECTOMY HX TUBAL LIGATION HX FAMILY HISTORY Problem Relation Age of Onset Hypertension Maternal Grandmother Stroke Maternal Grandmother Arthritis Maternal Grandmother Cervical Cancer Sister Lung Cancer Maternal Aunt other (lung cancer, bone cancer) Maternal Uncle Social History Tobacco Use Smoking status: Every Day Packs/day: 0.50 Years: 15.00 Pack years: 7.50 Types: Cigarettes Smokeless tobacco: Never Tobacco comments: Pt has cut back to 2 cigarettes daily. Vaping Use Vaping Use: Never used Substance and Sexual Activity Alcohol use: Yes Comment: socially Drug use: No Sexual activity: Yes Partners: Male ALLERGIES Allergen Reactions Adhesive Tape-Silic* Rash Review of Systems Constitutional: Negative for fever. Musculoskeletal: Positive for myalgias. Left arm pain and swelling Skin: Positive for rash. All other systems reviewed and are negative. Physical Exam Vitals [08/07/221939] BP Pulse Temp Temp src Resp SpO2 Weight Height 145/89 86 37.1 ?C (98.8 ?F) -- 18 100 % 70.8 kg (156 lb) 1.448 m (4' 9) Physical Exam Vitals and nursing note reviewed. Constitutional: General: She is not in acute distress. Appearance: Normal appearance. She is not ill-appearing or toxic-appearing. HENT: Head: Normocephalic and atraumatic. Eyes: General: Right eye: No discharge. Left eye: No discharge. Pulmonary: Effort: No respiratory distress. Musculoskeletal: General: Swelling and tenderness present. Comments: Patient has a very large area of soft tissue swelling, of her left arm, extending from the elbow, over the Elocon process, the distal two thirds of her arm, there is swelling is approximate 15 x 12 cm in diameter, and is very well demarcated. The more proximal portions on the elbow are somewhat erythematous however the color change dissipates as it progresses distally, the tissue is soft, however is very tender to palpation, there is no obvious fluctuant masses, this is more so on the ulnar aspect of the arm, it does not extend circumferentially. Distally patient is neurovascular intact for the left forearm, fingers, she has strong radial pulse, full morning duration of her fingers without any pain or limitations, good flexion extension supination of the hand, strong handgrip strength Skin: General: Skin is warm and dry. Comments: Regular the left elbow, all, proximal, is a small scabbed over lesion approximately 1 cm in diameter, the surrounding skin is dry, however there is an increased patch of increased warmth, erythema, tenderness and approximately 6 to 8 cm area directly around the scabbed over lesion, the bursectomy be slightly inflamed,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 [facility] 08-02-2023 14:08-0400 SaO2% (BldA) [Mass fraction] 99 % Dr. Tomasz Coleman Work Phone: [facility] 08-02-2023 14:08-0400 Systolic blood pressure 128 mm[Hg] Dr. Tomasz Coleman Work Phone: [facility] [facility] 07-[facility]-2023 14:15-0400 Body temperature 98.1 [degF] Dr. Tomasz Coleman Work Phone: [facility] 07-06-2023 14:15-0400 Diastolic blood pressure 60 mm[Hg] Dr. Tomasz Coleman Work Phone: [facility] 07-06-2023 14:15-0400 Heart rate 78 /min Dr. Tomasz Coleman Work Phone: [facility] 07-06-2023 14:15-0400 Respiratory rate 18 /min Dr. Tomasz Coleman Work Phone: [facility] 07-06-2023 14:15-0400 SaO2% (BldA) [Mass fraction] 97 % Dr. Tomasz Coleman Work Phone: [facility] 07-06-2023 14:15-0400 Systolic blood pressure 110 mm[Hg] Dr. Tomasz Coleman Work Phone: [facility] 07-04-2023 16:58-0400 Body height 144.[address] Tomasz Coleman Work Phone: [facility] 07-04-2023 16:58-0400 Body mass index (BMI) [Ratio] 41 kg/m2 Dr. Tomasz Coleman Work Phone: [facility] 07-04-2023 16:58-0400 Body weight [address] Tomasz Coleman Work Phone: [facility] 07-04-2023 16:15-0400 Inhaled oxygen flow rate 4 L/min Dr. Tomasz Coleman Work Phone: [facility] 03-08-2023 14:11-0400 Body temperature 98.3 [degF] Dr. Tomasz Coleman Work Phone: [facility] 03-08-2023 14:11-0400 Diastolic blood pressure 68 mm[Hg] Dr. Tomasz Coleman Work Phone: [facility] 03-08-2023 14:11-0400 Heart rate 88 /min Dr. Tomasz Coleman Work Phone: [facility] 03-08-2023 14:11-0400 Respiratory rate 16 /min Dr. Tomasz Coleman Work Phone: [facility] 03-08-2023 14:11-0400 SaO2% (BldA) [Mass fraction] 99 % Dr. Tomasz Coleman Work Phone: [facility] 03-08-2023 14:11-0400 Systolic blood pressure 104 mm[Hg] Dr. Tomasz Coleman Work Phone: [facility] 03-07-2023 13:11-0400 Body height 144.[address] Tomasz Coleman Work Phone: [facility] 03-07-2023 13:11-0400 Body mass index (BMI) [Ratio] 38.1 kg/m2 Dr. Tomasz Coleman Work Phone: [facility] 03-07-2023 13:11-0400 Body weight [address] Tomasz Coleman Work Phone: [facility] 03-07-2023 12:05-0400 Inhaled oxygen flow rate 4 L/min Dr. Tomasz Coleman Work Phone: [facility] 02-01-2023 14:03-0400 Body mass index (BMI) [Ratio] 38.2 kg/m2 Dr. Tomasz Coleman Work Phone: 1(955)886-832716 [place] [address] 02-01-2023 14:03-0400 Body weight 80.[address] Tomasz Coleman Work Phone: 1(370)037-786448 [address] 09-07-2022 09:10-0400 Body mass index (BMI) [Ratio] 33.5 kg/m2 Dr. Tomasz Coleman Work Phone: 2(021)391-920648 [address] 09-07-2022 09:10-0400 Body temperature 97.6 [degF] Dr. Tomasz Coleman Work Phone: 3(823)494-560616 [place] [address] 09-07-2022 09:10-0400 Diastolic blood pressure 80 mm[Hg] Dr. Tomasz Coleman Work Phone: 2(022)268-026961 [place] [address] 09-07-2022 09:10-0400 Heart rate 86 /min Dr. Tomasz Coleman Work Phone: 6(943)957-903961 [place] [address] 09-07-2022 09:10-0400 Respiratory rate 16 /min Dr. Tomasz Coleman Work Phone: 0(846)704-935216 [place] [address] 09-07-2022 09:10-0400 Systolic blood pressure 137 mm[Hg] Dr. Tomasz Coleman Work Phone: 6(803)551-452416 [place] [address] 08-17-2022 09:06-0400 Body height 144.[address] Tomasz Coleman Work Phone: 4(822)026-220716 [place] [address] 08-17-2022 09:06-0400 Body weight 70.[address] Tomasz Coleman Work Phone: 8(609)654-862816 [place] [address] 08-09-2022 18:44-0400 Diastolic blood pressure 96 mm[Hg] Dr. Tomasz Coleman Work Phone: [facility] Work Phone: 08-09-2022 18:44-0400 Heart rate 80 /min Dr. Tomasz Coleman Work Phone: [facility] Work Phone: 08-09-2022 18:44-0400 Respiratory rate 18 /min Dr. Tomasz Coleman Work Phone: [facility] Work Phone: 08-09-2022 18:44-0400 SaO2% (BldA) [Mass fraction] 99 % Dr. Tomasz Coleman Work Phone: [facility] Work Phone: 08-09-2022 18:44-0400 Systolic blood pressure 144 mm[Hg] Dr. Tomasz Coleman Work Phone: [facility] Work Phone: 08-09-2022 15:22-0400 Body mass index (BMI) [Ratio] 33.2 kg/m2 Dr. Tomasz Coleman Work Phone: [facility] Work Phone: 08-09-2022 15:22-0400 Body temperature 98.2 [degF] Dr. Tomasz Coleman Work Phone: [facility] Work Phone: 08-09-2022 15:22-0400 Body weight 69.[address] Tomasz Coleman Work Phone: [facility] Work Phone: Encounters Encounter Date Encounter Type Care Provider Facility Start: 05-14-2025 End: 05-14-2025 ambulatory Pancho Starkey Facility:[facility] Start: 05-13-2025 End: 05-13-2025 ambulatory Tomasz Coleman Facility:[facility] Start: 04-17-2025 End: 04-17-2025 Emergency department patient visit TOMASZ COLEMAN [facility] Start: 04-08-2025 End: 04-08-2025 ambulatory Tomasz Coleman Facility:[facility] Start: 03-28-2025 End: 03-28-2025 ambulatory Tomasz Coleman Facility:[facility] Start: 03-13-2025 End: 03-13-2025 ambulatory Tomasz Coleman Facility:[facility] Start: 02-11-2025 End: 02-11-2025 ambulatory Papa Truong Facility:[facility] Start: 01-11-2025 End: 01-11-[address] Tomasz Coleman MD Work Phone: [facility] Work Phone: Start: 01-11-2025 End: 01-11-[address] Tomasz Coleman MD -Ultrasound, [facility] Work Phone: Start: 01-11-2025 End: 01-11-2025 ambulatory Tomasz Coleman Facility:[facility] Start: 01-06-2025 End: 01-06-[address] Tomasz Coleman MD Work Phone: [facility] Work Phone: Start: 01-06-2025 End: 01-06-[address] Tomasz Coleman MD -Laboratory, [facility] Start: 01-06-2025 End: 01-06-2025 ambulatory Tomasz Coleman Facility:[facility] Start: 12-17-2024 End: 12-17-[address] Tomasz Coleman MD -Laboratory, [facility] Start: 12-17-2024 End: 12-17-2024 ambulatory Tomasz Coleman Facility:[facility] Start: 12-04-2024 ambulatory Tomasz Coleman Facilit y:[facility] Start: 12-04-2024 Non-patient / Non-visit Dr. Serg valadez MD -[facility]- Start: 12-04-2024 End: 12-04-[address] Papa Truong MD -Pulmonary Services/Neurology Work Phone: Start: 12-04-2024 End: 12-04-2024 ambulatory Tomasz Coleman Facility:[facility] Start: 11-27-2024 End: 11-27-2024 ambulatory ANEESH DIA Facility:[facility] Start: 11-27-2024 End: 11-27-2024 Patient encounter procedure Aneesh Dia MD Work Phone: OB/Gynecology Comment on above: Pelvic pain during p regnancy (Primary Dx) Start: 11-18-2024 End: 11-22-2024 Telephone encounter Aneesh Dia MD Work Phone: OB/Gynecology Comment on above: Results Start: 11-08-2024 End: 11-08-[address] Tomasz Coleman MD -Laboratory, [facility] Start: 11-08-2024 End: 11-08-2024 ambulatory Tomasz Coleman Facility:[facility] Start: 11-01-2024 End: 11-01-2024 ambulatory [employer] Work Phone: OB/Gynecology Start: 11-01-2024 End: 11-01-2024 Patient encounter procedure [employer] OB/Gynecology Start: 10-30-2024 End: 10-30-2024 ambulatory ANEESH DIA Facility:[facility] Start: 10-30-2024 End: 10-30-2024 Patient encounter procedure Aneesh Dia MD Work Phone: OB/Gynecology Comment on above: Screen for sexually transmitted diseases (Primary Dx); Pelvic pain in female Start: 10-17-2024 End: 10-17-2024 Transcribe Orders Anjali Bartlett MA [facility] Neuro [facility] [place] Comment on above: Postlaminectomy synd sofiya, lumbar region (Primary Dx) Start: 09-29-2024 End: 09-29-2024 Emergency department patient visit RADHA BENITEZ [facility] Start: 08-27-2024 End: 08-27-2024 Emergency department patient visit PAPA CHRISTIANSON [facility] Start: 08-15-2024 End: 08-15-2024 ambulatory Tomasz Coleman Facility:[facility] Start: 07-12-2024 End: 07-12-2024 ambulatory Tomasz Coleman Facility:[facility] Start: 05-29-2024 End: 05-29-2024 ambulatory Tomasz Coleman Facility:[facility] Start: 02-21-2024 End: 02-21-[address] Tomasz Coleman Work Phone: [facility] Work Phone: Start: 02-15-2024 End: 02-15-[address] Tomasz Coleman Work Phone: [facility] Work Phone: Start: 02-15-2024 End: 02-15-[address] Tomasz Coleman Work Phone: [facility] Start: 02-14-2024 End: 02-14-[address] Tomasz Coleman Work Phone: [facility] Radiology Start: 02-09-2024 End: 02-09-[address] Tomasz Coleman Work Phone: [facility] Work Phone: Start: 02-06-2024 Non-patient / Non-visit [facility] Lupe [facility] Start: 02-05-2024 Non-patient / Non-visit [facility] Lupe [facility] Start: 02-05-2024 End: 02-06-2024 Evaluation and management of inpatient Dr. Tomasz Coleman Work Phone: [facility]-Medical Surgical 3 Work Phone: Start: 02-05-2024 End: 02-06-[address] Toamsz Coleman Work Phone: [facility] Work Phone: Start: 01-31-2024 Non-patient / Non-visit Dr. Lupe Coleman Work Phone: [facility] Start: 01-30-[address] Tomasz Coleman Work Phone: [facility]-Physical Therapy Work Phone: Start: 01-29-2024 End: 01-29-2024 Non-patient / Non-visit Dr. Tomasz Coleman Work Phone: [facility] Work Phone: Start: 01-26-2024 End: 01-26-[address] Tomasz Coleman Work Phone: [facility] Work Phone: Start: 01-01-2024 End: 01-01-[address] Tomasz Coleman Work Phone: [facility] Work Phone: Start: 11-16-2023 End: 11-16-[address] Tomasz Coleman Work Phone: [facility] Work Phone: Start: 10-25-2023 End: 10-25-[address] Tomasz Coleman Work Phone: [facility] Work Phone: Start: 08-02-2023 End: 08-02-[address] Tomasz Coleman Work Phone: [facility] Work Phone: Start: 08-02-2023 End: 08-02-[address] Tomasz Coleman Work Phone: [facility] Work Phone: Start: 08-02-2023 End: 08-02-[address] Tomasz Coleman Work Phone: [facility] Vascular Surgery Work Phone: Start: 07-19-2023 End: 07-19-[address] Tomasz Coleman Work Phone: [facility] Work Phone: Start: 07-06-2023 Non-patient / Non-visit Dr. Lupe Coleman Work Phone: [facility] Start: 07-06-2023 Non-patient / Non-visit Dr. Lupe Coleman Work Phone: [facility]icians Work Phone: Start: 07-05-2023 Non-patient / Non-visit Dr. Lupe Coleman Work Phone: [facility] Start: 07-05-2023 Non-patient / Non-visit Dr. Lupe Coleman Work Phone: [facility] Work Phone: Start: 07-04-2023 Non-patient / Non-visit Dr. Lupe Coleman Work Phone: [facility] Work Phone: Start: 07-04-2023 Non-patient / Non-visit Dr. Lupe Coleman Work Phone: [facility] Start: 07-04-2023 End: 07-06-2023 Evaluation and management of inpatient Dr. [facility]omasz Coleman [facility] Work [facility]: Start: 07-03-2023 Non-patient / Non-visit Dr. Lupe Coleman Work Phone: [facility] Start: 06-28-2023 End: 06-28-[address] Tomasz Coleman Work Phone: [facility] Work Phone: Start: 06-26-2023 End: 06-26-[address] Tomasz Coleman Work Phone: [facility] Work Phone: Start: 06-15-2023 End: 06-15-[address] Tomasz Coleman Work Phone: [facility] Work Phone: Start: 05-03-2023 End: 05-03-[address] Tomasz Coleman Work Phone: [facility] Work Phone: Start: 04-19-2023 End: 04-19-[address] Tomasz Coleman Work Phone: [facility] Work Phone: Start: 04-12-2023 End: 04-12-[address] Tomasz Coleman Work Phone: [facility] Work Phone: Start: 04-06-2023 End: 04-06-[address] Tomasz Coleman Work Phone: [facility] Work Phone: Start: 03-22-2023 End: 03-22-[address] Tomasz Coleman Work Phone: [facility] Work Phone: Start: 03-08-2023 Non-patient / Non-visit Dr. Lupe Coleman Work Phone: [facility] Work Phone: Start: 03-08-2023 Non-patient / Non-visit Dr. Lupe Coleman Work Phone: [facility] Start: 03-07-2023 Non-patient / Non-visit Dr. Lupe Coleman Work Phone: [facility] Inpatient Physicians Start: 03-07-2023 Non-patient / Non-visit Dr. Lupe Coleman Work Phone: [facility] Start: 03-07-2023 End: 03-08-2023 Evaluation and management of inpatient Dr. Tomasz Coleman Work Phone: [facility]-Medical Surgical 3 Start: 03-07-2023 End: 03-08-[address] Tomasz Coleman Work Phone: [facility] Work Phone: Start: 03-02-2023 Non-patient / Non-visit Dr. Lupe Coleman Work Phone: [facility] Start: 02-27-2023 End: 02-27-[address] Tomasz Coleman Work Phone: [facility] Start: 02-27-2023 End: 02-27-2023 Non-patient / Non-visit Dr. Tomasz Coleman Work Phone: [facility] Start: 02-01-2023 End: 02-01-[address] Tomasz Coleman Work Phone: [facility] Start: 01-28-2023 End: 01-28-2023 Patient encounter procedure [facility] Start: 01-24-2023 End: 01-24-2023 ambulatory [facility] Work Phone: Start: 01-24-2023 End: 01-24-2023 Patient encounter procedure [facility] Start: 01-05-2023 End: 01-05-2023 ambulatory [facility] Work Phone: Start: 01-05-2023 End: 01-05-2023 Patient encounter procedure [facility] Start: 12-01-2022 End: 12-01-[address] Tomasz Coleman Work Phone: [facility] Work Phone: Start: 12-01-2022 End: 12-01-[address] Tomasz Coleman Work Phone: [facility] Start: 11-27-2022 End: 11-27-2022 Emergency department patient visit ENEIDA CHAVEZ Facility[facility] Start: 09-07-2022 Non-patient / Non-visit Dr. Luep Coleman Work Phone: [facility] Start: 09-07-2022 End: 09-12-[address] Tomasz Coleman Work Phone: [facility] Work Phone: Start: 09-07-2022 End: 09-12-[address] [facility]omasz Coleman [facility] Start: 2022 Non-patient / Non-visit Dr. Lupe Coleman Work Phone: [facility] Start: 08-24-2022 Non-patient / Non-visit Dr. Lupe Coleman Work Phone: [facility] Start: 08-17-2022 Non-patient / Non-visit Dr. Lupe Coleman Work Phone: [facility] Start: 08-09-2022 End: 08-09-2022 Emergency department patient visit Dr. Tomazs Coleman Work Phone: [facility]-Emergency Department Start: 08-07-2022 End: 08-08-2022 Emergency department patient visit ROSA MARIA GARCIA Facility[facility] Start: 04-23-2021 ambulatory ELIZABETH HENNESSY Facility: [facility] Start: 01-12-2019 End: 01-12-2019 Emergency department patient visit Nodr No Doctor Assigned Facility:[facility] Start: 01-12-2019 Patient encounter procedure Facility:[id number] Start: 02-04-2018 End: 02-04-2018 Emergency department patient visit Nodr No Doctor Assigned Facility:[facility] Procedures Date Procedure Procedure Detail Performing Clinician Start: 01-11-[address] Tomasz Coleman MD Work Phone: Start: 11-01-2024 Us pelvic nonobstetr ic real-time image complete Aneesh Dia MD Work Phone: Start: 02-14-2024 Plain X-ray of bilat eral sacroiliac joints Dr. Tomasz Coleman Work Phone: Start: 02-05-2024 Fluoroscopic guidance Antonio Coleman Work Phone: Start: 02-05-2024 Plain X-ray of bilat eral sacroiliac joints Dr. Tomasz Coleman Work Phone: Start: 02-05-2024 Laminectomy,Lumbar M icro Decompression (Right) Dr. Tomasz Coleman Work Phone: Start: 01-29-2024 Nasal Screen MRSA/MSSA Dr. Tomasz Coleman Work Phone: Start: 10-25-2023 X-ray of lumbar spin e, two or three views Dr. Tomsaz Coleman Work Phone: Start: 08-02-2023 Computed tomography of abdomen and pelvis with contrast Dr. Tomasz Coleman Work Phone: Start: 07-04-2023 End: 07-04-[address] Tomasz Coleman Work Phone: Start: 07-04-[address] Robby Coleman Work Phone: Start: 07-04-2023 360 Lumbar Fusion (Right) Dr. Tomasz Coleman Work Phone: Start: 06-25-2023 MRI of lumbar spine Dr. Tomasz Coleman Work Phone: Start: 06-20-2023 Nasal Screen MRSA/MSSA Dr. Tomasz Coleman Work Phone: Start: 04-19-2023 MRI of lumbar spine with contrast Dr. Tomasz Coleman Work Phone: Start: 03-07-[address] Robby Coleman Work Phone: Start: 03-07-2023 Laminectomy,Lumbar M icro Decompression (Right) Dr. Tomasz Coleman Work Phone: Start: 01-28-2023 MRI of lumbar spine Dr. Tomasz Coleman Work Phone: Start: 01-05-2023 X-ray of lumbar spin e, two or three views Start: 12-01-2022 Plain x-ray of pelvi s and lower extremity Dr. Tomasz Coleman Work Phone: Start: 08-09-2022 CT of limb regions Dr. Tomasz Coleman Work Phone: Start: 12-23-2019 Throat culture Comment on above: Performed By: #### C THRT #### [place] [address] Bacteria identified in Blood by Culture Dr. Tomasz Coleman Work Phone: Nasal Screen MRSA/MSSA Dr. Joslyn Coleman Work Phone: Plan of Treatment Date Care Activity Detail Author Start: 11-03-2025 End: 11-03-2025 Patient encounter procedure 11/03/2025 10:10 AM EST Office Visit OB/Gynecology [address] [place] [id number] Aneesh Dia MD [address] [place] [address] Annual OB/Gynecology Comment on above: Annual Start: 11-25-2024 End: 11-25-2024 Patient encounter procedure 11/25/2024 10:50 AM EST Office Visit OB/Gynecology [address] [place] [address] Aneesh Dia MD [address] [place] [address] follow up from OB/Gynecology Comment on above: follow up from Start: 11-01-2024 End: 11-01-2024 Manual pelvic examination 11/01/2024 11:00 AM EST Procedure OB/Gynecology [address] [place] [address] Remote, [employer] [address] [place] [address] Pelvic pain in female [R10.2] OB/Gynecology Comment on above: Pelvic pain in femal e [R10.2] Start: 10-30-2024 End: 10-30-2025 US Pelvis PELVIC US [facility] Anc Imaging Routine Pelvic pain in female Expected: 10/30/2024, Expires: 10/30/2025 [facility] Work Phone: Comment on above: Expected: 10/30/2024 , Expires: 10/30/2025 Start: 07-14-2024 COVID-19 Vaccine ( season) COVID-19 Vaccine ( season) [facility] Start: 07-14-2024 Influenza vaccination Influenz a Vaccine (#1) [facility] Start: 02-05-2024 Anes closed symphysi s pubis/sacroiliac joint ANESTH PELVIS PROCEDURE [facility] Start: 02-05-2024 Arthrodesis sacroili ac joint percutaneous ARTHRD SI JT PERQ/MIN NVAS [facility] Start: 02-05-2024 Following clinical p athway protocol [facility] Start: 02-05-2024 Application of inter mittent pneumatic compression device [facility] Start: 02-05-2024 Catheterization of vein [facility] Start: 02-05-2024 Consultation [facility] Start: 02-05-2024 Following clinical p athway protocol [facility] Start: 02-05-2024 Incentive spirometry [facility] Start: 02-05-2024 Measuring intake and output [facility] Start: 02-05-2024 Neurovascular assessment [facility] Start: 02-05-2024 Oxygen therapy [facility] Start: 02-05-2024 Patient education [facility] Start: 02-05-2024 Procedure discontinued [facility] Start: 02-05-2024 Provision of activit y privileges [facility] Start: 02-05-2024 Recommendation to co ntinue with treatment [facility] Start: 02-05-2024 Referral to service [facility] Start: 02-05-2024 Taking patient vital signs [facility] Start: 02-05-2024 [facility] Start: 02-05-2024 Admission procedure [facility] Start: 02-05-2024 Patient discharge [facility] Start: 07-06-2023 Patient discharge [facility] Start: 07-04-2023 Application of inter mittent pneumatic compression device [facility] Start: 07-04-2023 Catheterization of vein [facility] Start: 07-04-2023 Consultation [facility] Start: 07-04-2023 End: 07-04-2023 Following clinical pathway protocol [facility] Start: 07-04-2023 Maintenance of drainage tube [facility] Start: 07-04-2023 Measuring intake and output [facility] Start: 07-04-2023 Neurovascular assessment [facility] Start: 07-04-2023 Oxygen therapy [facility] Start: 07-04-2023 Patient education [facility] Start: 07-04-2023 Procedure discontinued [facility] Start: 07-04-2023 Provision of activit y privileges [facility] Start: 07-04-2023 Recommendation to co ntinue with treatment [facility] Start: 07-04-2023 Referral to service [facility] Start: 07-04-2023 Taking patient vital signs [facility] Start: 07-04-2023 Admission procedure [facility] Start: 03-08-2023 Patient discharge [facility] Start: 03-08-2023 [facility] Start: 03-07-2023 Application of inter mittent pneumatic compression device [facility] Start: 03-07-2023 Catheterization of vein [facility] Start: 03-07-2023 Consultation [facility] Start: 03-07-2023 End: 03-07-2023 Following clinical pathway protocol [facility] Start: 03-07-2023 Incentive spirometry [facility] Start: 03-07-2023 Measuring intake and output [facility] Start: 03-07-2023 Neurovascular assessment [facility] Start: 03-07-2023 Oxygen therapy [facility] Start: 03-07-2023 Patient education [facility] Start: 03-07-2023 Procedure discontinued [facility] Start: 03-07-2023 Provision of activit y privileges [facility] Start: 03-07-2023 Recommendation to co ntinue with treatment [facility] Start: 03-07-2023 Referral to service [facility] Start: 03-07-2023 Taking patient vital signs [facility] Start: 03-07-2023 [facility] [facility] Start: 03-07-2023 Admission procedure [facility] Start: 01-28-2023 MRI of lumbar spine Spine Lumb ar (Routine) [facility] Start: 2020 Screening for malign ant neoplasm of cervix [facility] Start: 2011 Screening for malign ant neoplasm of cervix [facility] Start: 2009 Hepatitis B Vaccine (1 of 3 - + 3-dose series) Hepatitis B Vaccine (1 of 3 - + 3-dose series) [facility] Start: 2009 Urine microalbumin profile DTa P,Tdap,Td Vaccine (1 - Tdap) [facility] Start: 2008 Anxiety Screening Anxiety Screening [facility] Start: 2008 Depression Screening Depression Scre [facility] Start: 2008 Hepatitis C screening Hepatiti s C Screening [facility] Start: 2008 HIV screening HIV Screening [facility] Start: 2005 HIV screening HIV Screening [facility] Start: 2002 Depression screening using PHQ-9 (Patient Health Questionnaire 9) score Depression Screening/Follow-Up (PHQ-2/9) [facility] Start: 1993 History and physical examination, annual for health maintenance Wellness Visit [facility] Start: 1990 Tetanus vaccination Tetanus: Every [address] [facility] Chlamydia trachomatis+Neisseria gonorrhoeae DNA [Presence] in Unspecified specimen by MELISA with probe detection GONORRHEA/CHLAMYDIA NAAT Lab Routine Screen for sexually transmitted diseases 10/30/2024 11:31 AM EST [facility] Electrocardiographic procedure [facility] Electrocardiographic procedure [facility] Patient Education ED Cellulitis ED Deep Vein Thrombosis (DVT) [facility] Work Phone: Patient referral [facility] Work Phone: Payers Date Payer Category Payer Medicaid [facility] MEDICAID [facility] MEDICAID [facility] [id number] 2023-Present [phone] [address] [place] [address] Medicaid [id number] 2022 Medicaid (Managed Care) [facility] [id number] 2022 Unknown [id number] 2021 Unknown [id number] 2021 Unknown [id number] 2019 Unknown 2018 Self-pay 1990 Unknown [id number] 2.16.840.1.490256.3.579.2. 717 1990 Unknown [id number] 2.16.840.1.109904.3.579.2. 717 1990 Unknown [id number] 2.16.840.1.167020.3.579.2. 356 1990 Unknown [id number] 2.16.840.1.820776.3.579.2. 594 1990 Unknown [id number] 2.16.840.1.130131.3.579.2. 902 1990 Unknown [id number] 2.16.840.1.305313.3.579.2. 902 1990 Unknown [id number] 2.16.840.1.058637.3.579.2. 902 Unknown [id number] Unknown [id number] 2.16.840.1.122658.3.579.2. 462 Unknown [id number] 2.16.840.1.538035.3.579.2. 462 Unknown [id number] 2.16.840.1.088618.3.579.2. 462 Unknown [id number] 2.16.840.1.178781.3.579.2. 462 Unknown [id number] 2.16.840.1.290433.3.579.2. 462 Unknown [id number] 2.16.840.1.436591.3.579.2. 462 Unknown [id number] 2.16.840.1.777245.3.579.2. 462 Unknown [id number] 2.16.840.1.089549.3.579.2. 462 Unknown [id number] 2.16.840.1.967327.3.579.2. 462 Unknown [id number] 2.16.840.1.298517.3.579.2. 462 Unknown [id number] 2.16.840.1.818343.3.579.2. 462 Unknown [id number] 2.16.840.1.591906.3.579.2. 462 Unknown [id number] 2.16.840.1.162921.3.579.2. 462 Unknown [id number] 2.16.840.1.467332.3.579.2. 462 Unknown [id number] 2.16.840.1.185115.3.579.2. 462 Unknown [id number] 2.16.840.1.348131.3.579.2. 462 Unknown [id number] 2.16.840.1.512199.3.579.2. 462 Social History Date Type Detail Facility Start: 08-17-2022 End: 02-21-2024 Tobacco smoking status [facility] Unknown if ever smoked [facility] Start: 1990 Sex Assigned At Female [facility] Start: 01-09-2023 End: 02-21-2024 Tobacco smoking status [facility] Ex-smoker [facility] Start: 11-24-2006 End: 11-24-2021 History of tobacco use Current smoker [facility] Start: 11-24-2006 End: 11-24-2021 History of tobacco use Cigarette Smoker [facility] Start: 01-09-2023 End: 10-30-2024 Tobacco use and exposure Smokeless tobacco non-user [facility] Start: 09-29-2024 Alcoholic beverage intake Ex-drinker (finding) [facility] Start: 09-29-2024 End: 10-28-2024 History of Social function [facility] Start: 09-29-2024 End: 10-28-2024 Tobacco use panel [facility] Start: 1990 Sex assigned at Not on file [facility] Start: 10-30-2024 End: 11-27-2024 Alcoholic beverage intake Current drinker of alcohol (finding) [facility] PHQ2 Score 0 [facility] Start: 11-27-2022 Tobacco Comment Pt has cut too k to 2 cigarettes daily. [facility] Start: 10-18-2017 Alcohol Comment socially [facility] Start: 01-16-2025 End: 01-23-2025 Sex Female (finding) [facility] NEGATED: Highlighted row [facility] Work Phone: NEGATED: Highlighted row [facility] Medical Equipment Procedure Code Equipment Code Equipment Origin al Text Equipment Identifier Dates PATCH,AMNION 2X3CM FDA Start: 03-07-2023 PATCH,AMNION 2X3CM FDA Start: 03-07-2023 PATCH,AMNION 2X3CM FDA Start: 03-07-2023 27MM PREBENT PLATE FDA Start: 07-04-2023 VARIABLE SCREWS FDA Start: 07-04-2023 Ligation clip, metallic [id number] FDA Start: 07-04-2023 Ligation clip, metallic ()[id number] FDA Start: 07-04-2023 Ligation clip, metallic ()[id number] [id number] FDA Start: 07-04-2023 40mm Axle X construct FDA Start: 07-04-2023 CORELINK CAGE FDA Start: 07-04-2023 PATCH,AMNION 2X3CM FDA Start: 07-04-2023 PATCH,AMNION 4x4CM FDA Start: 07-04-2023 STRIP,BONE CANC [id number] FDA Start: 07-04-2023 VARIABLE SCREWS FDA Start: 07-04-2023 VARIABLE SCREWS FDA Start: 07-04-2023 VARIABLE SCREWS FDA Start: 07-04-2023 PATCH,AMNION 2X3CM FDA Start: 03-07-2023 27MM PREBENT PLATE FDA Start: 07-04-2023 VARIABLE SCREWS FDA Start: 07-04-2023 40mm Axle X construct FDA Start: 07-04-2023 CORELINK CAGE FDA Start: 07-04-2023 PATCH,AMNION 2X3CM FDA Start: 07-04-2023 PATCH,AMNION 4x4CM FDA Start: 07-04-2023 STRIP,BONE CANC [id number] FDA Start: 07-04-2023 VARIABLE SCREWS FDA Start: 07-04-2023 VARIABLE SCREWS FDA Start: 07-04-2023 VARIABLE SCREWS FDA Start: 07-04-2023 PATCH,AMNION 2X3CM FDA Start: 03-07-2023 27MM PREBENT PLATE FDA Start: 07-04-2023 VARIABLE SCREWS FDA Start: 07-04-2023 40mm Axle X construct FDA Start: 07-04-2023 CORELINK CAGE FDA Start: 07-04-2023 PATCH,AMNION 2X3CM FDA Start: 07-04-2023 PATCH,AMNION 4x4CM FDA Start: 07-04-2023 STRIP,BONE CANC [id number] FDA Start: 07-04-2023 VARIABLE SCREWS FDA Start: 07-04-2023 VARIABLE SCREWS FDA Start: 07-04-2023 VARIABLE SCREWS FDA Start: 07-04-2023 INFLUX SPARC 5CC FDA Start: 02-05-2024 PASTE,BONE 1CC KHRIS FDA Start: 02-05-2024 REF- [id number] SIROS-O IMPLANT FDA Start: 02-05-2024 REF- [id number] SIROS-O IMPLANT FDA Start: 02-05-2024 PATCH,AMNION 2X3CM FDA Start: 03-07-2023 27MM PREBENT PLATE FDA Start: 07-04-2023 VARIABLE SCREWS FDA Start: 07-04-2023 40mm Axle X construct FDA Start: 07-04-2023 CORELINK CAGE FDA Start: 07-04-2023 PATCH,AMNION 2X3CM FDA Start: 07-04-2023 PATCH,AMNION 4x4CM FDA Start: 07-04-2023 STRIP,BONE CANC [id number] FDA Start: 07-04-2023 VARIABLE SCREWS FDA Start: 07-04-2023 VARIABLE SCREWS FDA Start: 07-04-2023 VARIABLE SCREWS FDA Start: 07-04-2023 INFLUX SPARC 5CC FDA Start: 02-05-2024 PASTE,BONE 1CC KHRIS FDA Start: 02-05-2024 REF- [id number] SIROS-O IMPLANT FDA Start: 02-05-2024 REF- [id number] SIROS-O IMPLANT FDA Start: 02-05-2024 PATCH,AMNION 2X3CM FDA Start: 03-07-2023 27MM PREBENT PLATE FDA Start: 07-04-2023 VARIABLE SCREWS FDA Start: 07-04-2023 40mm Axle X construct FDA Start: 07-04-2023 CORELINK CAGE FDA Start: 07-04-2023 PATCH,AMNION 2X3CM FDA Start: 07-04-2023 PATCH,AMNION 4x4CM FDA Start: 07-04-2023 STRIP,BONE CANC [id number] FDA Start: 07-04-2023 VARIABLE SCREWS FDA Start: 07-04-2023 VARIABLE SCREWS FDA Start: 07-04-2023 VARIABLE SCREWS FDA Start: 07-04-2023 INFLUX SPARC 5CC FDA Start: 02-05-2024 PASTE,BONE 1CC KHRIS FDA Start: 02-05-2024 REF- [id number] SIROS-O IMPLANT FDA Start: 02-05-2024 REF- [id number] SIROS-O IMPLANT FDA Start: 02-05-2024 Goals Date Patient Goal Desired Activity /State Functional Status Date Assessment Result Facility 02-06-2024 Functional status Ambulates;Up ad fiona [facility] Work Phone: 07-06-2023 Functional status Ambulates;Up ad fiona [facility] Work Phone: 03-08-2023 Functional status Up ad fiona;Bathroom Priv ilege [facility] Work Phone: Mental Status Date Assessment Result Facility 02-06-2024 Cognitive function Level Of Cons ciousness Awake;Alert;Appropriate;Follow s Commands [facility] Work Phone: 02-06-2024 Cognitive function Voice/Name [facility] Work Phone: 07-06-2023 Cognitive function Voice/Name [facility] Work Phone: 03-08-2023 Cognitive function Appropriate [facility] Work Phone: 03-08-2023 Cognitive function Arousable To Voice/Nam e [facility] Work Phone: Clinical Notes 03-02-2023 to 01-12-2025 Aneesh Dia MD - 11/27/2024 11:10 AM ESTTelephone Encounter - Magali Zelaya RN - 11/22/2024 12:28 PM ESTTelephone Encounter - Magali Zelaya RN - 11/22/2024 12:28 PM EST Note Date & Type Note Facility 01-12-2025 Radiology Diagnostic study note [facility] Imaging Services [address] [place], [place] [id number] Abdomen Limited MR#: [id number] Acct: [id number] Name: DENISHA HILL Rep #: [id number] : 1990 F 34 From: Chapis Alexandre MD PCP: Dr. Tomasz Coleman MD Status: RE G CLI Study:Abdomen Limited Date of Exam: 12/07 Exam# [id number] Ordering Dr: Tomasz Coleman MD PROCEDURE: ABDOMEN LIMITED REASON FOR EXAM: Abnormal LFTs COMPARISON: None FINDINGS: Liver: Liver is increased in echogenicity and measures 16.2 cm. Portal color flow is hepatopetal Gallbladder: Surgically absent Common bile duct: Normal measuring 7 mm. Pancreas: Normal Right kidney measures 11.7 x 5.4 x 5.0 cm. No right upper quadrant ascites. US/Abdomen Limited IMPRESSION: Hepatic steatosis. Reading Location: [facility] CC: Dr. Tomasz Coleman MD ~ Bioinformatics Team Member: Signed [facility] 11-27-2024 Note HNO ID: [id number] Author: ANEESH DIA MD Service: ? Author Type: Physician Type: Progress Notes Filed: 11/27/2024 12:00 Note Text: Denisha Hill is a 34 year old female who presents for problem visit persistent pelvic/uterine pain with an equivocal pelvic ultrasound suggesting that her Mirena placed 2 + years ago may be imbedded 3mm in the uterus,. 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 Vaping Use Vaping status: Never Used Substance Use Topics Alcohol use: Yes Comment: socially Drug use: No Current Outpatient Medications Medication Sig metoprolol succinate ER (TOPROL XL) 50 mg 24 hr tablet Take 50 mg by mouth once daily. aspirin, enteric coated (ASPIRIN, ENTERIC COATED) 81 mg EC tablet Take 81 mg by mouth once daily. ferrous sulfate (IRON) 325 mg (65 mg iron) tablet Take 1 tablet by mouth twice daily. levonorgestrel (MIRENA) 20 mcg/24 hours (6 yrs) 52 mg IUD 1 Each by INTRAUTERINE route as directed. mv-min/iron/folic/calcium/vitK (WOMEN'S MULTIVITAMIN ORAL) Take 1 tablet by mouth once daily. No current facility-administered medications for this visit. Allergies As of Date: 11/27/2024 Allergen Noted Reaction ADHESIVE TAPE-SILICONES 04/06/2021 Rash Fully Assessed 11/27/2024 REVIEW OF SYSTEMS Abdomen: No bloating, early satiety, indigestion, or increased flatulence. No abdominal pain, nausea, vomiting, diarrhea, or constipation. Bladder: No dysuria, gross hematuria, urinary frequency, urinary urgency, or incontinence. Breast: No breast lumps, nipple d/c, overlying skin changes, redness or skin retraction. Expanded ROS: N/A Allergies and current medication updated:Yes SENSITIVE EXAM: Sensitive exam not performed. EXAM: BP 118/76 Wt 198 lb (89.8kg) LMP 01/03/2021 GENERAL: pleasant, female in no apparent distress ABDOMEN: Benign, soft, no masses, and Mild tenderness in RUQ ASSESSMENT AND PLAN: Assessment AND Plan ?endomyometritis associated with IUD empiric course of doxycycline Aneesh Dia MD ftft>[address]m [facility] 11-27-2024 History of Presen t illness Narrative Denisha Hill is a 34 year old female who presents for problem visit persistent pelvic/uterine pain with an equivocal pelvic ultrasound suggesting that her Mirena placed 2 + years ago may be imbedded 3mm in the uterus,. 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 Vaping Use Vaping status: Never Used Substance Use Topics Alcohol use: Yes Comment: socially Drug use: No Current Outpatient Medications Medication Sig metoprolol succinate ER (TOPROL XL) 50 mg 24 hr tablet Take 50 mg by mouth once daily. aspirin, enteric coated (ASPIRIN, ENTERIC COATED) 81 mg EC tablet Take 81 mg by mouth once daily. ferrous sulfate (IRON) 325 mg (65 mg iron) tablet Take 1 tablet by mouth twice daily. levonorgestrel (MIRENA) 20 mcg/24 hours (6 yrs) 52 mg IUD 1 Each by INTRAUTERINE route as directed. mv-min/iron/folic/calcium/vitK (WOMEN'S MULTIVITAMIN ORAL) Take 1 tablet by mouth once daily. No current facility-administered medications for this visit. Allergies As of Date: 11/27/2024 Allergen Noted Reaction ADHESIVE TAPE-SILICONES 04/06/2021 Rash Fully Assessed 11/27/2024 REVIEW OF SYSTEMS Abdomen: No bloating, early satiety, indigestion, or increased flatulence. No abdominal pain, nausea, vomiting, diarrhea, or constipation. Bladder: No dysuria, gross hematuria, urinary frequency, urinary urgency, or incontinence. Breast: No breast lumps, nipple d/c, overlying skin changes, redness or skin retraction. Expanded ROS: N/A Allergies and current medication updated:Yes SENSITIVE EXAM: Sensitive exam not performed. EXAM: BP 118/76 Wt 198 lb (89.8kg) LMP 01/03/2021 GENERAL: pleasant, female in no apparent distress ABDOMEN: Benign, soft, no masses, and Mild tenderness in RUQ ASSESSMENT AND PLAN: Assessment & Plan ?endomyometritis associated with IUD empiric course of doxycycline Aneesh Dia MD ftft>30m documented in this encounter [facility] 11-22-2024 Telephone encount er Note Pt currently rates 6/10 and taking Aleve for her pain. Helping pain for the most. Pt has appt to discuss with AT Monday11/25/24 and would like to keep appt as the pain has not gone away. Advised Pt that if pain is uncontrolled and not able to be managed with Aleve & a heating pad to go to ER. Pt voiced understanding. Magali Zelaya RN [facility] 11-22-2024 Miscellaneous Notes Formattin g of this note might be different from the original. Pt currently rates 6/10 and taking Aleve for her pain. Helping pain for the most. Pt has appt to discuss with AT Monday11/25/24 and would like to keep appt as the pain has not gone away. Advised Pt that if pain is uncontrolled and not able to be managed with Aleve & a heating pad to go to ER. Pt voiced understanding. Magali Zelaya RN Left message for patient to call office. Yesy Andrews RN ----- Message from Aneesh Dia MD sent at 11/18/2024 1:10 PM EST ----- Attempted reaching patient by phone to see if her pain has resolved and review her ultrasound that is essentially unremarkable. Please schedule f/u appointment if problems persist. Aneesh Dia MD documented in this encounter [facility] 11-22-2024 Telephone encount er Note Left message for patient to call office. Yesy Andrews RN [facility] 11-18-2024 Telephone encount er Note ----- Message from Aneesh Dia MD sent at 11/18/2024 1:10 PM EST ----- Attempted reaching patient by phone to see if her pain has resolved and review her ultrasound that is essentially unremarkable. Please schedule f/u appointment if problems persist. Aneesh Dia MD [facility] 11-04-2024 Note HNO ID: [id number] Author: ALLYN MARTINEZ MD Service: ? Author Type: Physician Type: Progress Notes Filed: 11/04/2024 09:41 Note Text: The patient presents for requested ultrasound. Full report available in the Imaging tab in [facility]. Allyn Martinez MD [facility] 11-04-2024 History of Presen t illness Narrative The patient presents for requested ultrasound. Full report available in the Imaging tab in [facility]. Allyn Martinez MD documented in this encounter [facility] 10-30-2024 Note HNO ID: [id number] Author: ANEESH DIA MD Service: ? Author Type: Physician Type: Progress Notes Filed: 10/30/2024 11:01 Note Text: Ict Quality Assurance Engineer offered: Patient accepts, visit chaperoned by Cherise Onofre LPN. Denisha Hill is a 34 year old female who presents for problem visit for vaginal spotting, cramping. since the beginning of september. Occurs occasionally and may skip weeks. Feels like menstrual cramps. Took NSAID for two days w/o impact . No pain with intercourse/orgasm. 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 Vaping Use Vaping status: Never Used Substance Use Topics Alcohol use: Yes Comment: socially Drug use: No Current Outpatient Medications Medication Sig metoprolol succinate ER (TOPROL XL) 50 mg 24 hr tablet Take 50 mg by mouth once daily. aspirin, enteric coated (ASPIRIN, ENTERIC COATED) 81 mg EC tablet Take 81 mg by mouth once daily. ferrous sulfate (IRON) 325 mg (65 mg iron) tablet Take 1 tablet by mouth twice daily. levonorgestrel (MIRENA) 20 mcg/24 hours (6 yrs) 52 mg IUD 1 Each by INTRAUTERINE route as directed. mv-min/iron/folic/calcium/vitK (WOMEN'S MULTIVITAMIN ORAL) Take 1 tablet by mouth once daily. No current facility-administered medications for this visit. Allergies As of Date: 10/30/2024 Allergen Noted Reaction ADHESIVE TAPE-SILICONES 04/06/2021 Rash Fully Assessed 10/30/2024 REVIEW OF SYSTEMS Abdomen: No bloating, early satiety, indigestion, or increased flatulence. No abdominal pain, nausea, vomiting, diarrhea, or constipation. Bladder: No dysuria, gross hematuria, urinary frequency, urinary urgency, or incontinence. Breast: No breast lumps, nipple d/c, overlying skin changes, redness or skin retraction. Expanded ROS: N/A Allergies and current medication updated:Yes SENSITIVE EXAM: The sensitive examination was discussed with the Patient or Patient's Authorized Warranty Manager. As applicable, any other physician, advance practice provider, medical student, or other health professional student that will be observing or involved in the sensitive examination for educational or training purposes was discussed with the Patient or Authorized Warranty Manager. The Patient or Authorized Warranty Manager has agreed to proceed with the sensitive examination. (Sensitive examination includes inspection and/or palpation of the breasts, pelvis, prostate and anorectal regions). EXAM: BP 120/80 Wt 192 lb (87.1kg) LMP 01/03/2021 GENERAL: pleasant, female in no apparent distress ABDOMEN: Benign, soft, non-tender, and no masses PELVIC: external genitalia normal, normal Bartholin's glands, urethra, [place]'s glands, no vulvar lesions, no cervical lesions, good vaginal support, physiologic discharge present, normal appearing perineal body and perianal region BIMANUAL: uterus normal size, shape and consistency, no adnexal masses, non-tender, no cervical motion tenderness, and IUD string visible ASSESSMENT AND PLAN: Assessment AND Plan Screen for sexually transmitted diseases contraception _ BTO Mirena for anemia/HMB resolved Essentially unremarkable pelvic exam Pelvic pain - Ultrasound ordered GC and Chlamydia cuoltures Aneesh Dia MD [facility] 10-30-2024 History of Presen t illness Narrative Ict Quality Assurance Engineer offered: Patient accepts, visit chaperoned by Cherise Onofre LPN. Denisha Hill is a 34 year old female who presents for problem visit for vaginal spotting, cramping. since the beginning of september. Occurs occasionally and may skip weeks. Feels like menstrual cramps. Took NSAID for two days w/o impact . No pain with intercourse/orgasm. 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 Vaping Use Vaping status: Never Used Substance Use Topics Alcohol use: Yes Comment: socially Drug use: No Current Outpatient Medications Medication Sig metoprolol succinate ER (TOPROL XL) 50 mg 24 hr tablet Take 50 mg by mouth once daily. aspirin, enteric coated (ASPIRIN, ENTERIC COATED) 81 mg EC tablet Take 81 mg by mouth once daily. ferrous sulfate (IRON) 325 mg (65 mg iron) tablet Take 1 tablet by mouth twice daily. levonorgestrel (MIRENA) 20 mcg/24 hours (6 yrs) 52 mg IUD 1 Each by INTRAUTERINE route as directed. mv-min/iron/folic/calcium/vitK (WOMEN'S MULTIVITAMIN ORAL) Take 1 tablet by mouth once daily. No current facility-administered medications for this visit. Allergies As of Date: 10/30/2024 Allergen Noted Reaction ADHESIVE TAPE-SILICONES 04/06/2021 Rash Fully Assessed 10/30/2024 REVIEW OF SYSTEMS Abdomen: No bloating, early satiety, indigestion, or increased flatulence. No abdominal pain, nausea, vomiting, diarrhea, or constipation. Bladder: No dysuria, gross hematuria, urinary frequency, urinary urgency, or incontinence. Breast: No breast lumps, nipple d/c, overlying skin changes, redness or skin retraction. Expanded ROS: N/A Allergies and current medication updated:Yes SENSITIVE EXAM: The sensitive examination was discussed with the Patient or Patient's Authorized Warranty Manager. As applicable, any other physician, advance practice provider, medical student, or other health professional student that will be observing or involved in the sensitive examination for educational or training purposes was discussed with the Patient or Authorized Warranty Manager. The Patient or Authorized Warranty Manager has agreed to proceed with the sensitive examination. (Sensitive examination includes inspection and/or palpation of the breasts, pelvis, prostate and anorectal regions). EXAM: BP 120/80 Wt 192 lb (87.1kg) LMP 01/03/2021 GENERAL: pleasant, female in no apparent distress ABDOMEN: Benign, soft, non-tender, and no masses PELVIC: external genitalia normal, normal Bartholin's glands, urethra, [place]'s glands, no vulvar lesions, no cervical lesions, good vaginal support, physiologic discharge present, normal appearing perineal body and perianal region BIMANUAL: uterus normal size, shape and consistency, no adnexal masses, non-tender, no cervical motion tenderness, and IUD string visible ASSESSMENT AND PLAN: Assessment & Plan Screen for sexually transmitted diseases contraception _ BTO Mirena for anemia/HMB resolved Essentially unremarkable pelvic exam Pelvic pain - Ultrasound ordered GC and Chlamydia cuoltures Aneesh Dia MD documented in this encounter [facility] 02-06-2024 Discharge summary Note Date/Time February 06, 2024 12:38pm [facility] Medical Records Department [address] [place] [address] Discharge Summary 02/06/24 1235 MR#: [id number] Acct: [id number] Name: DENISHA HILL Rep #:[id number] : 1990 33 From: Gerber Ibanez PCP: Dr. Tomasz Coleman MD Status:[facility] Location: [place] [id number] Providers Date of Admission: 02/05/24 Primary Care Physician: Dr. Tomasz Coleman MD Attending Physician: This is discharge summary on Denisha Hill. Patient was admitted yesterday. She underwent fusion of the right sacroiliac joint. Today she reports that herpain in the right SI is completely resolved. She has had no pain whatsoever. She is extremely pleased as I am also. Her 1 complaint is that she has some pain like a cramp in the distribution of the right lateral femoral cutaneous nerve. I suspect that it is either from attention from the bolster that we put in her abdomen or possibly from just a pressure phenomenon from her laying flat on the bed for the procedure. Either way I suspect that will go away. She has been discharged today. I will give her some pain medication in the event that she needs it over the next several days. I am supposed to see her again in the office on Monday 3 days from now. Consultations 02/05/24 10:37 Consult: Hospitalist Routine Consulting Provider: [facility] Reason for Consult: Medical Management EMERGENT Consult: No MD Notified: Yes Date Notified: 02/05/24 Time Notified: 10:33 Method of Notification: Text Reason For Visit: ERAS, Right Sacroiliac Joint Fusion Medications at Discharge Home Medications Saccharomyces boulardii 250 mg capsule (Daily Probiotic (S. boulardii)) 250 mg PO DAILY SUPPLEMENT 03/02/21 ferrous sulfate 325 mg (65 mg iron) tablet (Feosol) 325 mg PO DAILY ANEMIA 03/04/21 aspirin 81 mg tablet,delayed release (Adult Low Dose Aspirin) 81 mg PO DAILY BLOOD THIN 03/19/21 metoprolol succinate 50 mg tablet,extended release 24 hr 50 mg PO DAILY HEART RATE #30 tabs 03/02/22 Weight / BMI Weight Weight: 180 lb 12.465 oz Body Mass Index (BMI) 39.1 ABG / Lab / Microbiology Data 01/29/24 08:02 01/29/24 08:02 Microbiology: Microbiology 01/29/24 08:02 Swab (Method) Nasal Screen MRSA/MSSA - Final D/C Instructions May shower in (days): 5 May resume sexual activity in: 4-6 weeks Meaningful Use Info Meaningful Use Diagnoses (Choose all that apply): None applicable Discharge Plan Admission Admit Date/Time: 02/05/24 10:31 Attending Provider: Gerber Corey Primary Care Provider: Tomasz Coleman Consulting Providers: Gayathri Pineda; Garcia Salazar; Lea Love; Lea Pinzon; Nita Mcqueen; Sandy Staton; Rose Alex; Scooter Magana; Scooter Strickland; Bashir Castro; Juno Dee; Ulysses Stoner; Ildefonso Harry; David Camp; Karina Fisher; Alan Wilhelm; Thais Crowell; Papa Emmanuel; Gilberto Carrizales; Blake Parekh; Eliane Kennedy; Aman Escobedo;Analy Salvador NP; Tomasz Chang Discharge Orders/Prescriptions Prescriptions: No Action ferrous sulfate [Feosol] 325 mg (65 mg iron) tablet 325 mg PO DAILY Saccharomyces boulardii [Daily Probiotic (S. boulardii)] 250 mg capsule 250 mg PO DAILY aspirin [Adult Low Dose Aspirin] 81 mg tablet,delayed release (DR/EC) 81 mg PO DAILY metoprolol succinate 50 mg tablet extended release 24 hr 50 mg PO DAILY Qty: 30 12RF Other Ambulatory Orders: 12 Lead EKG (Routine) Timeframe: 20240129 Location: None Selected Ordered By: Dr. Gerber Corey Referrals / Follow Up: Tomasz Coleman MD [Primary Care Provider] - Disposition Disposition (needs filled in before D/C Order can be placed): Home, Self Care 02/06/24 1238 <Electronically signed by Gerber Corey DO> Cosigner Signature (if applicable): CC: Dr. Tomasz Coleman MD; Dr. Gerber Corey DO~ Signed [facility] Work Phone: 1(624) 226-328803-25-2024 Procedure [facility] 01-31-2024 History and physical note Author Gerber Corey [facility] January 31, 2024 4:40pm Note Date/Time January 31, 2024 4:4 0pm [facility] Medical Records Department [address] [place] [address] History & Physical Exam 01/31/24 1639 MR#: [id number] Acct: [id number] Name: DENISHA HILL Rep #:[id number] : 1990 33 From: Gerber Ibanez PCP: Dr. Tomasz Coleman MD Status:ND E [facility] Location: [facility] History and Physical MR#: [id number] Acct: [id number] Name: DENISHA HILL Rep #: [id number] : 1990 Provider: Dr. Gerber Corey DO Age/Sex: 33/F Location: [facility] [place] Status: Signed Intake Vital Signs 11/16/2408:05 Height 4 ft 9 in Weight: 198 lb BMI 42.8 Intake Visit Reasons: LUMBAR SPINE Accompanied by: Self Is patient in pain?: Yes Allergies adhesive tape Allergy (Intermediate, Verified 01/01/24 09:04) Hives Medications Saccharomyces boulardii 250 mg capsule (Daily Probiotic (S. boulardii)) 250 mg PO DAILY SUPPLEMENT 03/02/21 [History Confirmed 01/01/24] ferrous sulfate 325 mg (65 mg iron) tablet (Feosol) 325 mg PO DAILY ANEMIA 03/04/21 [History Confirmed 01/01/24] aspirin 81 mg tablet,delayed release (Adult Low Dose Aspirin) 81 mg PO DAILY BLOOD THIN 03/19/21 [History Confirmed 01/01/24] metoprolol succinate 50 mg tablet,extended release 24 hr 50 mg PO DAILY HEART RATE #30 tabs 03/02/22 [Rx Confirmed 01/01/24] PFSH Medical History Abnormal echocardiogram Alcohol use Anemia Arm vein blood clot Blood clot associated with vein wall inflammation Cardiology follow-up encounter Former smoker History of echocardiogram History of edema History of irregular heartbeat History of steroid therapy Patent foramen ovale SVT (supraventricular tachycardia) Surgical History H/O section H/O lumbosacral spine surgery H/O tubal ligation (~2016) History of cholecystectomy (~2017) Family History Grandmother Heart disease Social History Smoking Status: Former smoker alcohol intake: current details: occasional substance use type: does not use caffeine: Yes Type: coffee Number of servings: 4 HPI LUMBAR SPINE Details: This documentation accurately reflects the service provided and the decisions made by me, Dr. Gerber Corey DO 01/01/24 0901. Part of today?s visit was documented by Benita ZAMUDIO, acting as scribe. DENISHA HILL is a 33 year old F here today for f/u on her lumbar spine. Today she is wanting to move forward with surgery and discuss it further. Denisha returns for follow-up. On Monday she had a follow-up visit with Dr. Truong in the fourth right SI joint injection that she had gave her almost complete relief for 2 days. Every single one of the 4 has given her significantrelief. Basically this is diagnostic of right sacroiliac dysfunction. Wants toproceed with fusion of the right sacroiliac joint. She is at increased risk forSI joint dysfunction because of the L5-S1 fusion. Basically she has met all thecriteria for the fusion. She has failed medication and therapy now for 6 months. She went through formal physical therapy. She has all 5 provocative tests consistently positive on the right side. She has x-ray and CT or MRI imaging. The image guided injections of all given her much more than 75% improvement each and every time all 4 times. And she has localized pain over the SI joint. She has met the insurance criteria for SI joint fusions. We willput her on the schedule in the [id number] future. I will see her again in the office about a week or so prior to the procedure. Coding Level of Care Code Off vis,est,level 3 Diagnoses Chronic right sacroiliac joint pain M53.3; G89.29 01/31/24 1640 <Electronically signed by Gerber Corey DO> Cosigner Signature (if applicable): CC: Dr. Tomasz Coleman MD; Dr. Gerber Corey DO~ Signed [facility] Work Phone: 1(127) 105-384408-24-2023 Progress note Author Sandy Staton [facility] July 06, 2023 1:32pm Note Date/Time July 06, 2023 6: 20am [facility] Medical Records Department [address] [place] [address] Progress Note - Hospitalist 07/06/23 0619 MR#: [id number] Acct: [id number] Name: DENISHA HILL Rep #:[id number] : 1990 32 From: Sandy Staton MD PCP: Dr. Tomasz Coleman MD Status:AD M [place] Location: MS3 [id number] Reason for Visit Reason for Visit: Diagnoses Dorsalgia, unspecified (07/04/23) Encounter for other preprocedural examination (07/04/23) Subjective Subjective Patient overnight with no acute events per self and per nursing report. She is up in the room walking and states she feels improved as far as her lumbar discomfort but is having some mild abdominal cramping and feels associates constipated and requesting a medication. Discussed options and she is amenable to MiraLAX. Patient does feel as though she is ready otherwise to be dischargedhome and they are awaiting feedback from surgeon. Patient denies fevers, chills, nausea, emesis, abdominal pain, chest pain or dyspnea. Objective Data Objective Data Vital Signs: Vital Signs Temp Pulse Resp BP Pulse Ox O2 Del Method O2 Flow Rate 98.4 F 70 16 90/50 L 97 Room Air 4 07/06/23 04:19 07/06/23 04:19 07/06/23 04:19 07/06/23 04:19 07/06/23 04:19 07/06/23 04:19 07/04/23 16:15 Oxygen Flow Rate (L/min) 4 Oxygen Delivery Method Room Air Weight: 189 lb 9.561 oz Body Mass Index (BMI) 41.0 Intake & Output: Intake and Output for Last 24 Hours 07/04/23 07/05/23 07/06/23 23:59 23:59 23:59 Intake Total 5148.67 / 5548.67 1817.17 / 1817.17 Output Total 2019 2700 / 270 Balance 3128.67 / 3228.67 -882.83 / -882.83 Lab / Micro Data 07/05/23 07:20 07/05/23 07:20 Labs: Laboratory Results - last 24 hr 07/05/23 07:20: WBC 13.7 H, RBC 4.39, Hgb 11.6 L, Hct 35.2 L, MCV 80.2 L, MCH 26.4 L, MCHC 33.0, RDW Std Deviation 37.6, RDW Coeff of Nan 13.2, Plt Count 292,MPV 10.7, Immature Gran % (Auto) 0.400, Neut % (Auto) 88.5 H, Lymph % (Auto) 6.2L, [place] % (Auto) 4.8, Eos % (Auto) 0.0, Baso % (Auto) 0.1, Absolute Neuts (auto)12.1 H, Absolute Lymphs (auto) 0.85, Nucleated RBC % 0, Sodium 141, Potassium 3.8, Chloride 108 H, Carbon Dioxide 27.0, Anion Gap 6, BUN 6 L, Creatinine 0.57,Estim Creat Clear Calc 192.37, Est GFR (MDRD) Af Amer 156, Est GFR (MDRD) Non-Af129, BUN/Creatinine Ratio 10.5, Glucose 116 H, Calcium 8.8, Total Bilirubin 0.60, AST 27, ALT 34, Alkaline Phosphatase 50, Total Protein 7.0, Albumin 3.3, Globulin 3.7, Albumin/Globulin Ratio 0.9 Micro: Microbiology 06/20/23 14:05 Swab (Method) Nasal Screen MRSA/MSSA - Final Physical Exam Narrative Physical Examination: General: Awake, alert, oriented x 3 and cooperative, seated upright in the medical surgical bedside chair, comfortable, only complaint is mild constipation. Skin: Normal color, normal turgor, no icterus, no cyanosis except for recent lumbar surgery with posterior dressing in place with no drainage. HEENT: AT/NC, EOMI, PERRLA, MMM. Lungs: Diminished, greater bases, proper effort, no rales, ronchi or wheezing. Heart: Currently regular rate and rhythm; no gallop, rub audible. Abdomen: Soft, morbidly obese, NTTP, mildly distended, mild hyperactive bowel sounds. Extremities: No cyanosis, clubbing, or marked pitting peripheral edema. Neurological: Patient awake, alert, oriented as noted, cognitive function intact; pupils equally reactive to light and accommodation, cranial nerves grossly normal, moving all 4 extremities, walking in the room, sensation intact,no focal deficits, strength improving, moderately globally decreased but walkingin the room with ease. Psychiatric: Affect appears normal, no acute evidence of depressive or anxiety feelings. Assessment & Plan Assessment/Plan (1) Intractable back pain: PLAN: Plan The patient is a 32 y/o F w/ PMHx: Morbid obesity, Hx SVT on metoprolol, Hx DVT,Hx PFO, Chronic anemia/Fe deficiency anemia who presents to the [facility] on 07/04/23 secondary to history of chronic lumbar back discomfort with left lower extremityradicular pains for planned anterior lumbar interbody fusion L5-S1, application anterior spine plate L5-S1, titanium cage L5-S1, bone marrow aspirate left iliaccrest and spongy allograft for fusion per Dr. Corey and Dr. Lobo. #1. Severe lumbar back pain with associated lower extremity radiculopathy: Failed conservative therapies and treatments, admitted per Dr. Corey for planned 07/04/23 anterior lumbar interbody fusion L5-S1, application anterior spine plate L5-S1, titanium cage L5-S1, bone marrow aspirate left iliac crest and spongy allograft for fusion per Dr. Corey and Dr. Lobo, post-operative pain management, bowel regimen, DVT Prophylaxis, PT/OT/CM per Orthopedic surgerydiscretion. Patient doing well, ambulating and pain improved, medical service amenable to discharge at primary service discretion. #2. History SVT: We will resume patient home metoprolol regimen. #3. Chronic anemia/iron deficiency anemia: 06/20/2023 preoperative CBC with hemoglobin 13.5, MCV 79.9, baseline prior to this appears 12-13, 07/05/2023 follow-up CBC with hemoglobin 11.6, MCV 80.2. Further CBC labs per primary service discretion. #4. Morbid Obesity: Weight loss and lifestyle changes encouraged. #5. History of VTE: Chart reported history of previous DVT and from history in the setting of cellulitis, not on chronic coagulant therapy. Chemoprophylaxis given recent interventions per surgery discretion. #6. DVT prophylaxis: SCDs, defer chemoprophylaxis decision to surgery service given recent OR. Charges/Coding Visit Charges Inpatient E&M: 95608 Subs Hosp L2 07/06/23 1332 <Electronically signed by Sandy Staton MD> Cosigner Signature (if applicable): CC: ~ Signed [facility] Work Phone: 1(389) 951-423608-23-2023 Progress note Author Sandy Staton [facility] July 05, 2023 2:44pm Note Date/Time July 05, 2023 6: 21am [facility] Medical Records Department [address] [place] [address] Progress Note - Hospitalist 07/05/23620 MR#: [id number] Acct: [id number] Name: DENISHA HILL Rep #:[id number] : 1990 32 From: Sandy Staton MD PCP: Dr. Tomasz Coleman MD Status:AD M IN Location[place] [facility] [place] [id number] Reason for Visit Reason for Visit: Diagnoses Dorsalgia, unspecified (07/04/23) Encounter for other preprocedural examination (07/04/23) Subjective Subjective Patient's with no acute events overnight per self and per nursing report aside from intermittent discomfort. She states that she did have improved pain control and slept well but upon awakening was very sore and uncomfortable. Thismorning upon evaluation she was initially walking in the room and states she is feeling significantly better than she had the day prior. She denies any focal weakness or paresthesias. Patient denies fevers, chills, nausea, emesis, abdominal pain, chest pain or dyspnea. Objective Data Objective Data Vital Signs: Vital Signs Temp Pulse Resp BP Pulse Ox O2 Del Method O2 Flow Rate 98.1 F 88 16 91/53 L 97 Room Air 4 07/05/23 04:58 07/05/23 04:58 07/05/23 04:58 07/05/23 04:58 07/05/23 04:58 07/05/23 04:58 07/04/23 16:15 Oxygen Flow Rate (L/min) 4 Oxygen Delivery Method Room Air Weight: 189 lb 9.561 oz Body Mass Index (BMI) 41.0 Intake & Output: Intake and Output for Last 24 Hours 07/03/23 07/04/23 07/05/23 23:59 23:59 23:59 Intake Total 5148.67 / 5548.67 1676.67 / 1676.67 Output Total 2019 / 2099 Balance 3128.67 / 3228.67 -423.33 / -423.33 Lab / Micro Data 07/05/23 07:20 07/05/23 07:20 Micro: Microbiology 06/20/23 14:05 Swab (Method) Nasal Screen MRSA/MSSA - Final Radiography Diagnostic Testing: Radiology Impression Spine X-Ray 07/04/23 09:45 IMPRESSION: Metallic localization as described. Electronically Signed: Lynda Multani MD at 15:58 EDT , Spine X-Ray 07/04/23 10:50 IMPRESSION: Normal intraoperative crosstable lateral view of the lumbar spine showing excellent anterior interbody fusion using metallic plate with transfixing screws and excellent deployment of metallic dowel inside the L5-S1 disc space. Electronically Signed: Chandan Guthrie MD at 12:07 EDT Reading Location ID and State: [facility] / [place] , Service support , Spine X-Ray 07/04/23 11:02 IMPRESSION: Intraoperative documentation views. Electronically Signed: Lynda Multani MD at 15:56 EDT , Physical Exam Narrative Physical Examination: General: Awake, alert, oriented x 3 and cooperative, seated upright in the medical surgical bedside chair, more comfortable appearing than day prior. Skin: Normal color, normal turgor, no icterus, no cyanosis except for recent lumbar surgery with posterior dressing in place with no drainage. HEENT: AT/NC, EOMI, PERRLA, MMM. Lungs: Diminished, greater bases, proper effort, no rales, ronchi or wheezing. Heart: Currently regular rate and rhythm; no gallop, rub audible. Abdomen: Soft, morbidly obese, no marked abdominal discomfort today fortunately,expected tenderness to lumbar region with dressing in place with no drainage, nomarked distention, normalized BS. Extremities: No cyanosis, clubbing, or marked pitting peripheral edema. Neurological: Patient awake, alert, oriented as noted, cognitive function intact; pupils equally reactive to light and accommodation, cranial nerves grossly normal, moving all 4 extremities, walking in the room, sensation intact,no focal deficits, strength improving, moderately globally decreased. Psychiatric: Affect appears improved from day prior, mildly fatigued, pain improved, no acute evidence of depressive or anxiety feelings. Assessment & Plan Assessment/Plan (1) Intractable back pain: PLAN: Plan The patient is a 32 y/o F w/ PMHx: Morbid obesity, Hx SVT on metoprolol, Hx DVT,Hx PFO, Chronic anemia/Fe deficiency anemia who presents to the [facility] on 07/04/23 secondary to history of chronic lumbar back discomfort with left lower extremityradicular pains for planned anterior lumbar interbody fusion L5-S1, application anterior spine plate L5-S1, titanium cage L5-S1, bone marrow aspirate left iliaccrest and spongy allograft for fusion per Dr. Corey and Dr. Lobo. #1. Severe lumbar back pain with associated lower extremity radiculopathy: Failed conservative therapies and treatments, admitted per Dr. Corey for planned 07/04/23 anterior lumbar interbody fusion L5-S1, application anterior spine plate L5-S1, titanium cage L5-S1, bone marrow aspirate left iliac crest and spongy allograft for fusion per Dr. Corey and Dr. Lobo, post-operative pain management, bowel regimen, DVT Prophylaxis, PT/OT/CM per Orthopedic surgerydiscretion. From discussion with patient 07/05/2024 she notes surgical service intention for her to remain inpatient through Monday but given her current status and improved pain control she may be appropriate to discharge 07/06/2023 but will defer to primary service. #2. History SVT: We will resume patient home metoprolol regimen. #3. Chronic anemia/iron deficiency anemia: 06/20/2023 preoperative CBC with hemoglobin 13.5, MCV 79.9, baseline prior to this appears 12-13, 07/05/2023 follow-up CBC with hemoglobin 11.6, MCV 80.2. #4. Morbid Obesity: Weight loss and lifestyle changes encouraged. #5. History of VTE: Chart reported history of previous DVT and from history in the setting of cellulitis, not on chronic coagulant therapy. Chemoprophylaxis given recent interventions per surgery discretion. #6. DVT prophylaxis: SCDs, defer chemoprophylaxis decision to surgery service given recent OR. Charges/Coding Visit Charges Inpatient E&M: 94673 Subs Hosp L2 07/05/23 1444 <Electronically signed by Sandy Staton MD> Cosigner Signature (if applicable): CC: ~ Signed [facility] Work Phone: 1(345) 968-696408-23-2023 Procedure [facility] 07-04-2023 Progress note Author Sandy [facility] July 04, 2023 6:48pm Note Date/Time July 04, 2023 6: 48pm [facility] Medical Records Department [address] [place] [address] Progress Note - Hospitalist 07/04/23 1841 MR#: [id number] Acct: [id number] Name: DENISHA HILL Rep #:[id number] : 1990 32 From: Sandy Staton MD PCP: Dr. Tomasz Coleman MD Status:AD M IN Location: [place] [address] Reason for Visit Reason for Visit: Diagnoses Encounter for other preprocedural examination (07/04/23) Subjective Subjective Patient notes discomfort to the lumbar region described as a dull aching throb with recent pain medication being administered. She denies any extremity paresthesias or weakness. Patient denies fevers, chills, nausea, emesis, abdominal pain, chest pain or dyspnea. Objective Data Objective Data Vital Signs: Vital Signs Temp Pulse Resp BP Pulse Ox O2 Del Method O2 Flow Rate 98.5 F 77 16 125/75 H 93 Room Air 4 07/04/23 16:58 07/04/23 16:58 07/04/23 16:58 07/04/23 16:58 07/04/23 16:58 07/04/23 16:58 07/04/23 16:15 Oxygen Flow Rate (L/min) 4 Oxygen Delivery Method Room Air Weight: 189 lb 9.561 oz Body Mass Index (BMI) 41.0 Intake & Output: Intake and Output for Last 24 Hours 07/02/23 07/03/23 07/04/23 23:59 23:59 23:59 Intake Total 4770.33 / 4770.33 Output Total 1420 / 1420 Balance 3350.33 / 3350.33 Lab / Micro Data 06/20/23 14:05 06/20/23 14:05 Labs: Laboratory Results - last 24 hr 07/04/23 06:01: POC Glucose 103 Micro: Microbiology 06/20/23 14:05 Swab (Method) Nasal Screen MRSA/MSSA - Final Radiography Diagnostic Testing: Radiology Impression Spine X-Ray 07/04/23 09:45 IMPRESSION: Metallic localization as described. Electronically Signed: Lynda Multani MD at 15:58 EDT , Spine X-Ray 07/04/23 10:50 IMPRESSION: Normal intraoperative crosstable lateral view of the lumbar spine showing excellent anterior interbody fusion using metallic plate with transfixing screws and excellent deployment of metallic dowel inside the L5-S1 disc space. Electronically Signed: Chandan Guthrie MD at 12:07 EDT Reading Location ID and State: [facility] / [place] , Service support , Spine X-Ray 07/04/23 11:02 IMPRESSION: Intraoperative documentation views. Electronically Signed: Lynda Multani MD at 15:56 EDT , Physical Exam Narrative Physical Examination: General: Awake, alert, oriented x 3 and cooperative, seated upright in the medical surgical bed, uncomfortable appearing. Skin: Normal color, normal turgor, no icterus, no cyanosis except for recent lumbar surgery with posterior as well as lower abdominal wraparound dressings inplace. HEENT: AT/NC, EOMI, PERRLA, dry MM. Lungs: Diminished, greater bases, proper effort, no rales, ronchi or wheezing. Heart: Currently regular rate and rhythm; no gallop, rub audible. Abdomen: Soft, morbidly obese, mild discomfort for the lateral regions where thedressings wraparound from the posterior lumbar surgery, no marked distention evident, mildly hyperactive BS. Extremities: No cyanosis, clubbing, or marked pitting peripheral edema. Neurological: Patient awake, alert, oriented as noted, cognitive function intact; pupils equally reactive to light and accommodation, cranial nerves II-XII grossly normal, moving all 4 extremities except extremely limited given recent lumbar back surgery, sensation intact, no focal deficits, strength moderately to severely globally decreased. Psychiatric: Affect appears uncomfortable, fatigued, no acute evidence of depressive or anxiety feelings. Assessment & Plan Assessment/Plan (1) Intractable back pain: PLAN: Plan The patient is a 32 y/o F w/ PMHx: Morbid obesity, Hx SVT on metoprolol, Hx DVT,Hx PFO, Chronic anemia/Fe deficiency anemia who presents to the [facility] on 07/04/23 secondary to history of chronic lumbar back discomfort with left lower extremityradicular pains for planned anterior lumbar interbody fusion L5-S1, application anterior spine plate L5-S1, titanium cage L5-S1, bone marrow aspirate left iliaccrest and spongy allograft for fusion per Dr. Corey and Dr. Lobo. #1. Severe lumbar back pain with associated lower extremity radiculopathy: Failed conservative therapies and treatments, admitted per Dr. Corey for planned 07/04/23 anterior lumbar interbody fusion L5-S1, application anterior spine plate L5-S1, titanium cage L5-S1, bone marrow aspirate left iliac crest and spongy allograft for fusion per Dr. Corey and Dr. Lobo., post-operative pain management, bowel regimen, DVT Prophylaxis, PT/OT/CM per Orthopedic surgerydiscretion. #2. History SVT: We will resume patient home metoprolol regimen, notes she did not take any doses yet today. #3. Chronic anemia/iron deficiency anemia: 06/20/2023 preoperative CBC with hemoglobin 13.5, MCV 79.9, baseline prior to this appears 12-13, will obtain follow-up CBC in AM. #4. Morbid Obesity: Weight loss and lifestyle changes encouraged. #5. History of VTE: Chart reported history of previous DVT and from history in the setting of cellulitis, not on chronic coagulant therapy. Chemoprophylaxis given recent interventions per surgery discretion. #6. DVT prophylaxis: SCDs, defer chemoprophylaxis decision to surgery service given recent OR. Charges/Coding Visit Charges Inpatient E&M: 24695 Subs Hosp L2 07/04/23 1848 <Electronically signed by Sandy Staton MD> Cosigner Signature (if applicable): CC: ~ Signed [facility] Work Phone: 1(235) 246-855708-22-2023 Procedure [facility] 07-04-2023 Procedure [facility]08-21-2023 History and physical note Author Gerber Corey [facility] July 03, 2023 2:35pm Note Date/Time July 03, 2023 2: 35pm [facility] Medical Records Department [address] [place] [address] History & Physical Exam 07/03/23 1434 MR#: [id number] Acct: [id number] Name: HOWIEDENISHA MORAN YADIRA Rep #:[id number] : 1990 32 From: Gerber Ibanez PCP: Dr. Tomasz Coleman MD Status:ND E IN Location: [facility] History and Physical Add?Addendum MR#: [id number] Acct: [id number] Name: SERGIODENISHA Rep #: [id number] : 1990 Provider: Dr. Gerber Corey DO Age/Sex: 32/F Location: [facility] [place].[facility] Status: Signed Intake Vital Signs 03/07/2313:11 Height 4 ft 9 in Intake Visit Reasons: LUMBER SPINE Chief Complaint: RIGHT LUMBAR LAMINECTOMY L5 -S1 Allergies adhesive tape Allergy (Verified 06/15/23 08:10) Other Medications Saccharomyces boulardii 250 mg capsule (Daily Probiotic (S. boulardii)) 250 mg PO DAILY 03/02/21 [History Confirmed 06/15/23] ferrous sulfate 325 mg (65 mg iron) tablet (Feosol) 325 mg PO DAILY 03/04/21 [History Confirmed 06/15/23] aspirin 81 mg tablet,delayed release (Adult Low Dose Aspirin) 81 mg PO DAILY 03/19/21 [History Confirmed 06/15/23] metoprolol succinate 50 mg tablet,extended release 24 hr 50 mg PO DAILY #30 tabs03/02/22 [Rx Confirmed 06/15/23] PFSH Medical History Abnormal echocardiogram Alcohol use Anemia Arm vein blood clot Blood clot associated with vein wall inflammation Cardiology follow-up encounter Former smoker History of echocardiogram History of edema History of irregular heartbeat History of steroid therapy Patent foramen ovale SVT (supraventricular tachycardia) Surgical History H/O section H/O tubal ligation (~2017) History of cholecystectomy (~2017) Family History Grandmother Heart disease Social History Smoking Status: Former smoker alcohol intake: current details: occasional substance use type: does not use caffeine: Yes Type: coffee Number of servings: 4 HPI LUMBER SPINE Details: Parts of this documentation were recorded by a scribe, this documentation accurately reflects the service provided and the decisions made by me, Dr. Gerber Corey, DO 06/15/23 0805. DENISHA HILL is a 32 year old F here today for a new issues of pain going down her left leg. States that this has been going on for 2 weeks. States that all she did woke up one morning and bent over to get her dogs water bowl and when she stood up she had instant pain on the whole left side of her ribs. Notesthat nothing relieves her pain. Patient is scheduled for surgery on 07/04/23 for 360 Lumbar Fusion L5- S1 wit repeat laminectomy. Denisha has a new development. Weeks ago after she got up she went to bend over to lift the dog's water bowl and she felt excruciating pain into the left buttocks and down the left thigh pain that she has never had before. It is always been on the right side. So this is a new development that has happened after the last MRI scan. On examination she has very positive tension signs and very positive straight leg raising on the left side. She has absence of the posterior tibial reflex onthe left. Her EHL strength and anterior tib strength are okay. I explained to Denisha that because of this new development that we must have a new MRI scan before surgery so that I will know what I have to do. It is evenpossible that it could be the herniation of the disc above L5-S1 which would be L4-5. We will know that until we get a new MRI scan. We will order it stat because of this time interval change. I will see her again as soon as it is done. Her surgery is still scheduled for the of this month. Coding Level of Care Code Off vis,est,level 3 Diagnoses Herniated nucleus pulposus, L5-S1, right M51.27 S/P laminectomy Z98.890 07/03/23 1435 <Electronically signed by Gerber Corey DO> Cosigner Signature (if applicable): CC: Dr. Tomasz Coleman MD; Dr. Gerber Corey DO~ Signed [facility] Work Phone: 1(855) 980-208104-25-[address] Kennedy [facility] March 07, 2023 5:25pm Note Date/Time March 07, 2023 5:1 6pm [facility] Medical Records Department [address] [place] [id number] Consultation - Hospitalist 03/07/23 1712 MR#: [id number] Acct: [id number] Name: DENISHA HILL Rep #:[id number] : 1990 32 From: Eliane Kennedy MD PCP: Dr. Tomasz Coleman MD Status:JAMIE CHIU Location: MS3 OQ403-1 Assessment & Plan Assessment/Plan (1) Herniated nucleus pulposus, L5-S1, right: PLAN: Plan #Herniated nucleus pulposus L5-S1 on the right -Status post lumbar laminectomy discectomy of L5-S1 on right -Doing well, was up walking around -Instructed if any focal signs or symptoms or lack of continued improvement in her right foot to notify -Further management per Ortho #History of thrombosis in left upper arm -Reports she was treated with a short course of Eliquis and then this was discontinued and she has not had any further problems. Presently not on blood thinners #PFO/SVT -Reports PFO that has not been fixed and she had previously refused surgery -Was told that that is why she had SVT but has done well since being on metoprolol and can feel when she flips into her rhythm -Continue metoprolol #DVT ppx: SCDs presently in place Eliane Kennedy MD Time spent in the patient's overall evaluation,decision-making process, review of diagnostic data, adjustment of management, discussion with other providers, nursing nursing and ancillary staff involved in patient's care documentation, 30minutes HPI Consult Data Date of Consult: 03/07/23 HPI Narrative Reason for Consultation: Medical management HPI Narrative: DENISHA HILL, is a 32 F with a history of PFO, SVT, left upper extremity thrombus status post anticoagulation who presented to [facility]03/07/2023 for Lumbar laminectomy discectomy L5-S1 on the right?d/t Herniated disc L5-S1 with severe right S1 radiculopathy. Hospitalist consulted for medical management. This a.m. she had her surgery and went back to the medical floor. At the time of evaluation she had already been up and walked, minimal pain in her back. Did have some tingling feeling in the top of right foot and side of the right foot that she thinks is getting better. No weakness or other sensory complaints. Denies any other complaints. [facility] Medical History Abnormal echocardiogram Alcohol use Anemia Arm vein blood clot Blood clot associated with vein wall inflammation Cardiology follow-up encounter Former smoker History of echocardiogram History of edema History of irregular heartbeat History of steroid therapy Patent foramen ovale SVT (supraventricular tachycardia) Home Medications Saccharomyces boulardii 250 mg capsule (Daily Probiotic (S. boulardii)) 250 mg PO DAILY 03/02/21 [History Last Taken 03/06/23] ferrous sulfate 325 mg (65 mg iron) tablet (Feosol) 325 mg PO DAILY 03/04/21 [History Last Taken 03/06/23] aspirin 81 mg tablet,delayed release (Adult Low Dose Aspirin) 81 mg PO DAILY 03/19/21 [History Last Taken 03/04/23] metoprolol succinate 50 mg tablet,extended release 24 hr 50 mg PO DAILY #30 tabs03/02/22 [Rx Last Taken 03/06/23] Allergy/AdvReac Type Severity Reaction Status Date / Time adhesive tape Allergy Other Verified 03/07/23 06:06 Family History Grandmother Heart disease Surgical History H/O section H/O tubal ligation (~2017) History of cholecystectomy (~2017) Social History Smoking Status: Former smoker alcohol intake: current details: occasional substance use type: does not use caffeine: Yes Type: coffee Number of servings: 4 ROS ROS Narrative General: Denies fever/chills HENT: Denies headache, denies stuffy nose, denies sore throat EYES: Denies changes in vision Resp: Denies cough, denies shortness of breath Cardiac: Denies chest pain GI: Denies abdominal pain, denies changes in bowel, denies nausea/vomiting : Denies changes in urination Extremity: Denies swelling MSK: Feels somewhat generally weak but no focal weakness Neuro: Has some tingling on the dorsum of right foot and side of right foot which she thinks is improving Heme: Denies any bleeding or bruising Skin: Denies rashes Psychiatric: No complaints voiced Physical Exam Narrative General: Alert, oriented, no apparent distress HEENT: Atraumatic, normocephalic Eyes: Anicteric, normal conjunctiva, extraocular movements grossly intact Neck: Supple Respiratory: Clear to auscultation bilaterally, normal respiratory effort Cardiovascular: Regular rate and rhythm GI: Soft, nontender, nondistended Extremities: No edema Musculoskeletal: Moving all extremities Neuro: Has feeling in both feet but from vancomycin ankle down on the dorsum of the right side and the lateral aspect feels a tingling sensation which is not present above the ankle on the bottom of the foot Skin: No rashes appreciated Psych: Cooperative Lab / Micro Data Labs: Laboratory Results - last 24 hr 03/07/23 06:11: POC Glucose 110 H Radiology Impression Spine X-Ray 03/07/23 08:40 IMPRESSION: The localization instrument is seen posterior to the L5-S1 disc space level. Electronically Signed: Mariano Cavazos MD at 8:56 EDT , Charges/Coding Visit Charges Office Visits / Consults: [id number] OP Consult L3 03/07/23 1725 <Electronically signed by Eliane Kennedy MD> Cosigner Signature (if applicable): CC: Dr. Tomasz Coleman MD; Dr. Gerber Corey DO; Dr. Eliane Kennedy MD~ Signed [facility] Work Phone: 1(452) 907-691904-25-2023 Procedure [facility] 03-02-2023 History and physical note Author Dr. Corey [facility] March 02, 2023 1:22pm Note Date/Time March 02, 2023 1:2 2pm [facility] Medical Records Department [address] [place] [address] History & Physical Exam 03/02/23 1319 MR#: [id number] Acct: [id number] Name: DENISHA HILL Rep #:[id number] : 1990 32 From: Gerber Ibanez PCP: Dr. Tomasz Coleman MD Status:ND E SDC Location: [facility] History and Physical Addendum MR#: [id number] Acct: [id number] Name:? DENISHA HILL Rep #: [id number] : 1990 ? ? Provider: Dr. Gerber Corey DO Age/Sex:? 32/F ? ? Location: [facility] [place] Status: Signed with Addenda ADDENDUM by Dr. Gerber Corey DO on 02/16/23 at 1151 Office Procedure This is addendum on gogamingo has asked to answer #4 #5.? The patient called explained to us that her symptoms are getting worse.? She is now having a lot of difficulty with the activities of daily living and taking care of her children.? Wishes to have surgery done as soon as is reasonably possible as she states that she cannot continue like she is. The answer to #11 as to what the plan is.? She will have a lumbar hemilaminotomydiscectomy at L5-S1 on the right side with direct visualization.? This is Dr. Corey dictating. Assessment and Plan Assessment and Plan (1) Herniated nucleus pulposus, L5-S1, right: ?Status:?Acute 02/16/23 1151 <Electronically signed by Gerber Corey DO> Date Gerber Corey DO cc:? Dr. Tomasz Coleman MD ~* 02/15/23 1523 <Electronically signed by Gerber Corey DO> Date Gerber Corey DO cc:? Dr. Tomasz Coleman MD ~* Signed Intake Vital Signs ? 08/17/2209:06 01/31/2309:18 02/01/2314:03 Height 4 ft 9 in 4 ft 9 in 4 ft 9 in Weight: ? ? 177 lb BMI ? ? 38.2 Intake Visit Reasons:?LUMBER SPINE Allergies adhesive tape Allergy (Verified 02/01/23 13:59) Other Medications Saccharomyces boulardii 250 mg capsule (Daily Probiotic (S. boulardii)) 250 mg PO DAILY 03/02/21 [History Confirmed 02/01/23] ferrous sulfate 325 mg (65 mg iron) tablet (Feosol) 325 mg PO DAILY 03/04/21 [History Confirmed 02/01/23] aspirin 81 mg tablet,delayed release (Adult Low Dose Aspirin) 81 mg PO DAILY 03/19/21 [History Confirmed 02/01/23] metoprolol succinate 50 mg tablet,extended release 24 hr 50 mg PO DAILY #30 tabs03/02/22 [Rx Confirmed 02/01/23] cephalexin 500 mg capsule 500 mg PO Q6 #40 caps 08/09/22 [Rx Confirmed 02/01/23] sulfamethoxazole 800 mg-trimethoprim 160 mg tablet (Bactrim DS) 1 tab PO BID #20tabs 08/09/22 [Rx Confirmed 02/01/23] PFSH Medical History? Abnormal echocardiogram Anemia Patent foramen ovale SVT (supraventricular tachycardia) Surgical History? H/O section History of cholecystectomy Family History? Grandmother Heart disease Social History? Smoking Status:? Current every day smoker tobacco type: cigarettes alcohol intake:? current details:? occasional substance use type:? does not use caffeine:? Yes Type: coffee Number of servings: 4 HPI LUMBER SPINE Details: Parts of this documentation were recorded by a scribe, this documentation accurately reflects the service provided and the decisions made by me, Dr. Gerber Corey, DO 02/01/23 4610. DENISHA HILL is a 32 year old F here today new patient for lower back pain.States that she has had pain for a couple of months. Denies any known injury. Denies any previous surgery on her back. States that her pain goes down into herright hip and leg. She then gets numbness and tingling as well. States that all activity make her pain worse. States that she has been told to rest but she feels that when she does rest and she gets up to go to the bathroom, her pain intensifies. States that she occasionally uses an heating pad, and that ice makes it feel like there are shortwaves going down the right side of her body. States that she has tried multiple medications but nothing seems to help. PAtient does have x-rays and MRI in system. Denies PT and does try to stretch her right leg but it makes her pain worse. ? Denisha is a most pleasant young lady 32 years old that has chief complaint ofpain on the right side of the low back that goes into her buttocks down her thigh and down her leg in a classic S1 dermatome.? This started insidiously 2 months ago.? Is never had anything like this in the past.? The pain has been quite bad and is usually about a 7/10 in severity at all times.? She has a job where she has to do some lifting and its been very difficult for her.? She denies any bowel or bladder dysfunction. On examination she has very positive tension signs on the right.? She has very positive straight leg raising.? Both her Achilles reflexes are absent and she has 1+ patellar reflexes bilaterally.? She has some peroneal weakness on the right as compared to the left.? Standing on her toes with each unilateral side demonstrates easy fatigability on the right side.? She has no long tract signs.?Clonus is absent and Babinski's are downgoing. I reviewed the MRI scan that demonstrates that she has a herniated disc at L5- S1on the right side consistent with her S1 radiculopathy.? It could be seen on theMRI that the S1 nerve is being pushed posteriorly by the disc. I explained to Denisha that she has what I think are 2 reasonable choices at this point.? Physical therapy is not one of them as this will do absolutely nothing to help her.? An epidural steroid injection is certainly a considerationfor at least temporary relief even though it does not really cure anything is simply a symptomatic treatment.? The definitive treatment of course is surgical intervention to take the pressure off of the S1 nerve root on the right side.? Itold her to go home and think it over as she has 3 children, ages 6, 13, and 17.? She is a single mom.? Luckily her mother and her sister live very close to her which of course is her support group.? She will think it over and decide which of the 2 ways to go.? She took Sylvia's name and card and if she decides on surgery we do have an opening on the 11th of next month on a case that just canceled.? Otherwise I will see her on a as needed basis. Coding Level of Care Code Off vis,new,level 3 Diagnoses Herniated nucleus pulposus, L5-S1, right? M51.27 Time Spent (min) 30 Assessment and Plan Assessment and Plan (1) Herniated nucleus pulposus, L5-S1, right: ?Status:?Acute 03/02/23 1322 <Electronically signed by Gerber Corey DO> Cosigner Signature (if applicable): CC: Dr. Tomasz Coleman MD; Dr. Gerber Corey DO~ Signed [facility] Work Phone: Consult note Author Liv Hernandez [facility] July 06, 2023 2:18pm Note Date/Time July 06, 2023 2: 18pm [facility] Medical Records Department [address] [place] [address] Counseling Note - Pharmacy 07/06/23 1415 MR#: [id number] Acct: [id number] Name: DENISHA HILL Rep #:[id number] : 1990 32 From: Liv Hernandez PCP: Dr. Tomasz Coleman MD Status:AD M IN Y Location: MS3 DT953-9 Pharmacy IN Med Reconciliation Pharmacy Service has performed discharge medication reconciliation for this patient. No new medications issued at time of discharge. Medications reviewed are from previously reported home medications. The patient's discharge medication list was reviewed for discrepancies and discrepancies were resolved. Medications at Discharge Home Medications Saccharomyces boulardii 250 mg capsule (Daily Probiotic (S. boulardii)) 250 mg PO DAILY SUPPLEMENT 03/02/21 ferrous sulfate 325 mg (65 mg iron) tablet (Feosol) 325 mg PO DAILY ANEMIA 03/04/21 aspirin 81 mg tablet,delayed release (Adult Low Dose Aspirin) 81 mg PO DAILY BLOOD THIN 03/19/21 metoprolol succinate 50 mg tablet,extended release 24 hr 50 mg PO DAILY HEART RATE #30 tabs 03/02/22 oxycodone-acetaminophen 5 mg-325 mg tablet 1 tab PO Q6H PRN pain 10 days #40 tabs 07/06/23 07/06/23 1418 <Electronically signed by Liv Hernandez > Date _ Liv Hernandez Cosigner Signature (if applicable): Date CC: ~ Signed [facility] Work Phone: Discharge summary Author Dr. Corey [facility] March 08, 2023 12:56pm Note Date/Time March 08, 2023 12: 55pm [facility] Medical Records Department [address] [place] [address] Instructions for Home/Discharge Instructions 03/08/23 1253 MR#: [id number] Acct: [id number] Name: DENISHA HILL Rep #:[id number] : 1990 32 From: Gerber Ibanez PCP: Dr. Tomasz Coleman MD Status:AD Trish CHIU Discharge Instructions Activity May shower in (days): 5 May resume sexual activity in: 4-6 weeks Dressing / Incision Remove Dressing in: 4 days Follow Up Care Test Results: Test results from this visit will be discussed in further detail at your follow- up appointment, if applicable. Discharge Plan Admission Admit Date/Time: 03/07/23 10:41 Attending Provider: Gerber Corey Primary Care Provider: Tomasz Coleman Consulting Providers: Eliane Kennedy Discharge Orders/Prescriptions Prescriptions: No Action ferrous sulfate [Feosol] 325 mg (65 mg iron) tablet 325 mg PO DAILY Saccharomyces boulardii [Daily Probiotic (S. boulardii)] 250 mg capsule 250 mg PO DAILY aspirin [Adult Low Dose Aspirin] 81 mg tablet,delayed release (DR/EC) 81 mg PO DAILY metoprolol succinate 50 mg tablet extended release 24 hr 50 mg PO DAILY Qty: 30 12RF oxycodone-acetaminophen 5-325 mg tablet 1 tab PO Q6H PRN (Reason: pain) 10 Days Qty: 40 0RF Other Ambulatory Orders: 12 Lead EKG (Routine) Timeframe: 20230227 Location: None Selected Ordered By: Dr. Gerber Corey Referrals / Follow Up: Tomasz Coleman MD [Primary Care Provider] - Disposition Disposition (needs filled in before D/C Order can be placed): Home, Self Care 03/08/231255<Electronically signed by Gerber Corey DO>Gerber Corey DO CC: Dr. Tomasz Coleman MD; Dr. Eliane Kennedy MD ~ Signed [facility] Work Phone: Discharge summary Author Dr. Corey [facility] March 08, 2023 12:58pm Note Date/Time March 08, 2023 12: 58pm [facility] Medical Records Department [address] [place] [address] Discharge Summary 03/08/23 125 MR#: [id number] Acct: [id number] Name: HOWIEDENISHA MORAN Rep #:[id number] : 1990 32 From: Gerber Ibanez PCP: Dr. Tomasz Coleman MD Status:JAMIE CHIU Location: MS3 WT250-6 Providers Date of Admission: 03/07/23 Primary Care Physician: Dr. Tomasz Coleman MD Attending Physician: Denisha was admitted yesterday. She underwent lumbar laminectomy at the L5- J7enqbj on the right side. Today she reports that her leg pain is all gone. Her back pain is not too bad at all. Her dressing is dry. She was given directionsregarding her activities at home when she could shower etc. I answered all her questions she will make an appointment to see me in about 2 weeks. She was given oxycodone 5/325 for pain. This is the end of discharge summary on Denisha Hill. This is Dr. Corey dictating. Consultations 03/07/23 12:47 Consult: Hospitalist Routine Consulting Provider: Eliane Kennedy Reason for Consult: Medical Management EMERGENT Consult: No MD Notified: Yes Date Notified: 03/07/23 Time Notified: 13:22 Method of Notification: Text Reason For Visit: rt lumbar laminectomy l5-s1 Diagnosis Discharge Diagnosis (1) Herniated nucleus pulposus, L5-S1, right: Status: Acute Code(s): M51.27 - Other intervertebral disc displacement, lumbosacral region Medications at Discharge Home Medications Saccharomyces boulardii 250 mg capsule (Daily Probiotic (S. boulardii)) 250 mg PO DAILY 03/02/21 ferrous sulfate 325 mg (65 mg iron) tablet (Feosol) 325 mg PO DAILY 03/04/21 aspirin 81 mg tablet,delayed release (Adult Low Dose Aspirin) 81 mg PO DAILY 03/19/21 metoprolol succinate 50 mg tablet,extended release 24 hr 50 mg PO DAILY #30 tabs03/02/22 oxycodone-acetaminophen 5 mg-325 mg tablet 1 tab PO Q6H PRN pain 10 days #40 tabs 03/08/23 Weight / BMI Weight Weight: 176 lb 5.917 oz Body Mass Index (BMI) 38.1 ABG / Lab / Microbiology Data Microbiology: Microbiology 02/27/23 08:45 Nasal Secretion Nasal Screen MRSA/MSSA - Final D/C Instructions May shower in (days): 5 May resume sexual activity in: 4-6 weeks Meaningful Use Info Meaningful Use Diagnoses (Choose all that apply): None applicable Discharge Plan Admission Admit Date/Time: 03/07/23 10:41 Attending Provider: Gerber Corey Primary Care Provider: Tomasz Coleman Consulting Providers: Eliane Kennedy Discharge Orders/Prescriptions Prescriptions: No Action ferrous sulfate [Feosol] 325 mg (65 mg iron) tablet 325 mg PO DAILY Saccharomyces boulardii [Daily Probiotic (S. boulardii)] 250 mg capsule 250 mg PO DAILY aspirin [Adult Low Dose Aspirin] 81 mg tablet,delayed release (DR/EC) 81 mg PO DAILY metoprolol succinate 50 mg tablet extended release 24 hr 50 mg PO DAILY Qty: 30 12RF oxycodone-acetaminophen 5-325 mg tablet 1 tab PO Q6H PRN (Reason: pain) 10 Days Qty: 40 0RF Other Ambulatory Orders: 12 Lead EKG (Routine) Timeframe: [id number] Location: None Selected Ordered By: Dr. Gerber Corey Referrals / Follow Up: Tomasz Coleman MD [Primary Care Provider] - Disposition Disposition (needs filled in before D/C Order can be placed): Home, Self Care 03/08/23 1258 <Electronically signed by Gerber Corey DO> Cosigner Signature (if applicable): CC: Dr. Tomasz Coleman MD; Dr. Gerber Corey DO~ Signed [facility] Work Phone: Discharge summary Author Gerber Corey [facility] July 06, 2023 1:16pm Note Date/Time July 06, 2023 1: 16pm [facility] Medical Records Department [address] [place] [id number] Discharge Summary 07/06/23 1314 MR#: [id number] Acct: [id number] Name: SERGIODENISHA YADIRA Rep #:[id number] : 1990 32 From: Gerber Ibanez PCP: Dr. Tomasz Coleman MD Status:AD M IN [place] [facility] [id number] Providers Date of Admission: 07/04/23 Primary Care Physician: Dr. Tomasz Coleman MD Attending Physician: This is discharge summary on [place] [place]. This patient was admitted 2 days ago. She underwent a 360 degree fusion with repeat laminectomy at L5-S1. Discharge she is doing extremely well she has good bowel sounds now she has a lot of flatulence and she is walking around without any walkers. She has been out in the bass with no difficulty whatsoever. Her low back pain she states is already a different kind of pain that she had before. Her right leg pain is completely resolved including all the numbness. She is very pleased with her apparent outcome as I am also. She was given postop protocol regarding her activities. I will give her oxycodone 5 mg 325 to go home with. She already has an appointment to see me in the office. This is the end of discharge summary on [place] [place]. This is Dr. Corey dictating. Consultations 07/04/23 16:57 Consult: Hospitalist Routine Consulting Provider: Sandy Staton Reason for Consult: Medical Management EMERGENT Consult: No MD Notified: Yes Date Notified: 07/04/23 Time Notified: 17:11 Method of Notification: text. Reason For Visit: CHAKAS,360 Lumbar Fusion L5-S1 with repeat laminecto Diagnosis Discharge Diagnosis (1) Intractable back pain: Status: Acute Code(s): M54.9 - Dorsalgia, unspecified Medications at Discharge Home Medications Saccharomyces boulardii 250 mg capsule (Daily Probiotic (S. boulardii)) 250 mg PO DAILY SUPPLEMENT 03/02/21 ferrous sulfate 325 mg (65 mg iron) tablet (Feosol) 325 mg PO DAILY ANEMIA 03/04/21 aspirin 81 mg tablet,delayed release (Adult Low Dose Aspirin) 81 mg PO DAILY BLOOD THIN 03/19/21 metoprolol succinate 50 mg tablet,extended release 24 hr 50 mg PO DAILY HEART RATE #30 tabs 03/02/22 Weight / BMI Weight Weight: 189 lb 9.561 oz Body Mass Index (BMI) 41.0 ABG / Lab / Microbiology Data 07/05/23 07:20 07/05/23 07:20 Microbiology: Microbiology 06/20/23 14:05 Swab (Method) Nasal Screen MRSA/MSSA - Final D/C Instructions May shower in (days): 5 May resume sexual activity in: 4-6 weeks Meaningful Use Info Meaningful Use Diagnoses (Choose all that apply): None applicable Discharge Plan Admission Admit Date/Time: 07/04/23 05:23 Primary Reason for Your Visit: back surgery Attending Provider: Gerber Corey Primary Care Provider: Tomasz Coleman Consulting Providers: Emmett Rangel; Juno Lobo; Sandy Staton Discharge Orders/Prescriptions Prescriptions: No Action ferrous sulfate [Feosol] 325 mg (65 mg iron) tablet 325 mg PO DAILY Saccharomyces boulardii [Daily Probiotic (S. boulardii)] 250 mg capsule 250 mg PO DAILY aspirin [Adult Low Dose Aspirin] 81 mg tablet,delayed release (DR/EC) 81 mg PO DAILY metoprolol succinate 50 mg tablet extended release 24 hr 50 mg PO DAILY Qty: 30 12RF Referrals / Follow Up: Tomasz Coleman MD [Primary Care Provider] - Disposition Disposition (needs filled in before D/C Order can be placed): Home, Self Care 07/06/23 1316 <Electronically signed by Gerber Corey DO> Cosigner Signature (if applicable): CC: Dr. Tomasz Coleman MD; Dr. Gerber Corey DO~ Signed [facility] Work Phone: Evaluation note* Diagnosis Onset Date Resolution Status Abscess of left elbow acute Cellulitis of left upper extremity acute Deep vein thrombosis (DVT) of left upper extremity acute Open wound of left elbow acu te [facility] Work Phone: Evaluation noteNo assessment information available [facility] Work Phone: Evaluation note* Diagnosis Onset Date Resolution Status Herniated nucleus pulposus, L5-S1, right acute Herniated nucleus pulposus, L5-S1, right acute Herniated nucleus pulposus, L5-S1, right acute [facility] Work Phone: Evaluation note* Diagnosis Onset Date Resolution Status S/P laminectomy acute S/P laminectomy acute Herniated nucleus pulposus, L5-S1, right acute S/P laminectomy acute Herniated nucleus pulposus, L5-S1, right acute S/P laminectomy acute Herniated nucleus pulposus, L5-S1, right acute S/P laminectomy acute Herniated nucleus pulposus, L5-S1, right acute Intractable back pain acute [facility] Work Phone: Evaluation note* Diagnosis Onset Date Resolution Status Herniated nucleus pulposus, L5-S1, right acute S/P laminectomy acute Herniated nucleus pulposus, L5-S1, right acute S/P laminectomy acute Herniated nucleus pulposus, L5-S1, right acute S/P laminectomy acute Herniated nucleus pulposus, L5-S1, right acute Intractable back pain resolv ed S/P laminectomy acute S/P lumbar spinal fusion acu te Abdominal pain acute S/P laminectomy acute S/P lumbar spinal fusion acu te [facility] Work Phone: Evaluation note* Diagnosis Onset Date Resolution Status 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 [facility] Work Phone: Evaluation note* Diagnosis Onset Date Resolution Status Chronic right sacroiliac joint pain resolved Chronic right sacroiliac joint pain resolved Chronic right sacroiliac joint pain resolved S/P fusion of sacroiliac joint acute S/P fusion of sacroiliac joint acute S/P fusion of sacroiliac joint acute [facility] Work Phone: Evaluation note* Diagnosis Postlaminectomy syndrome, lumbar region- Primary documented in this encounter [facility] note* Diagnosis Screen for sexually transmitted diseases- Primary Screening examination for venereal disease Pelvic pain in female Unspecified symptom associated with female genital organs documented in this encounter [facility] note* Diagnosis Pelvic pain in female Unspecified symptom associated with female genital organs documented in this encounter [facility] note* Diagnosis Pelvic pain during - Primary documented in this encounter [facility] for referral (narrative)* Diagnostic Procedure Only (Routine) - Authorized Specialty Diagnoses / Procedures Referred By Contac t Referred To Contact [facility] Diagnoses Pelvic pain in female Procedures PELVIC US WHI US PELVIC NONOBSTETRIC REAL-TIME IMAGE COMPLETE Aneesh Dia MD [address] [place] [address] [facility] [address] [place] [address] Referral ID Status Reason Start Date Expiration Date Visits Requested Visits Authorized [id number] Authorized Auto-Generat ed Referral 10/30/2025 [facility]No reason for referral information [facility] Work Phone: Reason for visit Narrative* Diagnostic Procedure Only (Routine) - Closed Specialty Diagnoses / Procedures Referred By Contac t Referred To Contact [facility] Diagnoses Pelvic pain in female Procedures PELVIC US WHI US PELVIC NONOBSTETRIC REAL-TIME IMAGE COMPLETE Aneesh Dia MD [address] [place] [address] [facility] [address] [place] [address] Referral ID Status Reason Start Date Expiration Date V isits Requested Visits Authorized [id number] Closed Auto-Generate d Referral 10/30/2024 10/30/2025 1 1 [facility] Summary Purpose Family History No Family History Records Found Relationship Condition Age at Onset Recorded Date/T ramin grandmother Cardiac disease Unknown Advance Directives No Advanced Directives Records Found Advance Directive Response Recorded Date/ Time Living Will No August 09, 2022 3:36pm Power of Pizza Chef No July 3:36pm Advance Directive Response Recorded Date/ Time Living Will No August 09, 2022 2:36pm Power of Pizza Chef No July 2:36pm Advance Directive Response Recorded Date/ Time Living Will No March 07, 2023 1:12pm Power of Pizza Chef No March 07 1:12pm Advance Directive Response Recorded Date/ Time Living Will No July 04 4:58pm Power of Pizza Chef No July 04 4:58pm Advance Directive Response Recorded Date/ Time Living Will No February 05, 2024 12:05pm Power of Pizza Chef No February 04 12:05pm Chief Complaint and Reason for Visit Chief Complaint WOUND wound wound wound wound wound Reason for Visit Abscess of left elbo w Cellulitis of left upper extremity Deep vein thrombosis (DVT) of left upper extremity Open wound of left elbow Chief Complaint wound wound wound wound wound RIGHT HIP PAIN Reason for Visit Abscess of left elbo w Cellulitis of left upper extremity Deep vein thrombosis (DVT) of left upper extremity Open wound of left elbow Chief Complaint RIGHT HIP PAIN Radiculopathy, lumbar region Chief Complaint RIGHT HIP PAIN Radiculopathy, lumbar region LUMBAR RADICULOPATHY Chief Complaint RIGHT HIP PAIN Radiculopathy, lumbar region LUMBAR RADICULOPATHY LUMBER SPINE PREOP lumbar spine rt lumbar laminectomy l5-s1 rt lumbar laminectomy l5-s1 rt lumbar laminectomy l5-s1 rt lumbar laminectomy l5-s1 rt lumbar laminectomy l5-s1 Reason for Visit Herniated nucleus pu lposus, L5-S1, right Herniated nucleus pulposus, L5-S1, right Herniated nucleus pulposus, L5-S1, right Chief Complaint rt lumbar laminectom y l5-s1 rt lumbar laminectomy l5-s1 lumbar spine LUMBAR SPINE LUMBAR SPINE LUMBAR PAIN LUMBAR SPINE LUMBER SPINE PREOP PLANNING lumbar spine ERAS,360 Lumbar Fusion L5-S1 with repeat laminecto ERAS,360 Lumbar Fusion L5-S1 with repeat laminecto ERAS,360 Lumbar Fusion L5-S1 with repeat laminecto ERAS,360 Lumbar Fusion L5-S1 with repeat laminecto ERAS,360 Lumbar Fusion L5-S1 with repeat laminecto ERAS,360 Lumbar Fusion L5-S1 with repeat laminecto ERAS,360 Lumbar Fusion L5-S1 with repeat laminecto ERAS,360 Lumbar Fusion L5-S1 with repeat laminecto Reason for Visit S/P laminectomy S/P laminectomy Herniated nucleus pulposus, L5-S1, right S/P laminectomy Herniated nucleus pulposus, L5-S1, right S/P laminectomy Herniated nucleus pulposus, L5-S1, right S/P laminectomy Herniated nucleus pulposus, L5-S1, right Intractable back pain Chief Complaint LUMBAR SPINE LUMBAR PAIN LUMBAR SPINE LUMBER SPINE PREOP PLANNING lumbar spine ERAS,360 Lumbar Fusion L5-S1 with repeat laminecto ERAS,360 Lumbar Fusion L5-S1 with repeat laminecto ERAS,360 Lumbar Fusion L5-S1 with repeat laminecto ERAS,360 Lumbar Fusion L5-S1 with repeat laminecto ERAS,360 Lumbar Fusion L5-S1 with repeat laminecto ERAS,360 Lumbar Fusion L5-S1 with repeat laminecto ERAS,360 Lumbar Fusion L5-S1 with repeat laminecto ERAS,360 Lumbar Fusion L5-S1 with repeat laminecto lumbar spine F/U FROM [facility]THRODESIS STATUS Reason for Visit Herniated nucleus pu lposus, L5-S1, right S/P laminectomy Herniated nucleus pulposus, L5-S1, right S/P laminectomy Herniated nucleus pulposus, L5-S1, right S/P laminectomy Herniated nucleus pulposus, L5-S1, right Intractable back pain S/P laminectomy S/P lumbar spinal fusion Abdominal pain S/P laminectomy S/P lumbar spinal fusion Chief Complaint LUMBAR SPINE room 4 LUMBAR SPINE LUMBAR SPINE low back PREOP SACROILIITIS/RX HERE ERAS, Right Sacroiliac Joint Fusion ERAS, Right Sacroiliac Joint Fusion ERAS, Right Sacroiliac Joint Fusion ERAS, Right Sacroiliac Joint Fusion Reason for Visit Chronic right sacroi liac joint pain Chronic right sacroiliac joint pain Chronic right sacroiliac joint pain Chief Complaint LUMBAR SPINE room 4 LUMBAR SPINE LUMBAR SPINE low back PREOP SACROILIITIS/RX HERE ERAS, Right Sacroiliac Joint Fusion ERAS, Right Sacroiliac Joint Fusion ERAS, Right Sacroiliac Joint Fusion ERAS, Right Sacroiliac Joint Fusion LUMBAR SPINE increased pain RM 1 LUMBAR SPINE Reason for Visit Chronic right sacroi liac joint pain Chronic right sacroiliac joint pain Chronic right sacroiliac joint pain S/P fusion of sacroiliac joint S/P fusion of sacroiliac joint S/P fusion of sacroiliac joint Chief Complaint Admit Date LLE; LUMBOSACRAL RADICULOPATHY November 142024 12:15pm LLE; LUMBOSACRAL RADICULOPATHY November 142024 1:51pm ELEVATED LFTS January 11, 2025 8:02 am Additional Source Comments INFORMATION SOURCE (unrecogn ized section and content) DATE CREATED AUTHOR 01/14/2019 [facility] DATE CREATED AUTHOR AUTHOR'S ORGANIZ ATION 01/14/2019 [facility] DATE CREATED AUTHOR AUTHOR'S ORGANIZ ATION 12/25/2019 [facility] DATE CREATED AUTHOR AUTHOR'S ORGANIZ ATION 04/27/2021 [facility] DATE CREATED AUTHOR AUTHOR'S ORGANIZ ATION 11/27/2022 [facility] DATE CREATED AUTHOR AUTHOR'S ORGANIZ ATION 11/30/[address] [facility] DATE CREATED AUTHOR AUTHOR'S ORGANIZ ATION 04/25/2025 [facility] DATE CREATED AUTHOR AUTHOR'S ORGANIZ ATION 05/23/2025 [facility] Goals (unrecognized section and content) Goals may be documented in a n alternate sectionGoals may be documented in an alternate sectionGoals may be documented in an alternate sectionGoals may be documented in an alternate sectionGoals may be documented in an alternate sectionGoals may be documented in an alternate section Care Teams (unrecognized sec tion and content) Team Status: Active Member Role Status Dates Dr. Tomasz Coleman MD Primary Care Provider Active Team Status: Inactive Member Role Status Dates Dr. Tomasz Coleman MD Primary Care Provider Active Jeanne Gallo ENROBING MACHINE CORDER, ENROBING MACHINE CORDER-C Attending Provider, Referring Pro vider Active Team Status: Inactive Member Role Status Dates Dr. Tomasz Coleman MD Primary Care Pr ovider, Attending Provider, Referring Provider Active Team Status: Active Member Role Status Dates Dr. Tomasz Coleman MD Primary Care Provider Active Swapna Coates ENROBING MACHINE CORDER, ENROBING MACHINE CORDER-C Attending Pro vider, Referring Provider, Other Provider Active Team Status: Inactive Member Role Status Dates Dr. Tomasz Coleman MD Primary Care Provider Active Swapna Coates ENROBING MACHINE CORDER, ENROBING MACHINE CORDER-C Attending Provider Active Team Status: Active Member Role Status Dates Dr. Tomasz Coleman MD Primary Care Provider Active Jeanne Gallo ENROBING MACHINE CORDER, ENROBING MACHINE CORDER-C Attending Provider, Referring Pro vider Active Team Status: Inactive Member Role Status Dates Dr. Tomasz Coleman MD Primary Care Provider, Attend ing Provider Active Team Status: Inactive Member Role Status Dates Dr. Tomasz Coleman MD Primary Care Provider, Referr ing Provider Active Dr. Gerber Corey DO Attending Provider Active Team Status: Active Member Role Status Dates Dr. Tomasz Coleman MD Primary Care Provider Active Dr. Marya Young MD Attending Provider Active Dr. Gerber Corey DO Referring Provider Active Team Status: Active Member Role Status Dates Dr. Tomasz Coleman MD Primary Care Provider Active Dr. Gerber Corey DO Attending Provider, Other Provi anum Active Team Status: Active Member Role Status Dates Dr. Tomasz Coleman MD Primary Care Provider Active Dr. Gerber Corey DO Attending Provide r, Referring Provider, Other Provider Active Team Status: Active Member Role Status Dates Dr. Tomasz Coleman MD Primary Care Provider Active Dr. Gerber Corey DO Admit Provider, R eferring Provider, Other Provider Active Dr. Eliane Kennedy MD Attending Provider, Other Provid er Active Team Status: Active Member Role Status Dates Dr. Tomasz Coleman MD Primary Care Provider Active Dr. Gerber Corey DO Admit Provider, A ttending Provider, Referring Provider, Other Provider Active Dr. Eliane Kennedy MD Other Provider Active Team Status: Inactive Member Role Status Dates Dr. Tomasz Coleman MD Primary Care Provider Active Dr. Gerber Corey DO Admit Provider, A ttending Provider, Referring Provider Active Dr. Eliane Kennedy MD Other Provider Active Team Status: Active Member Role Status Dates Dr. Tomasz Coleman MD Primary Care Provider Active Dr. Gerber Corey DO Admit Provider, Other Provider Active Dr. Eliane Kennedy MD Attending Provider, Other Provid er Active Team Status: Active Member Role Status Dates Dr. Tomasz Coleman MD Primary Care Provider Active Dr. Gerber Corey DO Admit Provider, A ttending Provider, Referring Provider, Other Provider Active Dr. Emmett Rangel MD Other Provider Active Team Status: Active Member Role Status Dates Dr. Tomasz Coleman MD Primary Care Provider Active Dr. Gerber Corey DO Admit Provider, A ttending Provider, Referring Provider, Other Provider Active Dr. Emmett Rangel MD Other Provider Active Dr. Juno Lobo MD Other Provider Active Team Status: Active Member Role Status Dates Dr. Tomasz Coleman MD Primary Care Provider Active Dr. Gerber Corey DO Admit Provider, R eferring Provider, Other Provider Active Dr. Emmett Rangel MD Other Provider Active Dr. Juno Lobo MD Other Provider Active Dr. Sandy Staton MD Attending Provider, Other Prov ider Active Team Status: Active Member Role Status Dates Dr. Tomasz Coleman MD Primary Care Provider Active Dr. Gerber Corey DO Admit Provider, R eferring Provider, Other Provider Active Dr. Emmett Rangel MD Other Provider Active Dr. Juno Lobo MD Attending Provider, Other Provide r Active Dr. Sandy Staton MD Other Provider Active Team Status: Active Member Role Status Dates Dr. Tomasz Coleman MD Primary Care Provider Active Dr. Gerber Corey DO Admit Provider, A ttending Provider, Referring Provider, Other Provider Active Dr. Emmett Rangel MD Other Provider Active Dr. Juno Lobo MD Other Provider Active Dr. Sandy Staton MD Other Provider Active Team Status: Inactive Member Role Status Dates Dr. Tomasz Coleman MD Primary Care Provider Active Dr. Gerber Corey DO Attending Provider, Referring P rovider Active Team Status: Inactive Member Role Status Dates Dr. Tomasz Coleman MD Primary Care Provider Active Dr. Gerber Corey DO Admit Provider, A ttending Provider, Referring Provider Active Dr. Emmett Rangel MD Other Provider Active Dr. Juno Lobo MD Other Provider Active Dr. Sandy Staton MD Other Provider Active Team Status: Active Member Role Status Dates Dr. Tomasz Coleman MD Primary Care Provider Active Dr. Gerber Corey DO Admit Provider, Other Provider Active Dr. Emmett Rangel MD Other Provider Active Dr. Juno Lobo MD Other Provider Active Dr. Sandy Staton MD Attending Provider, Other Prov ider Active Team Status: Inactive Member Role Status Dates Dr. Tomasz Coleman MD Primary Care Provider, Referr ing Provider Active NADIYA Grover Attending Provider Active Team Status: Inactive Member Role Status Dates Dr. Tomasz Coleman MD Primary Care Provider Active NADIYA Grover Attending Provider, Referring Provid er Active Team Status: Inactive Member Role Status Dates Dr. Tomasz Coleman MD Primary Care Provider Active Dr. Roger Rasmussen MD Attending Provider Active Team Status: Active Member Role Status Dates Dr. Tomasz Coleman MD Primary Care Provider Active Dr. Gerber Corey DO Admit Provider, A ttending Provider, Referring Provider, Other Provider Active Dr. Gayathri Pineda MD Other Provider Active Dr. Garcia Salazar , Other Provider Active Dr. Lea Love MD Other Provider Active Dr. Lea Pinzon MD Other Provider Active Dr. Nita Mcqueen MD Other Provider Active Dr. Sandy Staton MD Other Provider Active Dr. Rose Alex , Other Provider Active Dr. Scooter Magana , DO Other Provider Active Dr. Scooter Strickland MD Other Provider Active Bashir Castro MD Other Provider Active Dr. Juno Dee , DO Other Provider Active Dr. Ulysses Stoner MD Other Provider Active Dr. Ildefonso Harry MD Other Provider Active Dr. David Camp MD Other Provider Active Dr. Karina Fisher , DO Other Provider Active Dr. Alan Wilhelm , DO Other Provider Active Dr. Thais Crowell MD Other Provider Active Dr. Papa Emmanuel MD Other Provider Active Dr. Gilberto Carrizales MD Other Provider Active Dr. Blake Parekh MD Other Provider Active Dr. Eliane Kennedy MD Other Provider Active Dr. Aman Escobedo MD Other Provider Active Analy Salvador ENROBING MACHINE CORDER, ENROBING MACHINE CORDER-C Other Provider Active Tomasz HEARN Other Provider Active Team Status: Active Member Role Status Dates Dr. Tomasz Coleman MD Primary Care Provider Active Dr. Roger Rasmussen MD Attending Provider Active Dr. Gerber Corey , DO Referring Provider Active Team Status: Active Member Role Status Dates Dr. Tomasz Coleman MD Primary Care Provider Active Dr. Papa Truong MD Attending Provider, Referrin g Provider Active Team Status: Inactive Member Role Status Dates Dr. Tomasz Coleman MD Primary Care Provider Active Dr. Gerber Corey , DO Admit Provider, A ttending Provider, Referring Provider Active Dr. Gayathri Pineda MD Other Provider Active Dr. Garcia Salazar , DO Other Provider Active Dr. Lea Love MD Other Provider Active Dr. Lea Pinzon MD Other Provider Active Dr. Nita Mcqueen MD Other Provider Active Dr. Sandy Staton MD Other Provider Active Dr. Rose Alex , DO Other Provider Active Dr. Scooter Magana , DO Other Provider Active Dr. Scooter Strickland MD Other Provider Active Bashri Castro MD Other Provider Active Dr. Juno Dee , DO Other Provider Active Dr. Ulysses Stoner MD Other Provider Active Dr. Ildefonso Harry MD Other Provider Active Dr. David Camp MD Other Provider Active Dr. Karina Fisher , DO Other Provider Active Dr. Alan Wilhelm , DO Other Provider Active Dr. Thais Crowell MD Other Provider Active Dr. Papa Emmanuel MD Other Provider Active Dr. Gilberto Carrizales MD Other Provider Active Dr. Blake Parekh MD Other Provider Active Dr. Eliane Kennedy MD Other Provider Active Dr. Aman Escobedo MD Other Provider Active Analy Salvador ENROBING MACHINE CORDER, ENROBING MACHINE CORDER-C Other Provider Active Tomasz HEARN Other Provider Active Product Support Manager Relationship Specialty Start Date End Date Tomasz Coleman MD [address] [place] [address] PCP - General Endocrinology/Metabolism 01/09/23 Product Support Manager Relationship Specialty Start Date End Date Tomasz Coleman(Historical), PCP - General Family Medicine 05/25/21 Product Support Manager Relationship Specialty Start Date End Date Tomasz Coleman(Historical), PCP - General Family Medicine 05/25/21 Product Support Manager Relationship Specialty Start Date End Date Tomasz Coleman(Historical), PCP - General Family Medicine 05/25/21 Product Support Manager Relationship Specialty Start Date End Date Tomasz Coleman(Historical), PCP - General Family Medicine 05/25/21 Team Status: Inactive Member Role Status Dates Dr. Tomasz Coleman MD Primary Care Provider Active Start: November 08, 2024 End: November 08, 2024 Dr. Tomasz Coleman MD Attending Provider Active Start: November 08, 2024 End: November 08, 2024 Dr. Tomasz Coleman MD Referring Provider Active Start: November 08, 2024 End: November 08, 2024 Team Status: Inactive Member Role Status Dates Dr. Tomasz Coleman MD Primary Care Provider Active Start: December 04, 2024 End: December 04, 2024 Dr. Papa Truong MD Attending Provider Active Start: December 04, 2024 End: December 04, 2024 Dr. Papa Truong MD Referring Provider Active Start: December 04, 2024 End: December 04, 2024 Team Status: Active Member Role Status Dates Dr. Tomasz Coleman MD Primary Care Provider Active Start: December 04, 2024 Dr. Papa Truong MD Referring Provider Active Start: December 04, 2024 Dr. Papa Truong MD Other Provider Active Start: December 04, 2024 Dr. Serg Bailey MD Attending Provider Active S tart: December 04, 2024 Team Status: Inactive Member Role Status Dates Dr. Tomasz Coleman MD Primary Care Provider Active Start: December 17, 2024 End: December 17, 2024 Dr. Tomasz Coelman MD Attending Provider Active Start: December 17, 2024 End: December 17, 2024 Dr. Tomasz Coleman MD Referring Provider Active Start: December 17, 2024 End: December 17, 2024 Team Status: Inactive Member Role Status Dates Dr. Tomasz Coleman MD Primary Care Provider Active Start: January 06, 2025 End: January 06, 2025 Dr. Tomasz Coleman MD Attending Provider Active Start: January 06, 2025 End: January 06, 2025 Dr. Tomasz Coleman MD Referring Provider Active Start: January 06, 2025 End: January 06, 2025 Team Status: Active Member Role Status Dates Dr. Tomasz Coleman MD Primary Care Provider Active Start: January 11, 2025 Dr. Tomasz Coleman MD Attending Provider Active Start: January 11, 2025 Dr. Tomasz Coleman MD Referring Provider Active Start: January 11, 2025 Team Status: Inactive Member Role Status Dates Dr. Tomasz Coleman MD Primary Care Provider Active Start: January 11, 2025 End: January 11, 2025 Dr. Tomasz Coleman MD Attending Provider Active Start: January 11, 2025 End: January 11, 2025 Dr. Tomasz Coleman MD Referring Provider Active Start: January 11, 2025 End: January 11, 2025 Source Comments (unrecognize d section and content) In the event this informatio n is protected by the Federal Confidentiality of Alcohol and Drug Abuse Patient Records regulations: The Federal rules restrict any use of the information to criminally investigate or prosecute any alcohol or drug abuse patient.[facility] the event this information is protected by the Federal Confidentiality of Alcohol and Drug Abuse Patient Records regulations: The Federal rules restrict any use of the information to criminally investigate or prosecute any alcohol or drug abuse patient.[facility] the event this information is protected by the Federal Confidentiality of Alcohol and Drug Abuse Patient Records regulations: The Federal rules restrict any use of the information to criminally investigate or prosecute any alcohol or drug abuse patient.[facility] the event this information is protected by the Federal Confidentiality of Alcohol and Drug Abuse Patient Records regulations: The Federal rules restrict any use of the information to criminally investigate or prosecute any alcohol or drug abuse patient.[facility] Reason for Visit (unrecogniz ed section and content) Reason Comments [facility] Reason Comments Results FOR RECORDS PERTAINING TO PATIENTS WHO ARE OR HAVE BEEN ENROLLED IN A CHEMICAL DEPENDENCY/SUBSTANCEABUSE PROGRAM, SOME INFORMATION MAY BE OMITTED. This clinical summary was aggregated from multiple sources. Caution should be exercised in using it in the provision of clinical care. This summary normalizes information from multiple sources, and as a consequence, information in this document may materially change the coding, format and clinical context of patient data. In addition, data may be omitted in some cases. CLINICAL DECISIONS SHOULD BE BASED ON THE PRIMARY CLINICAL RECORDS. [facility] [employer] [facility]. provides no warranty or guarantee of the accuracy or completeness of information in this document.
--- OUTSIDE RECORDS SUMMARY | 2025-05-28 20:59 | XMS RPT_ITS | CCD ---
Author Organization [facility] CliniSyhi Care Team Providers Care Edge Trimming Machine Operator Name Role Phone No Doctor Assigned, Nodr Primary Care Unavail able JohnnyJack gray W Admitting Unavailable Johnny, Jack W Attending Unavailable No Doctor Assigned, Nodclaire Primary Care Unavail able Alan Larsen Admitting Unavailable Alan Larsen Attending Unavailable ELIZABETH HENNESSY Attending Unavailable TOMASZ COLEMAN Primary Care Unavailable BLAKE YORK Referring Unavailable Dr. Tomasz Coleman Primary Care Provider Jaxon FOOD TECHNOLOGY TEACHER, FOOD TECHNOLOGY TEACHER-C Swapna E Attending Provider Jaxon FOOD TECHNOLOGY TEACHER, FOOD TECHNOLOGY TEACHER-C Swapna E Referring Provider [phone] Jaxon FOOD TECHNOLOGY TEACHER, FOOD TECHNOLOGY TEACHER-C Swapna E Other Provider ENEIDA CHAVEZ Attending Unavailable ROSA MARIA GARCIA Attending Unava ilable Dr. Tomasz Coleman Primary Care Provider [phone] Jaxon FOOD TECHNOLOGY TEACHER, FOOD TECHNOLOGY TEACHER-C Swapna E Attending Provider Jaxon FOOD TECHNOLOGY TEACHER, FOOD TECHNOLOGY TEACHER-C Swapna E Referring Provider Jaxon FOOD TECHNOLOGY TEACHER, FOOD TECHNOLOGY TEACHER-C Swapna E Other Provider Dr. Tomasz Coleman Primary Care Provider [phone] Dr. Tomasz Coleman Referring Provider Dr. Gerber Corey Attending Provider Dr. Marya Young Attending Provider Dr. Gerber Corey Referring Provider 1([facility])[phone] Dr. Gerber Corey Other Provider 1([facility])[phone] Gerber Corey Admit Provider 1([facility])[phone] Eliane Kennedy Attending Provider 1([facility])[phone] Eliane Kennedy Other Provider Dr. Tomasz Coleman Primary Care Provider 1([facility] )[phone] Dr. Gerber Corey Admit Provider 1([facility])[phone] Gerber Corey Attending Provider 1([facility])[phone] Dr. Gerber Corey Referring Provider 1([facility])[phone] Dr. Gerber Corey Other Provider 1([facility])[phone] Eliane Kennedy Other Provider Dr. Eliane Kennedy Attending Provider 1([facility])[phone] Tomasz Coleman Referring Provider 1([facility])[phone] Dr. Emmett Rangel Other Provider 1([facility])[phone] Juno Lobo Other Provider Dr. Sandy Staton Attending Provider 1([facility])[phone] Dr. Sandy Staton Other Provider 1([facility])[phone] Juno Lobo Attending Provider 1([facility])[phone] Tomasz Coleman Primary Care Provider 1([facility] )[phone] Dr. Tomasz Coleman Referring Provider 1([facility])[phone] Dr. Gerber Corey Attending Provider 1([facility])[phone] Dr. Gerber Corey Admit Provider 1([facility])[phone] Gerber Corey Referring Provider 1([facility])[phone] Dr. Gerber Corey Other Provider 1([facility])[phone] NADIYA Monreal Attending Provider 1([facility])[phone] Tomasz Coleman Primary Care Provider 1([facility] )[phone] Dr. Tomasz Coleman Referring Provider 1([facility])[phone] Dr. Gerber Corey Attending Provider 1([facility])[phone] Dr. Roger Rasmussen Attending Provider 1([facility])[phone] Gerber Corey Referring Provider 1([facility])[phone] Dr. Gerber Corey Other Provider 1([facility])[phone] Gerber Corey Admit Provider 1([facility])[phone] Gayathri Pineda Other Provider [...] Provider Dr. Ildefonso Harry Other Provider 1([facility])[phone] David Camp Other Provider Dr. Karina Fisher Other Provider Dr. Alan Wilhelm Other Provider Dr. Thais Crowell Other Provider Dr. Papa Emmanuel Other Provider 1([facility])[phone] Dr. Gilberto Carrizales Other Provider 1([facility])[phone] Blake Parekh Other Provider Dr. Eliane Kennedy Other Provider Dr. Aman Escobedo Other Provider 1([facility])[phone] [place] FOOD TECHNOLOGY TEACHER, FOOD TECHNOLOGY TEACHER-C Analy Other Provider Tomasz Mercado Other Provider Unavailable Tomasz Coleman MD Primary Care Provider Tomasz Colmean MD(Historical) Primary Care Provi anum Unavailable ANEESH DIA Attending Unavailable ANEESH DIA Referring Unavailable ANEESH DIA Attending Unavailable Dr. Tomasz Coleman MD Primary Care Provider Dr. Tomasz Coleman MD Attending Provider Jared ROBERSON Dr. Tomasz Lambert Referring Provider Alexi ROBERSON, Dr. Elam Attending Provider Alexi ROBERSON, Dr. Elam Referring Provider Alexi ROBERSON, Dr. Elam Other Provider Leo ROBERSON, Dr. Ulrich Attending Provider Jared ROBERSON, Dr. Tomasz Lambert Primary Care Provider Jared ROBERSON, Dr. Tomasz Lambert Attending Provider [phone] Jared ROBERSON, Dr. Tomasz Lambert Referring Provider Alexi ROBERSON, Dr. Elam Attending Provider Alexi ROBERSON, Dr. Elam Referring Provider Alexi ROBERSON, Dr. Elam Other Provider Leo ROBERSON, Dr. Ulrich Attending Provider RADHA BENITEZ Attending Unavaila ble SCHINNER, TOMASZ [...] Schinner, Tomasz E Primary Care Unavailable Valery, [place] Attending Unavailable Schinner, Tomasz E Primary Care [...] Unavailable Schinner, Tomasz E Referring Unavailable Schinner, Tomsaz E Attending Unavailable PraysonAbilioPapa Referring Unavailable Prayson [...] to substance 08-17-20 22 Other, Hives, Rash [facility] Comment on above: ONLY ON CHEST (8 sources) ADHESIVE TAPE-SILICONES; Translations: [ADHESIVE TAPE-SILICONES] Propensity to adverse reactions to drug (disorder) 04-06-20 21 Hives, Rash [facility] Repository (1 source) Corticosteroids Drug allergy (disorder) 04-08-20 25 [facility] Repository (1 source) Escitalopram Drug Allergy 04-08-20 25 [facility] Medications Current Medications Medication Drug [...] ORAL) Take by mouth . Active levonorgestrel 0.613915 mg/hr intrauterine system (4 sources) Progestin, Progestin-containing [...] Contras ton 05-14-2025 Spine Lumbar without Contrast [facility] Imaging Services [address] [place] [address] Spine Lumbar without Contrast MR#: [id number] Acct: [id number] Name: HOWIEDEANDENISHA TOMLINSONTA Rep #: [id number] : 1990 F 34 From: Jovany Felder MD PCP: Dr. Tomasz Coleman MD Status: REG CLI Study: Spine Lumbar without Contrast Date of Exam: Exam# [id number] Ordering Dr: Pancho Starkey MD PROCEDURE: SPINE [...] Pancho Starkey MD; Dr. Tomasz Coleman MD Antiquer: Signed Normal [facility] CBC W/Diff, Automatedon 07-0 Absolute Lymph 1.41 X10 3/uL Normal 0.83-4.51 [facility] Comment on above: Performed By: #### L 501.9520, L100.0100, L503.6030, L503.6550, L500.4050, L501.5200 ####[facility] [address] [place], [address] Absolute Neut 5.5 X10 3/uL Normal 2.0-7.7 [facility] Comment on above: Performed By: #### L 501.9520, L100.0100, L503.6030, L503.6550, L500.4050, L501.5200 ####[facility] [address] [place], [address] Basophils/100 WBC (Bld) 0.4 % Normal 0-1 [facility] Comment on above: Performed By: #### L 501.9520, L100.0100, L503.6030, L503.6550, L500.4050, L501.5200 ####[facility] [address] [place], [address] Eosinophils/100 WBC (Bld) 0.9 % Normal 0-5 [facility] Comment on above: Performed By: #### L 501.9520, L100.0100, L503.6030, L503.6550, L500.4050, L501.5200 ####[facility] [address] [place], [address] Erythrocyte distribution width (RBC) [Ratio] 13.4 % Normal 11.6-14.6 [facility] Comment on above: Performed By: #### L 501.9520, L100.0100, L503.6030, L503.6550, L500.4050, L501.5200 ####[facility] [address] [place], [address] Hematocrit (Bld) [Volume fraction] 38.3 % Normal 37-47 [facility] Comment on above: Performed By: #### L 501.9520, L100.0100, L503.6030, L503.6550, L500.4050, L501.5200 ####[facility] [address] [place], [address] Hemoglobin (Bld) [Mass/Vol] 12.6 g/dL Normal 12.0-15.0 [facility] Comment on above: Performed By: #### L 501.9520, L100.0100, L503.6030, L503.6550, L500.4050, L501.5200 ####[facility] [address] [place], [address] IG% 0.300 Normal 0.0-0.9 [facility] Comment on above: Result Comment: IG% - Immature Granulocytes (promyelocytes, myelocytes and metamyelocytes) > 1% indicates that a LEFT SHIFT is Present. Performed By: #### L 501.9520, L100.0100, L503.6030, L503.6550, L500.4050, L501.5200 ####[facility] [address] [place], [address] Lymphocytes/100 WBC (Bld) 18.8 % Low 19-41 [facility] Comment on above: Performed By: #### L 501.9520, L100.0100, L503.6030, L503.6550, L500.4050, L501.5200 ####[facility] [address] [place], [address] MCH (RBC) [Entitic mass] 26.4 pg Low 27.0-32.0 [facility] Comment on above: Performed By: #### L 501.9520, L100.0100, L503.6030, L503.6550, L500.4050, L501.5200 ####[facility] [address] [place], [address] MCHC (RBC) [Mass/Vol] 32.9 g/dL Normal 32-[address] [facility] Comment on above: Performed By: #### L 501.9520, L100.0100, L503.6030, L503.6550, L500.4050, L501.5200 ####[facility] [address] [place], [address] MCV (RBC) [Entitic vol] 80.1 fL Low 81-99 [facility] Comment on above: Performed By: #### L 501.9520, L100.0100, L503.6030, L503.6550, L500.4050, L501.5200 ####[facility] [address] [place], [address] Monocytes/100 WBC (Bld) 5.7 % Normal 0-10 [facility] Comment on above: Performed By: #### L 501.9520, L100.0100, L503.6030, L503.6550, L500.4050, L501.5200 ####[facility] [address] [place], [address] Neutrophils/100 WBC (Bld) 73.9 % High 47-70 [facility] Comment on above: Performed By: #### L 501.9520, L100.0100, L503.6030, L503.6550, L500.4050, L501.5200 ####[facility] [address] [place], [address] Nucleated RBC (Bld) [#/Vol] 0 10*3/uL Normal 0-5 [facility] Comment on above: Performed By: #### L 501.9520, L100.0100, L503.6030, L503.6550, L500.4050, L501.5200 ####[facility] [address] [place], [address] Platelet mean volume (Bld) [Entitic vol] 11.0 fL Normal 6.2-12.0 [facility] Comment on above: Performed By: #### L 501.9520, L100.0100, L503.6030, L503.6550, L500.4050, L501.5200 ####[facility] [address] [place], [address] Platelets (Bld) [#/Vol] 339 10*3/uL Normal 150-450 [facility] Comment on above: Performed By: #### L 501.9520, L100.0100, L503.6030, L503.6550, L500.4050, L501.5200 ####[facility] [address] [place], [address] RBC (Bld) [#/Vol] 4.78 10*6/uL Normal 4.2-5.4 [facility] Comment on above: Performed By: #### L 501.9520, L100.0100, L503.6030, L503.6550, L500.4050, L501.5200 ####[facility] [address] [place], [address] RDW SD 38.6 fl Normal 35.1-43.9 [facility] Comment on above: Performed By: #### L 501.9520, L100.0100, L503.6030, L503.6550, L500.4050, L501.5200 ####[facility] [address] [place], [address] WBC (Bld) [#/Vol] 7.5 10*3/uL Normal 4.4-11.0 [facility] Comment on above: Performed By: #### L 501.9520, L100.0100, L503.6030, L503.6550, L500.4050, L501.5200 ####[facility] [address] [place], [address] Comprehensive Metabolic Prof njon 05-13-2025 Albumin [Mass/Vol] 4.5 g/dL Normal 3.5-5.0 [facility] Comment on above: Performed By: #### L 501.9520, L100.0100, L503.6030, L503.6550, L500.4050, L501.5200 ####[facility] [address] [place], [address] Albumin/Globulin [Mass ratio] 1.4 {ratio} Normal 0.9-2.4 [facility] Comment on above: Performed By: #### L 501.9520, L100.0100, L503.6030, L503.6550, L500.4050, L501.5200 ####[facility] [address] [place], [address] ALK PHOS 64 U/L Normal 35-104 [facility] Comment on above: Performed By: #### L 501.9520, L100.0100, L503.6030, L503.6550, L500.4050, L501.5200 ####[facility] [address] [place], [address] ALT [Catalytic activity/Vol] 17 U/L Normal <=34 [facility] Comment on above: Performed By: #### L 501.9520, L100.0100, L503.6030, L503.6550, L500.4050, L501.5200 ####[facility] [address] [place], [address] AST [Catalytic activity/Vol] 19 U/L Normal <=31 [facility] Comment on above: Performed By: #### L 501.9520, L100.0100, L503.6030, L503.6550, L500.4050, L501.5200 ####[facility] [address] [place], [address] Bilirubin [Mass/Vol] 0.46 mg/dL Normal 0.00-1.30 [facility] Comment on above: Performed By: #### L 501.9520, L100.0100, L503.6030, L503.6550, L500.4050, L501.5200 ####[facility] [address] [place], [address] BUN/CRE 16.1 RATIO Normal 10-20 [facility] Comment on above: Performed By: #### L 501.9520, L100.0100, L503.6030, L503.6550, L500.4050, L501.5200 ####[facility] [address] [place], [address] Calcium [Mass/Vol] 9.5 mg/dL Normal 7.6-11.0 [facility] Comment on above: Performed By: #### L 501.9520, L100.0100, L503.6030, L503.6550, L500.4050, L501.5200 ####[facility] [address] [place], [address] Chloride [Moles/Vol] 104 mmol/L Normal 98-108 [facility] Comment on above: Performed By: #### L 501.9520, L100.0100, L503.6030, L503.6550, L500.4050, L501.5200 ####[facility] [address] [place], [address] CO2 [Moles/Vol] 23.0 mmol/L Normal 21.0-32.0 [facility] Comment on above: Performed By: #### L 501.9520, L100.0100, L503.6030, L503.6550, L500.4050, L501.5200 ####[facility] [address] [place], [address] Creatinine [Mass/Vol] 0.59 mg/dL Low 0.70-1.[address] [facility] Comment on above: Performed By: #### L 501.9520, L100.0100, L503.6030, L503.6550, L500.4050, L501.5200 ####[facility] [address] [place], [address] GAP 12 Normal 5-15 [facility] Comment on above: Performed By: #### L 501.9520, L100.0100, L503.6030, L503.6550, L500.4050, L501.5200 ####[facility] [address] [place], [address] GFR/1.73 sq M.predicted among non-blacks MDRD (S/P/Bld) [Vol rate/Area] 121 mL/min/{1.73_m2} Normal >60 [facility] Comment on above: Result Comment: mL/m in/1.73m2 CKD-EPI Creatinine Equation (2020) Performed By: #### L 501.9520, L100.0100, L503.6030, L503.6550, L500.4050, L501.5200 ####[facility] [address] [place], [address] Globulin (S) [Mass/Vol] 3.1 g/dL Normal 2.2-4.2 [facility] Comment on above: Performed By: #### L 501.9520, L100.0100, L503.6030, L503.6550, L500.4050, L501.5200 ####[facility] [address] [place], [address] Glucose [Mass/Vol] 98 mg/dL Normal 70-99 [facility] Comment on above: Performed By: #### L 501.9520, L100.0100, L503.6030, L503.6550, L500.4050, L501.5200 ####[facility] [address] [place], [address] Potassium [Moles/Vol] 4.0 mmol/L Normal 3.3-5.[address] [facility] Comment on above: Performed By: #### L 501.9520, L100.0100, L503.6030, L503.6550, L500.4050, L501.5200 ####[facility] [address] [place], [address] Sodium [Moles/Vol] 139 mmol/L Normal 133-145 [facility] Comment on above: Performed By: #### L 501.9520, L100.0100, L503.6030, L503.6550, L500.4050, L501.5200 ####[facility] [address] [place], [address] T PROT 7.7 g/dL Normal 5.9-8.4 [facility] Comment on above: Performed By: #### L 501.9520, L100.0100, L503.6030, L503.6550, L500.4050, L501.5200 ####[facility] [address] [place], [address] Urea nitrogen [Mass/Vol] 10 mg/dL Normal 4-19 [facility] Comment on above: Performed By: #### L 501.9520, L100.0100, L503.6030, L503.6550, L500.4050, L501.5200 ####[facility] [address] [place], [address] Ferritinon 05-13-2025 Ferritin [Mass/Vol] 30 ng/mL Normal 22-378 [facility] Comment on above: Performed By: #### L 501.9520, L100.0100, L503.6030, L503.6550, L500.4050, L501.5200 ####[facility] [address] [place], [address] Iron+Iron Binding Capacityon 05-13-2025 Iron [Mass/Vol] 45 ug/dL Low 50-170 [facility] Comment on above: Performed By: #### L 501.9520, L100.0100, L503.6030, L503.6550, L500.4050, L501.5200 ####[facility] [address] [place], [address] IRON SATURATION 14.0 Normal 13-59 [facility] Comment on above: Performed By: #### L 501.9520, L100.0100, L503.6030, L503.6550, L500.4050, L501.5200 ####[facility] [address] [place], [address] TIBC 332 ug/dL Normal 250-450 [facility] Comment on above: Performed By: #### L 501.9520, L100.0100, L503.6030, L503.6550, L500.4050, L501.5200 ####[facility] [address] [place], [address] UIBC 287 ug/dL Normal 228-428 [facility] Comment on above: Performed By: #### L 501.9520, L100.0100, L503.6030, L503.6550, L500.4050, L501.5200 ####[facility] [address] [place], [address] Magnesiumon 05-13-2025 Magnesium [Mass/Vol] 2.4 mg/dL High 1.5-2.2 [facility] Comment on above: Performed By: #### L 501.9520, L100.0100, L503.6030, L503.6550, L500.4050, L501.5200 ####[facility] [address] [place], [address] Thyroid Stim Hormone (TSH)on 05-13-2025 TSH 1.220 uIU/mL Normal 0.300-4.200 [facility] Comment on above: Performed By: #### L 501.9520, L100.0100, L503.6030, L503.6550, L500.4050, L501.5200 ####[facility] [address] [place], [address] ED Prov Noteon 04-17-2025 ED Prov Note ED PROVIDER NOTE [facility] NAME: Denisha Hill AGE: 34 y.o. 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 Energy: Reports feeling exhausted. [...] this has worsened over the last year. residential memory is a concern. Short term memory also a concern. Admits to frequently misplacing things. Anxiety: See above Obsessions: Denies Compulsions: Denies Marnie: Denies symptoms of marnie. PTSD: Admits to a past history of [...] of first (more content not included)... Normal [facility] L/S Spine Min 4 Viewson 03-13 L/S Spine Min 4 Views [facility] Imaging Services [address] [place] [address] L/S Spine Min 4 Views MR#: [id number] Acct: [id number] Name: DENISHA HILL Rep #: [id number] : 1990 F 34 From: Herb Kelley MD PCP: Dr. Tomasz Coleman MD Status: DEP AMB Study: L/S Spine Min 4 Views Date of Exam: 03/28/25 Exam# [id number] Ordering Dr: Brandi Valdivia PROCEDURE: L/S SPINE MIN 4 VIEWS 03/28/2025 REASON FOR EXAM: PAIN, BILATERAL HIP PAIN TECHNIQUE: Four views; AP, lateral and flexion-extension COMPARISON: 05/29/2024 FINDINGS: 5 zaa-yzf-qcenjos lumbar vertebral body types identified. There is [...] Views IMPRESSION: Findings as above. Reading Location: [id number] CC: NADIYA Palma; Dr. Tomasz Coleman MD Antiquer: Signed Normal [facility] Orthopedic Visit Reporton Orthopedic Visit Report [facility] [address] [place] [address] [address] [place] [address] OFFICE VISIT Date of Service: 03/28/25 MR#: [id number] Acct: [id number] Name: DENISHA HILL Rep #: [id number] : 1990 Provider: Dr. Pancho Starkey MD Age/Sex: 34/F Location[place] [facility] Status: Signed Intake Vital Signs 02/05/24 12:08 [...] you fallen in the past year?: [facility] PONV (postoperative nausea and vomiting) [...] fusion Z98 (more content not included)... Normal [facility] Hemoglobin A1con 03-14-2025 HbA1c (Bld) [Mass fraction] 5.1 % Normal <=5.6 [facility] Comment on above: Result Comment: Norm al < 5.7 % Prediabetic 5.7 - 6.4 % Diabetic >or= 6.5 % Please note range changes. Performed By: #### L 501.0910 #### [facility] [address] [place], [address] Comprehensive Metabolic Prof ilon 03-13-2025 Albumin [Mass/Vol] 4.4 g/dL Normal 3.5-5.0 [facility] Comment on above: Order Comment: Order Date: 03/13/25Order Info: 0786-1 - CMP Performed By: #### L 500.8220 ####[facility] [address] [place], [place], [address] Albumin/Globulin [Mass ratio] 1.4 {ratio} Normal 0.9-2.4 [facility] Comment on above: Order Comment: Order Date: 03/13/25Order Info: 0786-1 - CMP Performed By: #### L 500.4050 ####[facility] [address] [place], [address] ALK PHOS 61 U/L Normal 35-104 [facility] Comment on above: Order Comment: Order Date: 03/13/25Order Info: 0786-1 - CMP Performed By: #### L 500.4050 ####[facility] [address] [place], [address] ALT [Catalytic activity/Vol] 20 U/L Normal <=34 [facility] Comment on above: Order Comment: Order Date: 03/13/25Order Info: 0786-1 - CMP Performed By: #### L 500.4050 ####[facility] [address] [place], [address] AST [Catalytic activity/Vol] 23 U/L Normal <=31 [facility] Comment on above: Order Comment: Order Date: 03/13/25Order Info: 0786-1 - CMP Performed By: #### L 500.4050 ####[facility] [address] [place], [address] Bilirubin [Mass/Vol] 0.44 mg/dL Normal 0.00-1.30 [facility] Comment on above: Order Comment: Order Date: 03/13/25Order Info: 0786-1 - CMP Performed By: #### L 500.4050 ####[facility] [address] [place], [address] BUN/CRE 10.7 RATIO Normal 10-20 [facility] Comment on above: Order Comment: Order Date: 03/13/25Order Info: 0786-1 - CMP Performed By: #### L 500.4050 ####[facility] [address] [place], [address] Calcium [Mass/Vol] 9.4 mg/dL Normal 7.6-11.0 [facility] Comment on above: Order Comment: Order Date: 03/13/25Order Info: 0786-1 - CMP Performed By: #### L 500.4050 ####[facility] [address] [place], [address] Chloride [Moles/Vol] 102 mmol/L Normal 98-108 [facility] Comment on above: Order Comment: Order Date: 03/13/25Order Info: 0786-1 - CMP Performed By: #### L 500.4050 ####[facility] [address] [place], [address] CO2 [Moles/Vol] 21.3 mmol/L Normal 21.0-32.0 [facility] Comment on above: Order Comment: Order Date: 03/13/25Order Info: 0786-1 - CMP Performed By: #### L 500.4050 ####[facility] [address] [place], [address] Creatinine [Mass/Vol] 0.71 mg/dL Normal 0.70-1.[address] [facility] Comment on above: Order Comment: Order Date: 03/13/25Order Info: 0786-1 - CMP Performed By: #### L 500.4050 ####[facility] [address] [place], [address] GAP 13 Normal 5-15 [facility] Comment on above: Order Comment: Order Date: 03/13/25Order Info: 0786-1 - CMP Performed By: #### L 500.4050 ####[facility] [address] [place], [address] GFR/1.73 sq M.predicted among non-blacks MDRD (S/P/Bld) [Vol rate/Area] 115 mL/min/{1.73_m2} Normal >60 [facility] Comment on above: Order Comment: Order Date: 03/13/25Order Info: 0786-1 - CMP Result Comment: mL/m in/1.73m2 CKD-EPI Creatinine Equation (2020) Performed By: #### L 500.4050 ####[facility] [address] [place], [address] Globulin (S) [Mass/Vol] 3.2 g/dL Normal 2.2-4.2 [facility] Comment on above: Order Comment: Order Date: 03/13/25Order Info: 0786-1 - CMP Performed By: #### L 500.4050 ####[facility] [address] [place], [address] Glucose [Mass/Vol] 120 mg/dL High 70-99 [facility] Comment on above: Order Comment: Order Date: 03/13/25Order Info: 0786-1 - CMP Performed By: #### L 500.4050 ####[facility] [address] [place], [address] Potassium [Moles/Vol] 3.8 mmol/L Normal 3.3-5.[address] [facility] Comment on above: Order Comment: Order Date: 03/13/25Order Info: 0786-1 - CMP Performed By: #### L 500.4050 ####[facility] [address] [place], [address] Sodium [Moles/Vol] 137 mmol/L Normal 133-145 [facility] Comment on above: Order Comment: Order Date: 03/13/25Order Info: 0786-1 - CMP Performed By: #### L 500.4050 ####[facility] [address] [place], [address] T PROT 7.6 g/dL Normal 5.9-8.4 [facility] Comment on above: Order Comment: Order Date: 03/13/25Order Info: 0786-1 - CMP Performed By: #### L 500.4050 ####[facility] [address] [place], [place], [address] Urea nitrogen [Mass/Vol] 8 mg/dL Normal - [facility] Comment on above: Order Comment: Order Date: 03/13/25Order Info: 0786-1 - CMP Performed By: #### L 500.4050 ####[facility] [address] [facility] [place], [place], [address] Spine Lumbar (Routine)on Spine Lumbar (Routine) [facility] Imaging Services [address] [facility] [address] [place], [place] [address] Spine Lumbar (Routine) MR#: [id number] Acct: [id number] Name: DENISHA HILL Rep #: [id number] : 1990 F 34 From: Jace lambert MD PCP: Dr. Tomasz Coleman MD Status: REG CLI Study: Spine Lumbar (Routine) Date of Exam: 02/11/25 Exam# [id number] Ordering Dr: Papa Truong MD EXAM: MRI [...] findings. No significant degenerative changes. [facility]: Dr. Tomasz Coleman MD; Dr. Papa Truong MD Antiquer: Signed Normal [facility] Abdomen Limitedon 01-11-2025 Abdomen Limited [facility] Imaging Services [address] [place], [place] [address] Abdomen Limited MR#: [id number] Acct: [id number] Name: DENISHA HILL Rep #: [id number] : 1990 F 34 From: Blake Alexandre MD PCP: Dr. Tomasz Coleman MD Status: REG CLI Study: Abdomen Limited Date of Exam: 01/11/25 Exam# [id number] Ordering Dr: Tomasz Coleman MD PROCEDURE: ABDOMEN [...] Location: [facility] CC: Dr. Tomasz Coleman MD Antiquer: Signed Normal [facility] Absolute neutrophil countOrd ered By: Tomasz Coleman on 01-06-2025 Neutrophils (Bld) [#/Vol] 5.8 10*3/uL 2.0-7.7 [facility] Albumin to globulin ratioOrd ered By: Tomasz Coleman on 01-06-2025 Albumin/Globulin [Mass ratio] 1.1 {ratio} 0.9-2.4 [facility] Basophil percentageOrdered B y: Tomasz Coleman on 01-06-2025 Basophils/100 WBC (Bld) 0.4 % 0-1 [facility] Bilirubin, totalOrdered By: Tomasz Coleman on 01-06-2025 Bilirubin [Mass/Vol] 0.60 mg/dL 0.20-1.00 [facility] Comment on above: For patients on eltr ombopag therapy, use of Dimension [place] TBIL is not recommended. Blood urea nitrogen (BUN)/cr eatinine ratioOrdered By: Tomasz Coleman on 01-06-2025 Urea nitrogen/Creatinine [Mass ratio] 16.8 mg/mg 10- [facility] CBC W/Diff, Automatedon 12-15 Absolute Lymph 1.89 X10 3/uL Normal 0.83-4.51 [facility] Comment on above: Performed By: #### L 503.6030, L500.4050, L503.6550, L100.0100, L501.5200 ####[facility] [address] [place], [address] Absolute Neut 5.8 X10 3/uL Normal 2.0-7.7 [facility] Comment on above: Performed By: #### L 503.6030, L500.4050, L503.6550, L100.0100, L501.5200 ####[facility] [address] [place], [address] Basophils/100 WBC (Bld) 0.4 % Normal 0-1 [facility] Comment on above: Performed By: #### L 503.6030, L500.4050, L503.6550, L100.0100, L501.5200 ####[facility] [address] [place], [address] Eosinophils/100 WBC (Bld) 0.6 % Normal 0-5 [facility] Comment on above: Performed By: #### L 503.6030, L500.4050, L503.6550, L100.0100, L501.5200 ####[facility] [address] [place], [address] Erythrocyte distribution width (RBC) [Ratio] 13.5 % Normal 11.6-14.6 [facility] Comment on above: Performed By: #### L 503.6030, L500.4050, L503.6550, L100.0100, L501.5200 ####[facility] [address] [place], [address] Hematocrit (Bld) [Volume fraction] 39.3 % Normal 37-47 [facility] Comment on above: Performed By: #### L 503.6030, L500.4050, L503.6550, L100.0100, L501.5200 ####[facility] [address] [place], [address] Hemoglobin (Bld) [Mass/Vol] 13.0 g/dL Normal 12.0-15.0 [facility] Comment on above: Performed By: #### L 503.6030, L500.4050, L503.6550, L100.0100, L501.5200 ####[facility] [address] [place], [address] IG% 0.400 Normal 0.0-0.9 [facility] Comment on above: Result Comment: IG% - Immature Granulocytes (promyelocytes, myelocytes and metamyelocytes) > 1% indicates that a LEFT SHIFT is Present. Performed By: #### L 503.6030, L500.4050, L503.6550, L100.0100, L501.5200 ####[facility] [address] [place], [address] Lymphocytes/100 WBC (Bld) 23.1 % Normal 19-41 [facility] Comment on above: Performed By: #### L 503.6030, L500.4050, L503.6550, L100.0100, L501.5200 ####[facility] [address] [place], [address] MCH (RBC) [Entitic mass] 26.7 pg Low 27.0-32.0 [facility] Comment on above: Performed By: #### L 503.6030, L500.4050, L503.6550, L100.0100, L501.5200 ####[facility] [address] [place], [address] MCHC (RBC) [Mass/Vol] 33.1 g/dL Normal 32-[address] [facility] Comment on above: Performed By: #### L 503.6030, L500.4050, L503.6550, L100.0100, L501.5200 ####[facility] [address] [place], [address] MCV (RBC) [Entitic vol] 80.7 fL Low 81-99 [facility] Comment on above: Performed By: #### L 503.6030, L500.4050, L503.6550, L100.0100, L501.5200 ####[facility] [address] [place], [address] Monocytes/100 WBC (Bld) 4.9 % Normal 0-10 [facility] Comment on above: Performed By: #### L 503.6030, L500.4050, L503.6550, L100.0100, L501.5200 ####[facility] [address] [place], [address] Neutrophils/100 WBC (Bld) 70.6 % High 47-70 [facility] Comment on above: Performed By: #### L 503.6030, L500.4050, L503.6550, L100.0100, L501.5200 ####[facility] [address] [place], [address] Nucleated RBC (Bld) [#/Vol] 0 10*3/uL Normal 0-5 [facility] Comment on above: Performed By: #### L 503.6030, L500.4050, L503.6550, L100.0100, L501.5200 ####[facility] [address] [place], [address] Platelet mean volume (Bld) [Entitic vol] 11.3 fL Normal 6.2-12.0 [facility] Comment on above: Performed By: #### L 503.6030, L500.4050, L503.6550, L100.0100, L501.5200 ####[facility] [address] [place], [address] Platelets (Bld) [#/Vol] 344 10*3/uL Normal 150-450 [facility] Comment on above: Performed By: #### L 503.6030, L500.4050, L503.6550, L100.0100, L501.5200 ####[facility] [address] [place], [address] RBC (Bld) [#/Vol] 4.87 10*6/uL Normal 4.2-5.4 [facility] Comment on above: Performed By: #### L 503.6030, L500.4050, L503.6550, L100.0100, L501.5200 ####[facility] [address] [place], [address] RDW SD 39.2 fl Normal 35.1-43.9 [facility] Comment on above: Performed By: #### L 503.6030, L500.4050, L503.6550, L100.0100, L501.5200 ####[facility] [address] [place], [address] WBC (Bld) [#/Vol] 8.2 10*3/uL Normal 4.4-11.0 [facility] Comment on above: Performed By: #### L 503.6030, L500.4050, L503.6550, L100.0100, L501.5200 ####[facility] [address] [place], [address] Carbon dioxide measurementOr dered By: Tomasz Coleman on 01-06-2025 CO2 [Moles/Vol] 21.0 mmol/L 21.0-32.0 [facility] Chloride measurementOrdered By: Tomasz Coleman on 01-06-2025 Chloride [Moles/Vol] 107 mmol/L 98-107 [facility] Comprehensive Metabolic Prof ilon 01-06-2025 Albumin [Mass/Vol] 4.4 g/dL Normal 3.2-5.0 [facility] Comment on above: Performed By: #### L 503.6030, L500.4050, L503.6550, L100.0100, L501.5200 ####[facility] [address] [place], [address] Albumin/Globulin [Mass ratio] 1.1 {ratio} Normal 0.9-2.4 [facility] Comment on above: Performed By: #### L 503.6030, L500.4050, L503.6550, L100.0100, L501.5200 ####[facility] [address] [place], [address] ALK P 63 U/L Normal 45-117 [facility] Comment on above: Performed By: #### L 503.6030, L500.4050, L503.6550, L100.0100, L501.5200 ####[facility] [address] [place], [address] ALT [Catalytic activity/Vol] 20 U/L Normal 13-56 [facility] Comment on above: Performed By: #### L 503.6030, L500.4050, L503.6550, L100.0100, L501.5200 ####[facility] [address] [place], [address] AST [Catalytic activity/Vol] 14 U/L Low 15-37 [facility] Comment on above: Performed By: #### L 503.6030, L500.4050, L503.6550, L100.0100, L501.5200 ####[facility] [address] [place], [address] Bilirubin [Mass/Vol] 0.60 mg/dL Normal 0.20-1.00 [facility] Comment on above: Result Comment: For patients on eltrombopag therapy, use of Dimension [place] TBIL is not recommended. Performed By: #### L 503.6030, L500.4050, L503.6550, L100.0100, L501.5200 ####[facility] [address] [place], [address] BUN/CRE 16.8 RATIO Normal 10-20 [facility] Comment on above: Performed By: #### L 503.6030, L500.4050, L503.6550, L100.0100, L501.5200 ####[facility] [address] [place], [address] CA,Total 9.6 mg/dL Normal 8.5-10.1 [facility] Comment on above: Performed By: #### L 503.6030, L500.4050, L503.6550, L100.0100, L501.5200 ####[facility] [address] [place], [address] Chloride [Moles/Vol] 107 mmol/L Normal 98-107 [facility] Comment on above: Performed By: #### L 503.6030, L500.4050, L503.6550, L100.0100, L501.5200 ####[facility] [address] [place], [address] CO2 [Moles/Vol] 21.0 mmol/L Normal 21.0-32.0 [facility] Comment on above: Performed By: #### L 503.6030, L500.4050, L503.6550, L100.0100, L501.5200 ####[facility] [address] [place], [address] Creatinine [Mass/Vol] 0.72 mg/dL Normal 0.55-1.[address] [facility] Comment on above: Result Comment: The validity of the calculated GFR GFRAA in patients over 70 years has not been determined. Clinical correlation is essential. Performed By: #### L 503.6030, L500.4050, L503.6550, L100.0100, L501.5200 ####[facility] [address] [place], [address] EST GFR - AA 120 mL/min Normal >60 [facility] Comment on above: Result Comment: Afri can [place] GFR Calc Performed By: #### L 503.6030, L500.4050, L503.6550, L100.0100, L501.5200 ####[facility] [address] [place], [address] GAP 10 Normal 5-15 [facility] Comment on above: Performed By: #### L 503.6030, L500.4050, L503.6550, L100.0100, L501.5200 ####[facility] [address] [place], [address] GFR/1.73 sq M.predicted among non-blacks MDRD (S/P/Bld) [Vol rate/Area] 99 mL/min/{1.73_m2} Normal >60 [facility] Comment on above: Result Comment: Non- GFR Calc Performed By: #### L 503.6030, L500.4050, L503.6550, L100.0100, L501.5200 ####[facility] [address] [place], [address] Globulin (S) [Mass/Vol] 3.9 g/dL Normal 2.2-4.2 [facility] Comment on above: Performed By: #### L 503.6030, L500.4050, L503.6550, L100.0100, L501.5200 ####[facility] [address] [place], [address] Glucose [Mass/Vol] 99 mg/dL Normal 74-106 [facility] Comment on above: Performed By: #### L 503.6030, L500.4050, L503.6550, L100.0100, L501.5200 ####[facility] [address] [place], [address] Potassium [Moles/Vol] 3.7 mmol/L Normal 3.5-5.[address] [facility] Comment on above: Performed By: #### L 503.6030, L500.4050, L503.6550, L100.0100, L501.5200 ####[facility] [address] [place], [address] Sodium [Moles/Vol] 138 mmol/L Normal 136-145 [facility] Comment on above: Performed By: #### L 503.6030, L500.4050, L503.6550, L100.0100, L501.5200 ####[facility] [address] [place], [address] T PROT 8.3 g/dL High 6.4-8.2 [facility] Comment on above: Performed By: #### L 503.6030, L500.4050, L503.6550, L100.0100, L501.5200 ####[facility] [address] [place], [address] Urea nitrogen [Mass/Vol] 12 mg/dL Normal 7-18 [facility] Comment on above: Performed By: #### L 503.6030, L500.4050, L503.6550, L100.0100, L501.5200 ####[facility] [address] [place], [place], [address] Eosinophil percentageOrdered By: Tomasz Coleman on 01-06-2025 Eosinophils/100 WBC (Bld) 0.6 % 0-5 [facility] Erythrocyte distribution wid th ratioOrdered By: Tomasz Coleman on 01-06-2025 Erythrocyte distribution width (RBC) [Ratio] 13.5 % 11.6-14.6 [facility] Erythrocyte distribution wid th standard deviationOrdered By: Tomasz Coleman on 01-06-2025 Erythrocyte distribution width (RBC) [Entitic vol] 39.2 fL 35.1-43.9 [facility] Estimated glomerular filtrat ion rate (GFR) AmericanOrdered By: Tomasz Coleman on 01-06-2025 Estimated GFR (MDRD) Amer 120 mL/min >60 [facility] Comment on above: GFR Calc Ferritinon 01-06-2025 Ferritin [Mass/Vol] 29 ng/mL Normal - [facility] Comment on above: Performed By: #### L 503.6030, L500.4050, L503.6550, L100.0100, L501.5200 ####[facility] [address] [place], [place], [address] Ferritin measurementOrdered By: Tomasz Coleman on 01-06-2025 Ferritin [Mass/Vol] 29 ng/mL 8-252 [facility] Glomerular filtration rate ( GFR) estimationOrdered By: Tomasz Coleman on 01-06-2025 Estimated GFR (MDRD) Non-Af Amer 99 mL/min >60 [facility] Comment on above: Non- GFR Calc Glucose measurementOrdered B y: Tomasz Coleman on 01-06-2025 Glucose [Mass/Vol] 99 mg/dL 74-106 [facility] Hematocrit Auto (Bld) [Volum e fraction]Ordered By: Tomasz Coleman on 01-06-2025 Hematocrit (Bld) [Volume fraction] 39.3 % 37-47 [facility] Hemoglobin measurementOrdere d By: Tomasz Coleman on 01-06-2025 Hemoglobin (Bld) [Mass/Vol] 13.0 g/dL 12.0-15.0 [facility] Immature granulocytes/100 WB C Auto (Bld)Ordered By: Tomasz Coleman on 01-06-2025 Immature granulocytes/100 WBC (Bld) 0.400 % 0.0-0.9 [facility] Comment on above: IG% - Immature Granu locytes (promyelocytes, myelocytes and metamyelocytes) > 1% indicates that a LEFT SHIFT is Present. Iron (Unsp spec) [Mass/Mass] Ordered By: Tomasz Coleman on 01-06-2025 Iron [Mass/Vol] 54 ug/dL 50-170 [facility] Iron saturation [Mass fracti on]Ordered By: Tomasz Coleman on 01-06-2025 Iron Saturation 14.8 % Low 15.0-55.0 [facility] Iron+Iron Binding Capacityon 01-06-2025 Iron [Mass/Vol] 54 ug/dL Normal 50-170 [facility] Comment on above: Performed By: #### L 503.6030, L500.4050, L503.6550, L100.0100, L501.5200 ####[facility] [address] [place], [address] IRON SATURATION 14.8 Low 15.0-55.0 [facility] Comment on above: Performed By: #### L 503.6030, L500.4050, L503.6550, L100.0100, L501.5200 ####[facility] [address] [place], [address] TIBC 364 ug/dL Normal 250-450 [facility] Comment on above: Performed By: #### L 503.6030, L500.4050, L503.6550, L100.0100, L501.5200 ####[facility] [address] [place], [address] Laboratory - Chemistry and C hemistry - challengeOrdered By: Tomasz Coleman on 01-06-2025 AST [Catalytic activity/Vol] 14 U/L Low 15-37 [facility] Lymphocytes Auto (Unsp spec) [#/Vol]Ordered By: Tomasz Coleman on 01-06-2025 Lymphocytes (Bld) [#/Vol] 1.89 10*3/uL 0.83-4.51 [facility] Lymphocytes/100 WBC Auto (Un sp spec)Ordered By: Tomasz Coleman on 01-06-2025 Lymphocytes/100 WBC (Bld) 23.1 % 19-41 [facility] MCV (mean corpuscular volume ) determinationOrdered By: Tomasz Coleman on 01-06-2025 MCV (RBC) [Entitic vol] 80.7 fL Low 81-99 [facility] Magnesiumon 01-06-2025 Magnesium [Mass/Vol] 2.3 mg/dL Normal 1.6-2.6 [facility] Comment on above: Performed By: #### L 503.6030, L500.4050, L503.6550, L100.0100, L501.5200 ####[facility] [address] [facility] [place], [address] Magnesium measurementOrdered By: Tomasz Coleman on 01-06-2025 Magnesium [Mass/Vol] 2.3 mg/dL 1.6-2.6 [facility] Mean corpuscular hemoglobin (MCH) determinationOrdered By: Tomasz Coleman on 01-06-2025 MCH (RBC) [Entitic mass] 26.7 pg Low 27.0-32.0 [facility] Mean corpuscular hemoglobin concentration (MCHC) determinationOrdered By: Tomasz Coleman on 01-06-2025 MCHC (RBC) [Mass/Vol] 33.1 g/dL 32-[address] [facility] Mean platelet volume determi nationOrdered By: Tomasz Coleman on 01-06-2025 Platelet mean volume (Bld) [Entitic vol] 11.3 fL 6.2-12.0 [facility] Monocyte percentageOrdered B y: Tomasz Coleman on 01-06-2025 Monocytes/100 WBC (Bld) 4.9 % 0-10 [facility] Neutrophil percentageOrdered By: Tomasz Coleman on 01-06-2025 Neutrophils/100 WBC (Bld) 70.6 % High 47-70 [facility] Nucleated red blood cell per centageOrdered By: Tomasz Coleman on 01-06-2025 Nucleated RBC/100 WBC (Bld) [Ratio] 0 % 0-5 [facility] Platelet countOrdered By: Lupe Coleman on 01-06-2025 Platelets (Bld) [#/Vol] 344 10*3/uL 150-450 [facility] Potassium measurementOrdered By: Tomasz Coleman on 01-06-2025 Potassium [Moles/Vol] 3.7 mmol/L 3.5-5.[address] [facility] RBC Auto (Bld) [#/Vol]Ordere d By: Tomasz Coleman on 01-06-2025 RBC (Bld) [#/Vol] 4.87 10*6/uL 4.2-5.4 [facility] Serum anion gap measurementO rdered By: Tomasz Coleman on 01-06-2025 Anion gap [Moles/Vol] 10 mmol/L 5-[address] [facility] Serum globulin measurementOr dered By: Tomasz Coleman on 01-06-2025 Globulin (S) [Mass/Vol] 3.9 g/dL 2.2-4.2 [facility] Serum or plasma alanine burt otransferase (ALT) measurementOrdered By: Tomasz Coleman on 01-06-2025 ALT [Catalytic activity/Vol] 20 U/L 13-56 [facility] Serum or plasma albumin marge urement (mass/volume)Ordered By: Tomasz Coleman on 01-06-2025 Albumin [Mass/Vol] 4.4 g/dL 3.2-5.0 [facility] Serum or plasma alkaline zia sphatase measurementOrdered By: Tomasz Coleman on 01-06-2025 ALP [Catalytic activity/Vol] 63 U/L 45-117 [facility] Serum or plasma calcium marge urement (mass/volume)Ordered By: Tomasz Coleman on 01-06-2025 Calcium [Mass/Vol] 9.6 mg/dL 8.5-10.1 [facility] Serum or plasma creatinine m easurement (mass/volume)Ordered By: Tomasz Coleman on 01-06-2025 Creatinine [Mass/Vol] 0.72 mg/dL 0.55-1.[address] [facility] Comment on above: The validity of the calculated GFR & GFRAA in patients over 70 years has not been determined. Clinical correlation is essential. Serum or plasma urea nitroge n measurement (mass/volume)Ordered By: Tomasz Coleman on 01-06-2025 Urea nitrogen [Mass/Vol] 12 mg/dL 7-18 [facility] Sodium levelOrdered By: Tomasz Coleman on 01-06-2025 Sodium [Moles/Vol] 138 mmol/L 136-145 [facility] TIBCOrdered By: Tomasz rangel on 01-06-2025 Total Iron Binding Capacity 364 ug/dL 250-450 [facility] Total proteinOrdered By: Mendel Coleman on 01-06-2025 Protein [Mass/Vol] 8.3 g/dL High 6.4-8.2 [facility] White blood cell (WBC) count Ordered By: Tomasz Coleman on 01-06-2025 WBC (Bld) [#/Vol] 8.2 10*3/uL 4.4-11.0 [facility] Absolute neutrophil countOrd ered By: Tomasz Coleman on 12-17-2024 Neutrophils (Bld) [#/Vol] 3.5 10*3/uL 2.0-7.7 [facility] Albumin to globulin ratioOrd ered By: Tomasz Coleman on 12-17-2024 Albumin/Globulin [Mass ratio] 0.9 {ratio} 0.9-2.4 [facility] Basophil percentageOrdered B y: Tomasz Coleman on 12-17-2024 Basophils/100 WBC (Bld) 0.6 % 0-1 [facility] Bilirubin, totalOrdered By: Tomasz Coleman on 12-17-2024 Bilirubin [Mass/Vol] 0.40 mg/dL 0.20-1.00 [facility] Comment on above: For patients on eltr ombopag therapy, use of Dimension [place] TBIL is not recommended. Blood urea nitrogen (BUN)/cr eatinine ratioOrdered By: Tomasz Coleman on 12-17-2024 Urea nitrogen/Creatinine [Mass ratio] 14.9 mg/mg 10-20 [facility] CBC W/Diff, Automatedon Absolute Lymph 1.24 X10 3/uL Normal 0.83-4.51 [facility] Comment on above: Order Comment: Order Date: 12/17/24Order Info: 0184-1 - CBCD Performed By: #### L 100.0100, L501.5200, L500.4050, L503.6150, L503.6550, L503.6075 ####[facility] [id number] [place], [address] Absolute Neut 3.5 X10 3/uL Normal 2.0-7.7 [facility] Comment on above: Order Comment: Order Date: 12/17/24Order Info: [id number] - CBCD Performed By: #### L 100.0100, L501.5200, L500.4050, L503.6150, L503.6550, L503.6075 ####[facility] [address] [place], [address] Basophils/100 WBC (Bld) 0.6 % Normal 0-1 [facility] Comment on above: Order Comment: Order Date: 12/17/24Order Info: 0184-1 - CBCD Performed By: #### L 100.0100, L501.5200, L500.4050, L503.6150, L503.6550, L503.6075 ####[facility] [address] [place], [address] Eosinophils/100 WBC (Bld) 1.0 % Normal 0-5 [facility] Comment on above: Order Comment: Order Date: 12/17/24Order Info: 0184-1 - CBCD Performed By: #### L 100.0100, L501.5200, L500.4050, L503.6150, L503.6550, L503.6075 ####[facility] [address] [place], [place], [id number] Erythrocyte distribution width (RBC) [Ratio] 13.4 % Normal 11.6-14.6 [facility] Comment on above: Order Comment: Order Date: 12/17/24Order Info: 0184-1 - CBCD Performed By: #### L 100.0100, L501.5200, L500.4050, L503.6150, L503.6550, L503.6075 ####[facility] [address] [place], [address] Hematocrit (Bld) [Volume fraction] 36.9 % Low 37-47 [facility] Comment on above: Order Comment: Order Date: 12/17/24Order Info: 0184-1 - CBCD Performed By: #### L 100.0100, L501.5200, L500.4050, L503.6150, L503.6550, L503.6075 ####[facility] [address] [place], [place], [phone] Hemoglobin (Bld) [Mass/Vol] 12.4 g/dL Normal 12.0-15.0 [facility] Comment on above: Order Comment: Order Date: 12/17/24Order Info: 0184-1 - CBCD Performed By: #### L 100.0100, L501.5200, L500.4050, L503.6150, L503.6550, L503.6075 ####[facility] [address] [place], [place], [phone] IG% 0.200 Normal 0.0-0.9 [facility] Comment on above: Order Comment: Order Date: 12/17/24Order Info: 0184-1 - CBCD Result Comment: IG% - Immature Granulocytes (promyelocytes, myelocytes and metamyelocytes) > 1% indicates that a LEFT SHIFT is Present. Performed By: #### L 100.0100, L501.5200, L500.4050, L503.6150, L503.6550, L503.6075 ####[facility] [address] [place], [address] Lymphocytes/100 WBC (Bld) 24.0 % Normal 19-41 [facility] Comment on above: Order Comment: Order Date: 12/17/24Order Info: 0184-1 - CBCD Performed By: #### L 100.0100, L501.5200, L500.4050, L503.6150, L503.6550, L503.6075 ####[facility] [address] [place], [address] MCH (RBC) [Entitic mass] 26.8 pg Low 27.0-32.0 [facility] Comment on above: Order Comment: Order Date: 12/17/24Order Info: 018- - CBCD Performed By: #### L 100.0100, L501.5200, L500.4050, L503.6150, L503.6550, L503.6075 ####[facility] [address] [place], [address] MCHC (RBC) [Mass/Vol] 33.6 g/dL Normal 32-[address] [facility] Comment on above: Order Comment: Order Date: 12/17/24Order Info: 0184-1 - CBCD Performed By: #### L 100.0100, L501.5200, L500.4050, L503.6150, L503.6550, L503.6075 ####[facility] [address] [place], [address] MCV (RBC) [Entitic vol] 79.7 fL Low 81-99 [facility] Comment on above: Order Comment: Order Date: 12/17/24Order Info: 0184-1 - CBCD Performed By: #### L 100.0100, L501.5200, L500.4050, L503.6150, L503.6550, L503.6075 ####[facility] [address] [place], [address] Monocytes/100 WBC (Bld) 7.4 % Normal 0-10 [facility] Comment on above: Order Comment: Order Date: 12/17/24Order Info: 0184-1 - CBCD Performed By: #### L 100.0100, L501.5200, L500.4050, L503.6150, L503.6550, L503.6075 ####[facility] [address] [place], [address] Neutrophils/100 WBC (Bld) 66.8 % Normal 47-70 [facility] Comment on above: Order Comment: Order Date: 12/17/24Order Info: 0184-1 - CBCD Performed By: #### L 100.0100, L501.5200, L500.4050, L503.6150, L503.6550, L503.6075 ####[facility] [address] [place], [address] Nucleated RBC (Bld) [#/Vol] 0 10*3/uL Normal 0-5 [facility] Comment on above: Order Comment: Order Date: 12/17/24Order Info: 0184-1 - CBCD Performed By: #### L 100.0100, L501.5200, L500.4050, L503.6150, L503.6550, L503.6075 ####[facility] [address] [place], [address] Platelet mean volume (Bld) [Entitic vol] 11.4 fL Normal 6.2-12.0 [facility] Comment on above: Order Comment: Order Date: 12/17/24Order Info: 0184-1 - CBCD Performed By: #### L 100.0100, L501.5200, L500.4050, L503.6150, L503.6550, L503.6075 ####[facility] [address] [place], [address] Platelets (Bld) [#/Vol] 288 10*3/uL Normal 150-450 [facility] Comment on above: Order Comment: Order Date: 12/17/24Order Info: 0184-1 - CBCD Performed By: #### L 100.0100, L501.5200, L500.4050, L503.6150, L503.6550, L503.6075 ####[facility] [address] [place], [address] RBC (Bld) [#/Vol] 4.63 10*6/uL Normal 4.2-5.4 [facility] Comment on above: Order Comment: Order Date: 12/17/24Order Info: 0184-1 - CBCD Performed By: #### L 100.0100, L501.5200, L500.4050, L503.6150, L503.6550, L503.6075 ####[facility] [address] [place], [address] RDW SD 38.5 fl Normal 35.1-43.9 [facility] Comment on above: Order Comment: Order Date: 12/17/24Order Info: 0184-1 - CBCD Performed By: #### L 100.0100, L501.5200, L500.4050, L503.6150, L503.6550, L503.6075 ####[facility] [address] [place], [address] WBC (Bld) [#/Vol] 5.2 10*3/uL Normal 4.4-11.0 [facility] Comment on above: Order Comment: Order Date: 12/17/24Order Info: 0184-1 - CBCD Performed By: #### L 100.0100, L501.5200, L500.4050, L503.6150, L503.6550, L503.6075 ####[facility] [address] [place], [address] Carbon dioxide measurementOr dered By: Tomasz Coleman on 12-17-2024 CO2 [Moles/Vol] 23.0 mmol/L 21.0-32.0 [facility] Chloride measurementOrdered By: Tomasz Coleman on 12-17-2024 Chloride [Moles/Vol] 104 mmol/L 98-107 [facility] Comprehensive Metabolic Prof ilon 12-17-2024 Albumin [Mass/Vol] 3.7 g/dL Normal 3.2-5.0 [facility] Comment on above: Order Comment: Order Date: 12/17/24Order Info: 0786-1 - CMPOrder Info: [id number] - MGOrder Info: 2499-7 - TIBCOrder Info: 2498-02 - FEOrder Info: [id number] - CINDY Performed By: #### L 100.0100, L501.5200, L500.4050, L503.6150, L503.6550, L503.6075 ####[facility] [address] [place], [address] Albumin/Globulin [Mass ratio] 0.9 {ratio} Normal 0.9-2.4 [facility] Comment on above: Order Comment: Order Date: 12/17/24Order Info: [id number] - CMPOrder Info: [id number] - MGOrder Info: 7 - TIBCOrder Info: 2498-02 - FEOrder Info: [id number] - CINDY Performed By: #### L 100.0100, L501.5200, L500.4050, L503.6150, L503.6550, L503.6075 ####[facility] [address] [place], [address] ALK P 63 U/L Normal 45-117 [facility] Comment on above: Order Comment: Order Date: 12/17/24Order Info: 0786-1 - CMPOrder Info: [id number] - MGOrder Info: 2499-7 - TIBCOrder Info: [id number] - FEOrder Info: 2276-02 - CINDY Performed By: #### L 100.0100, L501.5200, L500.4050, L503.6150, L503.6550, L503.6075 ####[facility] [address] [place], [address] ALT [Catalytic activity/Vol] 60 U/L High 13-56 [facility] Comment on above: Order Comment: Order Date: 12/17/24Order Info: 0786-1 - CMPOrder Info: [id number] - MGOrder Info: 7 - TIBCOrder Info: 2498-02 - FEOrder Info: [id number] - CINDY Performed By: #### L 100.0100, L501.5200, L500.4050, L503.6150, L503.6550, L503.6075 ####[facility] [address] [place], [place], [phone] AST [Catalytic activity/Vol] 39 U/L High 15-37 [facility] Comment on above: Order Comment: Order Date: 12/17/24Order Info: 86-1 - CMPOrder Info: [id number] - MGOrder Info: 2500-05 - TIBCOrder Info: 2498-02 - FEOrder Info: [id number] - CINDY Performed By: #### L 100.0100, L501.5200, L500.4050, L503.6150, L503.6550, L503.6075 ####[facility] [address] [place], [address] Bilirubin [Mass/Vol] 0.40 mg/dL Normal 0.20-1.00 [facility] Comment on above: Order Comment: Order Date: 12/17/24Order Info: 0786-1 - CMPOrder Info: [id number] - MGOrder Info: 7 - TIBCOrder Info: 2498-02 - FEOrder Info: [id number] - CINDY Result Comment: For patients on eltrombopag therapy, use of Dimension [place] TBIL is not recommended. Performed By: #### L 100.0100, L501.5200, L500.4050, L503.6150, L503.6550, L503.6075 ####[facility] [address] [place], [address] BUN/CRE 14.9 RATIO Normal 10-20 [facility] Comment on above: Order Comment: Order Date: 12/17/24Order Info: 86-1 - CMPOrder Info: [id number] - MGOrder Info: 2500-05 - TIBCOrder Info: 2498-02 - FEOrder Info: 2276-02 - CINDY Performed By: #### L 100.0100, L501.5200, L500.4050, L503.6150, L503.6550, L503.6075 ####[facility] [address] [place], [place], [phone] CA,Total 9.0 mg/dL Normal 8.5-10.1 [facility] Comment on above: Order Comment: Order Date: 12/17/24Order Info: 785- - CMPOrder Info: [id number] - MGOrder Info: 2500-05 - TIBCOrder Info: 2498-02 - FEOrder Info: 2276-02 - CINDY Performed By: #### L 100.0100, L501.5200, L500.4050, L503.6150, L503.6550, L503.6075 ####[facility] [address] [place], [place], [phone] Chloride [Moles/Vol] 104 mmol/L Normal 98-107 [facility] Comment on above: Order Comment: Order Date: 12/17/24Order Info: 785-1 - CMPOrder Info: [id number] - MGOrder Info: 2500-05 - TIBCOrder Info: 2498-02 - FEOrder Info: 2276-02 - CINDY Performed By: #### L 100.0100, L501.5200, L500.4050, L503.6150, L503.6550, L503.6075 ####[facility] [address] [place], [place], [phone] CO2 [Moles/Vol] 23.0 mmol/L Normal 21.0-32.0 [facility] Comment on above: Order Comment: Order Date: 12/17/24Order Info: 0786-1 - CMPOrder Info: [id number] - MGOrder Info: 2500-7 - TIBCOrder Info: [id number] - FEOrder Info: 2276-02 - CINDY Performed By: #### L 100.0100, L501.5200, L500.4050, L503.6150, L503.6550, L503.6075 ####[facility] [address] [place], [place], [phone] Creatinine [Mass/Vol] 0.67 mg/dL Normal 0.55-1.[address] [facility] Comment on above: Order Comment: Order Date: 12/17/24Order Info: 785- - CMPOrder Info: [id number] - MGOrder Info: 7 - TIBCOrder Info: 2498-02 - FEOrder Info: 2276-02 - CINDY Result Comment: The validity of the calculated GFR GFRAA in patients over 70 years has not been determined. Clinical correlation is essential. Performed By: #### L 100.0100, L501.5200, L500.4050, L503.6150, L503.6550, L503.6075 ####[facility] [address] [place], [place], [address] EST GFR - AA 129 mL/min Normal >60 [facility] Comment on above: Order Comment: Order Date: 12/17/24Order Info: 07-1 - CMPOrder Info: [id number] - MGOrder Info: 2500-7 - TIBCOrder Info: 2498-02 - FEOrder Info: 2276-02 - CINDY Result Comment: Afri can [place] GFR Calc Performed By: #### L 100.0100, L501.5200, L500.4050, L503.6150, L503.6550, L503.6075 ####[facility] [address] [place], [place], [address] GAP 9 Normal 5-15 [facility] Comment on above: Order Comment: Order Date: 12/17/24Order Info: 785- - CMPOrder Info: [id number] - MGOrder Info: 7 - TIBCOrder Info: 2498-02 - FEOrder Info: 2276-02 - CINDY Performed By: #### L 100.0100, L501.5200, L500.4050, L503.6150, L503.6550, L503.6075 ####[facility] [address] [place], [place], [phone] GFR/1.73 sq M.predicted among non-blacks MDRD (S/P/Bld) [Vol rate/Area] 107 mL/min/{1.73_m2} Normal >60 [facility] Comment on above: Order Comment: Order Date: 12/17/24Order Info: 785-11 - CMPOrder Info: - MGOrder Info: 2500-05 - TIBCOrder Info: 2498-02 - FEOrder Info: 2276-02 - CINDY Result Comment: Non- GFR Calc Performed By: #### L 100.0100, L501.5200, L500.4050, L503.6150, L503.6550, L503.6075 ####[facility] [address] [place], [place], [phone] Globulin (S) [Mass/Vol] 4.2 g/dL Normal 2.2-4.2 [facility] Comment on above: Order Comment: Order Date: 12/17/24Order Info: 785- - CMPOrder Info: - MGOrder Info: 2500-05 - TIBCOrder Info: 2498-02 - FEOrder Info: 2276-02 - CINDY Performed By: #### L 100.0100, L501.5200, L500.4050, L503.6150, L503.6550, L503.6075 ####[facility] [address] [place], [address] Glucose [Mass/Vol] 93 mg/dL Normal 74-106 [facility] Comment on above: Order Comment: Order Date: 12/17/24Order Info: 0786-1 - CMPOrder Info: [id number] - MGOrder Info: 2499-7 - TIBCOrder Info: 2498-4 - FEOrder Info: 2275-4 - CINDY Performed By: #### L 100.0100, L501.5200, L500.4050, L503.6150, L503.6550, L503.6075 ####[facility] [address] [place], [address] Potassium [Moles/Vol] 4.0 mmol/L Normal 3.5-5.[address] [facility] Comment on above: Order Comment: Order Date: 12/17/24Order Info: 785- - CMPOrder Info: [id number] - MGOrder Info: 2500-05 - TIBCOrder Info: [id number] - FEOrder Info: 2275- - CINDY Performed By: #### L 100.0100, L501.5200, L500.4050, L503.6150, L503.6550, L503.6075 ####[facility] [address] [place], [address] Sodium [Moles/Vol] 136 mmol/L Normal 136-145 [facility] Comment on above: Order Comment: Order Date: 12/17/24Order Info: 785-1 - CMPOrder Info: [id number] - MGOrder Info: 7 - TIBCOrder Info: 2498-4 - FEOrder Info: 227-4 - CINDY Performed By: #### L 100.0100, L501.5200, L500.4050, L503.6150, L503.6550, L503.6075 ####[facility] [address] [place], [address] T PROT 7.9 g/dL Normal 6.4-8.2 [facility] Comment on above: Order Comment: Order Date: 12/17/24Order Info: 0786-1 - CMPOrder Info: [id number] - MGOrder Info: 7 - TIBCOrder Info: 2498-02 - FEOrder Info: 2276-02 - CINDY Performed By: #### L 100.0100, L501.5200, L500.4050, L503.6150, L503.6550, L503.6075 ####[facility] [address] [place], [place], [phone] Urea nitrogen [Mass/Vol] 10 mg/dL Normal 7-18 [facility] Comment on above: Order Comment: Order Date: 12/17/24Order Info: 0786- - CMPOrder Info: [id number] - MGOrder Info: 7 - TIBCOrder Info: 2498-02 - FEOrder Info: [id number] - CINDY Performed By: #### L 100.0100, L501.5200, L500.4050, L503.6150, L503.6550, L503.6075 ####[facility] [address] [place], [place], [phone] Eosinophil percentageOrdered By: Tomasz Coleman on 12-17-2024 Eosinophils/100 WBC (Bld) 1.0 % 0-5 [facility] Erythrocyte distribution wid th ratioOrdered By: Tomasz Coleman on 12-17-2024 Erythrocyte distribution width (RBC) [Ratio] 13.4 % 11.6-14.6 [facility] Erythrocyte distribution wid th standard deviationOrdered By: Tomasz Coleman on 12-17-2024 Erythrocyte distribution width (RBC) [Entitic vol] 38.5 fL 35.1-43.9 [facility] Estimated glomerular filtrat ion rate (GFR) AmericanOrdered By: Tomasz Coleman on 12-17-2024 Estimated GFR (MDRD) Amer 129 mL/min >60 [facility] Comment on above: GFR Calc Ferritinon 12-17-2024 Ferritin [Mass/Vol] 23 ng/mL Normal 8-252 [facility] Comment on above: Order Comment: Order Date: 12/17/24Order Info: 0786-1 - CMPOrder Info: [id number] - MGOrder Info: 2499-7 - TIBCOrder Info: 2498-4 - FEOrder Info: 2276-4 - CINDY Performed By: #### L 100.0100, L501.5200, L500.4050, L503.6150, L503.6550, L503.6075 ####[facility] [address] [place], [address] Ferritin measurementOrdered By: Tomasz Coleman on 12-17-2024 Ferritin [Mass/Vol] 23 ng/mL 8-252 [facility] Glomerular filtration rate ( GFR) estimationOrdered By: Tomasz Coleman on 12-17-2024 Estimated GFR (MDRD) Non-Af Amer 107 mL/min >60 [facility] Comment on above: Non- GFR Calc Glucose measurementOrdered B y: Tomasz Coleman on 12-17-2024 Glucose [Mass/Vol] 93 mg/dL 74-106 [facility] Hematocrit Auto (Bld) [Volum e fraction]Ordered By: Tomasz Coleman on 12-17-2024 Hematocrit (Bld) [Volume fraction] 36.9 % Low 37-47 [facility] Hemoglobin measurementOrdere d By: Tomasz Coleman on 12-17-2024 Hemoglobin (Bld) [Mass/Vol] 12.4 g/dL 12.0-15.0 [facility] Immature granulocytes/100 WB C Auto (Bld)Ordered By: Tomasz Coleman on 12-17-2024 Immature granulocytes/100 WBC (Bld) 0.200 % 0.0-0.9 [facility] Comment on above: IG% - Immature Granu locytes (promyelocytes, myelocytes and metamyelocytes) > 1% indicates that a LEFT SHIFT is Present. Ironon 12-17-2024 Iron [Mass/Vol] 44 ug/dL Low 50-170 [facility] Comment on above: Order Comment: Order Date: 12/17/24Order Info: 0786-1 - CMPOrder Info: - MGOrder Info: 2500-7 - TIBCOrder Info: 2498-4 - FEOrder Info: 2275- - CINDY Performed By: #### L 100.0100, L501.5200, L500.4050, L503.6150, L503.6550, L503.6075 ####[facility] [address] [place], [place], [address] Iron (Unsp spec) [Mass/Mass] Ordered By: Tomasz Coleman on 12-17-2024 Iron [Mass/Vol] 44 ug/dL Low 50-170 [facility] Iron Binding Capacity,Totalo n 12-17-2024 TIBC 352 ug/dL Normal 250-450 [facility] Comment on above: Order Comment: Order Date: 12/17/24Order Info: 0786-1 - CMPOrder Info: [id number] - MGOrder Info: 2500-7 - TIBCOrder Info: 8-4 - FEOrder Info: [id number] - CINDY Performed By: #### L 100.0100, L501.5200, L500.4050, L503.6150, L503.6550, L503.6075 ####[facility] [address] [place], [place], [address] Laboratory - Chemistry and C hemistry - challengeOrdered By: Tomasz Coleman on 12-17-2024 AST [Catalytic activity/Vol] 39 U/L High 15-37 [facility] Lymphocytes Auto (Unsp spec) [#/Vol]Ordered By: Tomasz Coleman on 12-17-2024 Lymphocytes (Bld) [#/Vol] 1.24 10*3/uL 0.83-4.51 [facility] Lymphocytes/100 WBC Auto (Un sp spec)Ordered By: Tomasz Coleman on 12-17-2024 Lymphocytes/100 WBC (Bld) 24.0 % 19-41 [facility] MCV (mean corpuscular volume ) determinationOrdered By: Tomasz Coleman on 12-17-2024 MCV (RBC) [Entitic vol] 79.7 fL Low 81-99 [facility] Magnesiumon 12-17-2024 Magnesium [Mass/Vol] 2.2 mg/dL Normal 1.6-2.6 [facility] Comment on above: Order Comment: Order Date: 12/17/24Order Info: 0786-1 - CMPOrder Info: [id number] - MGOrder Info: 2500-7 - TIBCOrder Info: 2498-4 - FEOrder Info: 2276-4 - CINDY Performed By: #### L 100.0100, L501.5200, L500.4050, L503.6150, L503.6550, L503.6075 ####[facility] [address] [place], [address] Magnesium measurementOrdered By: Tomasz Coleman on 12-17-2024 Magnesium [Mass/Vol] 2.2 mg/dL 1.6-2.6 [facility] Mean corpuscular hemoglobin (MCH) determinationOrdered By: Tomasz Coleman on 12-17-2024 MCH (RBC) [Entitic mass] 26.8 pg Low 27.0-32.0 [facility] Mean corpuscular hemoglobin concentration (MCHC) determinationOrdered By: Tomasz Coleman on 12-17-2024 MCHC (RBC) [Mass/Vol] 33.6 g/dL 32-[address] [facility] Mean platelet volume determi nationOrdered By: Tomasz Coleman on 12-17-2024 Platelet mean volume (Bld) [Entitic vol] 11.4 fL 6.2-12.0 [facility] Monocyte percentageOrdered B y: Tomasz Coleman on 12-17-2024 Monocytes/100 WBC (Bld) 7.4 % 0-10 [facility] Neutrophil percentageOrdered By: Tomasz Coleman on 12-17-2024 Neutrophils/100 WBC (Bld) 66.8 % 47-70 [facility] Nucleated red blood cell per centageOrdered By: Tomasz Coleman on 12-17-2024 Nucleated RBC/100 WBC (Bld) [Ratio] 0 % 0-5 [facility] Platelet countOrdered By: Lupe Coleman on 12-17-2024 Platelets (Bld) [#/Vol] 288 10*3/uL 150-450 [facility] Potassium measurementOrdered By: Tomasz Coleman on 12-17-2024 Potassium [Moles/Vol] 4.0 mmol/L 3.5-5.[address] [facility] RBC Auto (Bld) [#/Vol]Ordere d By: Tomasz Coleman on 12-17-2024 RBC (Bld) [#/Vol] 4.63 10*6/uL 4.2-5.4 [facility] Serum anion gap measurementO rdered By: Tomasz Coleman on 12-17-2024 Anion gap [Moles/Vol] 9 mmol/L 5-[address] [facility] Serum globulin measurementOr dered By: Tomasz Coleman on 12-17-2024 Globulin (S) [Mass/Vol] 4.2 g/dL 2.2-4.2 [facility] Serum or plasma alanine burt otransferase (ALT) measurementOrdered By: Tomasz Coleman on 12-17-2024 ALT [Catalytic activity/Vol] 60 U/L High 13-56 [facility] Serum or plasma albumin marge urement (mass/volume)Ordered By: Tomasz Coleman on 12-17-2024 Albumin [Mass/Vol] 3.7 g/dL 3.2-5.0 [facility] Serum or plasma alkaline zia sphatase measurementOrdered By: Tomasz Coleman on 12-17-2024 ALP [Catalytic activity/Vol] 63 U/L 45-117 [facility] Serum or plasma calcium marge urement (mass/volume)Ordered By: Tomasz Coleman on 12-17-2024 Calcium [Mass/Vol] 9.0 mg/dL 8.5-10.1 [facility] Serum or plasma creatinine m easurement (mass/volume)Ordered By: Tomasz Coleman on 12-17-2024 Creatinine [Mass/Vol] 0.67 mg/dL 0.55-1.[address] [facility] Comment on above: The validity of the calculated GFR & GFRAA in patients over 70 years has not been determined. Clinical correlation is essential. Serum or plasma urea nitroge n measurement (mass/volume)Ordered By: Tomasz Coleman on 12-17-2024 Urea nitrogen [Mass/Vol] 10 mg/dL 7-18 [facility] Sodium levelOrdered By: Tomasz Coleman on 12-17-2024 Sodium [Moles/Vol] 136 mmol/L 136-145 [facility] TIBCOrdered By: Tomasz rangel on 12-17-2024 Total Iron Binding Capacity 352 ug/dL 250-450 [facility] Total proteinOrdered By: Mendel Coleman on 12-17-2024 Protein [Mass/Vol] 7.9 g/dL 6.4-8.2 [facility] White blood cell (WBC) count Ordered By: Tomasz Coleman on 12-17-2024 WBC (Bld) [#/Vol] 5.2 10*3/uL 4.4-11.0 [facility] NCS and/or EMG Patienton NCS and/or EMG Patient [facility] Services/Neurology [address] [place] [address] MR#: [id number] Acct: [id number] Name: DENISHA HILL Rep #: [id number] : 1990 34 From: Serg Bailey MD Referring Dr: Papa Trunog MD Status: REG C LI Location: [facility] Date: 12/04/24 Sex: F C NCS and/or [...] Multi Select Codes Neurology Neurology Interp Codes: 91999-37 Musc test done w/n test comp (interp) and 03302-16 Nrv cndj tst 5-6 studies (interp) 12/04/24 1355 Date Serg Bailey MD CC: Dr. Serg Bailey MD; Dr. Tomasz Coleman MD; Dr. Papa Truong MD Date Dictated: 12/04/24 135 Date Transcribed: 12/04/241350 Antiquer: IBAN [facility] [facility] Office Visit (OBGYWM) DENISHA HILL ([id number]) 1990 F Date Time Provider Department 11/27/24 [...] L2 SAB0 IAB0 Ectopic0 Multiple0 Live Births2 Color Buffer History LMP: 01/03/2021, IUD Age at Menarche: Age at First : Age at Menopause: Color Buffer History Comments: Sexual Activity: Not Currently; Male [...] Encounter Status:Closed by ANEESH DIA on 11/27/24 [facility] 11-18-2024 [facility] Telephone (OBGYWM) DENISHA HILL ([id number]) 1990 F Date Time Provider Department 11/18/24 [...] 11-08-2024 Neutrophils (Bld) [#/Vol] 4.5 10*3/uL 2.0-7.7 [facility] Albumin to globulin ratioOrd ered By: Tomasz Jared on 11-08-2024 Albumin/Globulin [Mass ratio] 0.9 {ratio} 0.9-2.4 [facility] Basophil percentageOrdered B y: Tomasz Coleman on 11-08-2024 Basophils/100 WBC (Bld) 0.3 % 0-1 [facility] Bilirubin, totalOrdered By: Tomasz Coleman on 11-08-2024 Bilirubin [Mass/Vol] 0.40 mg/dL 0.20-1.00 [facility] Comment on above: For patients on eltr ombopag therapy, use of Dimension [place] TBIL is not recommended. Blood urea nitrogen (BUN)/cr eatinine ratioOrdered By: Tomasz Coleman on 11-08-2024 Urea nitrogen/Creatinine [Mass ratio] 11.6 mg/mg 10-20 [facility] CBC W/Diff, Automatedon 10-14 Absolute Lymph 1.43 X10 3/uL Normal 0.83-4.51 [facility] Comment on above: Order Comment: Order Date: 11/08/24 Order Info: 0184-1 - CBCD Performed By: #### L 503.6550, L503.6150, L501.5200, L500.4050, L503.6075, L100.0100 #### [facility] [address] [place], [address] Absolute Neut 4.5 X10 3/uL Normal 2.0-7.7 [facility] Comment on above: Order Comment: Order Date: 11/08/24 Order Info: 0184-1 - CBCD Performed By: #### L 503.6550, L503.6150, L501.5200, L500.4050, L503.6075, L100.0100 #### [facility] [address] [place], [address] Basophils/100 WBC (Bld) 0.3 % Normal 0-1 [facility] Comment on above: Order Comment: Order Date: 11/08/24 Order Info: 0184- - CBCD Performed By: #### L 503.6550, L503.6150, L501.5200, L500.4050, L503.6075, L100.0100 #### [facility] [address] [place], [address] Eosinophils/100 WBC (Bld) 0.9 % Normal 0-5 [facility] Comment on above: Order Comment: Order Date: 11/08/24 Order Info: 01802-11 - CBCD Performed By: #### L 503.6550, L503.6150, L501.5200, L500.4050, L503.6075, L100.0100 #### [facility] [address] [place], [place], [id number] Erythrocyte distribution width (RBC) [Ratio] 13.6 % Normal 11.6-14.6 [facility] Comment on above: Order Comment: Order Date: 11/08/24 Order Info: 01802-11 - CBCD Performed By: #### L 503.6550, L503.6150, L501.5200, L500.4050, L503.6075, L100.0100 #### [facility] [address] [place], [address] Hematocrit (Bld) [Volume fraction] 36.0 % Low 37-47 [facility] Comment on above: Order Comment: Order Date: 11/08/24 Order Info: 018- - CBCD Performed By: #### L 503.6550, L503.6150, L501.5200, L500.4050, L503.6075, L100.0100 #### [facility] [address] [place], [address] Hemoglobin (Bld) [Mass/Vol] 11.9 g/dL Low 12.0-15.0 [facility] Comment on above: Order Comment: Order Date: 11/08/24 Order Info: 01802-11 - CBCD Performed By: #### L 503.6550, L503.6150, L501.5200, L500.4050, L503.6075, L100.0100 #### [facility] [address] [place], [address] IG% 0.200 Normal 0.0-0.9 [facility] Comment on above: Order Comment: Order Date: 11/08/24 Order Info: 01802-11 - CBCD Result Comment: IG% - Immature Granulocytes (promyelocytes, myelocytes and metamyelocytes) > 1% indicates that a LEFT SHIFT is Present. Performed By: #### L 503.6550, L503.6150, L501.5200, L500.4050, L503.6075, L100.0100 #### [facility] [address] [place], [address] Lymphocytes/100 WBC (Bld) 22.2 % Normal 19-41 [facility] Comment on above: Order Comment: Order Date: 11/08/24 Order Info: 01802-11 - CBCD Performed By: #### L 503.6550, L503.6150, L501.5200, L500.4050, L503.6075, L100.0100 #### [facility] [address] [place], [address] MCH (RBC) [Entitic mass] 26.3 pg Low 27.0-32.0 [facility] Comment on above: Order Comment: Order Date: 11/08/24 Order Info: 01802-11 - CBCD Performed By: #### L 503.6550, L503.6150, L501.5200, L500.4050, L503.6075, L100.0100 #### [facility] [address] [place], [address] MCHC (RBC) [Mass/Vol] 33.1 g/dL Normal 32-[address] [facility] Comment on above: Order Comment: Order Date: 11/08/24 Order Info: 0184-1 - CBCD Performed By: #### L 503.6550, L503.6150, L501.5200, L500.4050, L503.6075, L100.0100 #### [facility] [address] [place], [address] MCV (RBC) [Entitic vol] 79.6 fL Low 81-99 [facility] Comment on above: Order Comment: Order Date: 11/08/24 Order Info: 0184- - CBCD Performed By: #### L 503.6550, L503.6150, L501.5200, L500.4050, L503.6075, L100.0100 #### [facility] [address] [place], [address] Monocytes/100 WBC (Bld) 6.4 % Normal 0-10 [facility] Comment on above: Order Comment: Order Date: 11/08/24 Order Info: 0184- - CBCD Performed By: #### L 503.6550, L503.6150, L501.5200, L500.4050, L503.6075, L100.0100 #### [facility] [address] [place], [address] Neutrophils/100 WBC (Bld) 70.0 % Normal 47-70 [facility] Comment on above: Order Comment: Order Date: 11/08/24 Order Info: 0184-1 - CBCD Performed By: #### L 503.6550, L503.6150, L501.5200, L500.4050, L503.6075, L100.0100 #### [facility] [address] [place], [address] Nucleated RBC (Bld) [#/Vol] 0 10*3/uL Normal 0-5 [facility] Comment on above: Order Comment: Order Date: 11/08/24 Order Info: 0184-1 - CBCD Performed By: #### L 503.6550, L503.6150, L501.5200, L500.4050, L503.6075, L100.0100 #### [facility] [address] [place], [address] Platelet mean volume (Bld) [Entitic vol] 11.0 fL Normal 6.2-12.0 [facility] Comment on above: Order Comment: Order Date: 11/08/24 Order Info: 0184-1 - CBCD Performed By: #### L 503.6550, L503.6150, L501.5200, L500.4050, L503.6075, L100.0100 #### [facility] [address] [place], [address] Platelets (Bld) [#/Vol] 275 10*3/uL Normal 150-450 [facility] Comment on above: Order Comment: Order Date: 11/08/24 Order Info: 0184-1 - CBCD Performed By: #### L 503.6550, L503.6150, L501.5200, L500.4050, L503.6075, L100.0100 #### [facility] [address] [place], [address] RBC (Bld) [#/Vol] 4.52 10*6/uL Normal 4.2-5.4 [facility] Comment on above: Order Comment: Order Date: 11/08/24 Order Info: 0184-1 - CBCD Performed By: #### L 503.6550, L503.6150, L501.5200, L500.4050, L503.6075, L100.0100 #### [facility] [address] [place], [address] RDW SD 39.2 fl Normal 35.1-43.9 [facility] Comment on above: Order Comment: Order Date: 11/08/24 Order Info: 0184-1 - CBCD Performed By: #### L 503.6550, L503.6150, L501.5200, L500.4050, L503.6075, L100.0100 #### [facility] [address] [place], [address] WBC (Bld) [#/Vol] 6.4 10*3/uL Normal 4.4-11.0 [facility] Comment on above: Order Comment: Order Date: 11/08/24 Order Info: 0184-1 - CBCD Performed By: #### L 503.6550, L503.6150, L501.5200, L500.4050, L503.6075, L100.0100 #### [facility] [address] [place], [place], [address] Carbon dioxide measurementOr dered By: Tomasz Coleman on 11-08-2024 CO2 [Moles/Vol] 24.0 mmol/L 21.0-32.0 [facility] Chloride measurementOrdered By: Tomasz Coleman on 11-08-2024 Chloride [Moles/Vol] 107 mmol/L 98-107 [facility] Comprehensive Metabolic Prof ilon 11-08-2024 Albumin [Mass/Vol] 3.5 g/dL Normal 3.2-5.0 [facility] Comment on above: Order Comment: Order Date: 11/08/24 Order Info: 0786-1 - CMP Order Info: 25515-6 - MG Order Info: 2500-7 - TIBC Order Info: 2498-4 - FE Order Info: 2276-4 - CINDY Performed By: #### L 503.6550, L503.6150, L501.5200, L500.4050, L503.6075, L100.0100 #### [facility] [address] [place], [place], [address] Albumin/Globulin [Mass ratio] 0.9 {ratio} Normal 0.9-2.4 [facility] Comment on above: Order Comment: Order Date: 11/08/24 Order Info: 86-1 - CMP Order Info: [id number] - MG Order Info: 7 - TIBC Order Info: 2498-02 - FE Order Info: 2276-02 - CINDY Performed By: #### L 503.6550, L503.6150, L501.5200, L500.4050, L503.6075, L100.0100 #### [facility] [address] [place], [address] ALK P 48 U/L Normal 45-117 [facility] Comment on above: Order Comment: Order Date: 11/08/24 Order Info: 86-1 - CMP Order Info: 26600-6 - MG Order Info: 7 - TIBC Order Info: 2498-02 - FE Order Info: 2276-02 - CINDY Performed By: #### L 503.6550, L503.6150, L501.5200, L500.4050, L503.6075, L100.0100 #### [facility] [address] [place], [address] ALT [Catalytic activity/Vol] 23 U/L Normal 13-56 [facility] Comment on above: Order Comment: Order Date: 11/08/24 Order Info: 86-1 - CMP Order Info: 46419-7 - MG Order Info: 2500-05 - TIBC Order Info: 2498-02 - FE Order Info: 2276-02 - CINDY Performed By: #### L 503.6550, L503.6150, L501.5200, L500.4050, L503.6075, L100.0100 #### [facility] [address] [place], [address] AST [Catalytic activity/Vol] 13 U/L Low 15-37 [facility] Comment on above: Order Comment: Order Date: 11/08/24 Order Info: 0786-1 - CMP Order Info: 37228-2 - MG Order Info: 7 - TIBC Order Info: 2498-02 - FE Order Info: 2276-02 - CINDY Performed By: #### L 503.6550, L503.6150, L501.5200, L500.4050, L503.6075, L100.0100 #### [facility] [address] [place], [place], [address] Bilirubin [Mass/Vol] 0.40 mg/dL Normal 0.20-1.00 [facility] Comment on above: Order Comment: Order Date: 11/08/24 Order Info: 0786-1 - CMP Order Info: 53353-0 - MG Order Info: 2500-7 - TIBC Order Info: 2494 - FE Order Info: 2276-02 - CNIDY Result Comment: For patients on eltrombopag therapy, use of Dimension [place] TBIL is not recommended. Performed By: #### L 503.6550, L503.6150, L501.5200, L500.4050, L503.6075, L100.0100 #### [facility] [address] [place], [address] BUN/CRE 11.6 RATIO Normal 10-20 [facility] Comment on above: Order Comment: Order Date: 11/08/24 Order Info: 785-1 - CMP Order Info: 97897-6 - MG Order Info: 25007 - TIBC Order Info: 24984 - FE Order Info: 4 - CINDY Performed By: #### L 503.6550, L503.6150, L501.5200, L500.4050, L503.6075, L100.0100 #### [facility] [address] [place], [place], [id number] [phone],Total 8.9 mg/dL Normal 8.5-10.1 [facility] Comment on above: Order Comment: Order Date: 11/08/24 Order Info: 86-1 - CMP Order Info: 52144-7 - MG Order Info: 25007 - TIBC Order Info: 24984 - FE Order Info: 2276-02 - CINDY Performed By: #### L 503.6550, L503.6150, L501.5200, L500.4050, L503.6075, L100.0100 #### [facility] [address] [place], [address] Chloride [Moles/Vol] 107 mmol/L Normal 98-107 [facility] Comment on above: Order Comment: Order Date: 11/08/24 Order Info: 86-1 - CMP Order Info: 03627-7 - MG Order Info: 25007 - TIBC Order Info: 2498-02 - FE Order Info: 2276-02 - CINDY Performed By: #### L 503.6550, L503.6150, L501.5200, L500.4050, L503.6075, L100.0100 #### [facility] [address] [place], [address] CO2 [Moles/Vol] 24.0 mmol/L Normal 21.0-32.0 [facility] Comment on above: Order Comment: Order Date: 11/08/24 Order Info: 785-11 - CMP Order Info: 05762-7 - MG Order Info: 2500-05 - TIBC Order Info: 2498-02 - FE Order Info: 2276-02 - CINDY Performed By: #### L 503.6550, L503.6150, L501.5200, L500.4050, L503.6075, L100.0100 #### [facility] [address] [place], [address] Creatinine [Mass/Vol] 0.69 mg/dL Normal 0.55-1.[address] [facility] Comment on above: Order Comment: Order Date: 11/08/24 Order Info: 785-1 - CMP Order Info: 75650-6 - MG Order Info: 7 - TIBC Order Info: 2498-02 - FE Order Info: 2276-02 - CINDY Result Comment: The validity of the calculated GFR GFRAA in patients over 70 years has not been determined. Clinical correlation is essential. Performed By: #### L 503.6550, L503.6150, L501.5200, L500.4050, L503.6075, L100.0100 #### [facility] [address] [place], [place], [id number] EST GFR - AA 126 mL/min Normal >60 [facility] Comment on above: Order Comment: Order Date: 11/08/24 Order Info: 0786-1 - CMP Order Info: [id number] - MG Order Info: 2500-7 - TIBC Order Info: 2498-02 - FE Order Info: 2276-02 - CINDY Result Comment: Afri can [place] GFR Calc Performed By: #### L 503.6550, L503.6150, L501.5200, L500.4050, L503.6075, L100.0100 #### [facility] [address] [place], [place], [address] GAP 5 Normal 5-15 [facility] Comment on above: Order Comment: Order Date: 11/08/24 Order Info: 86-1 - CMP Order Info: 73133-0 - MG Order Info: 2500-05 - TIBC Order Info: 2498-02 - FE Order Info: 2276-02 - CINDY Performed By: #### L 503.6550, L503.6150, L501.5200, L500.4050, L503.6075, L100.0100 #### [facility] [address] [place], [place], [address] GFR/1.73 sq M.predicted among non-blacks MDRD (S/P/Bld) [Vol rate/Area] 104 mL/min/{1.73_m2} Normal >60 [facility] Comment on above: Order Comment: Order Date: 11/08/24 Order Info: 0786-1 - CMP Order Info: 85014-2 - MG Order Info: 25007 - TIBC Order Info: 2498-02 - FE Order Info: 2275- - CINDY Result Comment: Non- GFR Calc Performed By: #### L 503.6550, L503.6150, L501.5200, L500.4050, L503.6075, L100.0100 #### [facility] [address] [place], [address] Globulin (S) [Mass/Vol] 4.1 g/dL Normal 2.2-4.2 [facility] Comment on above: Order Comment: Order Date: 11/08/24 Order Info: 0786-1 - CMP Order Info: 99119-0 - MG Order Info: 2500-7 - TIBC Order Info: 2498-4 - FE Order Info: 227-4 - CINDY Performed By: #### L 503.6550, L503.6150, L501.5200, L500.4050, L503.6075, L100.0100 #### [facility] [address] [place], [address] Glucose [Mass/Vol] 97 mg/dL Normal 74-106 [facility] Comment on above: Order Comment: Order Date: 11/08/24 Order Info: 86-1 - CMP Order Info: 23070-7 - MG Order Info: 7 - TIBC Order Info: 24906-16 - FE Order Info: 227-4 - CINDY Performed By: #### L 503.6550, L503.6150, L501.5200, L500.4050, L503.6075, L100.0100 #### [facility] [address] [place], [address] Potassium [Moles/Vol] 3.7 mmol/L Normal 3.5-5.[address] [facility] Comment on above: Order Comment: Order Date: 11/08/24 Order Info: 0786-1 - CMP Order Info: 87183-7 - MG Order Info: 2500-7 - TIBC Order Info: 24984 - FE Order Info: 2276-4 - CINDY Performed By: #### L 503.6550, L503.6150, L501.5200, L500.4050, L503.6075, L100.0100 #### [facility] [address] [place], [place], [address] Sodium [Moles/Vol] 136 mmol/L Normal 136-145 [facility] Comment on above: Order Comment: Order Date: 11/08/24 Order Info: 86-1 - CMP Order Info: 35474-2 - MG Order Info: 2499-7 - TIBC Order Info: 2498-4 - FE Order Info: 227-4 - CINDY Performed By: #### L 503.6550, L503.6150, L501.5200, L500.4050, L503.6075, L100.0100 #### [facility] [address] [place], [place], [address] T PROT 7.6 g/dL Normal 6.4-8.2 [facility] Comment on above: Order Comment: Order Date: 11/08/24 Order Info: 785-1 - CMP Order Info: 54445-4 - MG Order Info: 2500-05 - TIBC Order Info: 2498-02 - FE Order Info: 2276-02 - CINDY Performed By: #### L 503.6550, L503.6150, L501.5200, L500.4050, L503.6075, L100.0100 #### [facility] [address] [place], [place], [address] Urea nitrogen [Mass/Vol] 8 mg/dL Normal 7-18 [facility] Comment on above: Order Comment: Order Date: 11/08/24 Order Info: 86-1 - CMP Order Info: [id number] - MG Order Info: 7 - TIBC Order Info: 2494 - FE Order Info: 2275-4 - CINDY Performed By: #### L 503.6550, L503.6150, L501.5200, L500.4050, L503.6075, L100.0100 #### [facility] [address] [place], [place], [address] Eosinophil percentageOrdered By: Tomasz Coleman on 11-08-2024 Eosinophils/100 WBC (Bld) 0.9 % 0-5 [facility] Erythrocyte distribution wid th ratioOrdered By: Tomasz Coleman on 11-08-2024 Erythrocyte distribution width (RBC) [Ratio] 13.6 % 11.6-14.6 [facility] Erythrocyte distribution wid th standard deviationOrdered By: Tomasz Coleman on 11-08-2024 Erythrocyte distribution width (RBC) [Entitic vol] 39.2 fL 35.1-43.9 [facility] Estimated glomerular filtrat ion rate (GFR) AmericanOrdered By: Tomasz Coleman on 11-08-2024 Estimated GFR (MDRD) Amer 126 mL/min >60 [facility] Comment on above: GFR Calc Ferritinon 11-08-2024 Ferritin [Mass/Vol] 15 ng/mL Normal 8-252 [facility] Comment on above: Order Comment: Order Date: 11/08/24Order Info: 0786-1 - CMPOrder Info: [id number] - MGOrder Info: 2500-7 - TIBCOrder Info: 2498-4 - FEOrder Info: 2276-4 - CINDY Performed By: #### L 503.6550, L503.6150, L501.5200, L500.4050, L503.6075, L100.0100 ####[facility] [address] [place], [place], [address] Ferritin measurementOrdered By: Tomasz Coleman on 11-08-2024 Ferritin [Mass/Vol] 15 ng/mL 8-252 [facility] Glomerular filtration rate ( GFR) estimationOrdered By: Tomasz Coleman on 11-08-2024 Estimated GFR (MDRD) Non-Af Amer 104 mL/min >60 [facility] Comment on above: Non- GFR Calc Glucose measurementOrdered B y: Tomasz Coleman on 11-08-2024 Glucose [Mass/Vol] 97 mg/dL 74-106 [facility] Hematocrit Auto (Bld) [Volum e fraction]Ordered By: Tomasz Coleman on 11-08-2024 Hematocrit (Bld) [Volume fraction] 36.0 % Low 37-47 [facility] Hemoglobin measurementOrdere d By: Tomasz Coleman on 11-08-2024 Hemoglobin (Bld) [Mass/Vol] 11.9 g/dL Low 12.0-15.0 [facility] Immature granulocytes/100 WB C Auto (Bld)Ordered By: Tomasz Coleman on 11-08-2024 Immature granulocytes/100 WBC (Bld) 0.200 % 0.0-0.9 [facility] Comment on above: IG% - Immature Granu locytes (promyelocytes, myelocytes and metamyelocytes) > 1% indicates that a LEFT SHIFT is Present. Ironon 11-08-2024 Iron [Mass/Vol] 53 ug/dL Normal 50-170 [facility] Comment on above: Order Comment: Order Date: 11/08/24Order Info: 0786- - CMPOrder Info: - MGOrder Info: 2500-7 - TIBCOrder Info: 2498-02 - FEOrder Info: 2276-02 - CINDY Performed By: #### L 503.6550, L503.6150, L501.5200, L500.4050, L503.6075, L100.0100 ####[facility] [address] [place], [place], [id number] Iron (Unsp spec) [Mass/Mass] Ordered By: Tomasz Coleman on 11-08-2024 Iron [Mass/Vol] 53 ug/dL 50-170 [facility] Iron Binding Capacity,Totalo n 11-08-2024 TIBC 329 ug/dL Normal 250-450 [facility] Comment on above: Order Comment: Order Date: 11/08/24 Order Info: 07- - CMP Order Info: [id number] - MG Order Info: 2500-7 - TIBC Order Info: 2494 - FE Order Info: 2275-4 - CINDY Performed By: #### L 503.6550, L503.6150, L501.5200, L500.4050, L503.6075, L100.0100 #### [facility] [address] [place], [address] Laboratory - Chemistry and C hemistry - challengeOrdered By: Tomasz Coleman on 11-08-2024 AST [Catalytic activity/Vol] 13 U/L Low 15-37 [facility] Lymphocytes Auto (Unsp spec) [#/Vol]Ordered By: Tomasz Coleman on 11-08-2024 Lymphocytes (Bld) [#/Vol] 1.43 10*3/uL 0.83-4.51 [facility] Lymphocytes/100 WBC Auto (Un sp spec)Ordered By: Tomasz Coleman on 11-08-2024 Lymphocytes/100 WBC (Bld) 22.2 % 19-41 [facility] MCV (mean corpuscular volume ) determinationOrdered By: Tomasz Coleman on 11-08-2024 MCV (RBC) [Entitic vol] 79.6 fL Low 81-99 [facility] Magnesiumon 11-08-2024 Magnesium [Mass/Vol] 2.2 mg/dL Normal 1.6-2.6 [facility] Comment on above: Order Comment: Order Date: 11/08/24 Order Info: 0786-1 - CMP Order Info: [id number] - MG Order Info: 2500-7 - TIBC Order Info: 2498-4 - FE Order Info: 2276-4 - CINDY Performed By: #### L 503.6550, L503.6150, L501.5200, L500.4050, L503.6075, L100.0100 #### [facility] [place], [address] Magnesium measurementOrdered By: Tomasz Coleman on 11-08-2024 Magnesium [Mass/Vol] 2.2 mg/dL 1.6-2.6 [facility] Mean corpuscular hemoglobin (MCH) determinationOrdered By: Tomasz Coleman on 11-08-2024 MCH (RBC) [Entitic mass] 26.3 pg Low 27.0-32.0 [facility] Mean corpuscular hemoglobin concentration (MCHC) determinationOrdered By: Tomasz Coleman on 11-08-2024 MCHC (RBC) [Mass/Vol] 33.1 g/dL 32-[address] [facility] Mean platelet volume determi nationOrdered By: Tomasz Coleman on 11-08-2024 Platelet mean volume (Bld) [Entitic vol] 11.0 fL 6.2-12.0 [facility] Monocyte percentageOrdered B y: Tomasz Coleman on 11-08-2024 Monocytes/100 WBC (Bld) 6.4 % 0-10 [facility] Neutrophil percentageOrdered By: Tomasz Coleman on 11-08-2024 Neutrophils/100 WBC (Bld) 70.0 % 47-70 [facility] Nucleated red blood cell per centageOrdered By: Tomasz Coleman on 11-08-2024 Nucleated RBC/100 WBC (Bld) [Ratio] 0 % 0-5 [facility] Platelet countOrdered By: Lupe Coleman on 11-08-2024 Platelets (Bld) [#/Vol] 275 10*3/uL 150-450 [facility] Potassium measurementOrdered By: Tomasz Coleman on 11-08-2024 Potassium [Moles/Vol] 3.7 mmol/L 3.5-5.[address] [facility] RBC Auto (Bld) [#/Vol]Ordere d By: Tomasz Coleman on 11-08-2024 RBC (Bld) [#/Vol] 4.52 10*6/uL 4.2-5.4 [facility] Serum anion gap measurementO rdered By: Tomasz Coleman on 11-08-2024 Anion gap [Moles/Vol] 5 mmol/L 5-[address] [facility] Serum globulin measurementOr dered By: Tomasz Coleman on 11-08-2024 Globulin (S) [Mass/Vol] 4.1 g/dL 2.2-4.2 [facility] Serum or plasma alanine burt otransferase (ALT) measurementOrdered By: Tomasz Coleman on 11-08-2024 ALT [Catalytic activity/Vol] 23 U/L 13-56 [facility] Serum or plasma albumin marge urement (mass/volume)Ordered By: Tomasz Coleman on 11-08-2024 Albumin [Mass/Vol] 3.5 g/dL 3.2-5.0 [facility] Serum or plasma alkaline zia sphatase measurementOrdered By: Tomasz Coleman on 11-08-2024 ALP [Catalytic activity/Vol] 48 U/L 45-117 [facility] Serum or plasma calcium marge urement (mass/volume)Ordered By: Tomasz Coleman on 11-08-2024 Calcium [Mass/Vol] 8.9 mg/dL 8.5-10.1 [facility] Serum or plasma creatinine m easurement (mass/volume)Ordered By: Tomasz Coleman on 11-08-2024 Creatinine [Mass/Vol] 0.69 mg/dL 0.55-1.[address] [facility] Comment on above: The validity of the calculated GFR & GFRAA in patients over 70 years has not been determined. Clinical correlation is essential. Serum or plasma urea nitroge n measurement (mass/volume)Ordered By: Tomasz Coleman on 11-08-2024 Urea nitrogen [Mass/Vol] 8 mg/dL 7-18 [facility] Sodium levelOrdered By: Tomasz Coleman on 11-08-2024 Sodium [Moles/Vol] 136 mmol/L 136-145 [facility] TIBCOrdered By: Tomasz rangel on 11-08-2024 Total Iron Binding Capacity 329 ug/dL 250-450 [facility] Total proteinOrdered By: Mendel Coleman on 11-08-2024 Protein [Mass/Vol] 7.6 g/dL 6.4-8.2 [facility] White blood cell (WBC) count Ordered By: Tomasz Coleman on 11-08-2024 WBC (Bld) [#/Vol] 6.4 10*3/uL 4.4-11.0 [facility] US Pelvison 11-04-2024 Indication Pelvic pain, [...] Read By: Allyn Martinez M.D. MATERNAL MEDICINE [facility] US Pelvison 11-01-2024 Radiology Study observation (narrative) [facility] C. trachomatis+N. gonorrhoea e DNA MELISA+probe Ql (Unsp spec)on 10-30-2024 C. trachomatis rRNA MELISA+probe Ql (Unsp spec) Not detected Normal Not detected [facility] Comment on above: Order Comment: Speci men Type: SWAB Ordering Facility: [facility] Address: [address] [place] [address] Performed By: #### 3 6902-5 #### [facility] CLIA [id number] [address] [place], [place] [address] [address] [place] N. gonorrhoeae rRNA MELISA+probe Ql (Unsp spec) Not detected Normal Not detected [facility] Comment on above: Order Comment: Speci men Type: SWAB Ordering Facility: [facility] Address: [address] [place] [address] Performed By: #### 3 6902-5 #### [facility] CLIA [id number] [facility] [place] [id number] [place] CNOVon 10-30-2024 CNOV Office Visit (OBGYWM) DENISHA HILL ([id number]) 1990 F Date Time Provider Department 10/30/24 9:50 AM ANEESH DIA OBCJ During your visit today, we recorded the following information about you: Blood pressure Weight 120/80 87.1 kg Aneesh Dia MD 10/30/2024 11:01 AM Signed Stranner offered: Patient accepts, visit chaperoned by Cherise [...] L0 SAB0 IAB0 Ectopic0 Multiple0 Live Births2 Color Buffer History LMP: 01/03/2021, IUD Age at Menarche: Age at First : Age at Menopause: Color Buffer History Comments: Sexual Activity: Not Currently; Male [...] discussed with the Patient or Patient's Authorized Heavy Equipment Operating Engineer. As applicable, any other physician, advance practice provider, medical student, or other health professional student that will be observing or involved in the sensitive examination for educational or training purposes was discussed with the Patient or Authorized Heavy Equipment Operating Engineer. The Patient or Authorized Heavy Equipment Operating Engineer has agreed to proceed with the sensitive examination. (Sensitive examination includes inspection and/or palpation of the breasts, pelvis, prostate and anorectal regions). EXAM: BP 120/80 Wt 192 lb (87.1kg) LMP 01/03/2021 GENERAL: pleasant, female in no apparent distress ABDOMEN: Benign, soft, non-tender, and no masses PELVIC: external genitalia normal, normal Bartholin's glands, urethra, Calion's glands, no vulvar lesions, no cervical lesions, [...] pain in female [R10.2] Order(s):PELVIC US WHI [[id number]] Order #: [id number]: 1 FUTURE GONORRHEA/CHLAMYDIA MELISA (more content not included)... Normal [facility] ED Prov Noteon 09-29-2024 ED Prov Note ED PROVIDER NOTE [facility] NAME: Denisha Hill AGE: 34 y.o. : 1990 VISIT DATE: 09/29/2024 CSN: [id number] PCP: Tomasz Coleman MD Chief Complaint Patient [...] AUTHENTICATED BY RADHA BENITEZ, ON 09/29/2024 18:47:20 [facility] ED Prov Noteon 08-27-2024 ED Prov Note ED PROVIDER NOTE [facility] NAME: Denisha Hill AGE: 33 y.o. : 1990 VISIT DATE: 08/27/2024 CSN: [id number] PCP: Tomasz Coleman MD Chief Complaint Patient [...] in stable conditio (more content not included)... [facility] XR HIP LEFT WITH PELVIS 2-3 [...] significant degenerative changes in the hip joints. [employer]acle-[employer] Workstation ID: [id number] Dictated by: GERDA OLEARY on MonAug 27, 2024 1:29:42 PM EDT Transcribed by: CAILIN LANTIGUA on MonAug 27, 2024 1:45:24 PM EDT Finalized by: GERDA OLEARY on MonAug 27, 2024 5:11:52 PM EDT [facility] Comment on above: Order Comment: Injur [...] Absolute Lymph 2.05 X10 3/uL Normal 0.83-4.51 [facility] Comment on above: Performed By: #### L 100.0100, L500.4050, L501.9520, L506.0250, L503.0105, L501.5200, L503.6550, L503.6030 ####[facility] [address] [place], [address] Absolute Neut 4.2 X10 3/uL Normal 2.0-7.7 [facility] Comment on above: Performed By: #### L 100.0100, L500.4050, L501.9520, L506.0250, L503.0105, L501.5200, L503.6550, L503.6030 ####[facility] [address] [place], [address] Basophils/100 WBC (Bld) 0.3 % Normal 0-1 [facility] Comment on above: Performed By: #### L 100.0100, L500.4050, L501.9520, L506.0250, L503.0105, L501.5200, L503.6550, L503.6030 ####[facility] [address] [place], [address] Eosinophils/100 WBC (Bld) 0.9 % Normal 0-5 [facility] Comment on above: Performed By: #### L 100.0100, L500.4050, L501.9520, L506.0250, L503.0105, L501.5200, L503.6550, L503.6030 ####[facility] [address] [place], [address] Erythrocyte distribution width (RBC) [Ratio] 13.1 % Normal 11.6-14.6 [facility] Comment on above: Performed By: #### L 100.0100, L500.4050, L501.9520, L506.0250, L503.0105, L501.5200, L503.6550, L503.6030 ####[facility] [address], [address] Hematocrit (Bld) [Volume fraction] 37.8 % Normal 37-47 [facility] Comment on above: Performed By: #### L 100.0100, L500.4050, L501.9520, L506.0250, L503.0105, L501.5200, L503.6550, L503.6030 ####[facility] [address] [place], [address](088) Hemoglobin (Bld) [Mass/Vol] 12.4 g/dL Normal 12.0-15.0 [facility] Comment on above: Performed By: #### L 100.0100, L500.4050, L501.9520, L506.0250, L503.0105, L501.5200, L503.6550, L503.6030 ####[facility] [address] [place], [place], [phone](698) IG% 0.300 Normal 0.0-0.9 [facility] Comment on above: Result Comment: IG% - Immature Granulocytes (promyelocytes, myelocytes and metamyelocytes) > 1% indicates that a LEFT SHIFT is Present. Performed By: #### L 100.0100, L500.4050, L501.9520, L506.0250, L503.0105, L501.5200, L503.6550, L503.6030 ####[facility] [address] [place], [address] Lymphocytes/100 WBC (Bld) 30.3 % Normal 19-41 [facility] Comment on above: Performed By: #### L 100.0100, L500.4050, L501.9520, L506.0250, L503.0105, L501.5200, L503.6550, L503.6030 ####[facility] [address] [place], [address] MCH (RBC) [Entitic mass] 26.2 pg Low 27.0-32.0 [facility] Comment on above: Performed By: #### L 100.0100, L500.4050, L501.9520, L506.0250, L503.0105, L501.5200, L503.6550, L503.6030 ####[facility] [address] [place], [address] MCHC (RBC) [Mass/Vol] 32.8 g/dL Normal 32-[address] [facility] Comment on above: Performed By: #### L 100.0100, L500.4050, L501.9520, L506.0250, L503.0105, L501.5200, L503.6550, L503.6030 ####[facility] [address] [place], [address] MCV (RBC) [Entitic vol] 79.9 fL Low 81-99 [facility] Comment on above: Performed By: #### L 100.0100, L500.4050, L501.9520, L506.0250, L503.0105, L501.5200, L503.6550, L503.6030 ####[facility] [address] [place], [address] Monocytes/100 WBC (Bld) 6.7 % Normal 0-10 [facility] Comment on above: Performed By: #### L 100.0100, L500.4050, L501.9520, L506.0250, L503.0105, L501.5200, L503.6550, L503.6030 ####[facility] [address] [place], [address] Neutrophils/100 WBC (Bld) 61.5 % Normal 47-70 [facility] Comment on above: Performed By: #### L 100.0100, L500.4050, L501.9520, L506.0250, L503.0105, L501.5200, L503.6550, L503.6030 ####[facility] [address] [place], [address] Nucleated RBC (Bld) [#/Vol] 0 10*3/uL Normal 0-5 [facility] Comment on above: Performed By: #### L 100.0100, L500.4050, L501.9520, L506.0250, L503.0105, L501.5200, L503.6550, L503.6030 ####[facility] [address] [place], [address] Platelet mean volume (Bld) [Entitic vol] 11.3 fL Normal 6.2-12.0 [facility] Comment on above: Performed By: #### L 100.0100, L500.4050, L501.9520, L506.0250, L503.0105, L501.5200, L503.6550, L503.6030 ####[facility] [address] [place], [address] Platelets (Bld) [#/Vol] 317 10*3/uL Normal 150-450 [facility] Comment on above: Performed By: #### L 100.0100, L500.4050, L501.9520, L506.0250, L503.0105, L501.5200, L503.6550, L503.6030 ####[facility] [address] [place], [address] RBC (Bld) [#/Vol] 4.73 10*6/uL Normal 4.2-5.4 [facility] Comment on above: Performed By: #### L 100.0100, L500.4050, L501.9520, L506.0250, L503.0105, L501.5200, L503.6550, L503.6030 ####[facility] [address] [place], [place], [phone] RDW SD 37.0 fl Normal 35.1-43.9 [facility] Comment on above: Performed By: #### L 100.0100, L500.4050, L501.9520, L506.0250, L503.0105, L501.5200, L503.6550, L503.6030 ####[facility] [address] [place], [place], [phone] WBC (Bld) [#/Vol] 6.8 10*3/uL Normal 4.4-11.0 [facility] Comment on above: Performed By: #### L 100.0100, L500.4050, L501.9520, L506.0250, L503.0105, L501.5200, L503.6550, L503.6030 ####[facility] [address] [place], [place], [id number] Comprehensive Metabolic Prof njon 08-15-2024 Albumin [Mass/Vol] 3.9 g/dL Normal 3.2-5.0 [facility] Comment on above: Order Comment: N Performed By: #### L 100.0100, L500.4050, L501.9520, L506.0250, L503.0105, L501.5200, L503.6550, L503.6030 ####[facility] [address] [place], [place], [phone] Albumin/Globulin [Mass ratio] 1.1 {ratio} Normal 0.9-2.4 [facility] Comment on above: Order Comment: N Performed By: #### L 100.0100, L500.4050, L501.9520, L506.0250, L503.0105, L501.5200, L503.6550, L503.6030 ####[facility] [address] [place], [address] ALK P 59 U/L Normal 45-117 [facility] Comment on above: Order Comment: N Performed By: #### L 100.0100, L500.4050, L501.9520, L506.0250, L503.0105, L501.5200, L503.6550, L503.6030 ####[facility] [address] [place], [address] ALT [Catalytic activity/Vol] 25 U/L Normal 13-56 [facility] Comment on above: Order Comment: N Performed By: #### L 100.0100, L500.4050, L501.9520, L506.0250, L503.0105, L501.5200, L503.6550, L503.6030 ####[facility] [address] [place], [address] AST [Catalytic activity/Vol] 17 U/L Normal 15-37 [facility] Comment on above: Order Comment: N Performed By: #### L 100.0100, L500.4050, L501.9520, L506.0250, L503.0105, L501.5200, L503.6550, L503.6030 ####[facility] [address] [place], [address] Bilirubin [Mass/Vol] 0.50 mg/dL Normal 0.20-1.00 [facility] Comment on above: Order Comment: N Result Comment: For patients on eltrombopag therapy, use of Dimension [place] TBIL is not recommended. Performed By: #### L 100.0100, L500.4050, L501.9520, L506.0250, L503.0105, L501.5200, L503.6550, L503.6030 ####[facility] [address] [place], [address] BUN/CRE 10.5 RATIO Normal 10-20 [facility] Comment on above: Order Comment: N Performed By: #### L 100.0100, L500.4050, L501.9520, L506.0250, L503.0105, L501.5200, L503.6550, L503.6030 ####[facility] [address] [place], [address] CA,Total 9.1 mg/dL Normal 8.5-10.1 [facility] Comment on above: Order Comment: N Performed By: #### L 100.0100, L500.4050, L501.9520, L506.0250, L503.0105, L501.5200, L503.6550, L503.6030 ####[facility] [address] [place], [address] Chloride [Moles/Vol] 103 mmol/L Normal 98-107 [facility] Comment on above: Order Comment: N Performed By: #### L 100.0100, L500.4050, L501.9520, L506.0250, L503.0105, L501.5200, L503.6550, L503.6030 ####[facility] [address] [place], [address] CO2 [Moles/Vol] 28.0 mmol/L Normal 21.0-32.0 [facility] Comment on above: Order Comment: N Performed By: #### L 100.0100, L500.4050, L501.9520, L506.0250, L503.0105, L501.5200, L503.6550, L503.6030 ####[facility] [address] [place], [address] Creatinine [Mass/Vol] 0.57 mg/dL Normal 0.55-1.[address] [facility] Comment on above: Order Comment: N Result Comment: The validity of the calculated GFR GFRAA in patients over 70 years has not been determined. Clinical correlation is essential. Performed By: #### L 100.0100, L500.4050, L501.9520, L506.0250, L503.0105, L501.5200, L503.6550, L503.6030 ####[facility] [address] [place], [address] EST GFR - AA 155 mL/min Normal >60 [facility] Comment on above: Order Comment: N Result Comment: Afri can Chadian GFR Calc Performed By: #### L 100.0100, L500.4050, L501.9520, L506.0250, L503.0105, L501.5200, L503.6550, L503.6030 ####[facility] [address] [place], [place], [id number] GAP 6 Normal 5-15 [facility] Comment on above: Order Comment: N Performed By: #### L 100.0100, L500.4050, L501.9520, L506.0250, L503.0105, L501.5200, L503.6550, L503.6030 ####[facility] [address] [place], [place], [phone] GFR/1.73 sq M.predicted among non-blacks MDRD (S/P/Bld) [Vol rate/Area] 128 mL/min/{1.73_m2} Normal >60 [facility] Comment on above: Order Comment: N Result Comment: Non- GFR Calc Performed By: #### L 100.0100, L500.4050, L501.9520, L506.0250, L503.0105, L501.5200, L503.6550, L503.6030 ####[facility] [address] [place], [place], [phone]) Globulin (S) [Mass/Vol] 3.7 g/dL Normal 2.2-4.2 [facility] Comment on above: Order Comment: N Performed By: #### L 100.0100, L500.4050, L501.9520, L506.0250, L503.0105, L501.5200, L503.6550, L503.6030 ####[facility] [address] [place], [address] Glucose [Mass/Vol] 98 mg/dL Normal 74-106 [facility] Comment on above: Order Comment: N Performed By: #### L 100.0100, L500.4050, L501.9520, L506.0250, L503.0105, L501.5200, L503.6550, L503.6030 ####[facility] [address] [place], [address] Potassium [Moles/Vol] 3.8 mmol/L Normal 3.5-5.[address] [facility] Comment on above: Order Comment: N Performed By: #### L 100.0100, L500.4050, L501.9520, L506.0250, L503.0105, L501.5200, L503.6550, L503.6030 ####[facility] [address] [place], [address] Sodium [Moles/Vol] 137 mmol/L Normal 136-145 [facility] Comment on above: Order Comment: N Performed By: #### L 100.0100, L500.4050, L501.9520, L506.0250, L503.0105, L501.5200, L503.6550, L503.6030 ####[facility] [address] [place], [address] T PROT 7.6 g/dL Normal 6.4-8.2 [facility] Comment on above: Order Comment: N Performed By: #### L 100.0100, L500.4050, L501.9520, L506.0250, L503.0105, L501.5200, L503.6550, L503.6030 ####[facility] [address] [place], [place], [id number] Urea nitrogen [Mass/Vol] 6 mg/dL Low 7-18 [facility] Comment on above: Order Comment: N Performed By: #### L 100.0100, L500.4050, L501.9520, L506.0250, L503.0105, L501.5200, L503.6550, L503.6030 ####[facility] [address] [place], [address] Ferritinon 08-15-2024 Ferritin [Mass/Vol] 20 ng/mL Normal 8-252 [facility] Comment on above: Order Comment: N Performed By: #### L 100.0100, L500.4050, L501.9520, L506.0250, L503.0105, L501.5200, L503.6550, L503.6030 ####[facility] [address] [place], [place], [phone] Folates, (Folic Acid)on FOLATES 9.60 ng/mL Normal 3.1-55.4 [facility] Comment on above: Order Comment: N Performed By: #### L 100.0100, L500.4050, L501.9520, L506.0250, L503.0105, L501.5200, L503.6550, L503.6030 ####[facility] [address], [address] Iron+Iron Binding Capacityon 08-15-2024 Iron [Mass/Vol] 49 ug/dL Low 50-170 [facility] Comment on above: Order Comment: N Performed By: #### L 100.0100, L500.4050, L501.9520, L506.0250, L503.0105, L501.5200, L503.6550, L503.6030 ####[facility] [address] [place], [address] IRON SATURATION 14.7 Low 15.0-55.0 [facility] Comment on above: Order Comment: N Performed By: #### L 100.0100, L500.4050, L501.9520, L506.0250, L503.0105, L501.5200, L503.6550, L503.6030 ####[facility] [address] [place], [address] TIBC 334 ug/dL Normal 250-450 [facility] Comment on above: Order Comment: N Performed By: #### L 100.0100, L500.4050, L501.9520, L506.0250, L503.0105, L501.5200, L503.6550, L503.6030 ####[facility] [address] [place], [address] Magnesiumon 08-15-2024 Magnesium [Mass/Vol] 1.8 mg/dL Normal 1.6-2.6 [facility] Comment on above: Order Comment: N Performed By: #### L 100.0100, L500.4050, L501.9520, L506.0250, L503.0105, L501.5200, L503.6550, L503.6030 ####[facility] [address] [place], [address] Thyroid Stim Hormone (TSH)on 08-15-2024 TSH 0.826 uIU/mL Normal 0.358-3.740 [facility] Comment on above: Order Comment: N Performed By: #### L 100.0100, L500.4050, L501.9520, L506.0250, L503.0105, L501.5200, L503.6550, L503.6030 ####[facility] [address] [place], [address] Vitamin B12on 08-15-2024 Cobalamin (Vitamin B12) [Mass/Vol] 521 pg/mL Normal 211-911 [facility] Comment on above: Performed By: #### L 100.0100, L500.4050, L501.9520, L506.0250, L503.0105, L501.5200, L503.6550, L503.6030 ####[facility] [address] [place], [address] Orthopedic Visit Reporton Orthopedic Visit Report [facility] [address] [place] [address] [address] [place] [address] OFFICE VISIT Date of Service: 07/12/24 MR#: [id number] Acct: [id number] Name: DENISHA HILL Rep #: [id number] : 1990 Provider: Dr. Pancho Starkey MD Age/Sex: 33/F Location: [facility] Status: Signed Intake Vital Signs 02/05/24 12:08 [...] herniation with (more content not included)... Normal [facility] S-I Jts 3 or More Viewson S-I Jts 3 or More Views [facility] [address] [place] [address] S-I Jts 3 or More Views MR#: [id number] Acct: [id number] Name: DENISHA HILL YADIRA Rep #: [id number] : 1990 F 33 From: Conner cortez MD PCP: Dr. Tomasz Coleman MD Status: DEP AMB Study: S-I Jts 3 or More Views Date of Exam: 07/12/24 Exam# [id number] Ordering Dr: Brandi Valdivia [id number] INDICATION: s/p si fusion EXAMINATION/TECHNIQU E: X-RAY [...] CC: NADIYA Palma; Dr. Tomasz Coleman MD Antiquer: Signed Normal [facility] L/S Spine Min 4 Viewson 05-13 L/S Spine Min 4 Views [facility] Services [address] [place] [address] L/S Spine Min 4 Views MR#: [id number] Acct: [id number] Name: DENISHA HILL Rep #: [id number] : 1990 F 33 From: Glenn Pulido MD PCP: Dr. Tomsaz Coleman MD Status: REG CLI Study: L/S Spine Min 4 Views Date of Exam: 05/29/24 Exam# [id number] Ordering Dr: Papa Truong MD [id number] STUDY: X-RAY - LUMBAR SPINE REASON FOR [...] Tomasz Coleman MD; Dr. Papa Truong MD Antiquer: Signed Normal [facility] Pelvis 1 or 2 Viewson 2023 Pelvis 1 or 2 Views [facility] Imaging Services [address] [place] [address] Pelvis 1 or 2 Views MR#: [id number] Acct: [id number] Name: DENISHA HILL Rep #: [id number] : 1990 F 33 From: Mariano leach MD PCP: Dr. Tomasz Coleman MD Status: REG [facility] Study: Pelvis 1 or 2 Views Date of Exam: 05/29/24 Exam# [id number] Ordering Dr: Papa Truong MD [id number] STUDY: X-RAY - PELVIS REASON FOR EXAM: [...] Tomasz Coleman MD; Dr. Papa Truong MD Antiquer: Signed Normal [facility] Absolute lymphocyte countOrd ered By: Tomasz Coleman on 02-15-2024 Lymphocytes Auto (Unsp spec) [#/Vol] 1.56 10*3/uL 0.83-4.51 [facility] Automated lymphocyte count a s percentage of total leukocytesOrdered By: Tomasz Coleman on 02-15-2024 Lymphocytes/100 WBC Auto (Unsp spec) 25.8 % 19-41 [facility] Basophil percentageOrdered B y: Tomasz Coleman on 02-15-2024 Basophils/100 WBC (Bld) 0.5 % 0-1 [facility] Bilirubin [Mass/Vol] 0.40 mg/dL 0.20-1.00 [facility] Comment on above: For patients on eltr ombopag therapy, use of Dimension [place] TBIL is not recommended. Chloride [Moles/Vol] 105 mmol/L 98-107 [facility] Eosinophils/100 WBC (Bld) 1.3 % 0-5 [facility] Glucose [Mass/Vol] 96 mg/dL 74-106 [facility] Hemoglobin (Bld) [Mass/Vol] 11.6 g/dL 12.0-15.0 [facility] Monocytes/100 WBC (Bld) 7.0 % 0-10 [facility] Neutrophils (Bld) [#/Vol] 3.9 10*3/uL 2.0-7.7 [facility] Neutrophils/100 WBC (Bld) 65.2 % 47-70 [facility] Potassium [Moles/Vol] 3.6 mmol/L 3.5-5.[address] [facility] Protein [Mass/Vol] 7.8 g/dL 6.4-8.2 [facility] Sodium [Moles/Vol] 136 mmol/L 136-145 [facility] WBC (Bld) [#/Vol] 6.0 10*3/uL 4.4-11.0 [facility] Determination of erythrocyte mean corpuscular volume (MCV)Ordered By: Tomasz Coleman on 02-15-2024 MCV (RBC) [Entitic vol] 80.9 fL 81-99 [facility] Erythrocyte distribution wid th ratioOrdered By: Tomasz Coleman on 02-15-2024 Erythrocyte distribution width (RBC) [Ratio] 13.3 % 11.6-14.6 [facility] Erythrocyte distribution wid th standard deviationOrdered By: Tomasz Coleman on 02-15-2024 Erythrocyte distribution width (RBC) [Entitic vol] 38.8 fL 35.1-43.9 [facility] Hematocrit Auto (Bld) [Volum e fraction]Ordered By: Tomasz Coleman on 02-15-2024 Hematocrit (Bld) [Volume fraction] 35.9 % 37-47 [facility] Immature granulocytes/100 WB C Auto (Bld)Ordered By: Tomasz Coleman on 02-15-2024 Immature granulocytes/100 WBC (Bld) 0.200 % 0.0-0.9 [facility] Comment on above: IG% - Immature Granu locytes (promyelocytes, myelocytes and metamyelocytes) > 1% indicates that a LEFT SHIFT is Present. Iron measurement (mass/mass) Ordered By: Tomasz Coleman on 02-15-2024 Iron (Unsp spec) [Mass/Mass] 44 ug/dL 50-170 [facility] - Chemistry and C hemistry - challengeOrdered By: Tomasz Coleman on 02-15-2024 Albumin/Globulin [Mass ratio] 1.0 {ratio} 0.9-2.4 [facility] ALP [Catalytic activity/Vol] 60 U/L 45-117 [facility] ALT [Catalytic activity/Vol] 24 U/L 13-56 [facility] CO2 [Moles/Vol] 25.0 mmol/L 21.0-32.0 [facility] Ferritin [Mass/Vol] 19 ng/mL 8-252 [facility] Globulin (S) [Mass/Vol] 4.0 g/dL 2.2-4.2 [facility] Magnesium [Mass/Vol] 2.0 mg/dL 1.6-2.6 [facility] Urea nitrogen/Creatinine [Mass ratio] 5.9 mg/mg 10-20 [facility] - Hematology and Cell countsOrdered By: Tomasz Coleman on 02-15-2024 MCH (RBC) [Entitic mass] 26.1 pg 27.0-32.0 [facility] MCHC (RBC) [Mass/Vol] 32.3 g/dL 32-[address] [facility] Nucleated RBC/100 WBC (Bld) [Ratio] 0 % 0-5 [facility] Platelet mean volume (Bld) [Entitic vol] 11.2 fL 6.2-12.0 [facility] [facility]ld[facility] [#/Vol] 321 10*3/uL 150-450 [facility] No Panel InformationOrdered By: Tomasz Coleman on 02-15-2024 Estimated GFR (MDRD) Amer 129 mL/min >60 [facility] Comment on above: GFR Calc Estimated GFR (MDRD) Non-Af Amer 107 mL/min >60 [facility] Comment on above: Non- GFR Calc Total Iron Binding Capacity 383 ug/dL 250-450 [facility] RBC Auto (Bld) [#/Vol]Ordere d By: Tomasz Coleman on 02-15-2024 RBC (Bld) [#/Vol] 4.44 10*6/uL 4.2-5.4 [facility] Serum or plasma calcium marge urement (mass/volume)Ordered By: Tomasz Coleman on 02-15-2024 Calcium [Mass/Vol] 9.0 mg/dL 8.5-10.1 [facility] Serum or plasma creatinine m easurement (mass/volume)Ordered By: Tomasz Coleman on 02-15-2024 Creatinine [Mass/Vol] 0.68 mg/dL 0.55-1.[address] [facility] Comment on above: The validity of the calculated GFR & GFRAA in patients over 70 years has not been determined. Clinical correlation is essential. Serum or plasma iron saturat ion measurement (mass fraction)Ordered By: Tomasz Coleman on 02-15-2024 Iron saturation [Mass fraction] 11.5 % 15.0-55.0 [facility] Serum or plasma thyroid stim ulating hormone (TSH) measurement (units/volume)Ordered By: Tomasz Coleman on 02-15-2024 TSH Qn 1.52 uIU/mL 0.358-3.74 [facility] Serum or plasma urea nitroge n measurement (mass/volume)Ordered By: Tomasz Coleman on 02-15-2024 Urea nitrogen [Mass/Vol] 4 mg/dL 7-18 [facility] Thin prep Papanicolaou smear with manual screeningOrdered By: Tomasz Coleman on 02-15-2024 Thin prep Papanicolaou smear with manual screening 3.8 g/dL 3.2-5.0 [facility] Thin prep Papanicolaou smear with manual screening 13 U/L 15-37 [facility] Thin prep Papanicolaou smear with manual screening 6 5-15 [facility] Thin prep Papanicolaou smear with manual screeningOrdered By: Gerber Corey on 02-05-2024 Thin prep Papanicolaou smear with manual screening 126 mg/dL 74-106 [facility] Comment on above: MANAGEMENT OF PATIEN T CARE PER NURSING PROTOCOL Absolute lymphocyte countOrd ered By: Gerber Corey on 01-29-2024 Lymphocytes Auto (Unsp spec) [#/Vol] 1.33 10*3/uL 0.83-4.51 [facility] Automated lymphocyte count a s percentage of total leukocytesOrdered By: Gerber Corey on 01-29-2024 Lymphocytes/100 WBC Auto (Unsp spec) 20.7 % 19-41 [facility] Basophil percentageOrdered B y: Gerber Corey on 01-29-2024 Basophils/100 WBC (Bld) 0.5 % 0-1 [facility] Chloride [Moles/Vol] 109 mmol/L 98-107 [facility] Eosinophils/100 WBC (Bld) 0.8 % 0-5 [facility] Glucose [Mass/Vol] 99 mg/dL 74-106 [facility] Hemoglobin (Bld) [Mass/Vol] 13.0 g/dL 12.0-15.0 [facility] Monocytes/100 WBC (Bld) 6.9 % 0-10 [facility] Neutrophils (Bld) [#/Vol] 4.6 10*3/uL 2.0-7.7 [facility] Neutrophils/100 WBC (Bld) 70.9 % 47-70 [facility] Potassium [Moles/Vol] 3.4 mmol/L 3.5-5.[address] [facility] Sodium [Moles/Vol] 138 mmol/L 136-145 [facility] WBC (Bld) [#/Vol] 6.4 10*3/uL 4.4-11.0 [facility] Determination of erythrocyte mean corpuscular volume (MCV)Ordered By: Gerber Corey on 01-29-2024 MCV (RBC) [Entitic vol] 80.0 fL 81-99 [facility] Erythrocyte distribution wid th ratioOrdered By: Gerber Corey on 01-29-2024 Erythrocyte distribution width (RBC) [Ratio] 13.6 % 11.6-14.6 [facility] Erythrocyte distribution wid th standard deviationOrdered By: Gerber Corey on 01-29-2024 Erythrocyte distribution width (RBC) [Entitic vol] 39.4 fL 35.1-43.9 [facility] HIV 1 and HIV-2 antibody ass ay with HIV-1 p24 antigen detectionOrdered By: Gerber Corey on 01-29-2024 HIV 1+2 Ab+HIV1 p24 Ag IA Ql Non-Reactive Nonreactive [facility] Hematocrit Auto (Bld) [Volum e fraction]Ordered By: Gerber Corey on 01-29-2024 Hematocrit (Bld) [Volume fraction] 39.3 % 37-47 [facility] Immature granulocytes/100 WB C Auto (Bld)Ordered By: Gerber Corey on 01-29-2024 Immature granulocytes/100 WBC (Bld) 0.200 % 0.0-0.9 [facility] Comment on above: IG% - Immature Granu locytes (promyelocytes, myelocytes and metamyelocytes) > 1% indicates that a LEFT SHIFT is Present. Laboratory - Chemistry and C hemistry - challengeOrdered By: Gerber Corey on 01-29-2024 CO2 [Moles/Vol] 23.0 mmol/L 21.0-32.0 [facility] Magnesium [Mass/Vol] 2.3 mg/dL 1.6-2.6 [facility] Urea nitrogen/Creatinine [Mass ratio] 4.6 mg/mg 10-20 [facility] Laboratory - Hematology and Cell countsOrdered By: Gerber Corey on 01-29-2024 MCH (RBC) [Entitic mass] 26.5 pg 27.0-32.0 [facility] MCHC (RBC) [Mass/Vol] 33.1 g/dL 32-[address] [facility] Nucleated RBC/100 WBC (Bld) [Ratio] 0 % 0-5 [facility] Platelet mean volume (Bld) [Entitic vol] 11.7 fL 6.2-12.0 [facility] Platelets (Bld) [#/Vol] 280 10*3/uL 150-450 [facility] No Panel InformationOrdered By: Gerber Corey on 01-29-2024 Estimated GFR (MDRD) Amer 134 mL/min >60 [facility] Comment on above: GFR Calc Estimated GFR (MDRD) Non-Af Amer 111 mL/min >60 [facility] Comment on above: Non- GFR Calc Hepatitis A Antibody Total Negative Negative [facility] Comment on above: Comment: The HAV [...] HAVtotal antibody results to IgM (e.g., panel #[id number] HAVAntibody w/ Rfx).Performed at: [address] [id number] Director: Christian Miranda PhD, Phone: [phone] Hepatitis C Antibody Non-Reactive Nonreactive [facility] Comment on above: Non Reactive: < 0.8 Equivocal: >/= 0.8 to < 1.0 Reactive: >/= 1.0The CDC requires that a reactive/equivocal HCV antibody result be sent out for confirmation. HCV Quant by PCR testing. Nasal Screen MRSA/MSSA [facility] RBC Auto (Bld) [#/Vol]Ordere d By: Gerber Corey on 01-29-2024 RBC (Bld) [#/Vol] 4.91 10*6/uL 4.2-5.4 [facility] Serum hepatitis B virus surf ken antibody IgG detectionOrdered By: Gerber Corey on 01-29-2024 HBV surface IgG Ql (S) Reactive [facility] Comment on above: Non Reactive: Incons istent with immunity less than <10 mIU/mL Reactive: Consistent with immunity greater than or equal to 10 mIU/mL Serum or plasma calcium marge urement (mass/volume)Ordered By: Gerber Corey on 01-29-2024 Calcium [Mass/Vol] 9.2 mg/dL 8.5-10.1 [facility] Serum or plasma creatinine m easurement (mass/volume)Ordered By: Gerber Corey on 01-29-2024 Creatinine [Mass/Vol] 0.65 mg/dL 0.55-1.[address] [facility] Comment on above: The validity of the calculated GFR & GFRAA in patients over 70 years has not been determined. Clinical correlation is essential. Serum or plasma urea nitroge n measurement (mass/volume)Ordered By: Gerber Corey on 01-29-2024 Urea nitrogen [Mass/Vol] 3 mg/dL 05-30 [facility] Thin prep Papanicolaou smear with manual screeningOrdered By: Gerber Corey on 01-29-2024 Thin prep Papanicolaou smear with manual screening 6 03-27 [facility] Absolute lymphocyte countOrd ered By: Sandy Staton on 07-05-2023 Lymphocytes Auto (Unsp spec) [#/Vol] 0.85 10*3/uL 0.83-4.51 [facility] Basophil percentageOrdered B y: Sandy Staton on 07-05-2023 Basophils/100 WBC (Bld) 0.1 % 0-1 [facility] Bilirubin [Mass/Vol] 0.60 mg/dL 0.20-1.00 [facility] Comment on above: For patients on eltr ombopag therapy, use of Dimension [place] TBIL is not recommended. Chloride [Moles/Vol] 108 mmol/L 98-107 [facility] Eosinophils/100 WBC (Bld) 0.0 % 0-5 [facility] Glucose [Mass/Vol] 116 mg/dL 74-106 [facility] Comment on above: Fasting Glucose resu lt from 100 to 125 mg/dL suggests IMPAIRED HOMEOSTASIS per A.D.A. criteria. Neutrophils (Bld) [#/Vol] 12.1 10*3/uL 2.0-7.7 [facility] Neutrophils/100 WBC (Bld) 88.5 % 47-70 [facility] Potassium [Moles/Vol] 3.8 mmol/L 3.5-5.[address] [facility] Protein [Mass/Vol] 7.0 g/dL 6.4-8.2 [facility] Sodium [Moles/Vol] 141 mmol/L 136-145 [facility] WBC (Bld) [#/Vol] 13.7 10*3/uL 4.4-11.0 [facility] Blood erythrocytes count (nu mber/volume)Ordered By: Sandy Brionna on 07-05-2023 RBC (Bld) [#/Vol] 4.39 10*6/uL 4.2-5.4 [facility] Blood hemoglobin measurement (mass/volume)Ordered By: Sandy Brionna on 07-05-2023 Hemoglobin (Bld) [Mass/Vol] 11.6 g/dL 12.0-15.0 [facility] Blood lymphocytes/100 leukoc ytesOrdered By: White on 07-05-2023 Lymphocytes/100 WBC (Bld) 6.2 % 19-41 [facility] Blood monocytes/100 leukocyt esOrdered By: White on 07-05-2023 Monocytes/100 WBC (Bld) 4.8 % 0-10 [facility] Blood platelet mean volumeOr dered By: White on 07-05-2023 Platelet mean volume (Bld) [Entitic vol] 10.7 fL 6.2-12.0 [facility] Determination of erythrocyte mean corpuscular volume (MCV)Ordered By: Sandy Staton on 07-05-2023 MCV (RBC) [Entitic vol] 80.2 fL 81-99 [facility] Hematocrit Auto (Bld) [Volum e fraction]Ordered By: Sandy Staton on 07-05-2023 Hematocrit (Bld) [Volume fraction] 35.2 % 37-47 [facility] Laboratory - Chemistry and C hemistry - challengeOrdered By: Sandy Staton on 07-05-2023 ALP [Catalytic activity/Vol] 50 U/L 45-117 [facility] ALT [Catalytic activity/Vol] 34 U/L 13-56 [facility] CO2 [Moles/Vol] 27.0 mmol/L 21.0-32.0 [facility] Globulin (S) [Mass/Vol] 3.7 g/dL 2.2-4.2 [facility] Urea nitrogen/Creatinine [Mass ratio] 10.5 mg/mg 10-20 [facility] Laboratory - Hematology and Cell countsOrdered By: [facility] Brionna on 07-05-2023 Erythrocyte distribution width (RBC) [Entitic vol] 37.6 fL 35.1-43.9 [facility] Erythrocyte distribution width (RBC) [Ratio] 13.2 % 11.6-14.6 [facility] Immature granulocytes/100 WBC (Bld) 0.400 % 0.0-0.9 [facility] Comment on above: IG% - Immature Granu locytes (promyelocytes, myelocytes and metamyelocytes) > 1% indicates that a LEFT SHIFT is Present. MCH (RBC) [Entitic mass] 26.4 pg 27.0-32.0 [facility] Nucleated RBC/100 WBC (Bld) [Ratio] 0 % 0-5 [facility] MCHC Auto (RBC) [Mass/Vol]Or dered By: Sandy Staton on 07-05-2023 MCHC (RBC) [Mass/Vol] 33.0 g/dL 32-[address] [facility] No Panel InformationOrdered By: Sandy Staton on 07-05-2023 Estimated Creatinine Clearance Calc 192.37 ml/min [facility] Estimated GFR (MDRD) Amer 156 mL/min >60 [facility] Comment on above: GFR Calc Estimated GFR (MDRD) Non-Af Amer 129 mL/min >60 [facility] Comment on above: Non- GFR Calc Platelets bldOrdered By: Jennie cedrick Brionna on 07-05-2023 Platelets (Bld) [#/Vol] 292 10*3/uL 150-450 [facility] Serum or plasma albumin marge urement (mass/volume)Ordered By: Sandy Staton on 07-05-2023 Albumin [Mass/Vol] 3.3 g/dL 3.2-5.0 [facility] Serum or plasma albumin/glob ulin mass ratioOrdered By: Sandy Staton on 07-05-2023 Albumin/Globulin [Mass ratio] 0.9 {ratio} 0.9-2.4 [facility] Serum or plasma calcium marge urement (mass/volume)Ordered By: Sandy Staton on 07-05-2023 Calcium [Mass/Vol] 8.8 mg/dL 8.5-10.1 [facility] Serum or plasma creatinine m easurement (mass/volume)Ordered By: Sandy Staton on 07-05-2023 Creatinine [Mass/Vol] 0.57 mg/dL 0.55-1.[address] [facility] Comment on above: The validity of the calculated GFR & GFRAA in patients over 70 years has not been determined. Clinical correlation is essential. Serum or plasma urea nitroge n measurement (mass/volume)Ordered By: Sandy Staton on 07-05-2023 Urea nitrogen [Mass/Vol] 6 mg/dL 7-18 [facility] Thin prep Papanicolaou smear with manual screeningOrdered By: Sandy Staton on 07-05-2023 Thin prep Papanicolaou smear with manual screening 27 U/L 15-37 [facility] Thin prep Papanicolaou smear with manual screening 6 5-15 [facility] Glucose Glucometer (BldC) [M ass/Vol]Ordered By: Gerber Corey on 07-04-2023 Glucose [Mass/Vol] 103 mg/dL 74-106 [facility] Comment on above: MANAGEMENT OF PATIEN T CARE PER NURSING PROTOCOL HIV 1 and HIV-2 antibody ass ay with HIV-1 p24 antigen detectionOrdered By: Gerber Corey on 06-20-2023 HIV 1+2 Ab+HIV1 p24 Ag IA Ql Non-Reactive Nonreactive [facility] INR in Blood by Coagulation assayOrdered By: Emmett Rangel on 06-20-2023 INR Coag (Bld) [Relative time] 1.0 {INR} [facility] Laboratory - Chemistry and C hemistry - challengeOrdered By: Emmett Rangel on 06-20-2023 Magnesium [Mass/Vol] 2.2 mg/dL 1.6-2.6 [facility] Laboratory - CoagulationOrde red By: Emmett Rangel on 06-20-2023 aPTT Coag (Bld) [Time] 28.5 s 24.1-36.2 [facility] PT Coag (PPP) [Time] 13.7 s 11.7-14.9 [facility] No Panel InformationOrdered By: Gerber Corey on 06-20-2023 Hepatitis A Antibody Total Positive Negative [facility] Comment on above: Performed at: [place] [id number] Director: Christian Miranda PhD, Phone: [phone] Hepatitis C Antibody Non-Reactive Nonreactive [facility] Comment on above: Non Reactive: < 0.8 Equivocal: >/= 0.8 to < 1.0 Reactive: >/= 1.0The CDC recommends that a reactive/equivocal HCV antibody result be followed up by the HCV Nucleic Acid Amplificationtest (324068) Nasal Screen MRSA/MSSA [facility] Serum hepatitis B virus surf ken antibody IgG detectionOrdered By: Gerber Corey on 06-20-2023 HBV surface IgG Ql (S) Reactive [facility] Comment on above: Non Reactive: Incons istent with immunity less than <10 mIU/mL Reactive: Consistent with immunity greater than or equal to 10 mIU/mL Glucose Glucometer (BldC) [M ass/Vol]Ordered By: Dr. Corey on 03-07-2023 Glucose [Mass/Vol] 110 mg/dL 74-106 [facility] Comment on above: MANAGEMENT OF PATIEN T CARE PER NURSING PROTOCOL No Panel InformationOrdered By: Dr. Corey on 02-28-2023 Nasal Screen MRSA/MSSA [facility] HIV 1 and HIV-2 antibody ass ay with HIV-1 p24 antigen detectionOrdered By: Dr. Corey on 02-27-2023 HIV 1+2 Ab+HIV1 p24 Ag IA Ql Non-Reactive Nonreactive [facility] INR in Blood by Coagulation assayOrdered By: Dr. Rangel on 02-27-2023 INR Coag (Bld) [Relative time] 1.2 {INR} [facility] Laboratory - CoagulationOrde red By: Dr. Rangel on 02-27-2023 aPTT Coag (Bld) [Time] 28.9 s 24.1-36.2 [facility] PT Coag (PPP) [Time] 15.1 s 11.7-14.9 [facility] No Panel InformationOrdered By: Dr. Corey on 02-27-2023 Hepatitis A Antibody Total Negative Negative [facility] Comment on above: Performed at: [place] [id number] Director: Christian Miranda PhD, Phone: [phone] Hepatitis C Antibody Non-Reactive Nonreactive [facility] Comment on above: Non Reactive: < 0.8 Equivocal: >/= 0.8 to < 1.0 Reactive: >/= 1.0The CDC recommends that a reactive/equivocal HCV antibody result be followed up by the HCV Nucleic Acid Amplificationtest (435309) Serum hepatitis B virus surf ken antibody IgG detectionOrdered By: Dr. Corey on 02-27-2023 HBV surface IgG Ql (S) Reactive [facility] Comment on above: Non Reactive: Incons istent with immunity less than <10 mIU/mL Reactive: Consistent with immunity greater than or equal to 10 mIU/mL Absolute lymphocyte countOrd ered By: Dr. Coleman on 01-24-2023 Lymphocytes Auto (Unsp spec) [#/Vol] 1.70 10*3/uL 0.83-4.51 [facility] Basophil percentageOrdered B y: Dr. Coleman on 01-24-2023 Basophils/100 WBC (Bld) 0.3 % 0-1 [facility] Bilirubin [Mass/Vol] 0.50 mg/dL 0.20-1.00 [facility] Comment on above: For patients on eltr ombopag therapy, use of Dimension [place] TBIL is not recommended. Chloride [Moles/Vol] 106 mmol/L 98-107 [facility] Eosinophils/100 WBC (Bld) 1.0 % 0-5 [facility] Glucose [Mass/Vol] 100 mg/dL 74-106 [facility] Comment on above: Fasting Glucose resu lt from 100 to 125 mg/dL suggests IMPAIRED HOMEOSTASIS per A.D.A. criteria. Neutrophils (Bld) [#/Vol] 6.6 10*3/uL 2.0-7.7 [facility] Neutrophils/100 WBC (Bld) 72.9 % 47-70 [facility] Potassium [Moles/Vol] 3.6 mmol/L 3.5-5.[address] [facility] Protein [Mass/Vol] 7.8 g/dL 6.4-8.2 [facility] Sodium [Moles/Vol] 139 mmol/L 136-145 [facility] WBC (Bld) [#/Vol] 9.1 10*3/uL 4.4-11.0 [facility] Blood erythrocytes count (nu mber/volume)Ordered By: Dr. Coleman on 01-24-2023 RBC (Bld) [#/Vol] 4.75 10*6/uL 4.2-5.4 [facility] Blood hemoglobin measurement (mass/volume)Ordered By: Dr. Coleman on 01-24-2023 Hemoglobin (Bld) [Mass/Vol] 13.2 g/dL 12.0-15.0 [facility] Blood lymphocytes/100 leukoc ytesOrdered By: Dr. Coleman on 01-24-2023 Lymphocytes/100 WBC (Bld) 18.7 % 19-41 [facility] Blood monocytes/100 leukocyt esOrdered By: Dr. Coleman on 01-24-2023 Monocytes/100 WBC (Bld) 6.9 % 0-10 [facility] Blood platelet mean volumeOr dered By: Dr. Coleman on 01-24-2023 Platelet mean volume (Bld) [Entitic vol] 10.9 fL 6.2-12.0 [facility] Determination of erythrocyte mean corpuscular volume (MCV)Ordered By: Dr. Coleman on 01-24-2023 MCV (RBC) [Entitic vol] 81.7 fL 81-99 [facility] Hematocrit Auto (Bld) [Volum e fraction]Ordered By: Dr. Coleman on 01-24-2023 Hematocrit (Bld) [Volume fraction] 38.8 % 37-47 [facility] Iron measurement (mass/mass) Ordered By: Dr. Coleman on 01-24-2023 Iron (Unsp spec) [Mass/Mass] 69 ug/dL 50-170 [facility] Laboratory - Chemistry and C hemistry - challengeOrdered By: Dr. Coleman on 01-24-2023 ALP [Catalytic activity/Vol] 53 U/L 45-117 [facility] ALT [Catalytic activity/Vol] 40 U/L 13-56 [facility] CO2 [Moles/Vol] 24.0 mmol/L 21.0-32.0 [facility] Cobalamin (Vitamin B12) [Mass/Vol] 475 pg/mL 211-911 [facility] Globulin (S) [Mass/Vol] 3.9 g/dL 2.2-4.2 [facility] Magnesium [Mass/Vol] 2.2 mg/dL 1.6-2.6 [facility] Urea nitrogen/Creatinine [Mass ratio] 12.3 mg/mg 10-20 [facility] Laboratory - Hematology and Cell countsOrdered By: Dr. Coleman on 01-24-2023 Erythrocyte distribution width (RBC) [Entitic vol] 40.1 fL 35.1-43.9 [facility] Erythrocyte distribution width (RBC) [Ratio] 13.6 % 11.6-14.6 [facility] Immature granulocytes/100 WBC (Bld) 0.200 % 0.0-0.9 [facility] Comment on above: IG% - Immature Granu locytes (promyelocytes, myelocytes and metamyelocytes) > 1% indicates that a LEFT SHIFT is Present. MCH (RBC) [Entitic mass] 27.8 pg 27.0-32.0 [facility] Nucleated RBC/100 WBC (Bld) [Ratio] 0 % 0-5 [facility] MCHC Auto (RBC) [Mass/Vol]Or dered By: Dr. Coleman on 01-24-2023 MCHC (RBC) [Mass/Vol] 34.0 g/dL 32-[address] [facility] No Panel InformationOrdered By: Dr. Coleman on 01-24-2023 Estimated GFR (MDRD) Amer 135 mL/min >60 [facility] Comment on above: GFR Calc Estimated GFR (MDRD) Non-Af Amer 112 mL/min >60 [facility] Comment on above: Non- GFR Calc Thyroid Stimulating Hormone (TSH) 1.25 uIU/mL 0.358-3.74 [facility] Total Iron Binding Capacity 387 ug/dL 250-450 [facility] Platelets bldOrdered By: Dr. Coleman on 01-24-2023 Platelets (Bld) [#/Vol] 271 10*3/uL 150-450 [facility] Serum or plasma albumin marge urement (mass/volume)Ordered By: Dr.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 [facility] 08-02-2023 14:08-0400 Respiratory rate 16 /min Dr. Tomasz Coleman Work Phone: [facility] 08-02-2023 14:08-0400 SaO2% (BldA) [Mass fraction] 99 % Dr. Tomasz Coleman Work Phone: [facility] 08-02-2023 14:08-0400 Systolic blood pressure 128 mm[Hg] Dr. Tomasz Coleman Work Phone: [facility] 07-06-2023 14:15-0400 Body temperature 98.1 [degF] Dr. Tomasz Coleman Work Phone: [facility] 07-06-2023 14:15-0400 Diastolic blood pressure 60 mm[Hg] Dr. Tomasz Coleman Work Phone: [facility] 07-06-2023 14:15-0400 Heart rate 78 /min Dr. Tomasz Coleman Work Phone: [facility] 07-06-2023 14:15-0400 Respiratory rate 18 /min Dr. Tomasz Coleman Work Phone: [facility] 07-06-2023 14:15-0400 SaO2% (BldA) [Mass fraction] 97 % Dr. Tomasz Coleman Work Phone: [facility] 07-06-2023 14:15-0400 Systolic blood pressure 110 mm[Hg] Dr. Tomasz Coleman Work Phone: [facility] 07-04-2023 16:58-0400 Body height 144.[address] Tomasz Coleman Work Phone: [facility] 07-04-2023 16:58-0400 Body mass index (BMI) [Ratio] 41 kg/m2 Dr. Tomasz Coleman Work Phone: [facility] 07-04-2023 16:58-0400 Body weight [address] Tomasz Coleman Work Phone: [facility] 07-04-2023 16:15-0400 Inhaled oxygen flow rate 4 L/min Dr. Tomasz Coleman Work Phone: [facility] 03-08-2023 14:11-0400 Body temperature 98.3 [degF] Dr. Tomasz Coleman Work Phone: [facility] 03-08-2023 14:11-0400 Diastolic blood pressure 68 mm[Hg] Dr. Tomasz Coleman Work Phone: [facility] 03-08-2023 14:11-0400 Heart rate 88 /min Dr. Tomasz Coleman Work Phone: [facility] 03-08-2023 14:11-0400 Respiratory rate 16 /min Dr. Tomasz Coleman Work Phone: [facility] 03-08-2023 14:11-0400 SaO2% (BldA) [Mass fraction] 99 % Dr. Tomasz Coleman Work Phone: [facility] 03-08-2023 14:11-0400 Systolic blood pressure 104 mm[Hg] Dr. Tomasz Coleman Work Phone: [facility] 03-07-2023 13:11-0400 Body height 144.[address] Tomasz Coleman Work Phone: [facility] 03-07-2023 13:11-0400 Body mass index (BMI) [Ratio] 38.1 kg/m2 Dr. Tomasz Coleman Work Phone: [facility] 03-07-2023 13:11-0400 Body weight [address] Tomasz Coleman Work Phone: [facility] 03-07-2023 12:05-0400 Inhaled oxygen flow rate 4 L/min Dr. Tomasz Coleman Work Phone: [facility] 02-01-2023 14:03-0400 Body mass index (BMI) [Ratio] 38.2 kg/m2 Dr. Tomasz Coleman Work Phone: 5(660)561-485670 [place] [address] 02-01-2023 14:03-0400 Body weight 80.[address] Tomasz Coleman Work Phone: 7(224)635-949988 [address] 09-07-2022 09:10-0400 Body mass index (BMI) [Ratio] 33.5 kg/m2 Dr. Tomasz Coleman Work Phone: 6(704)246-249588 [address] 09-07-2022 09:10-0400 Body temperature 97.6 [degF] Dr. Tomasz Coleman Work Phone: 3(396)442-891670 [place] [address] 09-07-2022 09:10-0400 Diastolic blood pressure 80 mm[Hg] Dr. Tomasz Coleman Work Phone: 5(294)173-441238 [place] [address] 09-07-2022 09:10-0400 Heart rate 86 /min Dr. Tomasz Coleman Work Phone: 9(167)744-695438 [place] [address] 09-07-2022 09:10-0400 Respiratory rate 16 /min Dr. Tomasz Coleman Work Phone: 9(245)120-034670 [place] [address] 09-07-2022 09:10-0400 Systolic blood pressure 137 mm[Hg] Dr. Tomasz Coleman Work Phone: 6(707)238-316670 [place] [address] 08-17-2022 09:06-0400 Body height 144.[address] Tomasz Coleman Work Phone: 7(753)664-647170 [place] [address] 08-17-2022 09:06-0400 Body weight 70.[address] Tomasz Coleman Work Phone: 3(979)813-749570 [place] [address] 08-09-2022 18:44-0400 Diastolic blood pressure 96 mm[Hg] Dr. Tomasz Coleman Work Phone: [facility] Work Phone: 08-09-2022 18:44-0400 Heart rate 80 /min Dr. Tomasz Coleman Work Phone: [facility] Work Phone: 08-09-2022 18:44-0400 Respiratory rate 18 /min Dr. Tomasz Coleman Work Phone: [facility] Work Phone: 08-09-2022 18:44-0400 SaO2% (BldA) [Mass fraction] 99 % Dr. Tomasz Coleman Work Phone: [facility] Work Phone: 08-09-2022 18:44-0400 Systolic blood pressure 144 mm[Hg] Dr. Tomasz Coleman Work Phone: [facility] Work Phone: 08-09-2022 15:22-0400 Body mass index (BMI) [Ratio] 33.2 kg/m2 Dr. Tomasz Coleman Work Phone: [facility] Work Phone: 08-09-2022 15:22-0400 Body temperature 98.2 [degF] Dr. Tomasz Coleman Work Phone: [facility] Work Phone: 08-09-2022 15:22-0400 Body weight 69.[address] Tomasz Coleman Work Phone: [facility] Work Phone: Encounters Encounter Date Encounter Type Care Provider Facility Start: 05-14-2025 End: 05-14-2025 ambulatory Pancho Starkey Facility:[facility] Start: 05-13-2025 End: 05-13-2025 ambulatory Tomasz Coleman Facility:[facility] Start: 04-17-2025 End: 04-17-2025 Emergency department patient visit TOMASZ COLEMAN [facility] Start: 04-08-2025 End: 04-08-2025 ambulatory Tomasz Coleman Facility[facility] Start: 03-28-2025 End: 03-28-2025 ambulatory Tomasz Coleman Facility:[facility] Start: 03-13-2025 End: 03-13-2025 ambulatory Tomasz Coleman Facility:[facility] Start: 02-11-2025 End: 02-11-2025 ambulatory Papa Truong Facility:[facility] Start: 01-11-2025 End: 01-11-[address] Tomasz Coleman MD Work Phone: [facility] Work Phone: Start: 01-11-2025 End: 01-11-[address] Tomasz Coleman MD -Ultrasound, [facility] Work Phone: Start: 01-11-2025 End: 01-11-2025 ambulatory Tomasz Coleman Facility:[facility] Start: 01-06-2025 End: 01-06-[address] Tomasz Coleman MD Work Phone: [facility] Work Phone: Start: 01-06-2025 End: 01-06-[address] Tomasz Coleman MD -Laboratory, [facility] Start: 01-06-2025 End: 01-06-2025 ambulatory Tomasz Coleman Facility:[facility] Start: 12-17-2024 End: 12-17-[address] Tomasz Coleman MD -Laboratory, [facility] Start: 12-17-2024 End: 12-17-2024 ambulatory Tomasz Coleman Facility:[facility] Start: 12-04-2024 ambulatory Tomasz Coleman Facilit y:[facility] Start: 12-04-2024 Non-patient / Non-visit Dr. Serg valadez MD -[facility]- Start: 12-04-2024 End: 12-04-[address] Papa Truong MD -Pulmonary Services/Neurology Work Phone: Start: 12-04-2024 End: 12-04-2024 ambulatory Tomasz Coleman Facility:[facility] Start: 11-27-2024 End: 11-27-2024 ambulatory ANEESH DIA Facility:[facility] Start: 11-27-2024 End: 11-27-2024 Patient encounter procedure Aneesh Dia MD Work Phone: OB/Gynecology Comment on above: Pelvic pain during p regnancy (Primary Dx) Start: 11-18-2024 End: 11-22-2024 Telephone encounter Aneesh Dia MD Work Phone: OB/Gynecology Comment on above: Results Start: 11-08-2024 End: 11-08-[address] oTmasz Coleman MD -Laboratory, [facility] Start: 11-08-2024 End: 11-08-2024 ambulatory Tomasz Coleman Facility:[facility] Start: 11-01-2024 End: 11-01-2024 ambulatory [employer] Work Phone: OB/Gynecology Start: 11-01-2024 End: 11-01-2024 Patient encounter procedure [employer] [facility] OB/Gynecology Start: 10-30-2024 End: 10-30-2024 ambulatory ANEESH DIA Facility:[facility] Start: 10-30-2024 End: 10-30-2024 Patient encounter procedure Aneesh Dia MD Work Phone: OB/Gynecology Comment on above: Screen for sexually transmitted diseases (Primary Dx); Pelvic pain in female Start: 10-17-2024 End: 10-17-2024 Transcribe Orders Anjali Bartlett MA [facility] [place] Comment on above: Postlaminectomy synd sofiya, lumbar region (Primary Dx) Start: 09-29-2024 End: 09-29-2024 Emergency department patient visit RADHA BENITEZ [facility] Start: 08-27-2024 End: 08-27-2024 Emergency department patient visit PAPA CHRISTIANSON [facility] Start: 08-15-2024 End: 08-15-2024 ambulatory Tomasz Coleman Facility:[facility] Start: 07-12-2024 End: 07-12-2024 ambulatory Tomasz Coleman Facility[facility] Start: 05-29-2024 End: 05-29-2024 ambulatory Tomasz Coleman Facility:[facility] Start: 02-21-2024 End: 02-21-[address] Tomasz Coleman Work Phone: [facility] Work Phone: Start: 02-15-2024 End: 02-15-[address] Tomasz Coleman Work Phone: [facility] Work Phone: Start: 02-15-2024 End: 02-15-[address] Tomasz Coleman Work Phone: [facility] Start: 02-14-2024 End: 02-14-[address] Tomasz Coleman Work Phone: [facility] Start: 02-09-2024 End: 02-09-[address] Tomasz Coleman Work Phone: [facility] Work Phone: Start: 02-06-2024 Non-patient / Non-visit [facility]. Lupe [facility] Start: 02-05-2024 Non-patient / Non-visit [facility]. Lupe Coleman [facility] Start: 02-05-2024 End: 02-06-2024 Evaluation and management of inpatient Dr. Tomasz Coleman Work Phone: [facility]-Medical Surgical 3 Work Phone: Start: 02-05-2024 End: 02-06-[address] Tomasz Coleman Work Phone: [facility] Work Phone: Start: 01-31-2024 Non-patient / Non-visit Dr. Lupe Coleman Work Phone: [facility] Start: 01-30-[address] Tomasz Coleman Work Phone: [facility]-Physical Therapy Work Phone: Start: 01-29-2024 End: 01-29-2024 Non-patient / Non-visit Dr. Tomasz Coleman Work Phone: [facility] Work Phone: Start: 01-26-2024 End: 01-26-[address] Tomasz Coleman Work Phone: [facility] Work Phone: Start: 01-01-2024 End: 01-01-[address] Tomasz Coleman Work Phone: [facility] Work Phone: Start: 11-16-2023 End: 11-16-[address] Tomasz Coleman Work Phone: [facility] Work Phone: Start: 10-25-2023 End: 10-25-[address] Tomasz Coleman Work Phone: [facility] Work Phone: Start: 08-02-2023 End: 08-02-[address] Tomasz Coleman Work Phone: [facility] Work Phone: Start: 08-02-2023 End: 08-02-[address] Tomasz Coleman Work Phone: [facility] Work Phone: Start: 08-02-2023 End: 08-02-[address] Tomasz Coleman Work Phone: [facility] Vascular Surgery Work Phone: Start: 07-19-2023 End: 07-19-[address] Tomasz Coleman Work Phone: [facility] Work Phone: Start: 07-06-2023 Non-patient / Non-visit Dr. Lupe Coleman Work Phone: [facility] Start: 07-06-2023 Non-patient / Non-visit Dr. Lupe Coleman Work Phone: [facility] Work Phone: Start: 07-05-2023 Non-patient / Non-visit Dr. Lupe Coleman Work Phone: [facility] Start: 07-05-2023 Non-patient / Non-visit Dr. Lupe Coleman Work Phone: [facility] Work Phone: Start: 07-04-2023 Non-patient / Non-visit Dr. Lupe Coleman Work Phone: [facility] Work Phone: Start: 07-04-2023 Non-patient / Non-visit Dr. Lupe Coleman Work Phone: [facility] Start: 07-04-2023 End: 07-06-2023 Evaluation and management of inpatient Dr. Tomasz Coleman [facility] Work Phone: Start: 07-03-2023 Non-patient / Non-visit Dr. Lupe Coleman Work Phone: [facility] Start: 06-28-2023 End: 06-28-[address] Tomasz Coleman Work Phone: [facility] Work Phone: Start: 06-26-2023 End: 06-26-[address] Tomasz Coleman Work Phone: [facility] Work Phone: Start: 06-15-2023 End: 06-15-[address] Tomasz Coleman Work Phone: [facility] Work Phone: Start: 05-03-2023 End: 05-03-[address] Tomasz Coleman Work Phone: [facility] Work Phone: Start: 04-19-2023 End: 04-19-[address] Tomasz Coleman Work Phone: [facility] Work Phone: Start: 04-12-2023 End: 04-12-[address] Tomasz Coleman Work Phone: [facility] Work Phone: Start: 04-06-2023 End: 04-06-[address] Tomasz Coleman Work Phone: [facility] Work Phone: Start: 03-22-2023 End: 03-22-[address] Tomasz Coleman Work Phone: [facility] Work Phone: Start: 03-08-2023 Non-patient / Non-visit Dr. Lupe Coleman Work Phone: [facility] Work Phone: Start: 03-08-2023 Non-patient / Non-visit Dr. Lupe Coleman Work Phone: [facility] Start: 03-07-2023 Non-patient / Non-visit Dr. Lupe Coleman Work Phone: [facility] Start: 03-07-2023 Non-patient / Non-visit Dr. Lupe Coleman Work Phone: [facility] Start: 03-07-2023 End: 03-08-2023 Evaluation and management of inpatient Dr. Tomasz Coleman Work Phone: [facility] 3 Start: 03-07-2023 End: 03-08-[address] Tomasz Coleman Work Phone: [facility] Work Phone: Start: 03-02-2023 Non-patient / Non-visit Dr. Lupe Coleman Work Phone: [facility] Start: 02-27-2023 End: 02-27-[address] Tomasz Coleman Work Phone: [facility] Start: 02-27-2023 End: 02-27-2023 Non-patient / Non-visit Dr. Tomasz Coleman Work Phone: [facility] Start: 02-01-2023 End: 02-01-[address] Tomasz Coleman Work Phone: [facility] Start: 01-28-2023 End: 01-28-2023 Patient encounter procedure [facility] Start: 01-24-2023 End: 01-24-2023 ambulatory [facility] Work Phone: Start: 01-24-2023 End: 01-24-2023 Patient encounter procedure [facility] Start: 01-05-2023 End: 01-05-2023 ambulatory [facility] Work Phone: Start: 01-05-2023 End: 01-05-2023 Patient encounter procedure [facility] Start: 12-01-2022 End: 12-01-[address] Tomasz Coleman Work Phone: [facility] Work Phone: Start: 12-01-2022 End: 12-01-[address] Tomasz Coleman Work Phone: [facility] Start: 11-27-2022 End: 11-27-2022 Emergency department patient visit ENEIDA CHAVEZ Facility:[facility] Start: 09-07-2022 Non-patient / Non-visit Dr. Lupe Coleman Work Phone: [facility] Start: 09-07-2022 End: 09-12-[address] Tomasz Coleman Work Phone: [facility] Work Phone: Start: 09-07-2022 End: 09-12-[address] Tomasz Coleman [facility] Start: 2022 Non-patient / Non-visit Dr. Lupe Coleman Work Phone: [facility] Start: 08-24-2022 Non-patient / Non-visit Dr. Lupe Coleman Work Phone: [facility] Start: 08-17-2022 Non-patient / Non-visit Dr. Lupe Coleman Work Phone: [facility] Start: 08-09-2022 End: 08-09-2022 Emergency department patient visit Dr. Tomasz Coleman Work Phone: [facility]-Emergency Department Start: 08-07-2022 End: 08-08-2022 Emergency department patient visit ROSA MARIA GARCIA Facility:[facility] Start: 04-23-2021 ambulatory ELIZABETH HENNESSY Facility: [facility] Start: 01-12-2019 End: 01-12-2019 Emergency department patient visit Nodr No Doctor Assigned Facility:[facility] Start: 01-12-2019 Patient encounter procedure Facility:[id number] Start: 02-04-2018 End: 02-04-2018 Emergency department patient visit Nodr No Doctor Assigned Facility:[facility] Procedures Date Procedure Procedure Detail Performing Clinician [...] spin e, two or three views Dr. Tomasz Coleman Work Phone: Start: 08-02-2023 Computed tomography [...] above: Performed By: #### C THRT #### [place] [address] Bacteria identified in Blood by Culture Dr. Tomasz Coleman Work Phone: Nasal Screen MRSA/MSSA Dr. Joslyn Coleman Work Phone: Plan of Treatment Date Care Activity Detail Author Start: 11-03-2025 End: 11-03-2025 Patient encounter procedure 11/03/2025 10:10 AM EST Office Visit OB/Gynecology [address] [place] [id number] Aneesh Dia MD [address] [place] [address] Annual OB/Gynecology Comment on above: Annual Start: 11-25-2024 End: 11-25-2024 Patient encounter procedure 11/25/2024 10:50 AM EST Office Visit OB/Gynecology [address] [place] [address] Aneesh Dia MD [address] [place] [address] follow up from OB/Gynecology Comment on above: follow up from Start: 11-01-2024 End: 11-01-2024 Manual pelvic examination 11/01/2024 11:00 AM EST Procedure OB/Gynecology [address] [place] [address] Remote, [employer] [address] [place] [address] Pelvic pain in female [R10.2] OB/Gynecology Comment on above: Pelvic pain in femal e [R10.2] Start: 10-30-2024 End: 10-30-2025 US Pelvis PELVIC US [facility] Routine Pelvic pain in female Expected: 10/30/2024, Expires: 10/30/2025 [facility] Work Phone: Comment on above: Expected: 10/30/2024 , Expires: 10/30/2025 Start: 07-14-2024 COVID-19 Vaccine ( season) COVID-19 Vaccine ( season) [facility] Start: 07-14-2024 Influenza vaccination Influenz a Vaccine (#1) [facility] Start: 02-05-2024 Anes closed symphysi s pubis/sacroiliac joint ANESTH PELVIS PROCEDURE [facility] Start: 02-05-2024 Arthrodesis sacroili ac joint percutaneous ARTHRD SI JT PERQ/MIN NVAS [facility] Start: 02-05-2024 Following clinical p athway protocol [facility] Start: 02-05-2024 Application of inter mittent pneumatic compression device [facility] Start: 02-05-2024 Catheterization of vein [facility] Start: 02-05-2024 Consultation [facility] Start: 02-05-2024 Following clinical p athway protocol [facility] Start: 02-05-2024 Incentive spirometry [facility] Start: 02-05-2024 Measuring intake and output [facility] Start: 02-05-2024 Neurovascular assessment [facility] Start: 02-05-2024 Oxygen therapy [facility] Start: 02-05-2024 Patient education [facility] Start: 02-05-2024 Procedure discontinued [facility] Start: 02-05-2024 Provision of activit y privileges [facility] Start: 02-05-2024 Recommendation to co ntinue with treatment [facility] Start: 02-05-2024 Referral to service [facility] Start: 02-05-2024 Taking patient vital signs [facility] Start: 02-05-2024 [facility] Start: 02-05-2024 Admission procedure [facility] Start: 02-05-2024 Patient discharge [facility] Start: 07-06-2023 Patient discharge [facility] Start: 07-04-2023 Application of inter mittent pneumatic compression device [facility] Start: 07-04-2023 Catheterization of vein [facility] Start: 07-04-2023 Consultation [facility] Start: 07-04-2023 End: 07-04-2023 Following clinical pathway protocol [facility] Start: 07-04-2023 Maintenance of drainage tube [facility] Start: 07-04-2023 Measuring intake and output [facility] Start: 07-04-2023 Neurovascular assessment [facility] Start: 07-04-2023 Oxygen therapy [facility] Start: 07-04-2023 Patient education [facility] Start: 07-04-2023 Procedure discontinued [facility] Start: 07-04-2023 Provision of activit y privileges [facility] Start: 07-04-2023 Recommendation to co ntinue with treatment [facility] Start: 07-04-2023 Referral to service [facility] Start: 07-04-2023 Taking patient vital signs [facility] Start: 07-04-2023 Admission procedure [facility] Start: 03-08-2023 Patient discharge [facility] Start: 03-08-2023 [facility] Start: 03-07-2023 Application of inter mittent pneumatic compression device [facility] Start: 03-07-2023 Catheterization of vein [facility] Start: 03-07-2023 Consultation [facility] Start: 03-07-2023 End: 03-07-2023 Following clinical pathway protocol [facility] Start: 03-07-2023 Incentive spirometry [facility] Start: 03-07-2023 Measuring intake and output [facility] Start: 03-07-2023 Neurovascular assessment [facility] Start: 03-07-2023 Oxygen therapy [facility] Start: 03-07-2023 Patient education [facility] Start: 03-07-2023 Procedure discontinued [facility] Start: 03-07-2023 Provision of activit y privileges [facility] Start: 03-07-2023 Recommendation to co ntinue with treatment [facility] Start: 03-07-2023 Referral to service [facility] Start: 03-07-2023 Taking patient vital signs [facility] Start: 03-07-2023 [facility] Start: 03-07-2023 Admission procedure [facility] Start: 01-28-2023 MRI of lumbar spine Spine Lumb ar (Routine) [facility] Start: 2020 Screening for malign ant neoplasm of cervix [facility] Start: 2011 Screening for malign ant neoplasm of cervix [facility] Start: 2009 Hepatitis B Vaccine (1 of 3 - + 3-dose series) Hepatitis B Vaccine (1 of 3 - + 3-dose series) [facility] Start: 2009 Urine microalbumin profile DTa P,Tdap,Td Vaccine (1 - Tdap) [facility] Start: 2008 Anxiety Screening Anxiety Screening [facility] Start: 2008 Depression Screening Depression Scre [facility] Start: 2008 Hepatitis C screening Hepatiti s C Screening [facility] Start: 2008 HIV screening HIV Screening [facility] Start: 2005 HIV screening HIV Screening [facility] Start: 2002 Depression screening using PHQ-9 (Patient Health Questionnaire 9) score Depression Screening/Follow-Up (PHQ-2/9) [facility] Start: 1993 History and physical examination, annual for health maintenance Wellness Visit [facility] Start: 1990 Tetanus vaccination Tetanus: Every 1 0yrs [facility] [facility] Chlamydia trachomatis+Neisseria gonorrhoeae DNA [Presence] in Unspecified specimen by MELISA with probe detection GONORRHEA/CHLAMYDIA NAAT Lab Routine Screen for sexually transmitted diseases 10/30/2024 11:31 AM EST [facility] Electrocardiographic procedure [facility] Electrocardiographic procedure [facility] Patient Education ED Cellulitis ED Deep Vein Thrombosis (DVT) [facility] Work Phone: Patient referral [facility] Work Phone: Payers Date Payer Category Payer Medicaid [facility] MEDICAID [facility] MEDICAID [facility] [id number] 2023-Present [phone] [address] [place] [address] Medicaid [id number] 2022 Medicaid (Managed Care) [facility] [employer] [employer] [id number] 2022 Unknown [id number] 2021 Unknown [id number] 2021 Unknown [id number] 2019 Unknown 2018 Self-pay 1990 Unknown [id number] 2.16.840.1.290512.3.579.2. 717 1990 Unknown [id number] 2.16.840.1.942613.3.579.2. 717 1990 Unknown [id number] 2.16.840.1.589406.3.579.2. 356 1990 Unknown [id number] 2.16.840.1.993616.3.579.2. 594 1990 Unknown [id number] 2.16.840.1.825383.3.579.2. 902 1990 Unknown [id number] 2.16.840.1.446680.3.579.2. 902 1990 Unknown [id number] 2.16.840.1.824202.3.579.2. 902 Unknown [id number] Unknown [id number] 2.16.840.1.536180.3.579.2. 462 Unknown [id number] 2.16.840.1.120010.3.579.2. 462 Unknown [id number] 2.16.840.1.709551.3.579.2. 462 Unknown [id number] 2.16.840.1.180763.3.579.2. 462 Unknown [id number] 2.16.840.1.207539.3.579.2. 462 Unknown [id number] 2.16.840.1.463521.3.579.2. 462 Unknown [id number] 2.16.840.1.636773.3.579.2. 462 Unknown [id number] 2.16.840.1.729284.3.579.2. 462 Unknown [id number] 2.16.840.1.732651.3.579.2. 462 Unknown [id number] 2.16.840.1.974774.3.579.2. 462 Unknown [id number] 2.16.840.1.552824.3.579.2. 462 Unknown [id number] 2.16.840.1.302768.3.579.2. 462 Unknown [id number] 2.16.840.1.803704.3.579.2. 462 Unknown [id number] 2.16.840.1.352436.3.579.2. 462 Unknown [id number] 2.16.840.1.246275.3.579.2. 462 Unknown [id number] 2.16.840.1.566793.3.579.2. 462 Unknown [id number] 2.16.840.1.389655.3.579.2. 462 Social History Date Type Detail Facility Start: 08-17-2022 End: 02-21-2024 Tobacco smoking status [facility] Unknown if ever smoked [facility] Start: 1990 Sex Assigned At Female [facility] Start: 01-09-2023 End: 02-21-2024 Tobacco smoking status TNIS Ex-smoker [facility] Start: 11-24-2006 End: 11-24-2021 History of tobacco use Current smoker [facility] Start: 11-24-2006 End: 11-24-2021 History of tobacco use Cigarette Smoker [facility] Start: 01-09-2023 End: 10-30-2024 Tobacco use and exposure Smokeless tobacco non-user [facility] Start: 09-29-2024 Alcoholic beverage intake Ex-drinker (finding) [facility] Start: 09-29-2024 End: 10-28-2024 History of Social function [facility] Start: 09-29-2024 End: 10-28-2024 Tobacco use panel [facility] Start: 1990 Sex assigned at Not on file [facility] Start: 10-30-2024 End: 11-27-2024 Alcoholic beverage intake Current drinker of alcohol (finding) [facility] PHQ2 Score 0 [facility] Start: 11-27-2022 Tobacco Comment Pt has cut too k to 2 cigarettes daily. [facility] Start: 10-18-2017 Alcohol Comment socially [facility] Start: 01-16-2025 End: 01-23-2025 Sex Female (finding) [facility] NEGATED: Highlighted row [facility] Work Phone: NEGATED: Highlighted row [facility] Medical Equipment Procedure Code Equipment Code Equipment Origin al Text Equipment Identifier Dates PATCH,AMNION 2X3CM FDA Start: 03-07-2023 PATCH,AMNION 2X3CM FDA Start: 03-07-2023 PATCH,AMNION 2X3CM FDA Start: 03-07-2023 27MM PREBENT PLATE FDA Start: 07-04-2023 VARIABLE SCREWS FDA Start: 07-04-2023 Ligation clip, metallic ()[id number] FDA Start: 07-04-2023 Ligation clip, metallic ()[id number] [id number] FDA Start: 07-04-2023 Ligation clip, metallic ()[id number] [id number] FDA Start: 07-04-2023 40mm Axle X construct FDA Start: 07-04-2023 CORELINK CAGE FDA Start: 07-04-2023 PATCH,AMNION 2X3CM FDA Start: 07-04-2023 PATCH,AMNION 4x4CM FDA Start: 07-04-2023 STRIP,BONE CANC [id number] FDA Start: 07-04-2023 VARIABLE SCREWS FDA Start: 07-04-2023 VARIABLE SCREWS FDA Start: 07-04-2023 VARIABLE SCREWS FDA Start: 07-04-2023 PATCH,AMNION 2X3CM FDA Start: 03-07-2023 27MM PREBENT PLATE FDA Start: 07-04-2023 VARIABLE SCREWS FDA Start: 07-04-2023 40mm Axle X construct FDA Start: 07-04-2023 CORELINK CAGE FDA Start: 07-04-2023 PATCH,AMNION 2X3CM FDA Start: 07-04-2023 PATCH,AMNION 4x4CM FDA Start: 07-04-2023 STRIP,BONE CANC [id number] FDA Start: 07-04-2023 VARIABLE SCREWS FDA Start: 07-04-2023 VARIABLE SCREWS FDA Start: 07-04-2023 VARIABLE SCREWS FDA Start: 07-04-2023 PATCH,AMNION 2X3CM FDA Start: 03-07-2023 27MM PREBENT PLATE FDA Start: 07-04-2023 VARIABLE SCREWS FDA Start: 07-04-2023 40mm Axle X construct FDA Start: 07-04-2023 CORELINK CAGE FDA Start: 07-04-2023 PATCH,AMNION 2X3CM FDA Start: 07-04-2023 PATCH,AMNION 4x4CM FDA Start: 07-04-2023 STRIP,BONE CANC [id number] FDA Start: 07-04-2023 VARIABLE SCREWS FDA Start: 07-04-2023 VARIABLE SCREWS FDA Start: 07-04-2023 VARIABLE SCREWS FDA Start: 07-04-2023 INFLUX SPARC 5CC FDA Start: 02-05-2024 PASTE,BONE 1CC KHRIS FDA Start: 02-05-2024 REF- [id number] SIROS-O IMPLANT FDA Start: 02-05-2024 REF- [id number] SIROS-O IMPLANT FDA Start: 02-05-2024 PATCH,AMNION 2X3CM FDA Start: 03-07-2023 27MM PREBENT PLATE FDA Start: 07-04-2023 VARIABLE SCREWS FDA Start: 07-04-2023 40mm Axle X construct FDA Start: 07-04-2023 CORELINK CAGE FDA Start: 07-04-2023 PATCH,AMNION 2X3CM FDA Start: 07-04-2023 PATCH,AMNION 4x4CM FDA Start: 07-04-2023 STRIP,BONE CANC [id number] FDA Start: 07-04-2023 VARIABLE SCREWS FDA Start: 07-04-2023 VARIABLE SCREWS FDA Start: 07-04-2023 VARIABLE SCREWS FDA Start: 07-04-2023 INFLUX SPARC 5CC FDA Start: 02-05-2024 PASTE,BONE 1CC KHRIS FDA Start: 02-05-2024 REF- [id number] SIROS-O IMPLANT FDA Start: 02-05-2024 REF- [id number] SIROS-O IMPLANT FDA Start: 02-05-2024 PATCH,AMNION 2X3CM FDA Start: 03-07-2023 27MM PREBENT PLATE FDA Start: 07-04-2023 VARIABLE SCREWS FDA Start: 07-04-2023 40mm Axle X construct FDA Start: 07-04-2023 CORELINK CAGE FDA Start: 07-04-2023 PATCH,AMNION 2X3CM FDA Start: 07-04-2023 PATCH,AMNION 4x4CM FDA Start: 07-04-2023 STRIP,BONE CANC [id number] FDA Start: 07-04-2023 VARIABLE SCREWS FDA Start: 07-04-2023 VARIABLE SCREWS FDA Start: 07-04-2023 VARIABLE SCREWS FDA Start: 07-04-2023 INFLUX SPARC 5CC FDA Start: 02-05-2024 PASTE,BONE 1CC KHRIS FDA Start: 02-05-2024 REF- [id number] [id number] SIROS-O IMPLANT FDA Start: 02-05-2024 REF- [id number] [id number] SIROS-O IMPLANT FDA Start: 02-05-2024 Goals Date Patient Goal Desired Activity /State Functional Status Date Assessment Result Facility 02-06-2024 Functional status Ambulates;Up ad fiona [facility] Work Phone: 07-06-2023 Functional status Ambulates;Up ad fiona [facility] Work Phone: 03-08-2023 Functional status Up ad fiona;Bathroom Priv ilege [facility] Work Phone: Mental Status Date Assessment Result Facility 02-06-2024 Cognitive function Level Of Cons ciousness Awake;Alert;Appropriate;Follow s Commands [facility] Work Phone: 02-06-2024 Cognitive function Voice/Name [facility] Work Phone: 07-06-2023 Cognitive function Voice/Name [facility] Work Phone: 03-08-2023 Cognitive function Appropriate [facility] Work Phone: 03-08-2023 Cognitive function Arousable To Voice/Nam e [facility] Work Phone: Clinical Notes 03-02-2023 to 01-12-2025 Aneesh Dia MD - 11/27/2024 11:10 AM ESTTelephone Encounter - Magali Zelaya RN - 11/22/2024 12:28 PM ESTTelephone Encounter - Magali Zelaya RN - 11/22/2024 12:28 PM EST Note Date & Type Note Facility 01-12-2025 Radiology Diagnostic study note [facility] Imaging Services [address] [place], [place] [address] Abdomen Limited MR#: [id number] Acct: [id number] Name: DENISHA HILL Rep #: [id number] : 1990 F 34 From: Chapis Alexandre MD PCP: Dr. Tomasz Coleman MD Status: RE G CLI Study:Abdomen Limited Date of Exam: 12/07 Exam# [id number] Ordering Dr: Tomasz Coleman MD PROCEDURE: ABDOMEN [...] MYRIAM CC: Dr. Tomasz Coleman MD ~ Antiquer: Signed [facility] 11-27-2024 Note HNO ID: [id number] Author: ANEESH DIA MD Service: ? Author [...] L2 SAB0 IAB0 Ectopic0 Multiple0 Live Births2 Color Buffer History LMP: 01/03/2021, IUD Age at Menarche: Age at First : Age at Menopause: Color Buffer History Comments: Sexual Activity: Not Currently; Male [...] L2 SAB0 IAB0 Ectopic0 Multiple0 Live Births2 Color Buffer History LMP: 01/03/2021, IUD Age at Menarche: Age at First : Age at Menopause: Color Buffer History Comments: Sexual Activity: Not Currently; Male [...] Dia MD ftft>30m documented in this encounter [facility] 11-22-2024 Telephone encount er Note Pt currently [...] ER. Pt voiced understanding. Magali Zelaya RN [facility] 11-22-2024 Miscellaneous Notes Formattin g of this [...] Aneesh Dia MD documented in this encounter [facility] 11-22-2024 Telephone encount er Note Left message for patient to call office. Yesy Andrews RN [facility] 11-18-2024 Telephone encount er Note ----- Message from Aneesh Dia MD sent at 11/18/2024 1:10 PM EST ----- Attempted reaching patient by phone to see if her pain has resolved and review her ultrasound that is essentially unremarkable. Please schedule f/u appointment if problems persist. Aneesh Dia MD [facility] 11-04-2024 Note HNO ID: [id number] Author: ALLYN MARTINEZ MD Service: ? Author Type: Physician Type: Progress Notes Filed: 11/04/2024 09:41 Note Text: The patient presents for requested ultrasound. Full report available in the Imaging tab in [employer]. Allyn Martinez MD [facility] 11-04-2024 History of Presen t illness Narrative The patient presents for requested ultrasound. Full report available in the Imaging tab in [employer]. Allyn Martinez MD documented in this encounter [facility] 10-30-2024 Note HNO ID: [id number] Author: ANEESH DIA MD Service: ? Author Type: Physician Type: Progress Notes Filed: 10/30/2024 11:01 Note Text: Stranner offered: Patient accepts, visit chaperoned by Cherise [...] L0 SAB0 IAB0 Ectopic0 Multiple0 Live Births2 Color Buffer History LMP: 01/03/2021, IUD Age at Menarche: Age at First : Age at Menopause: Color Buffer History Comments: Sexual Activity: Not Currently; Male [...] discussed with the Patient or Patient's Authorized Heavy Equipment Operating Engineer. As applicable, any other physician, advance practice provider, medical student, or other health professional student that will be observing or involved in the sensitive examination for educational or training purposes was discussed with the Patient or Authorized Heavy Equipment Operating Engineer. The Patient or Authorized Heavy Equipment Operating Engineer has agreed to proceed with the sensitive examination. (Sensitive examination includes inspection and/or palpation of the breasts, pelvis, prostate and anorectal regions). EXAM: BP 120/80 Wt 192 lb (87.1kg) LMP 01/03/2021 GENERAL: pleasant, female in no apparent distress ABDOMEN: Benign, soft, non-tender, and no masses PELVIC: external genitalia normal, normal Bartholin's glands, urethra, Calion's glands, no vulvar lesions, no cervical lesions, [...] 10-30-2024 History of Presen t illness Narrative Stranner offered: Patient accepts, visit chaperoned by Cherise [...] L0 SAB0 IAB0 Ectopic0 Multiple0 Live Births2 Color Buffer History LMP: 01/03/2021, IUD Age at Menarche: Age at First : Age at Menopause: Color Buffer History Comments: Sexual Activity: Not Currently; Male [...] discussed with the Patient or Patient's Authorized Heavy Equipment Operating Engineer. As applicable, any other physician, advance practice provider, medical student, or other health professional student that will be observing or involved in the sensitive examination for educational or training purposes was discussed with the Patient or Authorized Heavy Equipment Operating Engineer. The Patient or Authorized Heavy Equipment Operating Engineer has agreed to proceed with the sensitive examination. (Sensitive examination includes inspection and/or palpation of the breasts, pelvis, prostate and anorectal regions). EXAM: BP 120/80 Wt 192 lb (87.1kg) LMP 01/03/2021 GENERAL: pleasant, female in no apparent distress ABDOMEN: Benign, soft, non-tender, and no masses PELVIC: external genitalia normal, normal Bartholin's glands, urethra, Calion's glands, no vulvar lesions, no cervical lesions, [...] Aneesh Dia MD documented in this encounter [facility] 02-06-2024 Discharge summary Note Date/Time February 06, 2024 12:38pm [facility] Medical Records Department [address] [place] [address] Discharge Summary 02/06/24 1235 MR#: [id number] Acct: [id number] Name: DENISHA HILL Rep #:[id number] : 1990 33 From: Gerber Ibanez PCP: Dr. Tomasz Coleman MD Status:[facility] Location: [place] [address]-1 Providers Date of Admission: 02/05/24 Primary Care [...] Coleman MD; Dr. Gerber Corey DO~ Signed [facility] Work Phone: 1(691) 383-593503-25-2024 Procedure [facility] 01-31-2024 History and physical note Author Gerber Corey [facility] January 31, 2024 4:40pm Note Date/Time January 31, 2024 4:4 0pm [facility] Medical Records Department [address] [place] [address] History & Physical Exam 01/31/24 1639 MR#: [id number] Acct: [id number] Name: DENISHA HILL Rep #:[id number] : 1990 33 From: Gerber Ibanez PCP: Dr. Tomasz Coleman MD [place] [facility] [place] [facility] History and Physical MR#: [id number] Acct: [id number] Name: DENISHA HILL Rep #: [id number] : 1990 Provider: Dr. Gerber Corey DO Age/Sex: 33/F [place] [facility] Status: Signed Intake Vital Signs 11/16/2408:05 Height [...] willput her on the schedule in the jro-rdt-zdyxnvw future. I will see her again in the office about a week or so prior to the procedure. Coding Level of Care Code Off vis,est,level 3 Diagnoses Chronic right sacroiliac joint pain M53.3; G89.29 01/31/24 1640 <Electronically signed by Gerber Corey DO> Cosigner Signature (if applicable): CC: Dr. Tomasz Coleman MD; Dr. Gerber Corey DO~ Signed [facility] Work Phone: 1(836) 583-318108-24-2023 Progress note Author Sandy Staton [facility] July 06, 2023 1:32pm Note Date/Time July 06, 2023 6: 20am [facility] Medical Records Department [address] [place] [address] Progress Note - Hospitalist 07/06/23 0619 MR#: [id number] Acct: [id number] Name: DENISHA HILL Rep #:[id number] : 1990 32 From: Sandy Staton MD PCP: Dr. Tomasz Coleman MD Status:AD M IN Location: MS3 BY689-3 Reason for Visit Reason for Visit: Diagnoses [...] (Auto) 88.5 H, Lymph % (Auto) 6.2L, Charles % (Auto) 4.8, Eos % (Auto) 0.0, [...] anemia/Fe deficiency anemia who presents to the [facility] on 07/04/23 secondary to history of [...] recent OR. Charges/Coding Visit Charges Inpatient E&M: 18166 Subs Hosp L2 07/06/23 1332 <Electronically signed by Sandy Staton MD> Cosigner Signature (if applicable): CC: ~ Signed [facility] Work Phone: 1(239) 951-799108-23-2023 Progress note Author Sandy Staton [facility] July 05, 2023 2:44pm Note Date/Time July 05, 2023 6: 21am [facility] Medical Records Department [address] [place] [address] Progress Note - Hospitalist 07/05/23620 MR#: [id number] Acct: [id number] Name: DENISHA HILL Rep #:[id number] : 1990 32 From: Sandy Staton MD PCP: Dr. Tomasz Coleman MD Status:AD M IN [place] [facility] [id number] Reason for Visit Reason for Visit: Diagnoses [...] 12:07 EDT Reading Location ID and State: [facility] / MD , Service support , Spine X-Ray 07/04/23 [...] anemia/Fe deficiency anemia who presents to the [facility] on 07/04/23 secondary to history of [...] recent OR. Charges/Coding Visit Charges Inpatient E&M: 27315 Subs Hosp L2 07/05/23 1444 <Electronically signed by Sandy Staton MD> Cosigner Signature (if applicable): CC: ~ Signed [facility] Work Phone: 1(228) 899-711508-23-2023 Procedure [facility] 07-04-2023 Progress note Author Sandy [facility] July 04, 2023 6:48pm Note Date/Time July 04, 2023 6: 48pm [facility] Medical Records Department [address] [place] [address] Progress Note - Hospitalist 07/04/23 1841 MR#: [id number] Acct: [id number] Name: DENISHA HILL Rep #:[id number] : 1990 32 From: Sandy Staton MD PCP: Dr. Tomasz Coleman MD Status:AD M IN Location: [place] [address] Reason for Visit Reason for Visit: Diagnoses [...] 12:07 EDT Reading Location ID and State: [facility] / MD , Service support , Spine X-Ray 07/04/23 [...] anemia/Fe deficiency anemia who presents to the [facility] on 07/04/23 secondary to history of [...] recent OR. Charges/Coding Visit Charges Inpatient E&M: 93279 Subs Hosp L2 07/04/23 1848 <Electronically signed by Sandy Staton MD> Cosigner Signature (if applicable): CC: ~ Signed [facility] Work Phone: 1(282) 558-576908-22-2023 Procedure [facility] 07-04-2023 Procedure [facility]08-21-2023 History and physical note Author Gerber Corey [facility] July 03, 2023 2:35pm Note Date/Time July 03, 2023 2: 35pm [facility] Medical Records Department [address] [place] [address] History & Physical Exam 07/03/23 1434 MR#: [id number] Acct: [id number] Name: HOWIEDENISHA MORAN YADIRA Rep #:[id number] : 1990 32 From: Gerber Ibanez PCP: Dr. Tomasz Coleman MD Status:VA E [place] Location: [facility] History and Physical Add?Addendum MR#: [id number] Acct: [id number] Name: SEGRIODENISHA Rep #: [id number] : 1990 Provider: Dr. Gerber Corey DO Age/Sex: 32/F [place] [facility] [place] Status: Signed Intake Vital Signs 03/07/2313:11 Height [...] Coleman MD; Dr. Gerber Corey DO~ Signed [facility] Work Phone: 1(871) 759-853104-25-[address] Kennedy [facility] March 07, 2023 5:25pm Note Date/Time March 07, 2023 5:1 6pm [facility] Medical Records Department [address] [place] [address] Consultation - Hospitalist 03/07/23 1712 MR#: [id number] Acct: [id number] Name: DENISHA HILL Rep #:[id number] : 1990 32 From: Eliane Kennedy MD PCP: Dr. Tomasz Coleman MD Status:[facility] Location: [place]3 BI634-5 Assessment & Plan Assessment/Plan (1) Herniated nucleus [...] thrombus status post anticoagulation who presented to [facility]2023 for Lumbar laminectomy discectomy L5-S1 on [...] other sensory complaints. Denies any other complaints. [facility] Medical History Abnormal echocardiogram Alcohol use Anemia [...] Charges/Coding Visit Charges Office Visits / Consults: 79333 OP Consult L3 03/07/23 1725 <Electronically signed by Eliane Kennedy MD> Cosigner Signature (if applicable): CC: Dr. Tomasz Coleman MD; Dr. Gerber Corey DO; Dr. Eliane Kennedy MD~ Signed [facility] Work Phone: 1(691) 139-744104-25-2023 Procedure [facility] 03-02-2023 History and physical note Author Dr. Corey [facility] March 02, 2023 1:22pm Note Date/Time March 02, 2023 1:2 2pm [facility] Medical Records Department [address] [place] [address] History & Physical Exam 03/02/23 1319 MR#: [id number] Acct: [id number] Name: DENISHA HILL Rep #:[id number] : 1990 32 From: Gerber Ibanez PCP: Dr. Tomasz Coleman MD Status:VA E SDC [place] [facility] [place] and Physical Addendum MR#: [id number] Acct: [id number] Name:? DENISHA HILL Rep #: [id number] : 1990 ? ? Provider: Dr. Gerber Corey DO Age/Sex:? 32/F ? ? [place] [facility] [place] Status: Signed with Addenda ADDENDUM by Dr. Gerber Corey DO on 02/16/23 at 1151 Office Procedure This is addendum on [email or web address] has asked to answer #4 #5.? The [...] by me, Dr. Gerber Corey, DO 02/01/23 8310. DENISHA HILL is a 32 year old [...] Coleman MD; Dr. Gerber Corey DO~ Signed [facility] Work Phone: Consult note Author Liv Hernandez [facility] July 06, 2023 2:18pm Note Date/Time July 06, 2023 2: 18pm [facility] Medical Records Department [address] [place] [address] Counseling Note - Pharmacy 07/06/23 1417 MR#: [id number] Acct: [id number] Name: DENISHA HILL Rep #:[id number] : 1990 32 From: Liv Hernandez PCP: Dr. Tomasz Coleman MD Status:AD M IN Y Location: [place] DG974-8 [place] Med Reconciliation Pharmacy Service has performed discharge [...] Signature (if applicable): Date CC: ~ Signed [facility] Work Phone: Discharge summary Author Dr. Corey [facility] March 08, 2023 12:56pm Note Date/Time March 08, 2023 12: 55pm [facility] Medical Records Department [address] [place] [address] Instructions for Home/Discharge Instructions 03/08/23 1253 MR#: [id number] Acct: [id number] Name: DENISHA HILL Rep #:[id number] : 1990 32 From: Gerber Ibanez PCP: [...] MD; Dr. Eliane Kennedy MD ~ Signed [facility] Work Phone: Discharge summary Author Dr. Corey [facility] March 08, 2023 12:58pm Note Date/Time March 08, 2023 12: 58pm [facility] Medical Records Department [address] [place] [address] Discharge Summary 03/08/23 125 MR#: [id number] Acct: [id number] Name: HOWIEDENISHA MORAN Rep #:[id number] : 1990 32 From: Gerber Ibanez PCP: Dr. Tomasz Coleman MD Status:[facility] Location: [place]3 DY271-8 Providers Date of Admission: 03/07/23 Primary Care Physician: Dr. Tomasz Coleman MD Attending Physician: Denisha was admitted yesterday. She underwent lumbar laminectomy at the L5- G4rczsn on the right side. Today she reports [...] Coleman MD; Dr. Gerber Corey DO~ Signed [facility] Work Phone: Discharge summary Author Gerber Corey [facility] July 06, 2023 1:16pm Note Date/Time July 06, 2023 1: 16pm [facility] Medical Records Department [address] [place] [address] Discharge Summary 07/06/23 1314 MR#: [id number] Acct: [id number] Name: SERGIODENISHA YADIRA Rep #:[id number] : 1990 32 From: Gerber Ibanez PCP: Dr. Tomasz Coleman MD Status:AD M IN [place] [facility] [place] [place]017[place] Providers Date of Admission: 07/04/23 Primary Care [...] Consulting Providers: Emmett Rangel; Juno Lobo; Sandy Staotn Discharge Orders/Prescriptions Prescriptions: No Action ferrous sulfate [...] Coleman MD; Dr. Gerber Corey DO~ Signed [facility] Work Phone: Evaluation note* Diagnosis Onset Date Resolution Status Abscess of left elbow acute Cellulitis of left upper extremity acute Deep vein thrombosis (DVT) of left upper extremity acute Open wound of left elbow acu te [facility] Work Phone: Evaluation noteNo assessment information available [facility] Work Phone: Evaluation note* Diagnosis Onset Date Resolution Status Herniated nucleus pulposus, L5-S1, right acute Herniated nucleus pulposus, L5-S1, right acute Herniated nucleus pulposus, L5-S1, right acute [facility] [facility] Work Phone: Evaluation note* Diagnosis Onset Date Resolution Status S/P laminectomy acute S/P laminectomy acute Herniated nucleus pulposus, L5-S1, right acute S/P laminectomy acute Herniated nucleus pulposus, L5-S1, right acute S/P laminectomy acute Herniated nucleus pulposus, L5-S1, right acute S/P laminectomy acute Herniated nucleus pulposus, L5-S1, right acute Intractable back pain acute [facility] Work Phone: Evaluation note* Diagnosis Onset [...] acute S/P lumbar spinal fusion acu te [facility] Work Phone: Evaluation note* Diagnosis Onset Date Resolution Status 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 [facility] Work Phone: Evaluation note* Diagnosis Onset Date Resolution Status Chronic right sacroiliac joint pain resolved Chronic right sacroiliac joint pain resolved Chronic right sacroiliac joint pain resolved S/P fusion of sacroiliac joint acute S/P fusion of sacroiliac joint acute S/P fusion of sacroiliac joint acute [facility] Work Phone: Evaluation note* Diagnosis Postlaminectomy syndrome, lumbar region- Primary documented in this encounter [facility] note* Diagnosis Screen for sexually transmitted diseases- Primary Screening examination for venereal disease Pelvic pain in female Unspecified symptom associated with female genital organs documented in this encounter [facility] note* Diagnosis Pelvic pain in female Unspecified symptom associated with female genital organs documented in this encounter [facility] note* Diagnosis Pelvic pain during - Primary documented in this encounter [facility] for referral (narrative)* Diagnostic Procedure Only (Routine) - Authorized Specialty Diagnoses / Procedures Referred By Contac t Referred To Contact [facility] Diagnoses Pelvic pain in female Procedures PELVIC US WHI US PELVIC NONOBSTETRIC REAL-TIME IMAGE COMPLETE Aneesh Dia MD [address] [place] [address] [facility] [address] [place] [address] Referral ID Status Reason Start Date Expiration Date Visits Requested Visits Authorized [id number] Authorized Auto-Generat ed Referral 10/30/2025 1 1 [facility]No reason for referral information availableW[facility] Work Phone: Reason for visit Narrative* Diagnostic Procedure Only (Routine) - Closed Specialty Diagnoses / Procedures Referred By Contac t Referred To Contact [facility] Diagnoses Pelvic pain in female Procedures PELVIC US WHI US PELVIC NONOBSTETRIC REAL-TIME IMAGE COMPLETE Aneesh Dai MD [address] [place] [address] [facility] [address] [place] [address] Referral ID Status Reason Start Date Expiration Date V isits Requested Visits Authorized [id number] Closed Auto-Generate d Referral 10/30/2024 10/30/2025 1 1 [facility] Summary Purpose Family History No Family History Records Found Relationship Condition Age at Onset Recorded Date/T ramin grandmother Cardiac disease Unknown Advance Directives No Advanced Directives Records Found Advance Directive Response Recorded Date/ Time Living Will No August 09, 2022 3:36pm Power of Registrar [employer] No July 3:36pm Advance Directive Response Recorded Date/ Time Living Will No August 09, 2022 2:36pm Power of Registrar [employer] No July 2:36pm Advance Directive Response Recorded Date/ Time Living Will No March 07, 2023 1:12pm Power of Registrar [employer] No March 07 1:12pm Advance Directive Response Recorded Date/ Time Living Will No July 04 4:58pm Power of Registrar [employer] No July 04 4:58pm Advance Directive Response Recorded Date/ Time Living Will No February 05, 2024 12:05pm Power of Registrar [employer] No February 04 12:05pm Chief Complaint and [...] section and content) DATE CREATED AUTHOR 01/14/2019 [facility] DATE CREATED AUTHOR AUTHOR'S ORGANIZ ATION 01/14/2019 [facility] DATE CREATED AUTHOR AUTHOR'S ORGANIZ ATION 12/25/2019 [facility] DATE CREATED AUTHOR AUTHOR'S ORGANIZ ATION 04/27/2021 [facility] DATE CREATED AUTHOR AUTHOR'S ORGANIZ ATION 11/27/2022 [facility] DATE CREATED AUTHOR AUTHOR'S ORGANIZ ATION 11/30/[address] [facility] DATE CREATED AUTHOR AUTHOR'S ORGANIZ ATION 04/25/2025 [facility] DATE CREATED AUTHOR AUTHOR'S ORGANIZ ATION 05/23/2025 [facility] Goals (unrecognized section and content) Goals [...] Status: Inactive Member Role Status Dates Dr. Tomazs Coleman MD Primary Care Provider Active Jeanne Gallo FOOD TECHNOLOGY TEACHER, FOOD TECHNOLOGY TEACHER-C Attending Provider, Referring Pro vider Active Team Status: Inactive Member Role Status Dates Dr. Tomasz Coleman MD Primary Care Pr ovider, Attending Provider, Referring Provider Active Team Status: Active Member Role Status Dates Dr. Tomasz Coleman MD Primary Care Provider Active Swapna Coates FOOD TECHNOLOGY TEACHER, FOOD TECHNOLOGY TEACHER-C Attending Pro vider, Referring Provider, Other Provider Active Team Status: Inactive Member Role Status Dates Dr. Tomasz Coleman MD Primary Care Provider Active Swapna Coates FOOD TECHNOLOGY TEACHER, FOOD TECHNOLOGY TEACHER-C Attending Provider Active Team Status: Active Member Role Status Dates Dr. Tomasz Coleman MD Primary Care Provider Active Jeanne Gallo FOOD TECHNOLOGY TEACHER, FOOD TECHNOLOGY TEACHER-C Attending Provider, Referring Pro vider Active Team [...] Escobedo MD Other Provider Active Analy Salvador FOOD TECHNOLOGY TEACHER, FOOD TECHNOLOGY TEACHER-C Other Provider Active Tomasz HEARN Other Provider Active Team Status: Active Member Role Status Dates Dr. Tomasz Coleman MD Primary Care Provider Active Dr. Roger Rasmussen MD Attending Provider Active Dr. Gerber Corey , DO Referring Provider Active Team Status: Active Member Role Status Dates Dr. oTmasz Coleman MD Primary Care Provider Active Dr. [...] Escobedo MD Other Provider Active Analy Salvador FOOD TECHNOLOGY TEACHER, FOOD TECHNOLOGY TEACHER-C Other Provider Active Tomasz HEARN Other Provider Active Edge Trimming Machine Operator Relationship Specialty Start Date End Date Tomasz Coleman MD [address] [place] [address] PCP - General Endocrinology/Metabolism 01/09/23 Edge Trimming Machine Operator Relationship Specialty Start Date End Date Tomasz Coleman(Historical), PCP - General Family Medicine 05/25/21 Edge Trimming Machine Operator Relationship Specialty Start Date End Date Tomasz Coleman(Historical), PCP - General Family Medicine 05/25/21 Edge Trimming Machine Operator Relationship Specialty Start Date End Date Tomasz Coleman(Historical), PCP - General Family Medicine 05/25/21 Edge Trimming Machine Operator Relationship Specialty Start Date End Date Tomasz [...] December 17, 2024 Dr. Tomasz Coleman MD Attending Provider Active Start: December 17, [...] or prosecute any alcohol or drug abuse patient.[facility] the event this information is protected by the Federal Confidentiality of Alcohol and Drug Abuse Patient Records regulations: The Federal rules restrict any use of the information to criminally investigate or prosecute any alcohol or drug abuse patient.[facility] Center[facility] the event this information is protected by the Federal Confidentiality of Alcohol and Drug Abuse Patient Records regulations: The Federal rules restrict any use of the information to criminally investigate or prosecute any alcohol or drug abuse patient.[facility] Center[facility] the event this information is protected by the Federal Confidentiality of Alcohol and Drug Abuse Patient Records regulations: The Federal rules restrict any use of the information to criminally investigate or prosecute any alcohol or drug abuse patient.[facility] Reason for Visit (unrecogniz ed section and [...] BE BASED ON THE PRIMARY CLINICAL RECORDS. [facility] [employer] [facility]. provides no warranty or guarantee of the accuracy or completeness of information in this document.
== END | disposition home or self-care (01) ==
LOC: RAD 10:19
PROVIDERS: PCP Family Medicine; Referring Provider Anesthesiology; Visit Provider Anesthesiology
DX: M47.812 Spondylosis without myelopathy or radiculopathy, cervical region (principal)
CPT/HCPCS: 72050

== ENCOUNTER → 2025-08-26 | Outpatient (CLI) | payer MEDICAID, SELFPAY ==
[2025-08-26 18:40] LABS: Hematocrit 38.7 % (37-47); Hemoglobin 12.9 g/dL (12.0-15.0); Immature Granulocytes Count 0.020 X10^3/uL (0.0-0.0); Mean Corp Hgb Conc 33.3 g/dL (32-36); Mean Corpuscular Volume 78.5 fL (81-99); Mean Platelet Vol. 11.7 fl (6.2-12.0); NRBC Flagged by Analyzer 0 % (0-5); Platelet Count 339 K/mm3 (150-450); RBC Distribution Width CV 13.5 % (11.6-14.6); RBC Distribution Width SD 38.3 fl (35.1-43.9); Red Blood Count 4.93 M/mm3 (4.2-5.4); White Blood Count 8.6 K/mm3 (4.4-11.0)
[2025-08-26 19:17] LABS: Albumin, Serum 4.7 g/dL (3.5-5.0); BUN 6 mg/dL (4-19); BUN/Creat Ratio 10.5 RATIO (10-20); Globulin 3.1 g/dL (2.2-4.2); Glucose 86 mg/dL (70-99)
[2025-08-26 19:18] LABS: AST(SGOT) 19 U/L (<=31); Alanine Aminotransfer ALT/SGPT 13 U/L (<=34); Alkaline Phosphatase 63 U/L (35-104); Anion Gap 12 (5-15); Calcium,Total 9.6 mg/dL (7.6-11.0); Carbon Dioxide 24.2 mmol/L (21.0-32.0); Chloride 101 mmol/L (98-108); Ferritin 45 ng/mL (22-378); Iron 61 ug/dL (50-170); Iron Binding Capacity,Total 328 ug/dL (250-450); Iron Binding Capacity,Unsat 267 ug/dL (228-428); Magnesium 2.2 mg/dL (1.5-2.2); Potassium 3.6 mmol/L (3.3-5.1)
== END | disposition home or self-care (01) ==
LOC: MFPLAB 16:11
PROVIDERS: PCP Family Medicine; Visit Provider Family Medicine
DX: I47.10 Supraventricular tachycardia, unspecified (principal); D50.9 Iron deficiency anemia, unspecified; M47.812 Spondylosis without myelopathy or radiculopathy, cervical region
CPT/HCPCS: 36415; 80053; 82728; 83540; 83550; 83735; 85025; 97110

== ENCOUNTER 2025-08-28 10:00 | Outpatient (RCR) | payer MEDICAID, SELFPAY ==
--- NOTE | 2025-06-17 13:32 | HP.PTEVAL ---
Patient's Visit Information Visit Information Visit Information: REX GILES is a 34 year old F referred to Physical Therapy by Dr. Papa Truong MD with a diagnosis of cervical spondylosis. Date of Evaluation: 06/17/25 Physical Therapist: Hari Jama, PT, ATC Visit Plan Frequency: 2x /Week Duration: 6 Weeks Plan: Assess benefit of c/s retractions. DTR to c/s, man mobs, PROM, scap stab ex's, and HEP Subjective Subjective: Pt reports she was being treated for her LBP by a chiropractor. Pt notes one day, about 8 months ago, he adjusted her cervical spine for no reason, and she has been in pain ever since. Pt notes she went to her family doctor that ordered x-rays which revealed there is minor swelling noted. Pt reports the pain is located all on the L side of her neck. Pt reports she also intermittently experiences L UE radiculopathy that radiates to her elbow. Pt notes some days the pain is better, and some days the pain is worse for no particular reason. Pt reports sleep difficulty at this time secondary to pain. Pt reports she is unable to drive when her pain is bad secondary to limited ROM in her cervical spine. 7/10 pain at rest, 10/10 pain at worst. Pain cervical spine: Pain Intensity (Out of 10): 7 Pain Intensity Range: 10 Objective Objective: Neuro: B UE sensation is WNL to light touch. Palpation: Significant muscle guarding throughout cervical spine. No obvious deformity noted. MMT: R UE is 5/5 throughout. L UE is grossly 3+/5 with exception to elbow ext= 5/5. Pt is limited by pain this date. ROM: L SB, R rotation, flex, ext, protraction are all moderately limited. All other motions are WNL Repeated movements: RPIS 10x3 increased peripheralization in L UE. RRIS 10x3 increased c/s pain, but abolished L UE rad. Special tests: compression/distraction tests are negative Balance/Special Test Scores Oswestry Neck Score: 32 Goals Goal 1:: Decrease neck pain x 50% to aid with sleep Goal Time Frame: 4-6 Weeks Goal 2:: Increase cervical spine ROM to WNL to aid with driving Goal Time Frame: 4-6 Weeks Goal 3:: Increase L UE strength x 1 grade to aid with IADL's Goal Time Frame: 4-6 Weeks Goal 4:: I with HEP Goal Time Frame: 4-6 Weeks Rehabilitation Potential Physical Therapy Diagnosis: Pt has neck pain, limited ROM, and difficulty with sleep secondary to sprain/strain of the cervical spine Rehabilitation Potential: Good Anticipated Interventions Patient/Client Instruction: Educate patient on: Condition and Plan of Care For the Purpose of:: To improve self management Therapeutic Exercise to Include: Strength training, Body mechanics, Postural training, Passive ROM, Active ROM, Angelo Exercises and Scapular Strength/Stabilization For the Purpose of:: To decrease pain, To increase ROM and To improve muscle performance and motor function Text: Thank you for the opportunity to evaluate your patient. For Medicare and Medicare HMO plans, please review the plan of care and approve it. It will need to be FAXED BACK to us at [phone] for Medicare purposes. For Medicare only, by signing this I certify the plan of care. Please let me know if there are questions or concerns regarding this plan of care. Physician Signature: Date:
--- NOTE | 2025-08-28 10:34 | HP.PTDCSUM ---
Discharge Summary D/C summary: It has been my pleasure to treat REX GILES referred by Dr. Papa Truong MD, with the diagnosis of cervical spondylosis for a total of 10 visit(s). Discharge Date: Please see the following information for a summary of their discharge status. Subjective Subjective: I am ready to be done Pain cervical spine: Pain Intensity (Out of 10): 2 Overall Improvement % Improvement: 85 Objective Objective/Function: Cervical spine pain 2/10 Cervical spine ROM is now WFL with no limitations B UE strength is WNL and equal when compared bilaterally Pt is I with HEP Goals Goal 1:: Decrease neck pain x 50% to aid with sleep Goal Progress: Goal Met Goal 2:: Increase cervical spine ROM to WNL to aid with driving Goal Progress: Goal Met Goal 3:: Increase L UE strength x 1 grade to aid with IADL's Goal Progress: Goal Met Goal 4:: I with HEP Goal Progress: Goal Met Plan Plan: Discharge to HEP D/C Information d/c sentence: If there are questions or concerns regarding this patient's physical therapy, please feel free to call me at [phone]. Thank you for the referral of this patient. Sincerely, Hair Jama, PT, ATC Balance/Gait/Functional tests Balance/Special Test Scores Oswestry Neck Score: 6 Improvement % Improvement: 85
== END 2025-08-28 12:23 | disposition home or self-care (01) ==
LOC: PT 10:00
PROVIDERS: PCP Family Medicine; Referring Provider Anesthesiology; Visit Provider Anesthesiology
DX: M47.812 Spondylosis without myelopathy or radiculopathy, cervical region (principal)
CPT/HCPCS: 97110; 97140; 97161; 97530